=== PATIENT | male | born 1935 | race Two or more races ===

== ENCOUNTER 2024-06-09 04:14 | Inpatient (IN) | payer OTHER, MEDICARE, SELFPAY ==
[2024-06-09] VITALS (16 sets, daily range): BP systolic 108–170; BP diastolic 60–89; PULSE 67–91; RESP 13–22; TEMP 36.1–36.9; O2SAT 91–99; BMI 26.6; BMI 26.2
--- NOTE | 2024-06-09 04:30 | EKG_ITS ---
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) Order Number: [id number] Reading MD: [place] ([facility]) Measurements Intervals Holly Rate: 79 P: 17 IL: 170 QRS: -43 QRSD: 154 T: 112 QT: 426 QTc: 491 Interpretive Statements SINUS RHYTHM WITH OCCASIONAL VENTRICULAR PREMATURE COMPLEXES MARKED LEFT AXIS DEVIATION [QRS AXIS < -30] LEFT BUNDLE BRANCH BLOCK [120+ ms QRS DURATION, 80+ ms Q/S IN V1/V2, 85+ ms R IN I/aVL/V5/V6] No previous ECG available for comparison /store/S0/[id number].pdf
--- NOTE | 2024-06-09 04:30 | XR_ITS ---
Examination: PA lateral chest 2 views Technique: Upright PA lateral chest 2 views Exam date and time: June 09, 2024 0442 hrs. Comparison 2021 Indications: Chest pain today. Findings: Significant CHF Mild enlargement cardiac contour Prominent vascular congestion including central vascular engorgement Perihilar basilar edema with small pleural effusions Consider superimposed pneumonia at the lung bases Prominent osteopenia Impression: Significant CHF Consider superimposed pneumonia at the lung bases
--- NOTE | 2024-06-09 04:30 | XR_ITS ---
Examination: Abdomen sonogram, Limited Date and time of exam: June 09, 2024 0543 hrs. Indications: Epigastric pain beginning 4 days ago Technique: Real-time bradford scale transabdominal sonographic images of the upper abdomen obtained. Findings: Normal gallbladder Normal common bile duct 0.3 cm Pancreatic head 2.7 cm Liver 13.9 cm lobular contour no focal liver lesions Normal hepatopedal portal venous flow Patent IVC No right hydronephrosis Impression: Normal gallbladder Suspect primary hepatocellular disease
--- NOTE | 2024-06-09 04:31 | PD.EDRME ---
Rapid Medical Screening Exam [facility] Arrival date/time: 06/09/24 04:14 89-year-old male past medical history of diabetes presents emergency department complaining of epigastric pain with shortness of breath and difficulty breathing. Chief Complaint: Abdominal Pain Time Seen by Provider: 06/09/24 04:22 Vital signs: Vital Signs Temperature 97.6 F 06/09/24 04:27 Pulse Rate 80 06/09/24 04:27 Respiratory Rate 22 H 06/09/24 04:27 Blood Pressure 167/81 H 06/09/24 04:27 Pulse Oximetry (%) 93 L 06/09/24 04:27 Oxygen Delivery Method Room Air 06/09/24 04:27 Vital signs reviewed by provider: Yes
--- NOTE | 2024-06-09 05:21 | EDNOTE_ITS ---
ED Abdominal Pain RME/HPI General Chief Complaint: Abdominal Pain Stated complaint: UPPER ABD PAIN Time seen by provider: 06/09/24 04:22 Arrival date/time: 06/09/24 04:14 Source: patient Mode of arrival: ambulatory Limitations: no limitations RME / HPI RME / HPI narrative: 06/09/24 04:14 89-year-old male past medical history of diabetes presents emergency department complaining of epigastric pain with shortness of breath and difficulty breathing. Dr. Garcia?s Main ED Evaluation: 89-year-old male with h/o DM2, BPH, who presents to the emergency department for complaints of shortness of breath, off and on, for the past 4 days. Patient states he has been unable to sleep comfortably. He states when he lays down flat, he has difficulty and needs to catch his breath. He also reports epigastric pain. He reports minor cough with white phlegm. No sweating, nausea, vomiting, diarrhea, fever, or any other associated symptoms or medical complaints. He denies history of smoking. Related Data Home Medications ?Medication ?Instructions ?Recorded ?Confirmed GLIPIZIDE 10 mg PO QDAY ##0 06/23/13 07/28/19 Isosorbide Mononitrate * (IMDUR *) 30 mg PO QDAY ##90 06/23/13 07/28/19 Levothyroxine * (SYNTHROID *) 100 mcg PO QDAY ##90 06/23/13 07/28/19 lisinopril 40 mg tablet 40 mg PO QDAY ##90 06/23/13 07/28/19 Glucosamine/MSM/Chondroitin A * 1 tab PO BID #0 tabs 08/25/16 07/28/19 (TRIPLEFLEX *) acetaminophen 500 mg tablet 500 mg PO BID PRN PAIN #0 tabs 08/25/16 07/28/19 (Tylenol Extra Strength) atorvastatin 40 mg tablet (Lipitor) 40 mg PO HS #0 tabs 08/25/16 07/28/19 carvedilol 25 mg tablet (Coreg) 25 mg PO QDAY #0 tabs 08/25/16 07/28/19 cholecalciferol (vitamin D3) 50 2,000 unit PO QDAY #0 caps 08/25/16 07/28/19 mcg (2,000 unit) capsule (Vitamin D3) hydrochlorothiazide 25 mg tablet 25 mg PO QAM #0 tabs 08/25/16 07/28/19 tamsulosin 0.4 mg capsule 0.4 mg PO QDAY 07/02/18 07/28/19 Allergies Allergy/AdvReac Type Severity Reaction Status Date / Time NKA* Allergy Uncoded 07/28/19 08:32 Review of Systems Review of Systems Systems Reviewed: All systems reviewed, normal except as documented Past Medical History Past Medical History CARDIAC: Negative Congestive Heart Failure RESPIRATORY: Negative Chronic Obstructive Pulmonary Disease (COPD) GENITOURINARY: Negative Renal Disease ENDOCRINE: Positive Diabetes Mellitus Type 2; Negative Diabetes Mellitus Type 1 Social History SMOKING STATUS: Never smoker ED Exam Narrative Physical exam: GENERAL APPEARANCE: alert and oriented x 4, well-developed, well-nourished, no acute distress VITALS: All vitals were reviewed and the pulse ox is 93% on room air, which is normal according to my interpretation. HEENT: Normocephalic, atraumatic; pupils equal, round, reactive to light; EOMI; mucous membranes pink, moist; oropharynx clear NECK: Supple LUNGS: Coarse breath sounds throughout. No respiratory distress. HEART: Regular rate, regular rhythm; normal S1, S2; no murmurs ABDOMEN: non distended; normal BS; soft, tenderness to RUQ and epigastrium, moderate with positive Mcmullen's sign, voluntary rebound but no rigidity, no guarding, no rebound; no masses, no organomegaly, no hernia BACK: no CVA tenderness EXTREMITIES: atraumatic; no edema NEUROLOGIC: awake; alert and oriented x4; cranial nerves II-XII grossly intact; no focal sensory or motor deficits PSYCHIATRIC: appropriate mood and affect SKIN: warm, dry, normal color; no rashes General Limitations: Present no limitations Course Quality Measures none Orders Category Date Time Status Bedside COVID-19 Antigen Test NOW Care 06/09/24 05:35 Completed Bedside Influenza A&B Antigen Test NOW Care 06/09/24 05:[address] Screening NOW Care 06/09/24 07:09 Completed Software Quality Analyst Q4H START 00 Care 06/09/24 05:21 Active Continuous Pulse Oximetry NOW Care 06/09/24 05:21 Completed EKG (ED ONLY) *Do not use* NOW Care 06/09/24 04:[address] chest abdomen pelvis w Stat Exams 06/09/24 07:08 Completed EKG (ED Only) Stat Exams 06/09/24 04:30 Draft US gall bladder Stat Exams 06/09/24 04:30 Completed XR chest 2V Stat Exams 06/09/24 04:30 Completed B-Type Natriuretic Peptide Stat Lab 06/09/24 05:19 Completed CBC Stat Lab 06/09/24 05:19 Completed Comprehensive Metabolic Panel Stat Lab 06/09/24 05:19 Completed Free T4 (Free Thyroxine) Stat Lab 06/09/24 05:19 Completed Lipase Stat Lab 06/09/24 05:19 Completed Magnesium Stat Lab 06/09/24 05:19 Completed Partial Thromboplastin Time Stat Lab 06/09/24 05:19 Completed Prothrombin Time with INR Stat Lab 06/09/24 05:19 Completed Troponin I Stat Lab 06/09/24 05:19 Completed Urinalysis Stat Lab 06/09/24 07:35 Completed Furosemide [Lasix Inj] Med 06/09/24 11:06 Discontinued 20 mg IVP X1 ONE Sodium Chloride 0.9% 1000 ml [Ns] 1,000 ml Med 06/09/24 07:08 Discontinued IV 125 mls/hr cefTRIAXone/D5w 1gm IV premix [Rocephin/D5w 1gm IV Med 06/09/24 11:06 Discontinued premix] 50 ml IV X1 Vital Signs Vital signs: Vital Signs Temperature 97.6 F 06/09/24 04:27 Pulse Rate 80 06/09/24 04:27 Respiratory Rate 22 H 06/09/24 04:27 Blood Pressure 167/81 H 06/09/24 04:27 Pulse Oximetry (%) 93 L 06/09/24 04:27 Oxygen Delivery Method Room Air 06/09/24 04:27 Procedures -ED Procedure Comment EKG at 04:38 shows normal sinus rhythm at 79, left axis deviation, no ectopy, no signs of acute ischemia. QRS is 100, QTc 439. No STEMI. Abdominal Pain MDM MDM Narrative MDM Narrative:: 06:00 Care signed out to oncoming dayshift provider Past medical, surgical, social and family history reviewed. Vitals and home medications reviewed. Results and treatment plan discussed. They will assume the care of the patient a t this time and will follow the patient, pending remaining work-up and final disposition. Scribe Attestation: I, Javier Small, am scribing for and in the presence of Dr. Garcia. Provider Notation: Although this document has been carefully reviewed, there may still be some phonetic and other typographical errors. These errors are purely grammatical due to imperfections in the software program and should not be construed in any way to compromise the substance of the patient's medical care during this visit. Patient data External records reviewed:: [facility] previous records Clinical information provided by:: patient Social determinants that could affect healthcare access:: none Patient has the following chronic illnesses:: DM2, history of colostomy, BPH followed by Dr. Oquendo How is presenting disease/condition affected by chronic disease/condition?: uneffected by Evaluation data The following diagnostics were reviewed and interpreted by me:: lab results, radiology exam(s) and EKG tracing(s) Lab and/or radiology exams considered but not ordered:: None Interpretation Summary: Right upper quadrant abdominal ultrasound with doppler and wave doppler spectral analysis. June 09, 2024 at 0455 hours Clinical History: Epigastric pain. Technique: Grayscale and color flow images of the right upper quadrant were provided. Hepatic and portal veins were also imaged with color flow images. Comparison: No prior study is available for comparison. Findings: The liver is normal in echogenicity. No intrahepatic biliary ductal dilatation. No gallbladder calculus, wall thickening, or pericholecystic fluid is demonstrated. The common bile duct is normal in caliber at 3.1 mm. The pancreas is unremarkable to the extent visualized. The right kidney is within normal limits. The portal vein is patent with hepatopetal flow and normal wave Doppler spectral analysis. The hepatic veins are patent with normal wave Doppler spectral analysis. Mcmullen sign is not available at the time of this report. Impression: Unremarkable right upper quadrant ultrasound examination. Report Electronically Signed By: Enrrique Bruno 06/09/2024 5:29:59 AM [EST] Medications / Prescriptions Medications or Prescriptions considered but not ordered:: None Medication administrations:: Medication Administration History Acetaminophen (Acetaminophen 325 Mg Tablet) 650 mg PO Q6H PRN PRN Reason: PAIN SCALE 1-3 (mild Stop: 07/09/24 11:58 Acetaminophen (Acetaminophen 325 Mg Tablet) 650 mg PO Q6H PRN PRN Reason: Fever >100.4 Stop: 07/09/24 11:58 Hydrocodone Bitart/Acetaminophen (Hydrocodone/Apap 10/325 Tab) 1 tab PO Q4HR PRN PRN Reason: PAIN SCALE 7-10 (Severe Stop: 06/14/24 11:58 Last Admin: 06/09/24 13:25 Dose: 1 tab Documented By: AM Albuterol/Ipratropium (Albuterol/Ipratropium (Duoneb) Rt Nidhi 3 Ml Nebu) 3 ml INH Q6HRRT [facility] Stop: 07/09/24 12:59 Last Admin: 06/10/24 00:28 Dose: 3 ml Documented By: Admin: 06/09/24 19:20 Dose: 3 ml Documented By: Admin: 06/09/24 13:19 Dose: 3 ml Documented By: ASM Atorvastatin Calcium (Atorvastatin Calcium 20 Mg Tablet) 40 mg PO HS [facility] Stop: 07/09/24 20:59 Last Admin: 06/09/24 20:19 Dose: 40 mg Documented By: Azithromycin (Azithromycin 250 Mg Tablet) 250 mg PO QDAY [facility] Stop: 06/17/24 08:59 Carvedilol (Carvedilol 12.5 Mg Tablet) 25 mg PO QDAY [facility] Stop: 07/09/24 12:14 Last Admin: 06/09/24 13:26 Dose: 12.5 mg Documented By: AM Furosemide (Furosemide Inj 10 Mg/Ml 4ml Vial) 40 mg IVP QDAY [facility] Stop: 07/09/24 14:14 Last Admin: 06/09/24 16:08 Dose: 40 mg Documented By: [facility] Heparin Sodium (Porcine) (Heparin Sod Inj 5000 Unit/Ml Vial) 5,000 unit SC Q8HR [facility] Stop: 06/23/24 13:59 Ceftriaxone Sodium/Dextrose (Rocephin/D5w 1gm Iv Premix) 50 mls @ 100 mls/hr IV DAILY [facility] Stop: 06/18/24 08:59 Ondansetron HCl (Ondansetron Inj 2 Mg/Ml Inj 2 Ml) 4 mg IV Q6H PRN; Protocol PRN Reason: NAUSEA OR VOMITING Stop: 07/09/24 11:58 Oxycodone/Acetaminophen (Oxycodone/Apap 5/325 Tablet) 1 tab PO Q6H PRN PRN Reason: PAIN SCALE 4-6 (Moderate Stop: 06/14/24 11:58 Pantoprazole Sodium (Pantoprazole Inj 40 Mg Vial) 40 mg IVP QDAY [facility] Stop: 07/09/24 11:59 Last Admin: 06/09/24 13:27 Dose: 40 mg Documented By: AM Tamsulosin HCl (Tamsulosin Hcl 0.4 Mg Capsule) 0.4 mg PO QDAY [facility] Stop: 07/10/24 08:59 Discontinued Medications Furosemide (Furosemide Inj 10 Mg/Ml Vial 2 Ml) 20 mg IVP X1 ONE Stop: 06/09/24 11:07 Last Admin: 06/09/24 11:42 Dose: 20 mg Documented By: AM Sodium Chloride (Ns) 1,000 mls @ 125 mls/hr IV .Q8H ONE Stop: 06/09/24 15:07 Last Infusion: 06/09/24 11:37 Dose: Infused Documented By: Admin: 06/09/24 07:49 Dose: 125 mls/hr Documented By: AM Ceftriaxone Sodium/Dextrose (Rocephin/D5w 1gm Iv Premix) 50 mls @ 100 mls/hr IV X1 ONE Stop: 06/09/24 11:35 Last Infusion: 06/09/24 13:10 Dose: Infused Documented By: Admin: 06/09/24 11:43 Dose: 100 mls/hr Documented By: AM Azithromycin 500 mg/ Sodium (Chloride) 250 mls @ 250 mls/hr IV X1 ONE Stop: 06/09/24 13:01 Last Infusion: 06/09/24 16:00 Dose: Infused Documented By: [facility] Admin: 06/09/24 13:27 Dose: 250 mls/hr Documented By: AM Azithromycin 250 mg/ Sodium (Chloride) 250 mls @ 250 mls/hr IV QDAY [facility] Stop: 06/17/24 08:59 Levothyroxine Sodium (Levothyroxine Sodium 100 Mcg Tablet) 100 mcg PO X1 ONE Stop: 06/09/24 12:05 Last Admin: 06/09/24 13:26 Dose: 100 mcg Documented By: AM Magnesium Oxide (Magnesium Oxide 400 Mg Tablet) 400 mg PO X1 ONE Stop: 06/09/24 12:05 Last Admin: 06/09/24 13:26 Dose: 400 mg Documented By: AM Sodium Chloride (Sodium Chloride Rt 10% 15 Ml Nebu) 5 ml INH X1 ONE Stop: 06/09/24 12:05 As above Consultations Consultation(s) initiated? (list below): No Diagnosis Differential diagnosis abdominal pain: other (Gallbladder pathology vs pancreatitis, PNA, NM, CHF) Most likely diagnosis given after review of the tests above:: See clinical impression below Admission Indicated Admission indicated?: not indicated Explain why admission is indicated or not indicated:: Sign-out pending work-up and final disposition Admission Request Was there a request for admission?: No Disposition Plan Disposition Plan: other (specify) (Sign-out pending work-up and final disposition) Discharge Plan Plan Patient Disposition: Admit Acute Care w/in Hospital Disposition Comment: Stable for admit Problem List Clinical Impression: CHF (congestive heart failure), Pneumonia, Pleural effusion
[2024-06-09 05:27] LABS: Basophils % (Auto) 1 % (0-2.5); Eosinophils # (Auto) 0.1 Thou/mm3 (0.0-0.5); Eosinophils % (Auto) 2 % (0-10); Immature Granulocytes % (Auto) 0 % (0-0); Immature Granulocytes Auto 0.01 Thou/mm3 (0.00-0.00); Lymphocytes # (Auto) 0.8 Thou/mm3 (1.0-4.8); Lymphocytes % (Auto) 20 % (10-50); Mean Corpuscular HGB Conc 34.5 g/dl (31.0-37.0); Mean Corpuscular Hemoglobin 32.4 pg (25.0-35.0); Mean Corpuscular Volume 94 fL (80-100); Monocytes # (Auto) 0.3 Thou/mm3 (0.0-0.8); Monocytes % (Auto) 8 % (0-12); Neutrophils # (Auto) 2.7 Thou/mm3 (1.8-7.7); Neutrophils % (Auto) 69 % (37-80); Nucleated Red Blood Cell % 0 /100 WBC (0); Platelet Count 110 Thou/mm3 (140-440); RDW Standard Deviation 51.1 fL (35.1-43.9); Red Blood Count 3.09 Miln/mm3 (4.50-5.90); White Blood Count 3.9 Thou/mm3 (3.8-10.6)
--- NOTE | 2024-06-09 05:30 | PRELIM_ITS ---
Right upper quadrant abdominal ultrasound with doppler and wave doppler spectral analysis. June at 0455 hours Clinical History: Epigastric pain.Technique: Grayscale and color flow images of the right upper quadrant were provided. Hepatic and portal veins were also imaged with color flow howard ges.Comparison: No prior study is available for comparison.Findings:The liver is normal in echogenici ty.No intrahepatic biliary ductal dilatation. No gallbladder calculus, wall thickening, or pericholec ystic fluid is demonstrated.The common bile duct is normal in caliber at 3.1 mm. The pancreas is unre markable to the extent visualized.The right kidney is within normal limits. The portal vein is patent with hepatopetal flow and normal wave Doppler spectral analysis. The hepatic veins are patent with n ormal wave Doppler spectral analysis.Mcmullen sign is not available at the time of this report.Impressi on:Unremarkable right upper quadrant ultrasound examination. Report Electronically Signed By: Enrrique Bruno 06/09/2024 5:29:59 AM [EST]
[2024-06-09 05:53] LABS: B-Type Natriuretic Peptide 300 pg/mL (0-100)
[2024-06-09 05:55] LABS: Alanine Aminotransferase 11 U/L (10-49); Albumin, Serum 4.1 gm/dL (3.4-4.8); Albumin/Globulin Ratio 1.1 (1.2-2.2); Alkaline Phosphatase 94 U/L (46-116); Anion Gap 9 (7-16); Aspartate Amino Transferase 16 U/L (0-34); BUN/Creatinine Ratio 14 Ratio (12-20); Bilirubin,Total 0.9 mg/dL (0.3-1.2); Blood Urea Nitrogen 19 mg/dL (9-23); Calcium 9.2 mg/dL (8.3-10.6); Calcium (Corrected) 9.2 mg/dL (8.5-10.1); Carbon Dioxide 26.1 mMol/L (20.0-31.0); Chloride 106 mMol/L (98-107); Creatinine (Component) 1.4 mg/dL (0.6-1.3); Globulin 3.8 gm/dL (2.3-3.5); Glucose 154 mg/dL (74-106); Lipase 262 U/L (12-53); Magnesium 1.8 mg/dL (1.6-2.6); Osmolality,Calculated 286 (275-295); Sodium 141 mMol/L (136-145); Total Protein 7.9 gm/dL (5.7-8.2); Troponin I 0.028 ng/mL (0.0-0.045); eGFR 49 See Note
[2024-06-09 05:57] LABS: INR 1.1 (0.9-1.3); Partial Thromboplastin Time 28.5 Seconds (22.0-36.0); Prothrombin Time 11.9 Seconds (9.0-12.2)
--- NOTE | 2024-06-09 06:50 | EDNOTE_ITS ---
Emergency Room Addendum <Claire Grove - Last Filed: 06/09/24 09:52> Addendum Narrative: 0600: Care assumed from Dr. Garcia, the previous shift emergency physician. Past medical, surgical, social and family history reviewed. Vitals and home medications reviewed. I will assume the care of the patient at this time, pending remainder of work-up, reassessment, and final disposition. Please refer to the emergency department record for history and examination from initial visit.? Nursing notes reviewed by me. Vital signs reviewed by me. [place] medical records reviewed by me. RADIOLOGY Ordering Physician: Rizwan Raines MD Date of Service: 06/09/24 Procedure(s): CT chest abdomen pelvis w Accession Number(s): [id number] cc: Edilson Barcenas MD; Tho Reid MD; Rizwan Raines MD~ Examination: CT chest with intravenous contrast CT abdomen with intravenous contrast CT pelvis with intravenous contrast 2-D coronal and sagittal reconstructions Time of exam: June 09, 2024 0845 hours Comparison June 23, 2013 INDICATIONS: Shortness of breath generalized abdominal pain today CTDI: vol (mGy) : 6.75 DLP: (mGycm): 537 Technique: Multiple axial images of the chest, abdomen and pelvis with intravenous contrast, 3.0 mm slice thickness. Images obtained post intravenous injection Isovue 30 cc Isovue-300 2-D sagittal and coronal reconstructions. Low dose protocols were performed. One or more of the following dose reduction techniques were used; automated exposure control, adjustment of the mA and/or KV according to patient size, use of iterative reconstruction technique. Findings: No thoracic aortic aneurysm dilatation Pulmonary artery segments are not enlarged Significant calcification left anterior descending coronary artery Mild enlargement cardiac contour Prominent vascular congestion with septal pulmonary edema Small pleural effusions No focal liver or splenic lesion Contracted gallbladder No pancreatic or adrenal mass 2 mm left renal calculus Moderate bilateral renal parenchymal scar formation Aorta normal size No pericecal inflammatory change No bowel obstruction No diverticulitis Urinary bladder intact Prostatomegaly, AP dimension 4.9 cm Small fat-containing inguinal hernias Severe osteopenia Thoracolumbar transpedicular stabilization centered about a contrast L1 vertebral body Satisfactory alignment IMPRESSION: Moderate CHF 2 mm nonobstructing left renal calculus Moderate bilateral renal parenchymal scar formation No bowel obstruction Dictated By: Tho Reid MD Signed By: <Electronically signed by Tho Reid MD in [place]>06/09/24 0944 <Rizwan Raines MD - Last Filed: 06/09/24 11:08> Addendum Narrative: 0600: Care assumed from Dr. Garcia, the previous shift emergency physician. Past medical, surgical, social and family history reviewed. Vitals and home medications reviewed. I will assume the care of the patient at this time, pending remainder of work-up, reassessment, and final disposition. Please refer to the emergency department record for history and examination from initial visit.? Nursing notes reviewed by me. Vital signs reviewed by me. [facility] medical records reviewed by me. RADIOLOGY Ordering Physician: Rizwan Raines MD Date of Service: 06/09/24 Procedure(s): CT chest abdomen pelvis w Accession Number(s): [id number] cc: Edilson Barcenas MD; Tho Reid MD; Rizwan Raines MD~ Examination: CT chest with intravenous contrast CT abdomen with intravenous contrast CT pelvis with intravenous contrast 2-D coronal and sagittal reconstructions Time of exam: June 09, 2024 0845 hours Comparison June 23, 2013 INDICATIONS: Shortness of breath generalized abdominal pain today CTDI: vol (mGy) : 6.75 DLP: (mGycm): 537 Technique: Multiple axial images of the chest, abdomen and pelvis with intravenous contrast, 3.0 mm slice thickness. Images obtained post intravenous injection Isovue 30 cc Isovue-300 2-D sagittal and coronal reconstructions. Low dose protocols were performed. One or more of the following dose reduction techniques were used; automated exposure control, adjustment of the mA and/or KV according to patient size, use of iterative reconstruction technique. Findings: No thoracic aortic aneurysm dilatation Pulmonary artery segments are not enlarged Significant calcification left anterior descending coronary artery Mild enlargement cardiac contour Prominent vascular congestion with septal pulmonary edema Small pleural effusions No focal liver or splenic lesion Contracted gallbladder No pancreatic or adrenal mass 2 mm left renal calculus Moderate bilateral renal parenchymal scar formation Aorta normal size No pericecal inflammatory change No bowel obstruction No diverticulitis Urinary bladder intact Prostatomegaly, AP dimension 4.9 cm Small fat-containing inguinal hernias Severe osteopenia Thoracolumbar transpedicular stabilization centered about a contrast L1 vertebral body Satisfactory alignment IMPRESSION: Moderate CHF 2 mm nonobstructing left renal calculus Moderate bilateral renal parenchymal scar formation No bowel obstruction Dictated By: Tho Reid MD Signed By: <Electronically signed by Tho Reid MD in [place]>06/09/24 0944 Chest x-ray reviewed by and interpreted by me as follow: Enlarged heart. Mediastinum normal. Normal bones. Congestive heart failure. Cannot rule out bibasilar infiltrate. CT of the chest abdomen and pelvic was read by Dr. Tho Reid. Please see above result Twelve-lead EKG that was done at 4:38 AM interpreted by me: Sinus rhythm. Heart rate of 79. Left axis deviation. No ST elevation or depression. No PVC. Left bundle branch block pattern. 1 PVC. In the emergency department I am going to give the patient some Lasix. But he did diurese. I also gave the patient Rocephin IV for the possible pneumonia in the bases of the lungs. 11 AM, I spoke to and discussed with Dr. Dupree, on-call resident hospitalist. Attending is Dr. Ramirez. She agreed to assess the patient for admission. Diagnosis: Congestive heart failure Nonobstructing kidney stones Pleural effusion Pneumonia Condition stable
--- NOTE | 2024-06-09 07:08 | XR_ITS ---
Examination: CT chest with intravenous contrast CT abdomen with intravenous contrast CT pelvis with intravenous contrast 2-D coronal and sagittal reconstructions Time of exam: June 09, 2024 0845 hours Comparison June 23, 2013 INDICATIONS: Shortness of breath generalized abdominal pain today CTDI: vol (mGy) : 6.75 DLP: (mGycm): 537 Technique: Multiple axial images of the chest, abdomen and pelvis with intravenous contrast, 3.0 mm slice thickness. Images obtained post intravenous injection Isovue 30 cc Isovue-300 2-D sagittal and coronal reconstructions. Low dose protocols were performed. One or more of the following dose reduction techniques were used; automated exposure control, adjustment of the mA and/or KV according to patient size, use of iterative reconstruction technique. Findings: No thoracic aortic aneurysm dilatation Pulmonary artery segments are not enlarged Significant calcification left anterior descending coronary artery Mild enlargement cardiac contour Prominent vascular congestion with septal pulmonary edema Small pleural effusions No focal liver or splenic lesion Contracted gallbladder No pancreatic or adrenal mass 2 mm left renal calculus Moderate bilateral renal parenchymal scar formation Aorta normal size No pericecal inflammatory change No bowel obstruction No diverticulitis Urinary bladder intact Prostatomegaly, AP dimension 4.9 cm Small fat-containing inguinal hernias Severe osteopenia Thoracolumbar transpedicular stabilization centered about a contrast L1 vertebral body Satisfactory alignment IMPRESSION: Moderate CHF 2 mm nonobstructing left renal calculus Moderate bilateral renal parenchymal scar formation No bowel obstruction
[2024-06-09] MEDS: SODIUM CHLORIDE 0.9% 1000 ML 1,000 ML 125 ML IV (07:49)
[2024-06-09 08:11] LABS: Collection Type, Urine Clean Catch; Squamous Epithelial Cell,Urine 0 /hpf (0-5)
[2024-06-09 08:35] LABS: Bilirubin,Urine Negative (Negative); Blood,Urine Negative (Negative); Clarity,Urine Clear (Clear/Hazy); Color,Urine Lt-Yellow (Lt Yel-Yel); Glucose, Urine Negative (Negative); Ketones,Urine Negative (Negative); Leukocyte Esterase,Urine Negative (Negative); Nitrite,Urine Negative (Negative); PH,Urine 6.5 (5.0-7.0); Protein,Urine 2+ (Neg - Trace); RBC,Urine 5 /hpf (0-3); Specific Gravity,Urine 1.014 (1.001-1.035); Urobilinogen,Urine Negative mg/dL (0.0-1.0); WBC,Urine 1 /hpf (0-5)
[2024-06-09] MEDS: FUROSEMIDE INJ 10 MG/ML VIAL 2 ML 20 MG IVP (11:42)
[2024-06-09] MEDS: cefTRIAXone/D5w 1gm IV premix 50 ML IV (11:43)
--- NOTE | 2024-06-09 12:04 | ECHO_ITS ---
Transthoracic Echo Report Ht (in): 68 Wt (lb): 175 Exam Location: Portable Status: Emergency Manager Concrete: Madeline Martinez Indications: Procedure Performed: BP: 118 / 57 HR: 71 Technical Quality: Fair MEASUREMENTS (Male / Female) Normal Values 2D ECHO LV Diastolic Diameter PLAX 5.7 cm 4.2 - 5.9 / 3.9 - 5.3 cm LV Systolic Diameter PLAX 4.9 cm IVS Diastolic Thickness 1.1 cm 0.6 - 1.0 / 0.6 - 0.9 cm LVPW Diastolic Thickness 1.2 cm 0.6 - 1.0 / 0.6 - 0.9 cm LV Relative Wall Thickness 0.4 LVOT Diameter 2.2 cm LV Ejection Fraction MOD 4C 37.8 % LV Cardiac Index MOD 4C 1571.2 cm?/min?m? LV Ejection Fraction 4C AL 39.1 % LV Cardiac Index 4C AL 1682.1 cm?/min?m? LA Volume Index 39.1 cm?/m? 16 - 28 cm?/m? Ascending Aorta Diameter 3.4 cm M-MODE Aortic Root Diameter MM 2.8 cm LA Systolic Diameter MM 5.3 cm LA Ao Ratio MM 1.9 MV E Point Septal Separation 1.7 cm AV Cusp Separation MM 1.6 cm DOPPLER AV Peak Velocity 196.0 cm/s AV Peak Gradient 15.4 mmHg AV Mean Gradient 7.5 mmHg AV Velocity Time Integral 39.5 cm AI Peak Velocity 414.5 cm/s AI Peak Gradient 68.7 mmHg AI Pressure Half Time 343.5 ms LVOT Peak Velocity 79.1 cm/s LVOT Peak Gradient 2.5 mmHg LVOT Velocity Time Integral 18.1 cm LVOT Cardiac Index 2485.2 cm?/min?m? AV Area Cont Eq vti 1.7 cm? AV Area Cont Eq pk 1.5 cm? MV Peak Velocity 143.0 cm/s MV Peak Gradient 8.2 mmHg MV Mean Velocity 96.6 cm/s MV Mean Gradient 4.0 mmHg MV Area PHT 3.7 cm? MR Peak Velocity 539.0 cm/s MR Peak Gradient 116.2 mmHg Mitral E Point Velocity 120.0 cm/s Mitral A Point Velocity 107.0 cm/s Mitral E to A Ratio 1.1 LV E' Lateral Velocity 6.4 cm/s Mitral E to LV E' Lateral Ratio 18.7 LV E' Septal Velocity 2.8 cm/s Mitral E to LV E' Septal Ratio 42.4 FINDINGS Left Ventricle Normal left ventricular size. Severe systolic dysfunction. with severe global hypokinesis. The ejec tion fraction is visually estimated at 30%. Right Ventricle The right ventricle is normal in size and systolic function. Left Atrium The left atrium is mildly dilated. Right Atrium The right atrium is normal by two-dimensional imaging, color flow and Doppler imaging with no struct ural abnormalities, no thrombus formation present. Atrial Septum The interatrial septum appears normal with no evidence of a shunt. Aorta The aorta is normal by two-dimensional, color flow and Doppler interrogation. Mitral Valve The mitral valve is normal by two-dimensional, color flow and Doppler interrogation. There is modera te mitral valve regurgitation. Aortic Valve The aortic valve is trileaflet. Mild sclerosis without stenosis. There is mild aortic valve regurgi tation. Tricuspid Valve The tricuspid valve is normal by two-dimensional, color flow and Doppler interrogation. There is tra ce tricuspid valve regurgitation. Pulmonic Valve There is no significant pulmonic valve regurgitation. Vessels The pulmonary artery appears normal. The inferior vena cava pulmonary and hepatic veins appear liset l. Pericardium The pericardium is normal by two-dimensional imaging. There is no significant pericardial effusion. CONCLUSIONS Normal LV size. Severe systolic dysfunction. Estimated EF 30% Normal RV size and function Mild LA dilatation Moderate MR. Mild TR. Mild sclerosis without stenosis Mild aortic regurgitation Beulah Cloud (Electronically Signed) Final Date: 10 June 2024 16:51
--- NOTE | 2024-06-09 12:20 | PD.RESPRO ---
Documentation for date of: 06/09/24 Subjective Subjective Interval history: This is a 89-year-old male with PMHx of hypertension, hypothyroidism, diabetes, BPH, GERD, presented to ED with epigastric pain and shortness of breath x 4 days. Pain started gradually 4 days ago, located in the epigastrium, nonradiating, worsened by laying flat, unrelated to eating or time of the day. Pain associated with SOB, worsened by exertion and laying flat. He states dyspnea has been ongoing gradually worsening over the last 6 months where he is unable to walk longer distances without having to pause for rest. Patient also endorsing dry cough on and off over the last few days. In addition, he had dark stool over the last 2 weeks but denies paris rectal bleeding. 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 Denies headaches, muscle weakness, focal neurologic deficits, fevers, chills, chest pain, palpitations, productive cough, N/V/D/C, urinary symptoms such as hematuria or dysuria or incontinence, sick exposure, recent travel. ED COURSE: Afebrile, BP 167/81, HR 80, RR 22, satting 93% on 2 L NC. CBC showed Hgb 10.4, PLT 110, MCV 94, no leukocytosis. Normal coag studies. CMP showed CR 1.4 around baseline, GFR 49 around baseline, GLUCOSE 154, BNP 300, troponin negative, lipase 262. EKG showed sinus rhythm with occasional VPC, no acute ST changes. CXR showed significant CHF with superimposed pneumonia. CT CAP showed moderate CHF, PMHx: [] PSHx: [] MEDS: [] ALLERGIES: [] SH: [] Exam Vital Signs Temp Pulse Resp BP Pulse Ox O2 Del Method O2 Flow Rate 98.5 F 91 13 165/82 H 95 Nasal Cannula 2 06/09/24 10:00 06/09/24 11:42 06/09/24 10:00 06/09/24 11:42 06/09/24 10:00 06/09/24 10:00 06/09/24 10:00 Objective Labs 06/09/24 05:19 06/09/24 05:19 Labs: Laboratory Results - last 24 hr 06/09/24 06/09/24 05:19 07:35 WBC 3.9 RBC 3.09 L Hgb 10.0 L Hct 29.0 L MCV 94 MCH 32.4 MCHC 34.5 RDW Std Deviation 51.1 H Plt Count 110 L Neut % (Auto) 69 Lymph % (Auto) 20 Knott % (Auto) 8 Eos % (Auto) 2 Baso % (Auto) 1 Neut # (Auto) 2.7 Lymph # (Auto) 0.8 L Knott # (Auto) 0.3 Eos # (Auto) 0.1 Baso # (Auto) 0.0 Immature Gran # (Auto) 0.01 H Absolute Nucleated RBC 0.00 Immature Gran % 0 Nucleated RBC % 0 PT 11.9 INR 1.1 APTT 28.5 Sodium 141 Potassium 4.0 Chloride 106 Carbon Dioxide 26.1 Anion Gap 9 BUN 19 Creatinine 1.4 H Estim Creat Clear Calc 36.0 L eGFR 49 L BUN/Creatinine Ratio 14 Glucose 154 H Calculated Osmolality 286 Calcium 9.2 Corrected Calcium 9.2 Magnesium 1.8 Total Bilirubin 0.9 AST 16 ALT 11 Alkaline Phosphatase 94 Troponin I 0.028 B-Natriuretic Peptide 300 H Total Protein 7.9 Albumin 4.1 Globulin 3.8 H Albumin/Globulin Ratio 1.1 L Lipase 262 H Free T4 1.20 Ur Collection Type Clean Catch Urine Color Lt-Yellow Urine Clarity Clear Urine pH 6.5 Ur Specific [place] 1.014 Urine Protein 2+ A Urine Glucose (UA) Negative Urine Ketones Negative Urine Blood Negative Urine Nitrite Negative Urine Bilirubin Negative Urine Urobilinogen (Auto) Negative Ur Leukocyte Esterase Negative Urine RBC 5 H Urine WBC 1 Ur Squamous Epith Cells 0 Urine Bacteria None Assessment & Plan Assessment Current Active Medications: Generic Name Dose Route Start Last Admin Trade Name Lisa PRN Reason Stop Dose Admin Acetaminophen 650 mg 06/09/24 11:59 Acetaminophen 325 Mg Tablet PO 07/09/24 11:58 Q6H PRN PAIN SCALE 1-3 (mild Acetaminophen 650 mg 06/09/24 11:59 Acetaminophen 325 Mg Tablet PO 07/09/24 11:58 Q6H PRN Fever >100.4 Hydrocodone Bitart/Acetaminophen 1 tab 06/09/24 11:59 Hydrocodone/Apap 10/325 Tab PO 06/14/24 11:58 Q4HR PRN PAIN SCALE 7-10 (Severe Albuterol/Ipratropium 3 ml 06/09/24 13:00 Albuterol/Ipratropium (Duoneb) Rt Nidhi 3 Ml Nebu INH 07/09/24 12:59 Q6HRRT [facility] Atorvastatin Calcium 40 mg 06/09/24 21:00 Atorvastatin Calcium 20 Mg Tablet PO 07/09/24 20:59 HS DANNI Carvedilol 25 mg 06/09/24 12:15 Carvedilol 12.5 Mg Tablet PO 07/09/24 12:14 QDAY [facility] Sodium Chloride 1,000 mls @ 125 mls/hr 06/09/24 07:08 06/09/24 11:37 Ns IV 06/09/24 15:07 Infused .Q8H ONE Infusion Azithromycin 500 mg/ Sodium 250 mls @ 250 mls/hr 06/09/24 12:02 Chloride IV 06/09/24 13:01 X1 ONE Azithromycin 250 mg/ Sodium 250 mls @ 250 mls/hr 06/10/24 09:00 Chloride IV 06/17/24 08:59 QDAY [facility] Ceftriaxone Sodium/Dextrose 50 mls @ 100 mls/hr 06/11/24 09:00 Rocephin/D5w 1gm Iv Premix IV 06/18/24 08:59 DAILY [facility] Ondansetron HCl 4 mg 06/09/24 11:59 Ondansetron Inj 2 Mg/Ml Inj 2 Ml IV 07/09/24 11:58 Q6H PRN NAUSEA OR VOMITING Protocol Oxycodone/Acetaminophen 1 tab 06/09/24 11:59 Oxycodone/Apap 5/325 Tablet PO 06/14/24 11:58 Q6H PRN PAIN SCALE 4-6 (Moderate Pantoprazole Sodium 40 mg 06/09/24 12:00 Pantoprazole Inj 40 Mg Vial IVP 07/09/24 11:59 QDAY [facility] Tamsulosin HCl 0.4 mg 06/10/24 09:00 Tamsulosin Hcl 0.4 Mg Capsule PO 07/10/24 08:59 QDAY [facility]
[2024-06-09 12:49] LABS: Basophils % (Auto) 0 % (0-2.5); Eosinophils # (Auto) 0.1 Thou/mm3 (0.0-0.5); Eosinophils % (Auto) 2 % (0-10); Hemoglobin 10.7 g/dL (13.5-16.0); Immature Granulocytes % (Auto) 0 % (0-0); Immature Granulocytes Auto 0.01 Thou/mm3 (0.00-0.00); Lymphocytes # (Auto) 0.8 Thou/mm3 (1.0-4.8); Lymphocytes % (Auto) 21 % (10-50); Mean Corpuscular HGB Conc 34.5 g/dl (31.0-37.0); Mean Corpuscular Hemoglobin 32.3 pg (25.0-35.0); Mean Corpuscular Volume 94 fL (80-100); Monocytes # (Auto) 0.3 Thou/mm3 (0.0-0.8); Monocytes % (Auto) 8 % (0-12); Neutrophils # (Auto) 2.8 Thou/mm3 (1.8-7.7); Neutrophils % (Auto) 69 % (37-80); Nucleated Red Blood Cell % 0 /100 WBC (0); Platelet Count 106 Thou/mm3 (140-440); RDW Standard Deviation 50.4 fL (35.1-43.9); Red Blood Count 3.31 Miln/mm3 (4.50-5.90)
[2024-06-09] MEDS: ALBUTEROL/IPRATROPIUM (Duoneb) RT SOL 3 ML NEBU INH ×2 (13:19→19:20)
[2024-06-09] MEDS: HYDROcodone/APAP 10/325 TAB PO (13:25)
[2024-06-09] MEDS: carVEDILOL 12.5 MG TABLET 25 MG PO (13:26)
[2024-06-09] MEDS: LEVOTHYROXINE SODIUM 100 MCG TABLET PO (13:26)
[2024-06-09] MEDS: MAGNESIUM OXIDE 400 MG TABLET PO (13:26)
[2024-06-09] MEDS: PANTOPRAZOLE INJ 40 MG VIAL IVP (13:27)
[2024-06-09] MEDS: AZITHROMYCIN INJ 500 MG in SODIUM CHLORIDE 0.9% 250 ML 250 ML 250 MG IV (13:27)
--- NOTE | 2024-06-09 13:41 | ESHP_ITS ---
<Statement entered by Andreea Kwon MD - 06/09/24 19:15> I discussed with and supervised my co-resident involved in the care of this patient. I agree with the assessment and plan as documented above. Andreea Kwon,PGY-[id number] Disclaimer: Despite multiple revisions, due to the dictation software being used, the document below may not be free of grammatical errors including phonetic/typographic errors. However, this does not deter from our commitment to providing health care in the patient's best interest in mind. Documentation for date of: 06/09/24 HPI History of Present Illness History of present illness: This is a 89-year-old male with PMHx of hypertension, hypothyroidism, diabetes, BPH, GERD, presented to ED with epigastric pain and shortness of breath x 4 days. Pain started gradually 4 days ago, located in the epigastrium, nonradiating, worsened by laying flat, unrelated to eating or time of the day. Pain associated with SOB, worsened by exertion and laying flat. He states dyspnea has been ongoing gradually worsening over the last 6 months where he is unable to walk longer distances without having to pause for rest. Patient also endorsing dry cough on and off over the last few days. In addition, he had dark stool over the last 2 weeks but denies paris rectal bleeding. Patient states he lives on a farm [place] away from 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 Denies headaches, muscle weakness, focal neurologic deficits, fevers, chills, chest pain, palpitations, productive cough, N/V/D/C, urinary symptoms such as hematuria or dysuria or incontinence, sick exposure, recent travel. ED COURSE: Afebrile, BP 167/81, HR 80, RR 22, satting 93% on 2 L NC. CBC showed Hgb 10.4, PLT 110, MCV 94, no leukocytosis. Normal coag studies. CMP showed CR 1.4 around baseline, GFR 49 around baseline, GLUCOSE 154, BNP 300, troponin negative, lipase 262. UA was negative for UTI. EKG showed sinus rhythm with occasional VPC, no acute ST changes. CXR showed significant CHF with superimposed pneumonia. CT CAP showed moderate CHF, 2 mm obstructive left renal calculus, moderate bilateral parenchymal scar formation, no bowel obstruction. 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 PMHx: HTN, hypothyroidism, DM, BPH, GERD PSHx: None MEDS: ATORVASTATIN, LEVOTHYROXINE, VALSARTAN, CARVEDILOL, TAMSULOSIN ALLERGIES: NKA SH: Denies tobacco, alcohol, or drug use Exam Vital Signs Temp Pulse Resp BP Pulse Ox O2 Del Method O2 Flow Rate 97.5 F 90 20 170/89 H 99 Nasal Cannula 2 06/09/24 12:22 06/09/24 13:26 06/09/24 13:22 06/09/24 13:26 06/09/24 13:22 06/09/24 12:22 06/09/24 13:22 Narrative Exam GENERAL * Normal appearing elderly male, NAD, on nasal cannula, breathing comfortably HEENT * NCAT.?GARETH. Oral mucosa is moist. Patent Nares NECK * Supple, nontender, no thyromegaly, no meningismus, no JVD, no step offs CHEST * RRR, no m/g/r * CTAB, no w/r/r. Symmetrical chest rise. No intercostal subcostal retraction * Atraumatic, nontender, no crepitus, symmetrical expansion. ABDOMEN * Soft, flat, nontender. No guarding/rebound tenderness/masses. * Bowel sounds presents EXTREMITIES * Nontender, no cyanosis, no edema * No edema/cyanosis. SKIN * Warm and dry, no jaundice/rashes. NEUROMUSCULAR * No lumbar or midline, no CVA, no paraspinal muscle spasm or tenderness. * Moves all 4 extremities well, with full ROM and good CSM. * BEEBE x4, CN II-XII grossly intact. * No focal neurologic deficits. PSYCHIATRY * Normal mood and affect, cooperative, no SI or HI or hallucinations. Results: Labs 06/10/24 05:00 06/10/24 05:00 Labs: Short CBC 06/09/24 06/09/24 Range/Units 05:19 12:31 WBC 3.9 4.0 (3.8-10.6) Thou/mm3 Hgb 10.0 L 10.7 L (13.5-16.0) g/dL Hct 29.0 L 31.0 L (41.0-53.0) % Plt Count 110 L 106 L (140-440) Thou/mm3 BMP 06/09/24 05:19 Sodium 141 Potassium 4.0 Chloride 106 Carbon Dioxide 26.1 BUN 19 Creatinine 1.4 H Glucose 154 H Calcium 9.2 Cardiac Enzymes 06/09/24 Range/Units 05:19 Troponin I 0.028 (0.0-0.045) ng/mL Liver Function 06/09/24 Range/Units 05:19 Total Bilirubin 0.9 (0.3-1.2) mg/dL AST 16 (0-34) U/L ALT 11 (10-49) U/L Alkaline Phosphatase 94 (46-116) U/L Albumin 4.1 (3.4-4.8) gm/dL Urine 06/09/24 Range/Units 07:35 Urine Color Lt-Yellow (Lt Yel-Yel) Urine Clarity Clear (Clear/Hazy) Urine pH 6.5 (5.0-7.0) Ur Specific [place] 1.014 (1.001-1.035) Urine Protein 2+ A (Neg - Trace) Urine Glucose (UA) Negative (Negative) Quality Measures Quality Measures VTE prophylaxis Advance care planning discussed with:: patient Medications Home Medications and Allergies Home Medications ?Medication ?Instructions ?Recorded ?Confirmed ?Type GLIPIZIDE 10 mg PO QDAY ##0 06/23/13 07/28/19 History Isosorbide Mononitrate * (IMDUR *) 30 mg PO QDAY ##90 06/23/13 07/28/19 History Levothyroxine * (SYNTHROID *) 100 mcg PO QDAY ##90 06/23/13 07/28/19 History lisinopril 40 mg tablet 40 mg PO QDAY ##90 06/23/13 07/28/19 History Glucosamine/MSM/Chondroitin A * 1 tab PO BID #0 tabs 08/25/16 07/28/19 History (TRIPLEFLEX *) acetaminophen 500 mg tablet 500 mg PO BID PRN PAIN #0 tabs 08/25/16 07/28/19 History (Tylenol Extra Strength) atorvastatin 40 mg tablet (Lipitor) 40 mg PO HS #0 tabs 08/25/16 07/28/19 History carvedilol 25 mg tablet (Coreg) 25 mg PO QDAY #0 tabs 08/25/16 07/28/19 History cholecalciferol (vitamin D3) 50 2,000 unit PO QDAY #0 caps 08/25/16 07/28/19 History mcg (2,000 unit) capsule (Vitamin D3) hydrochlorothiazide 25 mg tablet 25 mg PO QAM #0 tabs 08/25/16 07/28/19 History tamsulosin 0.4 mg capsule 0.4 mg PO QDAY 07/02/18 07/28/19 History Allergies Allergy/AdvReac Type Severity Reaction Status Date / Time No Known Allergies Allergy Unverified 06/10/24 08:53 Visit Medications Acetaminophen (Acetaminophen 325 Mg Tablet) 650 mg PO Q6H PRN PRN Reason: PAIN SCALE 1-3 (mild Stop: 07/09/24 11:58 Acetaminophen (Acetaminophen 325 Mg Tablet) 650 mg PO Q6H PRN PRN Reason: Fever >100.4 Stop: 07/09/24 11:58 Hydrocodone Bitart/Acetaminophen (Hydrocodone/Apap 10/325 Tab) 1 tab PO Q4HR PRN PRN Reason: PAIN SCALE 7-10 (Severe Stop: 06/14/24 11:58 Last Admin: 06/09/24 13:25 Dose: 1 tab Albuterol/Ipratropium (Albuterol/Ipratropium (Duoneb) Rt Nidhi 3 Ml Nebu) 3 ml INH Q6HRRT DANNI Stop: 07/09/24 12:59 Last Admin: 06/09/24 13:19 Dose: 3 ml Atorvastatin Calcium (Atorvastatin Calcium 20 Mg Tablet) 40 mg PO HS DANNI Stop: 07/09/24 20:59 Carvedilol (Carvedilol 12.5 Mg Tablet) 25 mg PO QDAY DANNI Stop: 07/09/24 12:14 Last Admin: 06/09/24 13:26 Dose: 12.5 mg Sodium Chloride (Ns) 1,000 mls @ 125 mls/hr IV .Q8H ONE Stop: 06/09/24 15:07 Last Infusion: 06/09/24 11:37 Dose: Infused Azithromycin 250 mg/ Sodium (Chloride) 250 mls @ 250 mls/hr IV QDAY DANNI Stop: 06/17/24 08:59 Ceftriaxone Sodium/Dextrose (Rocephin/D5w 1gm Iv Premix) 50 mls @ 100 mls/hr IV DAILY DANNI Stop: 06/18/24 08:59 Ondansetron HCl (Ondansetron Inj 2 Mg/Ml Inj 2 Ml) 4 mg IV Q6H PRN; Protocol PRN Reason: NAUSEA OR VOMITING Stop: 07/09/24 11:58 Oxycodone/Acetaminophen (Oxycodone/Apap 5/325 Tablet) 1 tab PO Q6H PRN PRN Reason: PAIN SCALE 4-6 (Moderate Stop: 06/14/24 11:58 Pantoprazole Sodium (Pantoprazole Inj 40 Mg Vial) 40 mg IVP QDAY DANNI Stop: 07/09/24 11:59 Last Admin: 06/09/24 13:27 Dose: 40 mg Tamsulosin HCl (Tamsulosin Hcl 0.4 Mg Capsule) 0.4 mg PO QDAY [facility] Stop: 07/10/24 08:59 Discontinued Medications Furosemide (Furosemide Inj 10 Mg/Ml Vial 2 Ml) 20 mg IVP X1 ONE Stop: 06/09/24 11:07 Last Admin: 06/09/24 11:42 Dose: 20 mg Ceftriaxone Sodium/Dextrose (Rocephin/D5w 1gm Iv Premix) 50 mls @ 100 mls/hr IV X1 ONE Stop: 06/09/24 11:35 Last Titration: 06/09/24 13:10 Dose: 0 mls/hr Azithromycin 500 mg/ Sodium (Chloride) 250 mls @ 250 mls/hr IV X1 ONE Stop: 06/09/24 13:01 Last Admin: 06/09/24 13:27 Dose: 250 mls/hr Levothyroxine Sodium (Levothyroxine Sodium 100 Mcg Tablet) 100 mcg PO X1 ONE Stop: 06/09/24 12:05 Last Admin: 06/09/24 13:26 Dose: 100 mcg Magnesium Oxide (Magnesium Oxide 400 Mg Tablet) 400 mg PO X1 ONE Stop: 06/09/24 12:05 Last Admin: 06/09/24 13:26 Dose: 400 mg Sodium Chloride (Sodium Chloride Rt 10% 15 Ml Nebu) 5 ml INH X1 ONE Stop: 06/09/24 12:05 Assessment & Plan Plan In summary: 89-year-old male with PMH of HTN, hypothyroidism, DM, BPH, GERD, admitted for AHRF likely 2/2 CHF exacerbation versus pneumonia, and abdominal pain. Started on diuresis and ANTIBIOTICS. Pending echocardiogram and cultures. Acute hypoxemic respiratory failure 2/2 ? New onset CHF exacerbation Community-acquired pneumonia Presenting with 4 days of SOB and dry cough, 2 months of gradually worsening exertional dyspnea and orthopnea. CXR showed acute CHF superimposed pneumonia. CT showed moderate CHF. ED gave fluids and LASIX. At the time the patient, bibasilar crackles on exam, but no LE edema. Continued on 2 L NC, satting in upper 90s. No echocardiogram on record. No history of CHF. Patient afebrile, no leukocytosis. Troponin negative. BNP 300. ? Started six 4 mg daily ? Started AZITHROMYCIN (06/09 to [present]) ? Started CEFTRIAXONE (06/09 to [present]) ? DuoNebs Q6H ? Strict RAMA's ? Fluid restriction 1500 cc daily ? Pending echocardiogram ? Pending sputum culture Epigastric abdominal pain GERD ? PUD ? Upper GI bleed Presented with nonradiating abdominal pain x 4 days, unrelated to eating. No other GI symptoms such as N/V/D/C. No abnormal weight loss. No urinary symptoms. UA without UTI. Exam showed tenderness in the epigastrium, negative Mc[place]phy, no rebound tenderness. 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 Elevated lipase 262, LFTs within normal limits. CT CAP without pancreatitis or biliary abnormalities. No abdominal bruits on exam, no abdominal aortic dilations on imaging. No history of alcohol use or smoking. Hx of GERD, previously on medication. Admits to dark stool x 2 weeks, Hgb 10.7. No previous EGD or colonoscopy screening. ? Started PROTONIX 40 mg daily ? Daily CBC ? Transfuse if Hgb <7 ? Pending FOBT ? Consider GI follow-up outpatient ? Consider hepatitis panel Prerenal SADIQ (resolved) ? CKD stage III Admission CR 1.4 then 1.2 after diuresis. GFR 59, with baseline GFR 40?50, likely CKD 3 AA. ? Renally dose meds, avoid overdiuresis and NEPHROTOXINS Acute on chronic anemia Admission hemoglobin 10.7, baseline around 12. Admits to dark stool x 2 weeks. Likely patient has upper GI bleed asked described above. ? Management as above HTN HLD Hypothyroidism Admission BP 167/81. Currently normotensive. ? Resumed home CARVEDILOL 25 mg daily ? Holding home LOSARTAN 80 mg daily in settings of SADIQ ? Resumed home ATORVASTATIN 40 mg daily ? Resumed home LEVOTHYROXINE 100 mcg daily ? Med/tele Diabetes mellitus, [id number] History of diabetes, currently not medicated. Admission GLUCOSE 154. ? Pending A1c ? Continue INSULIN sliding scale BPH No signs of urinary retention. ? Resumed home TAMSULOSIN 0.4 mg daily Health maintenance Diet: Cardiac GI prophylaxis: PROTONIX DVT prophylaxis: SCD Antibiotics: AZITHROMYCIN, CEFTRIAXONE CODE STATUS: DNR Disposition: Pending further evaluation. Patient case was discussed with attending, Krish Ramirez MD and senior residents Dr. Kwon and Dr. Dupree. Diana Clemente DO PGYI Attending Provider Attestation/Addendum I reviewed labs, imaging, EKG, home medications and prior available records. Face to face evaluation was performed by me. I have personally examined the patient and discussed assessment and plan with the IM team. I reviewed the resident note and agree with the plan with exceptions as below. Acute hypoxic respiratory failure New onset CHF Possible associated pneumonia CKD stage III AA Possible GI bleed Thrombocytopenia Started IV diuresis Ordered echocardiogram Ceftriaxone/azithromycin Ordered FOBT. Monitor H&H Monitor kidney function. Avoid nephrotoxins. Renally dosed medications Monitor platelet level
[2024-06-09 13:43] LABS: Alanine Aminotransferase 12 U/L (10-49); Albumin, Serum 4.1 gm/dL (3.4-4.8); Albumin/Globulin Ratio 1.1 (1.2-2.2); Alkaline Phosphatase 105 U/L (46-116); Anion Gap 10 (7-16); Aspartate Amino Transferase 11 U/L (0-34); BUN/Creatinine Ratio 13 Ratio (12-20); Bilirubin,Total 0.9 mg/dL (0.3-1.2); Blood Urea Nitrogen 15 mg/dL (9-23); Carbon Dioxide 25.4 mMol/L (20.0-31.0); Chloride 105 mMol/L (98-107); Creatinine (Component) 1.2 mg/dL (0.6-1.3); Globulin 3.9 gm/dL (2.3-3.5); Glucose 139 mg/dL (74-106); Magnesium 1.7 mg/dL (1.6-2.6); Osmolality,Calculated 282 (275-295); Phosphorous 3.3 mg/dL (2.4-5.1); Potassium 3.9 mMol/L (3.4-5.1); Sodium 140 mMol/L (136-145); eGFR 59 See Note
[2024-06-09 14:11] LABS: Cocci Serology, IgM Negative (Negative)
--- NOTE | 2024-06-09 16:07 | PC.NURSE ---
called pharmacy for heparin
[2024-06-09] MEDS: FUROSEMIDE INJ 10 MG/ML 4ML VIAL 40 MG IVP (16:08)
--- NOTE | 2024-06-09 16:50 | PC.CC ---
Pt Lars Landry is an 89 yr old male admitted to hospitalist services for acute hypoxemic respiratory failure 2/2 new onset CHF exacerbation, and CAP. ASW met with pt at bedside to complete initial assessment. At time of encounter pt is noted to be alert and oriented to person, place and situation. Pt expressed understanding admission order. Pt able to confirm demographic information. Pt is [place] [id number] Per pt he lives in a mobile home on his niece's property. Pt identifies his sister Cirilo Duckworth [phone] as surrogate DM. At baseline pt reports being independent with ambulation and with completing his ADLs. Pt reports he is diabetic, but states it is diet controlled. Pt is not on dialysis. Pt is followed by Dr. Barcenas for primary care. Pt is [facility] though is unsure of service connection percentage. At time of D/c pt reports he will drive himself home. Per pt he feels safe in his home. Pt reports having access to all working utilities and food items in the home.
--- NOTE | 2024-06-09 19:29 | PC.NURSE ---
Patient arrived in the unit via gurney around 17:30 PM.
[2024-06-09] MEDS: ATORVASTATIN CALCIUM 20 MG TABLET 40 MG PO (20:19)
[2024-06-10] VITALS (15 sets, daily range): BP systolic 105–137; BP diastolic 57–76; PULSE 67–82; RESP 16–209; TEMP 36.2; O2SAT 93–100
[2024-06-10] MEDS: ALBUTEROL/IPRATROPIUM (Duoneb) RT SOL 3 ML NEBU INH ×4 (00:28→18:58)
[2024-06-10 06:35] LABS: Basophils % (Auto) 1 % (0-2.5); Eosinophils # (Auto) 0.1 Thou/mm3 (0.0-0.5); Eosinophils % (Auto) 3 % (0-10); Hematocrit 27.4 % (41.0-53.0); Hemoglobin 9.3 g/dL (13.5-16.0); Immature Granulocytes % (Auto) 1 % (0-0); Immature Granulocytes Auto 0.02 Thou/mm3 (0.00-0.00); Lymphocytes # (Auto) 0.9 Thou/mm3 (1.0-4.8); Lymphocytes % (Auto) 23 % (10-50); Mean Corpuscular HGB Conc 33.9 g/dl (31.0-37.0); Mean Corpuscular Hemoglobin 32.4 pg (25.0-35.0); Mean Corpuscular Volume 96 fL (80-100); Monocytes # (Auto) 0.4 Thou/mm3 (0.0-0.8); Monocytes % (Auto) 10 % (0-12); Neutrophils # (Auto) 2.5 Thou/mm3 (1.8-7.7); Neutrophils % (Auto) 62 % (37-80); Nucleated Red Blood Cell % 0 /100 WBC (0); Platelet Count 97 Thou/mm3 (140-440); RDW Standard Deviation 51.1 fL (35.1-43.9); Red Blood Count 2.87 Miln/mm3 (4.50-5.90); White Blood Count 3.9 Thou/mm3 (3.8-10.6)
[2024-06-10 07:06] LABS: Glucose Estimated Average 128 mg/dL (80-131); Hemoglobin A1C 6.1 % Hgb (4.8-6.0)
[2024-06-10 07:13] LABS: Alanine Aminotransferase 8 U/L (10-49); Albumin, Serum 3.9 gm/dL (3.4-4.8); Albumin/Globulin Ratio 1.1 (1.2-2.2); Alkaline Phosphatase 92 U/L (46-116); Anion Gap 9 (7-16); Aspartate Amino Transferase 12 U/L (0-34); BUN/Creatinine Ratio 14 Ratio (12-20); Bilirubin,Total 0.7 mg/dL (0.3-1.2); Blood Urea Nitrogen 23 mg/dL (9-23); Calcium (Corrected) 9.1 mg/dL (8.5-10.1); Carbon Dioxide 27.7 mMol/L (20.0-31.0); Chloride 105 mMol/L (98-107); Creatinine (Component) 1.6 mg/dL (0.6-1.3); Estimated Creatinine Clearance 29.4 mL/min (>60); Globulin 3.6 gm/dL (2.3-3.5); Glucose 135 mg/dL (74-106); Magnesium 1.8 mg/dL (1.6-2.6); Osmolality,Calculated 288 (275-295); Phosphorous 3.9 mg/dL (2.4-5.1); Potassium 3.8 mMol/L (3.4-5.1); Sodium 142 mMol/L (136-145); Total Protein 7.5 gm/dL (5.7-8.2); eGFR 41 See Note
[2024-06-10] MEDS: PANTOPRAZOLE INJ 40 MG VIAL IVP (08:22)
[2024-06-10] MEDS: FUROSEMIDE INJ 10 MG/ML 4ML VIAL 40 MG IVP (08:22)
[2024-06-10] MEDS: carVEDILOL 12.5 MG TABLET 25 MG PO (08:23)
[2024-06-10] MEDS: HYDROcodone/APAP 10/325 TAB PO (08:23)
[2024-06-10] MEDS: TAMSULOSIN HCL 0.4 MG CAPSULE PO (08:24)
[2024-06-10] MEDS: AZITHROMYCIN 250 MG TABLET PO (08:24)
--- NOTE | 2024-06-10 10:51 | ESPR_ITS ---
<Statement entered by Andreea Kwon MD - 06/10/24 13:31> Patient was examined bedside this morning, she is more lethargic today, ABG was ordered, ammonia less than 10. She called [place] around midnight we will hold [place] for now. Will have a good bowel regimen for her. Previously patient refused [facility] facility. Pending echocardiogram and sputum culture. I discussed with and supervised my co-resident involved in the care of this patient. I agree with the assessment and plan as documented above. Andreea Kwon,PGY-3 Disclaimer: Despite multiple revisions, due to the dictation software being used, the document below may not be free of grammatical errors including phonetic/typographic errors. However, this does not deter from our commitment to providing health care in the patient's best interest in mind Documentation for date of: 06/10/24 Subjective Subjective Interval history: No overnight events. Doing well this morning, breathing comfortably on 2L NC. Denies fever, chills, headaches, chest pain, worsening sob, cough, GI or urinary symptoms. Exam Vital Signs Temp Pulse Resp BP Pulse Ox O2 Del Method O2 Flow Rate 97.2 F 69 18 130/75 93 L Nasal Cannula 2 06/10/24 08:00 06/10/24 09:02 06/10/24 09:02 06/10/24 08:23 06/10/24 09:02 06/10/24 08:00 06/10/24 09:02 Narrative Exam GENERAL * Normal appearing elderly male, NAD, on nasal cannula, breathing comfortably HEENT * NCAT.?GARETH. Oral mucosa is moist. Patent Nares NECK * Supple, nontender, no thyromegaly, no meningismus, no JVD, no step offs CHEST * RRR, no m/g/r * CTAB, no w/r/r. Symmetrical chest rise. No intercostal subcostal retraction * Atraumatic, nontender, no crepitus, symmetrical expansion. ABDOMEN * Soft, flat, nontender. No guarding/rebound tenderness/masses. * Bowel sounds presents EXTREMITIES * Nontender, no cyanosis, no edema * No edema/cyanosis. SKIN * Warm and dry, no jaundice/rashes. NEUROMUSCULAR * No lumbar or midline, no CVA, no paraspinal muscle spasm or tenderness. * Moves all 4 extremities well, with full ROM and good CSM. * BEEBE x4, CN II-XII grossly intact. * No focal neurologic deficits. PSYCHIATRY * Normal mood and affect, cooperative, no SI or HI or hallucinations. Objective Labs 06/10/24 05:00 06/10/24 15:37 Labs: Laboratory Results - last 24 hr 06/09/24 06/10/24 12:31 05:00 WBC 4.0 3.9 RBC 3.31 L 2.87 L Hgb 10.7 L 9.3 L Hct 31.0 L 27.4 L MCV 94 96 MCH 32.3 32.4 MCHC 34.5 33.9 RDW Std Deviation 50.4 H 51.1 H Plt Count 106 L 97 L Neut % (Auto) 69 62 Lymph % (Auto) 21 23 [place] % (Auto) 8 10 Eos % (Auto) 2 3 Baso % (Auto) 0 1 Neut # (Auto) 2.8 2.5 Lymph # (Auto) 0.8 L 0.9 L [place] # (Auto) 0.3 0.4 Eos # (Auto) 0.1 0.1 Baso # (Auto) 0.0 0.0 Immature Gran # (Auto) 0.01 H 0.02 H Absolute Nucleated RBC 0.00 0.00 Immature Gran % 0 1 H Nucleated RBC % 0 0 Sodium 140 142 Potassium 3.9 3.8 Chloride 105 105 Carbon Dioxide 25.4 27.7 Anion Gap 10 9 BUN 15 23 Creatinine 1.2 1.6 H Estim Creat Clear Calc 42.0 L 29.4 L eGFR 59 L 41 L BUN/Creatinine Ratio 13 14 Glucose [address] Glu mg/dL 128 Hemoglobin A1c 6.1 H Calculated Osmolality 282 288 Calcium 9.0 9.0 Corrected Calcium 9.0 9.1 Phosphorus 3.3 3.9 Magnesium 1.7 1.8 Total Bilirubin 0.9 0.7 AST 11 12 ALT 12 8 L Alkaline Phosphatase 105 92 Total Protein 8.0 7.5 Albumin 4.1 3.9 Globulin 3.9 H 3.6 H Albumin/Globulin Ratio 1.1 L 1.1 L Coccidioides IgM Ab Negative Quality Measures Quality Measures none Advance care planning discussed with:: patient Assessment & Plan Assessment Current Active Medications: Generic Name Dose Route Start Last Admin Trade Name Freq PRN Reason Stop Dose Admin Acetaminophen 650 mg 06/09/24 11:59 Acetaminophen 325 Mg Tablet PO 07/09/24 11:58 Q6H PRN PAIN SCALE 1-3 (mild Acetaminophen 650 mg 06/09/24 11:59 Acetaminophen 325 Mg Tablet PO 07/09/24 11:58 Q6H PRN Fever >100.4 Hydrocodone Bitart/Acetaminophen 1 tab 06/09/24 11:59 06/10/24 08:23 Hydrocodone/Apap 10/325 Tab PO 06/14/24 11:58 1 tab Q4HR PRN Administration PAIN SCALE 7-10 (Severe Albuterol/Ipratropium 3 ml 06/09/24 13:00 06/10/24 06:26 Albuterol/Ipratropium (Duoneb) Rt Nidhi 3 Ml Nebu INH 07/09/24 12:59 3 ml Q6HRRT DANNI Administration Atorvastatin Calcium 40 mg 06/09/24 21:00 06/09/24 20:19 Atorvastatin Calcium 20 Mg Tablet PO 07/09/24 20:59 40 mg HS DANNI Administration Azithromycin 250 mg 06/10/24 09:00 06/10/24 08:24 Azithromycin 250 Mg Tablet PO 06/17/24 08:59 250 mg QDAY DANNI Administration Carvedilol 25 mg 06/09/24 12:15 06/10/24 08:23 Carvedilol 12.5 Mg Tablet PO 07/09/24 12:14 25 mg QDAY DANNI Administration Furosemide 40 mg 06/09/24 14:15 06/10/24 08:22 Furosemide Inj 10 Mg/Ml 4ml Vial IVP 07/09/24 14:14 40 mg QDAY DANNI Administration Heparin Sodium (Porcine) 5,000 unit 06/09/24 14:00 Heparin Sod Inj 5000 Unit/Ml Vial SC 06/23/24 13:59 Q8HR DANNI Ceftriaxone Sodium/Dextrose 50 mls @ 100 mls/hr 06/11/24 09:00 Rocephin/D5w 1gm Iv Premix IV 06/18/24 08:59 DAILY DANNI Lactulose 20 gm 06/10/24 10:45 Lactulose Syrup 20 Gm/30 Ml Udc PO 07/10/24 10:44 BID DANNI Protocol Ondansetron HCl 4 mg 06/09/24 11:59 Ondansetron Inj 2 Mg/Ml Inj 2 Ml IV 07/09/24 11:58 Q6H PRN NAUSEA OR VOMITING Protocol Oxycodone/Acetaminophen 1 tab 06/09/24 11:59 Oxycodone/Apap 5/325 Tablet PO 06/14/24 11:58 Q6H PRN PAIN SCALE 4-6 (Moderate Pantoprazole Sodium 40 mg 06/09/24 12:00 06/10/24 08:22 Pantoprazole Inj 40 Mg Vial IVP 07/09/24 11:59 40 mg QDAY DANNI Administration Sennosides 1 tab 06/10/24 10:45 Senna Tablet PO 07/10/24 10:44 BID DANNI Protocol Tamsulosin HCl 0.4 mg 06/10/24 09:00 06/10/24 08:24 Tamsulosin Hcl 0.4 Mg Capsule PO 07/10/24 08:59 0.4 mg QDAY DANNI Administration Plan In summary: 89-year-old male with PMH of HTN, hypothyroidism, DM, BPH, GERD, admitted for AHRF likely 2/2 CHF exacerbation versus pneumonia, and abdominal pain. Continued on ABX and LASIX. Breathing well on 2 L NC. Pending echocardiogram. Pending FOBT to rule out GI bleed. Acute hypoxemic respiratory failure 2/2 ? New onset CHF exacerbation Community-acquired pneumonia Presenting with 4 days of SOB and dry cough, 2 months of gradually worsening exertional dyspnea and orthopnea. CXR showed acute CHF superimposed pneumonia. CT showed moderate CHF. ED gave fluids and LASIX. At the time the patient, bibasilar crackles on exam, but no LE edema. Continued on 2 L NC, satting in upper 90s. No echocardiogram on record. No history of CHF. Patient afebrile, no leukocytosis. Troponin negative. BNP 300. ? Started six 4 mg daily ? Started AZITHROMYCIN (06/09 to [present]) ? Started CEFTRIAXONE (06/09 to [present]) ? DuoNebs Q6H ? Strict RAMA's ? Fluid restriction 1500 cc daily ? Pending echocardiogram ? Pending sputum culture Epigastric abdominal pain GERD ? PUD ? Upper GI bleed Presented with nonradiating abdominal pain x 4 days, unrelated to eating. No other GI symptoms such as N/V/D/C. No abnormal weight loss. No urinary symptoms. UA without UTI. Exam showed tenderness in the epigastrium, negative McMurphy, no rebound tenderness. 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 Elevated lipase 262, LFTs within normal limits. CT CAP without pancreatitis or biliary abnormalities. No abdominal bruits on exam, no abdominal aortic dilations on imaging. No history of alcohol use or smoking. Hx of GERD, previously on medication. Admits to dark stool x 2 weeks, Hgb 10.7. No previous EGD or colonoscopy screening. ? Started PROTONIX 40 mg daily ? Daily CBC ? Transfuse if Hgb <7 ? Pending FOBT ? Consider GI follow-up outpatient ? Consider hepatitis panel Prerenal SADIQ (resolved) ? CKD stage III Admission CR 1.4 then 1.2 then 1.6 this morning. GFR 59, with baseline GFR 40?50, likely CKD 3 AA. ? Renally dose meds, avoid overdiuresis and NEPHROTOXINS ? Consider holding LASIX if creatinine continues to increase Acute on chronic anemia Admission hemoglobin 10.7, baseline around 12. Admits to dark stool x 2 weeks. Likely patient has upper GI bleed asked described above. ? Management as above HTN HLD Hypothyroidism Admission BP 167/81. Currently normotensive. ? Resumed home CARVEDILOL 25 mg daily ? Holding home LOSARTAN 80 mg daily in settings of SADIQ ? Resumed home ATORVASTATIN 40 mg daily ? Resumed home LEVOTHYROXINE 100 mcg daily ? Med/tele Diabetes mellitus, [id number] History of diabetes, currently not medicated. Admission GLUCOSE 154. ? Pending A1c ? Continue INSULIN sliding scale BPH No signs of urinary retention. ? Resumed home TAMSULOSIN 0.4 mg daily Health maintenance Diet: Cardiac GI prophylaxis: PROTONIX DVT prophylaxis: SCD Antibiotics: AZITHROMYCIN, CEFTRIAXONE CODE STATUS: DNR Disposition: Pending further evaluation. Patient case was discussed with attending, Krish Ramirez MD and senior residents Dr. Kwon and Dr. Dupree. Diana Clemente DO PGYI Attending Provider Attestation/Addendum I reviewed labs, imaging, EKG, home medications and prior available records. Face to face evaluation was performed by me. I have personally examined the patient and discussed assessment and plan with the IM team. I reviewed the resident note and agree with the plan with exceptions as below. Acute hypoxic respiratory failure New onset CHF Possible associated pneumonia SADIQ on CKD stage III A Possible GI bleed Thrombocytopenia Held IV diuresis in the setting of SADIQ. Monitor I's and O's Ordered echocardiogram Ceftriaxone/azithromycin Ordered FOBT. Monitor H&H Creatinine slightly increased which can be due to diuresis. Held Lasix. Monitor kidney function. Avoid nephrotoxins. Renally dosed medications Monitor platelet level
[2024-06-10] MEDS: SENNA TABLET 1 TAB PO ×2 (11:14→21:00)
[2024-06-10] MEDS: LACTULOSE SYRUP 20 GM/30 ML UDC PO ×2 (11:14→20:59)
--- NOTE | 2024-06-10 13:13 | PC.PT ---
PT eval only. Patient is xI with bed mobility, transfers, and ambulation with no DME. Patient is at his PLOF. Patient is safe to ambulate in the bello and to the bathroom with no DME. RN notified.
--- NOTE | 2024-06-10 15:54 | PC.SS ---
Follow up note: SS met with patient who states his d/c plan remains the same. He will return to his trailer on his niece's property. Patient is independent with ADl's. He drives himself to appointments. No DME. PCP: Dr. Barcenas and last appt. was in May. Patient pending echo and GI rec's.
[2024-06-10 16:14] LABS: Albumin, Serum 3.9 gm/dL (3.4-4.8); Anion Gap 11 (7-16); BUN/Creatinine Ratio 16 Ratio (12-20); Blood Urea Nitrogen 28 mg/dL (9-23); Calcium 9.1 mg/dL (8.3-10.6); Calcium (Corrected) 9.2 mg/dL (8.5-10.1); Carbon Dioxide 27.5 mMol/L (20.0-31.0); Chloride 103 mMol/L (98-107); Creatinine (Component) 1.7 mg/dL (0.6-1.3); Estimated Creatinine Clearance 27.6 mL/min (>60); Glucose 207 mg/dL (74-106); Osmolality,Calculated 292 (275-295); Phosphorous 4.8 mg/dL (2.4-5.1); Potassium 3.9 mMol/L (3.4-5.1); Sodium 141 mMol/L (136-145); eGFR 39 See Note
[2024-06-10] MEDS: ATORVASTATIN CALCIUM 20 MG TABLET 40 MG PO (20:59)
[2024-06-11] VITALS (14 sets, daily range): BP systolic 94–149; BP diastolic 52–82; PULSE 68–106; RESP 14–20; TEMP 36.1–36.6; O2SAT 92–99
[2024-06-11] MEDS: ALBUTEROL/IPRATROPIUM (Duoneb) RT SOL 3 ML NEBU INH ×4 (01:34→19:44)
[2024-06-11] MEDS: HYDROcodone/APAP 10/325 TAB PO (01:48)
[2024-06-11 06:44] LABS: Basophils % (Auto) 1 % (0-2.5); Eosinophils # (Auto) 0.1 Thou/mm3 (0.0-0.5); Eosinophils % (Auto) 1 % (0-10); Hematocrit 29.9 % (41.0-53.0); Hemoglobin 10.3 g/dL (13.5-16.0); Immature Granulocytes % (Auto) 0 % (0-0); Immature Granulocytes Auto 0.01 Thou/mm3 (0.00-0.00); Lymphocytes # (Auto) 0.8 Thou/mm3 (1.0-4.8); Lymphocytes % (Auto) 13 % (10-50); Mean Corpuscular HGB Conc 34.4 g/dl (31.0-37.0); Mean Corpuscular Hemoglobin 32.7 pg (25.0-35.0); Mean Corpuscular Volume 95 fL (80-100); Monocytes # (Auto) 0.5 Thou/mm3 (0.0-0.8); Monocytes % (Auto) 9 % (0-12); Neutrophils # (Auto) 4.7 Thou/mm3 (1.8-7.7); Neutrophils % (Auto) 76 % (37-80); Nucleated Red Blood Cell % 0 /100 WBC (0); Platelet Count 111 Thou/mm3 (140-440); RDW Standard Deviation 51.3 fL (35.1-43.9); Red Blood Count 3.15 Miln/mm3 (4.50-5.90); White Blood Count 6.1 Thou/mm3 (3.8-10.6)
[2024-06-11 07:12] LABS: Alanine Aminotransferase 8 U/L (10-49); Albumin, Serum 4.1 gm/dL (3.4-4.8); Alkaline Phosphatase 100 U/L (46-116); Anion Gap 12 (7-16); Aspartate Amino Transferase 18 U/L (0-34); BUN/Creatinine Ratio 18 Ratio (12-20); Bilirubin,Total 0.7 mg/dL (0.3-1.2); Blood Urea Nitrogen 28 mg/dL (9-23); Calcium 9.6 mg/dL (8.3-10.6); Calcium (Corrected) 9.6 mg/dL (8.5-10.1); Carbon Dioxide 26.5 mMol/L (20.0-31.0); Chloride 102 mMol/L (98-107); Creatinine (Component) 1.6 mg/dL (0.6-1.3); Estimated Creatinine Clearance 29.4 mL/min (>60); Globulin 4.2 gm/dL (2.3-3.5); Glucose 178 mg/dL (74-106); Magnesium 1.7 mg/dL (1.6-2.6); Osmolality,Calculated 288 (275-295); Phosphorous 4.2 mg/dL (2.4-5.1); Potassium 4.2 mMol/L (3.4-5.1); Sodium 140 mMol/L (136-145); Total Protein 8.3 gm/dL (5.7-8.2); eGFR 41 See Note
[2024-06-11] MEDS: PANTOPRAZOLE INJ 40 MG VIAL IVP (08:50)
[2024-06-11] MEDS: AZITHROMYCIN 250 MG TABLET PO (08:50)
[2024-06-11] MEDS: oxyCODONE/APAP 5/325 TABLET 1 TAB PO ×2 (08:50→20:54)
[2024-06-11] MEDS: LACTULOSE SYRUP 20 GM/30 ML UDC PO ×2 (08:50→20:55)
[2024-06-11] MEDS: TAMSULOSIN HCL 0.4 MG CAPSULE PO (08:51)
[2024-06-11] MEDS: SENNA TABLET 1 TAB PO ×2 (08:52→20:55)
[2024-06-11] MEDS: carVEDILOL 12.5 MG TABLET 25 MG PO (08:52)
[2024-06-11] MEDS: cefTRIAXone/D5w 1gm IV premix 50 ML IV (08:52)
[2024-06-11] MEDS: FUROSEMIDE INJ 10 MG/ML 4ML VIAL 40 MG IVP (14:30)
[2024-06-11 14:35] LABS: Cocci Serology, IgG Negative (Negative)
--- NOTE | 2024-06-11 14:54 | ESPR_ITS ---
Documentation for date of: 06/11/24 Subjective Subjective Interval history: No acute overnight events. Continued on 2 L NC, breathing comfortably. Had bowel movement today, feels better in terms of abdominal pain. Denies fever, chills, headaches, chest pain, sob, cough, GI or urinary symptoms. Exam Vital Signs Temp Pulse Resp BP Pulse Ox O2 Del Method O2 Flow Rate 97.9 F 71 18 106/68 98 Nasal Cannula 2 06/11/24 12:00 06/11/24 14:30 06/11/24 13:05 06/11/24 14:30 06/11/24 13:05 06/11/24 12:00 06/11/24 13:05 Narrative Exam GENERAL * Normal appearing elderly male, NAD, on nasal cannula, breathing comfortably HEENT * NCAT.?GARETH. Oral mucosa is moist. Patent Nares NECK * Supple, nontender, no thyromegaly, no meningismus, no JVD, no step offs CHEST * RRR, no m/g/r * CTAB, no w/r/r. Symmetrical chest rise. No intercostal subcostal retraction * Atraumatic, nontender, no crepitus, symmetrical expansion. ABDOMEN * Soft, flat, nontender. No guarding/rebound tenderness/masses. * Bowel sounds presents EXTREMITIES * Nontender, no cyanosis, no edema * No edema/cyanosis. SKIN * Warm and dry, no jaundice/rashes. NEUROMUSCULAR * No lumbar or midline, no CVA, no paraspinal muscle spasm or tenderness. * Moves all 4 extremities well, with full ROM and good CSM. * BEEBE x4, CN II-XII grossly intact. * No focal neurologic deficits. PSYCHIATRY * Normal mood and affect, cooperative, no SI or HI or hallucinations. Objective Labs 06/12/24 04:21 06/12/24 04:21 Labs: Laboratory Results - last 24 hr 06/09/24 06/10/24 06/11/24 12:31 15:37 04:35 WBC 6.1 D RBC 3.15 L Hgb 10.3 L Hct 29.9 L MCV 95 MCH 32.7 MCHC 34.4 RDW Std Deviation 51.3 H Plt Count 111 L Neut % (Auto) 76 Lymph % (Auto) 13 [place] % (Auto) 9 Eos % (Auto) 1 Baso % (Auto) 1 Neut # (Auto) 4.7 Lymph # (Auto) 0.8 L [place] # (Auto) 0.5 Eos # (Auto) 0.1 Baso # (Auto) 0.0 Immature Gran # (Auto) 0.01 H Absolute Nucleated RBC 0.00 Immature Gran % 0 Nucleated RBC % 0 Sodium 141 140 Potassium 3.9 4.2 Chloride 103 102 Carbon Dioxide 27.5 26.5 Anion Gap 11 12 BUN 28 H 28 H Creatinine 1.7 H 1.6 H Estim Creat Clear Calc 27.6 L 29.4 L eGFR 39 L 41 L BUN/Creatinine Ratio 16 18 Glucose 207 H D 178 H Calculated Osmolality 292 288 Calcium 9.1 9.6 Corrected Calcium 9.2 9.6 Phosphorus 4.8 4.2 Magnesium 1.7 Total Bilirubin 0.7 AST 18 ALT 8 L Alkaline Phosphatase 100 Total Protein 8.3 H Albumin 3.9 4.1 Globulin 4.2 H Albumin/Globulin Ratio 1.0 L Coccidioides IgG Ab Negative Quality Measures Quality Measures none Advance care planning discussed with:: patient Assessment & Plan Assessment Current Active Medications: Generic Name Dose Route Start Last Admin Trade Name Freq PRN Reason Stop Dose Admin Acetaminophen 650 mg 06/09/24 11:59 Acetaminophen 325 Mg Tablet PO 07/09/24 11:58 Q6H PRN PAIN SCALE 1-3 (mild Acetaminophen 650 mg 06/09/24 11:59 Acetaminophen 325 Mg Tablet PO 07/09/24 11:58 Q6H PRN Fever >100.4 Hydrocodone Bitart/Acetaminophen 1 tab 06/09/24 11:59 06/11/24 01:48 Hydrocodone/Apap 10/325 Tab PO 06/14/24 11:58 1 tab Q4HR PRN Administration PAIN SCALE 7-10 (Severe Albuterol/Ipratropium 3 ml 06/09/24 13:00 06/11/24 13:03 Albuterol/Ipratropium (Duoneb) Rt Nidhi 3 Ml Nebu INH 07/09/24 12:59 3 ml Q6HRRT DANNI Administration Atorvastatin Calcium 40 mg 06/09/24 21:00 06/10/24 20:59 Atorvastatin Calcium 20 Mg Tablet PO 07/09/24 20:59 40 mg HS DANNI Administration Azithromycin 250 mg 06/10/24 09:00 06/11/24 08:50 Azithromycin 250 Mg Tablet PO 06/17/24 08:59 250 mg QDAY DANNI Administration Carvedilol 12.5 mg 06/11/24 21:00 Carvedilol 12.5 Mg Tablet PO 07/11/24 20:59 BID DANNI Furosemide 40 mg 06/11/24 11:35 06/11/24 14:30 Furosemide Inj 10 Mg/Ml 4ml Vial IVP 07/11/24 11:34 40 mg QDAY DANNI Administration Heparin Sodium (Porcine) 5,000 unit 06/09/24 14:00 Heparin Sod Inj 5000 Unit/Ml Vial SC 06/23/24 13:59 Q8HR DANNI Ceftriaxone Sodium/Dextrose 50 mls @ 100 mls/hr 06/11/24 09:00 06/11/24 08:52 Rocephin/D5w 1gm Iv Premix IV 06/18/24 08:59 100 mls/hr DAILY DANNI Administration Lactulose 20 gm 06/10/24 10:45 06/11/24 08:50 Lactulose Syrup 20 Gm/30 Ml Udc PO 07/10/24 10:44 20 gm BID DANNI Administration Protocol Levothyroxine Sodium 100 mcg 06/12/24 06:00 Levothyroxine Sodium 100 Mcg Tablet PO 07/12/24 05:59 ACBR DANNI Ondansetron HCl 4 mg 06/09/24 11:59 Ondansetron Inj 2 Mg/Ml Inj 2 Ml IV 07/09/24 11:58 Q6H PRN NAUSEA OR VOMITING Protocol Oxycodone/Acetaminophen 1 tab 06/09/24 11:59 06/11/24 08:50 Oxycodone/Apap 5/325 Tablet PO 06/14/24 11:58 1 tab Q6H PRN Administration PAIN SCALE 4-6 (Moderate Pantoprazole Sodium 40 mg 06/09/24 12:00 06/11/24 08:50 Pantoprazole Inj 40 Mg Vial IVP 07/09/24 11:59 40 mg QDAY DANNI Administration Sennosides 1 tab 06/10/24 10:45 06/11/24 08:52 Senna Tablet PO 07/10/24 10:44 1 tab BID DANNI Administration Protocol Tamsulosin HCl 0.4 mg 06/10/24 09:00 06/11/24 08:51 Tamsulosin Hcl 0.4 Mg Capsule PO 07/10/24 08:59 0.4 mg QDAY DANNI Administration Plan In summary: 89-year-old male with PMH of HTN, hypothyroidism, DM, BPH, GERD, admitted for AHRF likely 2/2 CHF exacerbation versus pneumonia, and abdominal pain. Continued on ABX and LASIX. Breathing well on 2 L NC. Pending echocardiogram. Pending FOBT to rule out GI bleed. Acute hypoxemic respiratory failure 2/2 ? New onset CHF exacerbation Community-acquired pneumonia Presenting with 4 days of SOB and dry cough, 2 months of gradually worsening exertional dyspnea and orthopnea. CXR showed acute CHF superimposed pneumonia. CT showed moderate CHF. ED gave fluids and LASIX. At the time the patient, bibasilar crackles on exam, but no LE edema. Continued on 2 L NC, satting in upper 90s. No echocardiogram on record. No history of CHF. Patient afebrile, no leukocytosis. Troponin negative. BNP 300. ? Continue home LASIX 40 mg daily ? Continue AZITHROMYCIN (06/09 to [present]) ? Continue CEFTRIAXONE (06/09 to [present]) ? DuoNebs Q6H ? Strict RAMA's ? Fluid restriction 1500 cc daily ? Pending echocardiogram ? Pending sputum culture Epigastric abdominal pain GERD ? PUD ? Upper GI bleed Presented with nonradiating abdominal pain x 4 days, unrelated to eating. No other GI symptoms such as N/V/D/C. No abnormal weight loss. No urinary symptoms. UA without UTI. Exam showed tenderness in the epigastrium, negative McMurphy, no rebound tenderness. 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 Elevated lipase 262, LFTs within normal limits. CT CAP without pancreatitis or biliary abnormalities. No abdominal bruits on exam, no abdominal aortic dilations on imaging. No history of alcohol use or smoking. Hx of GERD, previously on medication. Admits to dark stool x 2 weeks, Hgb 10.7. No previous EGD or colonoscopy screening. FOBT negative. Hemoglobin stable. ? Continue PROTONIX 40 mg daily ? Daily CBC ? Transfuse if Hgb <7 ? Consider GI follow-up outpatient ? Consider hepatitis panel Prerenal SADIQ (resolved) ? CKD stage III Admission CR 1.4 then 1.2 then 1.6. GFR 59, with baseline GFR 40?50, likely CKD stage IIIa. ? Renally dose meds, avoid overdiuresis and NEPHROTOXINS Acute on chronic anemia Admission hemoglobin 10.7, baseline around 12. Admits to dark stool x 2 weeks. Likely patient has upper GI bleed asked described above. ? Management as above HTN HLD Hypothyroidism Admission BP 167/81. Currently normotensive. ? Continue home CARVEDILOL 25 mg daily ? Holding home LOSARTAN 80 mg daily in settings of SADIQ ? Continue home ATORVASTATIN 40 mg daily ? Continue home LEVOTHYROXINE 100 mcg daily ? Med/tele Diabetes mellitus, [id number] History of diabetes, currently not medicated. Admission GLUCOSE 154. ? Pending A1c ? Continue INSULIN sliding scale BPH No signs of urinary retention. ? Continue home TAMSULOSIN 0.4 mg daily Health maintenance Diet: Cardiac GI prophylaxis: PROTONIX DVT prophylaxis: SCD Antibiotics: AZITHROMYCIN, CEFTRIAXONE CODE STATUS: DNR Disposition: Pending further evaluation. Patient case was discussed with attending, Dr. Dayron Anna MD and senior residents Dr. Kwon and Dr. Dupree. Diana Clemente, DO PGYI Senior Resident Attestation: The patient reported doing much better this morning. Vitals were stable, saturating 95% on 2 L NC. Physical exam was significant for bibasilar fine crackles. No JVD, orthopnea or lower limb pitting edema was observed. TTE was significant for HFrEF with LVEF 30%. His creatinine trended up to 1.6 as from admission 1.2. We started the patient on low-dose Lasix. We will continue the patient on carvedilol 12.5 Mg twice daily and we are holding ARB's in the setting of low blood pressure and creatinine of 1.6 significant for SADIQ. We will slowly resume GDMT as tolerated. I discussed with and supervised the trestle mainternance laborer physician involved in the care of this patient. I personally saw and examined the patient and discussed the assessment and plan with the entire medicine team, including my attending. I agree with the assessment and plan as documented above. Fran Dupree MD PGY2 Internal Medicine Attending Provider Attestation/Addendum I have examined the patient, reviewed labs and imaging findings, discussed the case with the resident(s), and reviewed entered orders. I agree with the plan of care as outlined in this note, with these additional summaries/recommendations: Patient seen at bedside. No acute overnight events. Discussed with patient that he has new onset CHF. Echocardiogram revealed ejection fraction of 30%. Patient was started on goal-directed medical therapy. Continue fluid restriction and IV Lasix 40 mg daily for preload reduction. Hold starting afterload reduction with JHOANA/ARB given SADIQ. Continue neurohormonal blockade with Coreg 12.5 mg p.o. twice daily. Patient noted to still have crackles and is net positive for hospitalization. Continue diuresis and wean oxygen as tolerated. Continue IV Rocephin and azithromycin for community-acquired pneumonia. Sputum and Gram stain show no growth. Patient has pending FOBT to rule out GI bleed. Continue home levothyroxine for hypothyroidism. Continue diuresis and strict I's/O's. Repeat hematology and chemistry panel in AM. Dr. Anna
--- NOTE | 2024-06-11 15:23 | PC.SS ---
Rounding note: pending blood pressure, anticipate d/c tomorrow.
[2024-06-11] MEDS: ATORVASTATIN CALCIUM 20 MG TABLET 40 MG PO (20:55)
[2024-06-12] VITALS (10 sets, daily range): BP systolic 112–144; BP diastolic 63–70; PULSE 67–93; RESP 13–18; TEMP 36.1–36.2; O2SAT 94–100; BMI 26.1
[2024-06-12] MEDS: ALBUTEROL/IPRATROPIUM (Duoneb) RT SOL 3 ML NEBU INH ×2 (02:47→07:15)
[2024-06-12] MEDS: LEVOTHYROXINE SODIUM 100 MCG TABLET PO (05:28)
[2024-06-12 06:12] LABS: Basophils % (Auto) 0 % (0-2.5); Eosinophils # (Auto) 0.1 Thou/mm3 (0.0-0.5); Eosinophils % (Auto) 2 % (0-10); Hematocrit 26.9 % (41.0-53.0); Hemoglobin 9.3 g/dL (13.5-16.0); Immature Granulocytes % (Auto) 0 % (0-0); Immature Granulocytes Auto 0.01 Thou/mm3 (0.00-0.00); Lymphocytes % (Auto) 24 % (10-50); Mean Corpuscular HGB Conc 34.6 g/dl (31.0-37.0); Mean Corpuscular Hemoglobin 32.9 pg (25.0-35.0); Mean Corpuscular Volume 95 fL (80-100); Monocytes # (Auto) 0.4 Thou/mm3 (0.0-0.8); Monocytes % (Auto) 10 % (0-12); Neutrophils # (Auto) 2.6 Thou/mm3 (1.8-7.7); Neutrophils % (Auto) 63 % (37-80); Nucleated Red Blood Cell % 0 /100 WBC (0); Platelet Count 95 Thou/mm3 (140-440); RDW Standard Deviation 50.4 fL (35.1-43.9); Red Blood Count 2.83 Miln/mm3 (4.50-5.90); White Blood Count 4.1 Thou/mm3 (3.8-10.6)
[2024-06-12 07:00] LABS: Alanine Aminotransferase 9 U/L (10-49); Albumin/Globulin Ratio 1.1 (1.2-2.2); Alkaline Phosphatase 88 U/L (46-116); Anion Gap 9 (7-16); Aspartate Amino Transferase 12 U/L (0-34); BUN/Creatinine Ratio 21 Ratio (12-20); Bilirubin,Total 0.5 mg/dL (0.3-1.2); Blood Urea Nitrogen 37 mg/dL (9-23); Calcium 9.2 mg/dL (8.3-10.6); Calcium (Corrected) 9.2 mg/dL (8.5-10.1); Carbon Dioxide 27.3 mMol/L (20.0-31.0); Chloride 103 mMol/L (98-107); Creatinine (Component) 1.8 mg/dL (0.6-1.3); Estimated Creatinine Clearance 26.1 mL/min (>60); Globulin 3.7 gm/dL (2.3-3.5); Glucose 115 mg/dL (74-106); Magnesium 1.9 mg/dL (1.6-2.6); Osmolality,Calculated 287 (275-295); Phosphorous 4.5 mg/dL (2.4-5.1); Potassium 3.7 mMol/L (3.4-5.1); Sodium 139 mMol/L (136-145); Total Protein 7.7 gm/dL (5.7-8.2); eGFR 36 See Note
[2024-06-12] MEDS: SENNA TABLET 1 TAB PO (09:37)
[2024-06-12] MEDS: carVEDILOL 12.5 MG TABLET PO (09:37)
[2024-06-12] MEDS: AZITHROMYCIN 250 MG TABLET PO (09:38)
[2024-06-12] MEDS: LACTULOSE SYRUP 20 GM/30 ML UDC PO (09:38)
[2024-06-12] MEDS: TAMSULOSIN HCL 0.4 MG CAPSULE PO (09:38)
[2024-06-12] MEDS: FUROSEMIDE INJ 10 MG/ML 4ML VIAL 40 MG IVP (09:41)
[2024-06-12] MEDS: PANTOPRAZOLE INJ 40 MG VIAL IVP (09:42)
[2024-06-12] MEDS: cefTRIAXone/D5w 1gm IV premix 50 ML IV (10:49)
--- NOTE | 2024-06-12 11:22 | ESDS_ITS ---
<Statement entered by Andreea Kwon MD - 06/12/24 18:49> I discussed with and supervised my co-resident involved in the care of this patient. I agree with the assessment and plan as documented above. Andreea Kwon,PGY-3 Disclaimer: Despite multiple revisions, due to the dictation software being used, the document below may not be free of grammatical errors including phonetic/typographic errors. However, this does not deter from our commitment to providing health care in the patient's best interest in mind. Planned Discharge Date 06/12/24 DS: Providers Provider Date of admission: 06/09/24 11:59 Primary care physician: Edilson Barcenas MD Admitting Provider: Krish Ramirez MD Attending Provider on Admission: Dayron Anna MD Consults: 06/09/24 12:07 Referral Physical Therapy Stat Comment: Physician Instructions: Attending Provider on DC: Dayron Anna MD Discharging Provider: Dayron Anna MD DS: Diagnosis Problem List Completed Was Problem List Reviewed/Reconciled?: Yes Hospital Course Hospital Course Hospital course: This is a 89-year-old male with PMH of HTN, hypothyroidism, DM, BPH, GERD, admitted for AHRF likely 2/2 CHF exacerbation and pneumonia, as well as abdominal pain. On the course of hospital stay chest x-ray showed Significant CHF and superimposed pneumonia at the lung bases. CT abdomen and pelvis was done which showed Moderate CHF, 2 mm nonobstructing left renal calculus,Moderate bilateral renal parenchymal scar formation No bowel obstruction He was treated with IV ceftriaxone and azithromycin, and LASIX for CHF . Echocardiogram showed ejection fraction 30%. Gallbladder ultrasound was normal. Symptoms significantly improved after antibiotic and Lasix. He walked well with physical therapy saturating well. We held his lisinopril and valsartan in the setting of SADIQ. He will need cardiology outpatient for his new onset heart failure with reduced ejection fraction he would benefit from Entresto. Patient was on room air at the time of discharge, satting well, breathing comfortably.His abdominal pain likely related to constipation. Started on bowel regimen, symptoms resolved after bowel movement. PATIENT INSTRUCTIONS: Follow-up with PCP within 1 week of discharge. Follow-up with PCP regarding new CHF management, and starting GDMT. Follow-up with PCP regarding chronic anemia. Complete renal panel for SADIQ within 1 week, bring report to your PCP. Return to Emergency Room if symptoms persist, worsen, or new symptoms develop. STOP taking VALSARTAN until you see your PCP, until SADIQ resolves. We change your dose of CARVEDILOL to 12.5 mg twice daily. Continue with this dose, STOP taking CARVEDILOL 25 mg daily. Continue taking medications as prescribed below: ? Continue AZITHROMYCIN 250 mg daily (NEW) ? Continue CEFUROXIME 500 mg twice daily (NEW) ? Continue FUROSEMIDE 20 mg every other day (NEW) ? Continue CARVEDILOL 12.5 mg twice daily (dose changed) ? STOP taking CARVEDILOL 25 mg daily, continue with new dose above ? Continue TYLENOL 500 mg q.6h. as needed for pain. ? Continue ATORVASTATIN 40 mg daily ? Continue VITAMIN D 2000 units daily ? Continue GLIPIZIDE 10 mg daily ? Continue TRIPLEFLEX 1 tablet daily ? Continue HYDROCHLOROTHIAZIDE 25 mg daily ? Continue ISOSORBIDE MONONITRATE 30 mg daily ? Continue LEVOTHYROXINE 100 mcg daily, use as instructed by ? Continue TAMSULOSIN 0.4 mg daily ? Hold LISINOPRIL 40 mg daily until you see your PCP ADMISSION DIAGNOSES: Acute hypoxemic respiratory failure 2/2- resolved ? New onset CHF exacerbation HFrEF (30%) Community-acquired pneumonia Epigastric abdominal pain GERD PUD Upper GI bleed (unlikely) Prerenal SADIQ (resolved) CKD stage III Acute on chronic anemia HTN HLD Hypothyroidism Diabetes mellitus, gpb-nystxko-oscwajknc BPH Patient case was discussed with attending, Dayron Anna MD and senior residents Dr. Kwon and Dr. Dupree. Diana Clemente DO PGYI Time Spent with Patient Time attestation: Total time spent providing and/or coordinating discharge services: Greater than 35 minutes. Exam Vital Signs Temp Pulse Resp BP Pulse Ox O2 Del Method O2 Flow Rate 97.0 F 75 18 133/63 H 95 Nasal Cannula 2 06/12/24 08:00 06/12/24 09:41 06/12/24 08:00 06/12/24 09:41 06/12/24 08:00 06/12/24 08:00 06/12/24 08:00 Narrative Exam GENERAL * Normal appearing elderly male, NAD, on nasal cannula, breathing comfortably HEENT * NCAT.?GARETH. Oral mucosa is moist. Patent Nares NECK * Supple, nontender, no thyromegaly, no meningismus, no JVD, no step offs CHEST * RRR, no m/g/r * CTAB, no w/r/r. Symmetrical chest rise. No intercostal subcostal retraction * Atraumatic, nontender, no crepitus, symmetrical expansion. ABDOMEN * Soft, flat, nontender. No guarding/rebound tenderness/masses. * Bowel sounds presents EXTREMITIES * Nontender, no cyanosis, no edema * No edema/cyanosis. SKIN * Warm and dry, no jaundice/rashes. NEUROMUSCULAR * No lumbar or midline, no CVA, no paraspinal muscle spasm or tenderness. * Moves all 4 extremities well, with full ROM and good CSM. * BEEBE x4, CN II-XII grossly intact. * No focal neurologic deficits. PSYCHIATRY * Normal mood and affect, cooperative, no SI or HI or hallucinations. Discharge Plan Plan Patient Disposition: HOME (Self Care) Disposition Comment: Stable for admit Prescriptions/Referrals Prescriptions/Med Rec: New carvedilol 12.5 mg Tablet 12.5 mg PO BID 30 Days Qty: 60 1RF furosemide [Lasix] 20 mg tablet 20 mg PO Q OTHER DAY 30 Days Qty: 15 1RF azithromycin 250 mg Tablet 250 mg PO QDAY 2 Days Qty: 2 0RF cefuroxime axetil 250 mg tablet 250 mg PO BID 4 Days Qty: 8 0RF Continued tamsulosin 0.4 mg capsule 0.4 mg PO QDAY GLIPIZIDE 10 mg PO QDAY Qty: 0 Isosorbide Mononitrate * (IMDUR *) 30 MG TAB.ER.24H 30 mg PO QDAY Qty: 90 Levothyroxine * (SYNTHROID *) 100 MCG tablet 100 mcg PO QDAY Qty: 90 atorvastatin [Lipitor] 40 MG tablet 40 mg PO HS Qty: 0 acetaminophen [Tylenol Extra Strength] 500 MG tablet 500 mg PO BID PRN (Reason: PAIN) Qty: 0 hydrochlorothiazide 25 MG tablet 25 mg PO QAM Qty: 0 cholecalciferol (vitamin D3) [Vitamin D3] 2,000 UNIT capsule 2,000 unit PO QDAY Qty: 0 Glucosamine/MSM/Chondroitin A * (TRIPLEFLEX *) 1 EACH tablet 1 tab PO BID Qty: 0 Held lisinopril 40 MG tablet 40 mg PO QDAY Qty: 90 Hold Instructions: in setting of SADIQ follow PCP to resume Discontinued carvedilol [Coreg] 25 MG tablet 25 mg PO QDAY Qty: 0 Referrals: Edilson Barcenas MD [Primary Care Provider] - Patient/Caregiver Discharge Instructions Other Discharge Activity Instructions:: Follow-up with primary care provider within 1 week of discharge. Complete renal panel for Acute Kidney Injury (SADIQ) within 1 week, bring report to your primary care provider. Return to Emergency Room if symptoms persist, worsen, or new symptoms develop. STOP taking VALSARTAN until you see your primary care provider, until SADIQ resolves. We change your dose of CARVEDILOL to 12.5 mg twice daily. Continue with this dose, STOP taking CARVEDILOL 25 mg daily. Continue taking medications as prescribed below: ? LASIX 20 mg once every other day. ? CARVEDILOL 12.5 mg twice daily. ? AZITHROMYCIN 250 mg once daily. Continue all other medications as prescribed by your doctor. Education Materials: Treating Pneumonia Print Language: Latvian Stand Alone Forms: Zoraida Award Info., Patient Portal Info Letter Discharge Order Discharge Orders: Discharge (Routine); Ordered 06/12/24 Ordered By: Andreea Kwon Quality Discharge Quality Measures VTE prophylaxis Attestestation MD Attestation I have examined the patient, reviewed labs and imaging findings, discussed the case with the resident(s), and reviewed entered orders. I agree with the plan of care as outlined in this note. Dr. Anna
== END 2024-06-12 12:36 | disposition home or self-care (01) | DRG 193 ==
LOC: SERX 11:09 → SERHOLD 12:26 → S3SX 06-10 07:20
PROVIDERS: Admitting Provider Student in an Organized Health Care Education/Training Program; Emergency Provider Emergency Medicine; PCP Internal Medicine; Visit Provider Student in an Organized Health Care Education/Training Program
DX: J18.9 Pneumonia, unspecified organism (principal); I50.23 Acute on chronic systolic (congestive) heart failure; J96.01 Acute respiratory failure with hypoxia; I13.0 Hypertensive heart and chronic kidney disease with heart failure and stage 1 through stage 4 chronic kidney disease, or unspecified chronic kidney disease; N17.9 Acute kidney failure, unspecified; N40.0 Benign prostatic hyperplasia without lower urinary tract symptoms; D64.9 Anemia, unspecified; D69.6 Thrombocytopenia, unspecified; E11.22 Type 2 diabetes mellitus with diabetic chronic kidney disease; E78.5 Hyperlipidemia, unspecified; K59.00 Constipation, unspecified; N18.31 Chronic kidney disease, stage 3a; K21.9 Gastro-esophageal reflux disease without esophagitis; E03.9 Hypothyroidism, unspecified; N20.0 Calculus of kidney; Z66 Do not resuscitate; Z79.890 Hormone replacement therapy; Z79.899 Other long term (current) drug therapy; Z79.84 Long term (current) use of oral hypoglycemic drugs
CPT/HCPCS: 36415; 71046; 71260; 74177; 76705; 80053; 80069; 81001; 83036; 83690; 83735; 83880; 84100; 84439; 84484; 85025; 85610; 85730; 86331; 86635; 87081; 87205; 87400; 87811; 93005; 93225; 93306; 94640; 94762; 96361; 96365; 96366; 96367; 97162; 99285; A4649; A9270; J0456; J0696; J1940; J2470; J7030; J7050; Q9967

== ENCOUNTER → 2024-06-19 | Outpatient (CLI) | payer OTHER, SELFPAY ==
--- NOTE | 2024-06-19 10:02 | XR_ITS ---
Examination: PA lateral chest 2 views TECHNIQUE: Upright PA lateral chest 2 views Exam date and time: General 16 2024 1037 hours Comparison June 09, 2024 INDICATIONS: Shortness of breath beginning 3 weeks ago. FINDINGS: Mild enlargement left ventricle Moderate vascular congestion. No lobar pneumonia or paris pulmonary edema IMPRESSION: Moderate vascular congestion No pneumonia or paris pulmonary edema
[2024-06-19 11:54] LABS: Basophils % (Auto) 1 % (0-2.5); Eosinophils # (Auto) 0.1 Thou/mm3 (0.0-0.5); Eosinophils % (Auto) 2 % (0-10); Hematocrit 27.7 % (41.0-53.0); Hemoglobin 9.6 g/dL (13.5-16.0); Immature Granulocytes % (Auto) 0 % (0-0); Immature Granulocytes Auto 0.01 Thou/mm3 (0.00-0.00); Lymphocytes # (Auto) 0.9 Thou/mm3 (1.0-4.8); Lymphocytes % (Auto) 23 % (10-50); Mean Corpuscular HGB Conc 34.7 g/dl (31.0-37.0); Mean Corpuscular Hemoglobin 32.4 pg (25.0-35.0); Mean Corpuscular Volume 94 fL (80-100); Monocytes # (Auto) 0.4 Thou/mm3 (0.0-0.8); Monocytes % (Auto) 10 % (0-12); Neutrophils # (Auto) 2.5 Thou/mm3 (1.8-7.7); Neutrophils % (Auto) 65 % (37-80); Nucleated Red Blood Cell % 0 /100 WBC (0); Platelet Count 109 Thou/mm3 (140-440); RDW Standard Deviation 46.4 fL (35.1-43.9); Red Blood Count 2.96 Miln/mm3 (4.50-5.90); White Blood Count 3.9 Thou/mm3 (3.8-10.6)
[2024-06-19 12:04] LABS: Glucose Estimated Average 137 mg/dL (80-131); Hemoglobin A1C 6.4 % Hgb (4.8-6.0)
[2024-06-19 12:10] LABS: B-Type Natriuretic Peptide 371 pg/mL (0-100)
[2024-06-19 12:18] LABS: Albumin, Serum 3.9 gm/dL (3.4-4.8); Anion Gap 9 (7-16); BUN/Creatinine Ratio 18 Ratio (12-20); Blood Urea Nitrogen 23 mg/dL (9-23); Calcium 9.5 mg/dL (8.3-10.6); Calcium (Corrected) 9.6 mg/dL (8.5-10.1); Chloride 107 mMol/L (98-107); Creatinine (Component) 1.3 mg/dL (0.6-1.3); Free T4 (Free Thyroxine) 1.13 ng/dL (0.89-1.76); Glucose 140 mg/dL (74-106); Osmolality,Calculated 290 (275-295); Phosphorous 3.1 mg/dL (2.4-5.1); Potassium 4.4 mMol/L (3.4-5.1); Sodium 143 mMol/L (136-145); Thyroid Stimulating Hormone 4.62 uIU/mL (0.55-4.78); eGFR 53 See Note
== END | disposition home or self-care (01) ==
LOC: CDIM 10:06 → COPL 10:52
PROVIDERS: PCP Internal Medicine; Referring Provider Internal Medicine; Visit Provider Radiology Diagnostic Radiology
DX: R09.89 Other specified symptoms and signs involving the circulatory and respiratory systems (principal); Z00.00 Encounter for general adult medical examination without abnormal findings
CPT/HCPCS: 36415; 71046; 80069; 83036; 83880; 84439; 84443; 85025

== ENCOUNTER → 2024-09-15 | Outpatient (CLI) | payer OTHER, SELFPAY ==
[2024-09-15 08:40] LABS: Basophils % (Auto) 0 % (0-2.5); Eosinophils # (Auto) 0.1 Thou/mm3 (0.0-0.5); Eosinophils % (Auto) 3 % (0-10); Hematocrit 30.1 % (41.0-53.0); Hemoglobin 10.4 g/dL (13.5-16.0); Immature Granulocytes % (Auto) 0 % (0-0); Immature Granulocytes Auto 0.01 Thou/mm3 (0.00-0.00); Lymphocytes # (Auto) 0.9 Thou/mm3 (1.0-4.8); Lymphocytes % (Auto) 25 % (10-50); Mean Corpuscular HGB Conc 34.6 g/dl (31.0-37.0); Mean Corpuscular Hemoglobin 31.5 pg (25.0-35.0); Mean Corpuscular Volume 91 fL (80-100); Monocytes # (Auto) 0.4 Thou/mm3 (0.0-0.8); Monocytes % (Auto) 10 % (0-12); Neutrophils # (Auto) 2.1 Thou/mm3 (1.8-7.7); Neutrophils % (Auto) 62 % (37-80); Nucleated Red Blood Cell % 0 /100 WBC (0); Platelet Count 90 Thou/mm3 (140-440); RDW Standard Deviation 44.2 fL (35.1-43.9); White Blood Count 3.4 Thou/mm3 (3.8-10.6)
[2024-09-15 08:57] LABS: Albumin, Serum 4.1 gm/dL (3.4-4.8); Anion Gap 10 (7-16); BUN/Creatinine Ratio 23 Ratio (12-20); Blood Urea Nitrogen 32 mg/dL (9-23); Calcium 9.1 mg/dL (8.3-10.6); Calcium (Corrected) 9.1 mg/dL (8.5-10.1); Carbon Dioxide 22.3 mMol/L (20.0-31.0); Chloride 110 mMol/L (98-107); Creatinine (Component) 1.4 mg/dL (0.6-1.3); Glucose 132 mg/dL (74-106); Osmolality,Calculated 292 (275-295); Phosphorous 3.4 mg/dL (2.4-5.1); Potassium 4.8 mMol/L (3.4-5.1); Sodium 142 mMol/L (136-145); eGFR 49 See Note
[2024-09-15 08:59] LABS: B-Type Natriuretic Peptide 312 pg/mL (0-100)
== END | disposition home or self-care (01) ==
PROVIDERS: PCP Internal Medicine; Referring Provider Internal Medicine; Visit Provider Internal Medicine
DX: I50.42 Chronic combined systolic (congestive) and diastolic (congestive) heart failure (principal)
CPT/HCPCS: 36415; 80069; 83880; 85025

== ENCOUNTER 2024-10-23 15:20 | Emergency (ER) | payer OTHER, MEDICARE, SELFPAY ==
[2024-10-23 15:44] VITALS: BP 108/64; PULSE 69; RESP 18; TEMP 36.6; O2SAT 98; BMI 26.6
--- NOTE | 2024-10-23 15:58 | XR_ITS ---
Examination: CT brain head without contrast. 2-D sagittal coronal reconstructions Date and time of exam:October 23, 2024 1630 hours INDICATIONS: Loss of vision in the right eye today CTDI: vol (mGy):48.6 DLP: (mGycm):1001 Technique: Multiple CT axial sections of the brain have been obtained, 5 mm slice thickness. Contrast has not been administered. 2-D sagittal, coronal reconstructions have been obtained Low dose protocols were performed. One or more of the following dose reduction techniques were used; automated exposure control, adjustment of the mA and/or KV according to patient size, use of iterative reconstruction technique. Findings: No significant ventricular enlargement. Intra-axial or extra-axial hemorrhage density is not seen. No mass effect or midline shift Basal cisterns are not remarkable. Fourth ventricle is midline. Cranial vault intact. Impression: Negative for acute hemorrhage, mass effect or midline shift Consider brain MRI, brain carotids MRA without contrast follow-up
--- NOTE | 2024-10-23 16:01 | EDRME_ITS ---
Rapid Medical Screening Exam [facility] Arrival date/time: 10/23/24 15:20 89-year-old male with a history of hyperlipidemia, hypertension, hypothyroidism presents to the emergency room with a chief complaint of loss of vision to his right eye. Patient states he was seen by an sales support manager who sent him to his primary care provider to rule out stroke. 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 I have greeted and performed a focused initial assessment of this patient. A comprehensive ED assessment and evaluation of the patient, analysis of all test results, and completion of the medical decision making process will be conducted by additional ED providers. Chief Complaint: Eye Problems Vital signs: Vital Signs Temperature 98 F 10/23/24 15:44 Pulse Rate 69 10/23/24 15:44 Respiratory Rate 18 10/23/24 15:44 Blood Pressure 108/64 10/23/24 15:44 Pulse Oximetry (%) 98 10/23/24 15:44 Oxygen Delivery Method Room Air 10/23/24 15:44 Vital signs reviewed by provider: Yes
[2024-10-23 16:40] LABS: Basophils % (Auto) 0 % (0-2.5); Eosinophils # (Auto) 0.1 Thou/mm3 (0.0-0.5); Eosinophils % (Auto) 2 % (0-10); Hematocrit 27.1 % (41.0-53.0); Hemoglobin 9.8 g/dL (13.5-16.0); Immature Granulocytes % (Auto) 0 % (0-0); Immature Granulocytes Auto 0.01 Thou/mm3 (0.00-0.00); Lymphocytes # (Auto) 0.8 Thou/mm3 (1.0-4.8); Lymphocytes % (Auto) 26 % (10-50); Mean Corpuscular HGB Conc 36.2 g/dl (31.0-37.0); Mean Corpuscular Hemoglobin 31.8 pg (25.0-35.0); Mean Corpuscular Volume 88 fL (80-100); Monocytes # (Auto) 0.3 Thou/mm3 (0.0-0.8); Monocytes % (Auto) 9 % (0-12); Neutrophils % (Auto) 63 % (37-80); Nucleated Red Blood Cell % 0 /100 WBC (0); Platelet Count 88 Thou/mm3 (140-440); RDW Standard Deviation 42.6 fL (35.1-43.9); Red Blood Count 3.08 Miln/mm3 (4.50-5.90); White Blood Count 3.1 Thou/mm3 (3.8-10.6)
[2024-10-23 16:59] LABS: Alanine Aminotransferase 12 U/L (10-49); Albumin, Serum 4.3 gm/dL (3.4-4.8); Albumin/Globulin Ratio 1.1 (1.2-2.2); Alkaline Phosphatase 86 U/L (46-116); Anion Gap 10 (7-16); Aspartate Amino Transferase 22 U/L (0-34); BUN/Creatinine Ratio 20 Ratio (12-20); Bilirubin,Total 0.7 mg/dL (0.3-1.2); Blood Urea Nitrogen 34 mg/dL (9-23); Carbon Dioxide 20.8 mMol/L (20.0-31.0); Chloride 111 mMol/L (98-107); Creatinine (Component) 1.7 mg/dL (0.6-1.3); Estimated Creatinine Clearance 27.6 mL/min (>60); Globulin 3.8 gm/dL (2.3-3.5); Glucose 101 mg/dL (74-106); Osmolality,Calculated 290 (275-295); Sodium 142 mMol/L (136-145); Total Protein 8.1 gm/dL (5.7-8.2); eGFR 39 See Note
[2024-10-23 17:00] LABS: Partial Thromboplastin Time 28.2 Seconds (22.0-36.0); Prothrombin Time 11.4 Seconds (9.0-12.2)
[2024-10-23 17:54] LABS: Collection Type, Urine Clean Catch; Squamous Epithelial Cell,Urine 0 /hpf (0-5)
[2024-10-23 17:59] LABS: Bilirubin,Urine Negative (Negative); Blood,Urine Negative (Negative); Clarity,Urine Clear (Clear/Hazy); Color,Urine Drk-Yellow (Lt Yel-Yel); Culture Indicated,Urine Not Indicated; Glucose, Urine Negative (Negative); Hyaline Casts,Urine < 1 /hpf (0-1); Ketones,Urine Negative (Negative); Leukocyte Esterase,Urine Negative (Negative); Nitrite,Urine Negative (Negative); PH,Urine 5.5 (5.0-7.0); Protein,Urine 1+ (Neg - Trace); RBC,Urine 2 /hpf (0-3); Specific Gravity,Urine 1.026 (1.001-1.035); WBC,Urine 1 /hpf (0-5)
--- NOTE | 2024-10-23 18:33 | EDNOTE_ITS ---
ED Eye Problem RME/HPI General Chief complaint: Eye Problems Stated complaint: VISION PROBLEMS Time Seen by Provider: 10/23/24 18:30 Arrival date/time: 10/23/24 15:20 RME / HPI RME / HPI Narrative: 89-year-old male with a history of hyperlipidemia, hypertension, hypothyroidism presents to the emergency room with a chief complaint of loss of vision to his right eye. Incident happened yesterday. As sudden onset of vision loss to the right eye around 4 PM yesterday. Patient states he was seen by an restaurant kitchen manager this morning who sent him to his primary care provider to rule out stroke. 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 Patient was advised by his restaurant kitchen manager that there is nothing much they can do to regain the eyesight. Patient denies any slurring of speech denies any upper or lower extremity weakness denies any headache. Patient is ambulatory. Denies any eye pain. Denies any head trauma or fall. Denies any fever. Related Data Home Medications ?Medication ?Instructions ?Recorded ?Confirmed GLIPIZIDE 10 mg PO QDAY ##0 06/23/13 0 07/28/19 Isosorbide Mononitrate * (IMDUR *) 30 mg PO QDAY ##90 06/23/13 07/28/19 Levothyroxine * (SYNTHROID *) 100 mcg PO QDAY ##90 07/28/19 lisinopril 40 mg tablet 40 mg PO QDAY ##90 06/23/13 07/28/19 Held on 06/12/24. Instructions: in setting of SADIQ follow PCP to resume Glucosamine/MSM/Chondroitin A * 1 tab PO BID #0 tabs 0 08/25/16 07/28/19 (TRIPLEFLEX *) acetaminophen 500 mg tablet 500 mg PO BID PRN PAIN #0 tabs 08/25/16 07/28/19 (Tylenol Extra Strength) atorvastatin 40 mg tablet (Lipitor) 40 mg PO HS #0 tab s 08/25/16 07/28/19 cholecalciferol (vitamin D3) 50 2,000 unit PO QDAY #0 caps 08/25/16 07/28/19 mcg (2,000 unit) capsule (Vitamin D3) hydrochlorothiazide 25 mg tablet 25 mg PO QAM #0 tabs 08/25/16 07/28/19 tamsulosin 0.4 mg capsule 0.4 mg PO QDAY 07/02/1807/06 Previous Rx's ?Medication ?Instructions ?Recorded carvedilol 12.5 mg tablet 12.5 mg PO BID 1 month #60 t abs 06/12/24 furosemide 20 mg tablet (Lasix) 20 mg PO Q OTHER DAY 1 month #15 06/12/24 tabs Allergies Allergy/AdvReac Type Severity Reaction Status Date / Time No Known Allergies Allergy Unverified 06/10/24 08:53 Review of Systems Review of Systems Narrative Review of Systems: Review of system reviewed and within normal limits except mentioned in HPI ED Exam Narrative Physical exam: VITAL SIGNS: Reviewed. GENERAL APPEARANCE: Alert and interactive, follows commands, no acute distress, HEAD AND FACE: Non-traumatic. ENT: PERRL, pink conjunctivitis, eyelid no trauma, Mucous membrane moist. Right eye unable to see if finger counting at 2 feet. Left eye normal vision with glasses NECK: Supple, nontender, no nuchal rigidity. CHEST: No tenderness, no crepitus, no paradoxical movement, no retractions. LUNGS: Clear, well ventilated, symmetric, no rales, no wheezing, no ronchi, no stridor, good breath sounds bilaterally. HEART: Regular rate, regular rhythm, no murmur, no gallops. ABDOMEN: Soft, positive bowel sounds, nondistended, no guarding, nontender, no rebound, no masses, RECTAL: Deferred. GENITAL: Deferred. NEUROLOGICAL: Gross motor function intact sensory function intact, Appropriate for age. MUSCULOSKELETAL: low back nontender, full range of motion. EXTREMITIES: Nontender, full range of motion. SKIN: Color pink, dry, no rash, no lacerations, no abrasions, no contusions. LYMPHATICS: Deferred. Course Quality Measures none Orders Category Date Time Status Visual Acuity X1 Care 10/23/24 15:[address] head/brain wo con Stat Exams 10/23/24 15:58 Completed CBC Stat Lab 10/23/24 16:11 Completed CMP [Comprehensive Metabolic Panel] Stat Lab 10/23/24 16:11 Completed PT [Prothrombin Time with INR] Stat Lab 10/23/24 16:11 Completed PTT [Partial Thromboplastin Time] Stat Lab 10/23/24 16:11 Completed UA, C/S IF [Urinalysis, C/S if Indicated] Stat Lab 10/23/24 17:15 Completed Vital Signs Vital signs: Vital Signs Temperature 98 F 10/23/24 15:44 Pulse Rate 69 10/23/24 15:44 Respiratory Rate 18 10/23/24 15:44 Blood Pressure 108/64 10/23/24 15:44 Pulse Oximetry (%) 98 10/23/24 15:44 Oxygen Delivery Method Room Air 10/23/24 15:44 Eye MDM Narrative MDM Narrative:: 89-year-old male with a history of hyperlipidemia, hypertension, hypothyroidism presents to the emergency room with a chief complaint of loss of vision to his right eye. Incident happened yesterday. As sudden onset of vision loss to the right eye around 4 PM yesterday. Patient states he was seen by an restaurant kitchen manager this morning who sent him to his primary care provider to rule out stroke. 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 Patient was advised by his restaurant kitchen manager that there is nothing much they can do to regain the eyesight. Patient denies any slurring of speech denies any upper or lower extremity weakness denies any headache. Patient is ambulatory. Denies any eye pain. Denies any head trauma or fall. Denies any fever. CT scan of the head came back unremarkable. Laboratory workup is significant for hemoglobin of 9.8 hematocrit of 27.1. Patient was given a copy of his CT scan. Patient told me that he is going to see his doctor for the results. In the morning Patient was advised he needs an MRI of the brain, we do not have MRI tonight, was advised to come back in the morning around 8:00 AM for MRI of the brain or return to emergency room right away for worsening of symptoms. Patient told me that he is coming back tomorrow morning for MRI. Patient data External records reviewed:: None Clinical information provided by:: patient Social determinants that could affect healthcare access:: none Patient has the following chronic illnesses:: Hypertension hyperlipidemia How is presenting disease/condition affected by chronic disease/condition?: exacerbated by Evaluation data The following diagnostics were reviewed and interpreted by me:: lab results and radiology exam(s) Lab and/or radiology exams considered but not ordered:: None Interpretation Summary: See results MDM Medications / Prescriptions Medications or Prescriptions considered but not ordered:: None Medication administrations:: None Consultations Consultation(s) initiated? (list below): No Diagnosis Eye Problem Differential Diagnosis: acute iritis, subconjunctival hemorrhage and other (Retinal artery occlusion, blindness right eye, CVA) Most likely diagnosis given after review of the tests above:: Retinal artery occlusion, blindness right eye Admission Indicated Admission indicated?: not indicated Admission Request Was there a request for admission?: No Disposition Plan Disposition Plan: Discharge Discharge Attestation Discharge Attestation: The patient and all family members were given an opportunity to ask questions and understood the discharge instructions. Discharge instructions specifically effects, indications for sooner follow up or return to the emergency department, and the expected course of current diagnosis. Patient condition: Stable Discharge Plan Plan Patient Disposition: HOME (Self Care) Discharge Disposition comment: Stable Prescriptions/Referrals Prescriptions/Med Rec: No Action tamsulosin 0.4 mg capsule 0.4 mg PO QDAY GLIPIZIDE 10 mg PO QDAY Qty: 0 lisinopril 40 MG tablet 40 mg PO QDAY Qty: 90 Isosorbide Mononitrate * (IMDUR *) 30 MG TAB.ER.24H 30 mg PO QDAY Qty: 90 Levothyroxine * (SYNTHROID *) 100 MCG tablet 100 mcg PO QDAY Qty: 90 atorvastatin [Lipitor] 40 MG tablet 40 mg PO HS Qty: 0 acetaminophen [Tylenol Extra Strength] 500 MG tablet 500 mg PO BID PRN (Reason: PAIN) Qty: 0 hydrochlorothiazide 25 MG tablet 25 mg PO QAM Qty: 0 cholecalciferol (vitamin D3) [Vitamin D3] 2,000 UNIT capsule 2,000 unit PO QDAY Qty: 0 Glucosamine/MSM/Chondroitin A * (TRIPLEFLEX *) 1 EACH tablet 1 tab PO BID Qty: 0 carvedilol 12.5 mg Tablet 12.5 mg PO BID 30 Days Qty: 60 1RF furosemide [Lasix] 20 mg tablet 20 mg PO Q OTHER DAY 30 Days Qty: 15 1RF Referrals: Edilson Barcenas MD [Primary Care Provider] - In 1 week Problem List Clinical Impression: Blind right eye, Retinal artery occlusion Patient/Caregiver Discharge Instructions Discharge Activity: activity as tolerated Education Materials: How the Eye Works Additional Instructions: Thank you for the opportunity for serving you today. You are stable for discharged . You are advised to: Follow-up with your PCP in the morning Return to ED for worsening of symptoms The CT scan of your head today came back unremarkable however I want you to return in the morning for MRI of your brain, we do not have MRI overnight Print Language: Mongolian Stand Alone Forms: Zoraida Award Info., Patient Portal Info Letter PA/DOLL MAKER Supervising Physician LEVI/DOLL MAKER Supervising Physician: MD Abdirashid
== END 2024-10-23 19:00 | disposition home or self-care (01) ==
PROVIDERS: Nurse Practitioner Family; Emergency Provider Family Medicine; PCP Internal Medicine
DX: H54.61 Unqualified visual loss, right eye, normal vision left eye (principal); H34.11 Central retinal artery occlusion, right eye
CPT/HCPCS: 36415; 70450; 80053; 81001; 85025; 85610; 85730; 99284

== ENCOUNTER 2024-10-28 11:42 | Emergency (ER) | payer OTHER, SELFPAY ==
--- NOTE | 2024-10-28 | XR_ITS ---
Examination: MRI of brain without intravenous contrast. MRI brain with intravenous contrast. Date and time of exam:October 28, 2024 1506 hours INDICATIONS: Loss of vision in the right eye with dizziness today Technique: Multiple axial and sagittal images of the brain to been obtained. Siemens high-resolution 1.52 Jess short bore scanner utilized. Sagittal sections, T1 weighted images, TR 500, TE 14, are performed. Axial sections proton-density and T2-weighted images have been obtained. Inversion recovery axial images, TR 9260, TE 111, TR 2500. Diffusion weighted images, axial sections, TR 4800, TE 128, B value 1000. Axial sections, ADC map, TR 4800, TE 128. Axial and coronal images were also obtained post 15 cc gadolinium administered intravenously. Findings:: Enlargement of the sella turcica is not present. The optic chiasm and infundibular stalk are not remarkable. There is no localized enlargement of the medulla or rudolph. Fourth ventricle and cerebellar tonsils appear normal in position. No subacute area of hemorrhage density is seen. Fourth ventricle is midline. Mass in the cerebellopontine angle region is not evident. 7th and 8th nerve complexes exhibit symmetry Globes are symmetrical Orbital musculature including medial lateral rectus muscles do not exhibit abnormality Increased white matter signal is moderate Effacement of the cortical sulcal markings is not identified. Mass effect upon the ventricular system is not identified. Diffusion-weighted images demonstrate no focus of restricted diffusion Contrast images demonstrate no abnormal enhancing cerebellar or cerebral lesions Impression: Negative for acute hemorrhage mass effect or midline shift No acute infarct Moderate chronic microvascular white matter change
[2024-10-28 11:43] VITALS: BMI 26.6
[2024-10-28 12:11] VITALS: BP 157/71; PULSE 70; RESP 18; TEMP 36.7; O2SAT 96
--- NOTE | 2024-10-28 12:16 | PD.EDRME ---
Rapid Medical Screening Exam RME Arrival date/time: 10/28/24 11:42 89-year-old male with a history of hyperlipidemia, hypertension, hypothyroidism presents to the emergency room with a chief complaint of visual loss to his right eye. Patient states he was seen here and was told to return to the emergency room for an MRI of his brain. I have greeted and performed a focused initial assessment of this patient. A comprehensive ED assessment and evaluation of the patient, analysis of all test results, and completion of the medical decision making process will be conducted by additional ED providers. Chief Complaint: Recheck/Abnormal Lab/Rx Time Seen by Provider: 10/28/24 12:06 Vital signs: Vital Signs Temperature 98.1 F 10/28/24 12:11 Pulse Rate 70 10/28/24 12:11 Respiratory Rate 18 10/28/24 12:11 Blood Pressure 157/71 H 10/28/24 12:11 Pulse Oximetry (%) 96 10/28/24 12:11 Oxygen Delivery Method Room Air 10/28/24 12:11 Vital signs reviewed by provider: Yes
[2024-10-28 12:52] LABS: Basophils % (Auto) 1 % (0-2.5); Eosinophils # (Auto) 0.1 Thou/mm3 (0.0-0.5); Eosinophils % (Auto) 3 % (0-10); Hematocrit 27.5 % (41.0-53.0); Hemoglobin 9.7 g/dL (13.5-16.0); Immature Granulocytes % (Auto) 0 % (0-0); Immature Granulocytes Auto 0.01 Thou/mm3 (0.00-0.00); Lymphocytes # (Auto) 0.8 Thou/mm3 (1.0-4.8); Lymphocytes % (Auto) 19 % (10-50); Mean Corpuscular HGB Conc 35.3 g/dl (31.0-37.0); Mean Corpuscular Hemoglobin 31.9 pg (25.0-35.0); Mean Corpuscular Volume 91 fL (80-100); Monocytes # (Auto) 0.3 Thou/mm3 (0.0-0.8); Monocytes % (Auto) 6 % (0-12); Neutrophils % (Auto) 71 % (37-80); Nucleated Red Blood Cell % 0 /100 WBC (0); Platelet Count 80 Thou/mm3 (140-440); RDW Standard Deviation 42.9 fL (35.1-43.9); Red Blood Count 3.04 Miln/mm3 (4.50-5.90); White Blood Count 4.2 Thou/mm3 (3.8-10.6)
[2024-10-28 13:22] LABS: Alanine Aminotransferase 11 U/L (10-49); Albumin, Serum 4.4 gm/dL (3.4-4.8); Albumin/Globulin Ratio 1.4 (1.2-2.2); Alkaline Phosphatase 83 U/L (46-116); Anion Gap 11 (7-16); Aspartate Amino Transferase 20 U/L (0-34); BUN/Creatinine Ratio 21 Ratio (12-20); Bilirubin,Total 0.6 mg/dL (0.3-1.2); Blood Urea Nitrogen 27 mg/dL (9-23); Carbon Dioxide 22.7 mMol/L (20.0-31.0); Chloride 109 mMol/L (98-107); Creatinine (Component) 1.3 mg/dL (0.6-1.3); Estimated Creatinine Clearance 37.4 mL/min (>60); Globulin 3.2 gm/dL (2.3-3.5); Glucose 103 mg/dL (74-106); Osmolality,Calculated 290 (275-295); Potassium 4.4 mMol/L (3.4-5.1); Sodium 143 mMol/L (136-145); Total Protein 7.6 gm/dL (5.7-8.2); eGFR 53 See Note
[2024-10-28 16:41] VITALS: BP 184/80; PULSE 75; RESP 19; TEMP 36.4; O2SAT 95
--- NOTE | 2024-10-28 17:21 | PC.NURSE ---
Patient drove from home to the ED with c/o vision on the right eye completely black. He stated that it started 3-4 days ago and went to the senior production manager which he diagnoses that patient with having a stroke. Pt was then sent to another field talent qualification specialist and that doctor referred him to see pt's PCP Dr. Barcenas. Once pt was in Dr. Duron office he was sent to the ED to get evaluated for stoke. Currently patient's facial features are symmetrical, upper extremity are equal lower extremity are also equal. Ken any gait changes or any memory changes. He did report that his vision is completely opaque on the right side. Pt's VSS, denies any pain or s/s of distress. Warm blanket provided, call light within reach.
[2024-10-28 18:10] VITALS: BP 168/72; PULSE 83; RESP 19; TEMP 37; O2SAT 95
--- NOTE | 2024-10-28 19:43 | PD.EDNEURO ---
Neuro Symptoms Deficit-RME/HPI General Chief Complaint: Recheck/Abnormal Lab/Rx Stated Complaint: SENT BY PMD FOR MRI OF BRAIN Time Seen by Provider: 10/28/24 12:06 Arrival date/time: 10/28/24 11:42 This is a case of 89-year-old male with a history of hyperlipidemia, hypertension, hypothyroidism presents to the emergency room with a chief complaint of visual loss to his right eye. History of present illness started 3 days prior to arrival in the emergency room when the patient felt sudden loss of vision on his right eye with frontal headache patient denies any numbness weakness tingling sensation denies any dizziness chest pain patient sought consult scratch polisher and was told that he might have stroke and needs to see in the ER for possible imaging Limitations: no limitations RME / HPI RME / HPI Narrative: 10/28/24 11:42 89-year-old male with a history of hyperlipidemia, hypertension, hypothyroidism presents to the emergency room with a chief complaint of visual loss to his right eye. Patient states he was seen here and was told to return to the emergency room for an MRI of his brain. I have greeted and performed a focused initial assessment of this patient. A comprehensive ED assessment and evaluation of the patient, analysis of all test results, and completion of the medical decision making process will be conducted by additional ED providers. Related Data Home Medications ?Medication ?Instructions ?Recorded ?Confirmed GLIPIZIDE 10 mg PO QDAY ##0 06/23/13 07/28/19 Isosorbide Mononitrate * (IMDUR *) 30 mg PO QDAY ##90 06/23/13 07/28/19 Levothyroxine * (SYNTHROID *) 100 mcg PO QDAY ##90 06/23/13 07/28/19 lisinopril 40 mg tablet 40 mg PO QDAY ##90 06/23/13 07/28/19 Held on 06/12/24. Instructions: in setting of [facility] follow PCP to resume Glucosamine/MSM/Chondroitin A * 1 tab PO BID #0 tabs 08/25/16 07/28/19 (TRIPLEFLEX *) acetaminophen 500 mg tablet 500 mg PO BID PRN PAIN #0 tabs 08/25/16 07/28/19 (Tylenol Extra Strength) atorvastatin 40 mg tablet (Lipitor) 40 mg PO HS #0 tabs 08/25/16 07/28/19 cholecalciferol (vitamin D3) 50 2,000 unit PO QDAY #0 caps 08/25/16 07/28/19 mcg (2,000 unit) capsule (Vitamin D3) hydrochlorothiazide 25 mg tablet 25 mg PO QAM #0 tabs 08/25/16 07/28/19 tamsulosin 0.4 mg capsule 0.4 mg PO QDAY 07/02/18 07/28/19 Previous Rx's ?Medication ?Instructions ?Recorded carvedilol 12.5 mg tablet 12.5 mg PO BID 1 month #60 tabs 06/12/24 furosemide 20 mg tablet (Lasix) 20 mg PO Q OTHER DAY 1 month #15 06/12/24 tabs Allergies Allergy/AdvReac Type Severity Reaction Status Date / Time No Known Allergies Allergy Verified 10/28/24 11:46 Review of Systems Review of Systems Systems Reviewed: All systems reviewed, normal except as documented Constitutional Constitutional: Reports system reviewed and no additional complaints, except as documented, Reports as per HPI, Denies chills, Denies fever(s), Denies frequent falls, Reports headache(s) and Denies weakness Eyes Eyes: Reports system reviewed and no additional complaints, except as documented, Reports as per HPI, Reports blurry vision, Denies floaters, Reports loss of peripheral vision and Reports loss of vision ENT Ears, Nose, Mouth, and Throat: Denies abnormal hearing, Denies disequilibrium, Denies dizziness, Reports headache(s) and Denies vertigo Cardiovascular Cardiovascular: Reports system reviewed and no additional complaints, except as documented, Reports as per HPI, Denies chest pain, Denies dyspnea and Denies syncope Respiratory Respiratory: Reports system reviewed and no additional complaints, except as documented, Reports as per HPI, Denies cough and Denies dyspnea Gastrointestinal Gastrointestinal: Reports system reviewed and no additional complaints, except as documented and Reports as per HPI Genitourinary Genitourinary: Reports system reviewed and no additional complaints, except as documented and Reports as per HPI Musculoskeletal Musculoskeletal: Reports system reviewed and no additional complaints, except as documented, Reports as per HPI, Denies abnormal gait, Denies numbness and Denies tingling Neurologic Neurologic: Reports system reviewed and no additional complaints, except as documented, Reports as per HPI, Denies abnormal gait, Denies abnormal hearing, Denies abnormal movements, Denies abnormal speech, Denies behavioral changes, Denies burning sensations, Denies confusion, Denies convulsions, Denies disequilibrium, Denies dizziness, Denies localized weakness, Denies frequent falls, Reports headache(s), Denies lack of coordination, Reports loss of vision, Denies memory loss, Denies numbness, Denies other visual disturbances, Reports paresthesias, Denies radicular pain, Denies restless legs, Denies seizure-like activity, Denies sensory deficit, Denies syncope, Denies tingling, Denies tremor(s), Denies vertigo and Denies weakness Psychiatric Psychiatric: Denies behavioral changes, Denies confusion and Denies memory loss Past Medical History Past Medical History NEUROLOGIC: Negative Neurological Disorders CARDIAC: Positive Cardiac Disorders, Heart Murmur, Hypercholesterolemia and Hypertension; Negative Congestive Heart Failure RESPIRATORY: Negative Respiratory Disorders, Chronic Obstructive Pulmonary Disease (COPD) or Asthma GASTROINTESTINAL: Negative Gastrointestinal Disorders, Hepatitis or Colorectal Cancer GENITOURINARY: Positive Genitourinary Disorders and Benign Prostatic Hyperplasia; Negative Renal Disease or Prostate Cancer REPRODUCTIVE: Negative Breast Cancer, Fibroids or Testicular Cancer MUSCULOSKELETAL: Positive Musculoskeletal Disorders and Arthritis; Negative Muscular Dystrophy or Bone Cancer ENT: Negative Cataracts ENDOCRINE: Positive Diabetes Mellitus Type 2; Negative Endocrine Disorders or Diabetes Mellitus Type 1 HEMATOLOGIC: Negative Blood Disorders, Anemia, Leukemia, Hemophilia, Thalassemia, Sickle Cell Disease or Clotting Problems OTHER HISTORY: Positive Blood Transfusions; Negative Hospitalization, Autoimmune Disease, Down Syndrome, Developmental Delay, Shingles, Falls, Blood Transfusion Reaction, Anesthesia Reactions, Organ Transplant, Chemotherapy, Radiation Therapy, Hyperbaric Therapy, MRSA, VRSA, Vancomycin-Resistant Enterococci, Human Immunodeficiency Virus (HIV), Chicken Pox, Measles, Mumps, Rubella (Setswana Measles), Pertussis, Clostridium Difficile, Cancer, Breast Cancer, Cervical Cancer, Colorectal Cancer, Lung Cancer, Ovarian Cancer, Prostate Cancer or Testicular Cancer Family History FAMILY HISTORY: Negative Family Cardiac Disorders Surgical History SURGICAL: Positive Eye Surgery (cataract (left eye)), Abdominal Surgery and Joint Replacement; Negative Endocrine Surgery, Thyroidectomy, Ear Surgery, Tympanostomy Tube, Nose Surgery, Oral Surgery, Tonsillectomy, Adenoidectomy, Cochlear Implant, Corneal Transplant, Throat Surgery, Tracheostomy, Gastric Bypass Surgery, Gastrostomy, Bowel Surgery, Nephrectomy, Transurethral Resection, Neurologic Surgery, Brain Shunt, Mastectomy, Lumpectomy, Hysterectomy, Tubal Ligation, Section, Vasectomy or Organ Transplant Social History SMOKING STATUS: Never smoker ED Exam General Limitations: Present no limitations General appearance: Present alert and in no apparent distress; Absent appears intoxicated, anxious, lethargic, obtunded, in distress, obese or cachectic Head Head exam: Present atraumatic, normocephalic and normal inspection Eye Eye exam: Present normal appearance and other (noted right eye fixed 2mm left eye reactive to light unable eom to right left normal no papiledema on the left eye unable to red orange reflex left eye); Absent periorbital swelling or periorbital tenderness ENT ENT exam: Present normal exam, normal oropharynx, mucous membranes moist and TM's normal bilaterally Neck Neck exam: Present normal inspection, full ROM and trachea midline; Absent tenderness, meningismus, lymphadenopathy or thyromegaly Chest Chest inspection: Present normal inspection and symmetric chest wall rise Respiratory Respiratory exam: Present normal lung sounds bilaterally; Absent respiratory distress, wheezes, stridor, accessory muscle use or prolonged expiratory phase Cardiovascular Cardiovascular exam: Present regular rate, normal rhythm and normal heart sounds; Absent bradycardia, tachycardia, irregular rhythm, systolic murmur or diastolic murmur Abdominal Exam Abdominal exam: Present soft and normal bowel sounds; Absent distention or tenderness Extremities Exam Extremities exam: Present normal inspection and full ROM Back Exam Back exam: Present normal inspection and full ROM Neurological Exam Neurological exam: Present alert, oriented X3, CN II-XII intact, normal gait and reflexes normal; Absent motor sensory deficit Expanded Neurological Exam Cranial nerves: Normal: facial sensation (V), facial palsy (VII), gag reflex (IX), spinal accessory function (XI) and tongue deviation (XII) Motor strength - LUE: 5/5 Motor strength - RUE: 5/5 Motor strength - LLE: 5/5 Motor strength - RLE: 5/5 Upper motor neuron exam: Normal: Babinski sign Sensory exam upper extremity: Normal: light touch, pin prick, temperature and 2 point discrimination Sensory exam lower extremity: Normal: light touch, pin prick, temperature and 2 point discrimination DTR: 2+: biceps (L), biceps (R), patellar (L), patellar (R), Achilles tendon (L) and Achilles tendon (R) Psychiatric Psychiatric exam: Present normal affect and normal mood Skin Skin exam: Present warm, dry, intact and normal color Course Quality Measures none Orders Category Date Time Status COVID-19 Screening Questionnaire NOW Care 10/28/24 19:39 Active MRI Screening NOW Care 10/28/24 12:15 Active MR head/brain wo/w con Stat Exams 10/28/24 Completed CBC Stat Lab 10/28/24 12:33 Completed CMP [Comprehensive Metabolic Panel] Stat Lab 10/28/24 12:33 Completed Vital Signs Vital signs: Vital Signs Temperature 98.1 F 10/28/24 12:11 Pulse Rate 70 10/28/24 12:11 Respiratory Rate 18 10/28/24 12:11 Blood Pressure 157/71 H 10/28/24 12:11 Pulse Oximetry (%) 96 10/28/24 12:11 Oxygen Delivery Method Room Air 10/28/24 12:11 Oxygen saturation 96 on room air normal Neuro Symptoms / Deficit MDM Narrative MDM Narrative:: 89-year-old male with a history of hyperlipidemia, hypertension, hypothyroidism presents to the emergency room with a chief complaint of visual loss to his right eye Physical examination patient is awake alert oriented not in distress nontoxic looking patient vital signs stable BP stable not tachycardic not tachypneic afebrile and nonhypoxic I did a thorough exam on the both eye noted left eye fixed 2 mm and there is no red orange reflex right eye normal exam lung sounds clear no crackles no rales no retraction no stridor heart and RRR no murmur neurological exam no slurring of speech awake alert oriented x 4 steady gait motor or sensory reflex were normal Blood test showed no leukocytosis no anemia kidney and liver function is normal no electrolyte imbalance patient MRI of the brain showed moderate chronic micro vasculature white matter changes thus possible that the patient have CVA or TIA prior to the arrival in the emergency room no acute infarct no hemorrhage carotid exam is normal Based on my physical examination and results of the MRI I can conclude that the patient need to be admitted here in the emergency room to be seen by neurologist for further evaluation and treatment Spoke to the hospitalist dr elliott discussed patient condition history and physical examination relayed result of the blood test and MRI agreed that the patient need to be admitted for further evaluation and treatment discussed with the patient the treatment plan and admission and the aqreed Addendum Dr. Petersen called back and I was instructed to discharge the patient she spoke to the neurologist and she was told that there is nothing we can do here in the emergency room patient impression is central artery occlusion it is not TIA nor CVA I discussed the decision to the patient and agreed he will be going home for precaution at home and he will follow-up with neurologist for further evaluation and treatment Patient data External records reviewed:: [facility] previous records Clinical information provided by:: patient Social determinants that could affect healthcare access:: none Patient has the following chronic illnesses:: None How is presenting disease/condition affected by chronic disease/condition?: no chronic disease Evaluation data The following diagnostics were reviewed and interpreted by me:: lab results and radiology exam(s) Lab and/or radiology exams considered but not ordered:: Reviewed Interpretation Summary: Reviewed Medications / Prescriptions Medications or Prescriptions considered but not ordered:: None Medication administrations:: None Consultations Consultation(s) initiated? (list below): Yes Consultation #1 (Physician, Specialty, Details): Hospitalist Dr. Clark please see my MDM narrative Diagnosis Neuro Differential Diagnosis: cerebrovascular accident, transient cerebral ischemia and other (Central artery occlusion) Most likely diagnosis given after review of the tests above:: Central artery occlusion Admission Indicated Admission indicated?: not indicated Explain why admission is indicated or not indicated:: Not indicated Admission Request Was there a request for admission?: No Admission Attestation Admission request attestation: Not indicated Disposition Plan Disposition Plan: Discharge Discharge Attestation Discharge Attestation: The patient and all family members were given an opportunity to ask questions and understood the discharge instructions. Discharge instructions specifically effects, indications for sooner follow up or return to the emergency department, and the expected course of current diagnosis. Patient condition: Stable Discharge Plan Plan Patient Disposition: HOME (Self Care) Patient condition on transfer: Stable Prescriptions/Referrals Prescriptions/Med Rec: No Action tamsulosin 0.4 mg capsule 0.4 mg PO QDAY GLIPIZIDE 10 mg PO QDAY Qty: 0 lisinopril 40 MG tablet 40 mg PO QDAY Qty: 90 Isosorbide Mononitrate * (IMDUR *) 30 MG TAB.ER.24H 30 mg PO QDAY Qty: 90 Levothyroxine * (SYNTHROID *) 100 MCG tablet 100 mcg PO QDAY Qty: 90 atorvastatin [Lipitor] 40 MG tablet 40 mg PO HS Qty: 0 acetaminophen [Tylenol Extra Strength] 500 MG tablet 500 mg PO BID PRN (Reason: PAIN) Qty: 0 hydrochlorothiazide 25 MG tablet 25 mg PO QAM Qty: 0 cholecalciferol (vitamin D3) [Vitamin D3] 2,000 UNIT capsule 2,000 unit PO QDAY Qty: 0 Glucosamine/MSM/Chondroitin A * (TRIPLEFLEX *) 1 EACH tablet 1 tab PO BID Qty: 0 carvedilol 12.5 mg Tablet 12.5 mg PO BID 30 Days Qty: 60 1RF furosemide [Lasix] 20 mg tablet 20 mg PO Q OTHER DAY 30 Days Qty: 15 1RF Referrals: Guillermo Pineda MD [Referring Provider] - 10/30/24 (For further evaluation and treatment of vision loss possible central artery occlusion) Edilson Barcenas MD [Primary Care Provider] - In 1 week Problem List Clinical Impression: Loss of vision, [employer] (central retinal artery occlusion) Patient/Caregiver Discharge Instructions Education Materials: Central Retinal Artery Occlusion, Understanding Vision Problems Additional Instructions: Follow-up with your primary care physician in 2 days for reevaluation and to be referred to a neurologist for further evaluation and treatment of your sudden vision loss and possible central arterial occlusion for any recurrence worsening symptoms or any emergent concern return to the emergency room immediately or call 911 fall precaution advised Print Language: Hungarian Stand Alone Forms: Zoraida Award Info., Patient Portal Info Letter LEVI/FARA Supervising Physician LEVI/FARA Supervising Physician: dr monroy
--- NOTE | 2024-10-28 20:07 | PD.RESEVENT ---
Documentation for date of: 10/28/24 Event Note Event Note: Recieved a call from ED regarding the patient who is 89-year-old male w/ PMH Hypertension, Hypothyroidism,Type 2 Diabetes Mellitus, Congestive Heart Failure (EF 30%) Initial Date of Initial Presentation: 10/23/2024 w/ CC of Sudden vision loss in the right eye. Patient presented with acute onset of vision loss in the right eye. He had been evaluated by an cad application support specialist and was diagnosed with central retinal artery occlusion . He was informed that there were limited treatment options and minimal likelihood of regaining vision. He denied associated symptoms including slurred speech, limb weakness, headache, or other focal neurological deficits. However, his PCP advised ED evaluation for stroke workup. Emergency Department Evaluation (10/23/2024): CT Head: Negative for acute hemorrhage, mass effect, or midline shift. MRI Brain: Recommended but deferred due to MRI unavailability. Patient was advised to follow up outpatient or return if symptoms worsened. Patient returned to ED on 10/28/24 for outpatient MRI. He remained hemodynamically stable and continued to deny any new neurological symptoms. No improvement in vision noted. MRI Brain:No acute infarct, mass, or midline shiftModerate chronic microvascular white matter changes Carotid Doppler: Right ICA: 0?11% stenosis. Left ICA: 0?10% stenosis Neurology Consultation: In-house neurology was contacted , evaluated the case and recommended no need for inpatient workup, given no evidence of acute stroke and lack of intervention options for CRAO at this stage. Advised outpatient follow-up with ophthalmology and/or neurology. Disposition: 1.Imaging does not support acute stroke. 2.Patient is outside the window for acute intervention. 3.No inpatient workup indicated per neurology. 4.Plan discussed with attending physician. 5.ED team notified of evaluation and disposition plan. Recommendations. 1. outpatient follow-up for continued care 2.Ensure coordination with ophthalmology and primary care Patient care was discussed with attending physician Dr. Woody Beth MD PGY-2 I have carefully reviewed this document. Due to imperfections in the voice software, there could be grammatical errors including phonetic/typographic errors. This in no way compromises the medical care the patient is receiving
[2024-10-28 20:10] VITALS: BP 154/87; PULSE 89; RESP 18; TEMP 36.9; O2SAT 99
== END 2024-10-28 22:43 | disposition home or self-care (01) ==
PROVIDERS: Nurse Practitioner Family; Emergency Provider Emergency Medicine; PCP Internal Medicine
DX: H34.11 Central retinal artery occlusion, right eye (principal); I10 Essential (primary) hypertension; E03.9 Hypothyroidism, unspecified; E78.5 Hyperlipidemia, unspecified
CPT/HCPCS: 36415; 70553; 80053; 85025; 99285; A9579

== ENCOUNTER → 2024-10-28 | Outpatient (CLI) | payer OTHER, SELFPAY ==
--- NOTE | 2024-10-28 10:39 | XR_ITS ---
Examination: Carotid arterial duplex scan, ultrasound. Date and time of exam: October 28, 2024 1057 hours INDICATIONS: Onset blindness in the right eye beginning one week ago Technique: Multiple sonographic images have been obtained of the carotid arteries and vertebral arteries, B-mode/grayscale imaging and Doppler spectral analysis and color flow Peak systolic and diastolic velocities have been recorded. Systolic diastolic ratios have been calculated. Findings: Right peak systolic velocities: Distal internal carotid artery peak systolic velocity is 0.4 M/sec Proximal internal carotid artery peak systolic velocity is 0.9 M/sec Carotid bifurcation peak systolic velocity is 0.7 M/sec External carotid artery peak systolic velocity is 1.3 M/sec Vertebral artery flow is antegrade. Left peak systolic velocities: Distal internal carotid artery peak systolic velocity is 0.4 M/sec Proximal internal carotid artery peak systolic velocity is 0.7 M/sec Carotid bifurcation peak systolic velocity is 0.8 M/sec External carotid artery peak systolic velocity is 1.0 M/sec Vertebral artery flow is antegrade Doppler waveform analysis demonstrates no spectral broadening Impression: Right internal carotid artery demonstrates 0-10% stenosis. Left internal carotid artery demonstrates 0-10% stenosis.
== END | disposition home or self-care (01) ==
PROVIDERS: PCP Internal Medicine; Referring Provider Internal Medicine; Visit Provider Internal Medicine
DX: H54.7 Unspecified visual loss (principal)
CPT/HCPCS: 93880

== ENCOUNTER 2024-12-16 20:28 | Inpatient (IN) | payer OTHER, MEDICARE, SELFPAY ==
--- NOTE | 2024-12-16 20:33 | EKG_ITS ---
[facility] Test Date: 2024-12-16 Pat Name: MADDISON GILLETTE Department: Room: - Gender: Male Rn Patient Services: : 1935 Requested By: ED Temporary Provider Order Number: [id number] Reading MD: ED Temporary Provider Measurements Intervals Sturgeon Rate: 77 P: -2 NC: 160 QRS: -66 QRSD: 145 T: 115 QT: 463 QTc: 524 Interpretive Statements SINUS RHYTHM POSSIBLE LEFT ATRIAL ENLARGEMENT [-0.1mV P-WAVE IN V1/V2] LEFT AXIS DEVIATION [QRS AXIS < -30] LEFT BUNDLE BRANCH BLOCK [120+ ms QRS DURATION, 80+ ms Q/S IN V1/V2, 85+ ms R IN I/aVL/V5/V6] Compared to ECG 06/09/2024 04:38:19 Ventricular premature complex(es) no longer present /store/S0/[id number]/ecg/[id number].pdf
[2024-12-16 20:38] VITALS: BP 46/35; BP 50/31; PULSE 82; RESP 14; O2SAT 95
[2024-12-16 21:01] VITALS: BP 95/64; PULSE 67; RESP 23; TEMP 37.1; O2SAT 96
--- NOTE | 2024-12-16 21:02 | XR_ITS ---
Examination: CT brain head without contrast. 2-D sagittal coronal reconstructions Date and time of exam:December 16, 2024 1103 hours Comparison October 23, 2024 INDICATIONS: Hypotension and altered mental status today CTDI: vol (mGy):49.5 DLP: (mGycm):951 Technique: Multiple CT axial sections of the brain have been obtained, 5 mm slice thickness. Contrast has not been administered. 2-D sagittal, coronal reconstructions have been obtained Low dose protocols were performed. One or more of the following dose reduction techniques were used; automated exposure control, adjustment of the mA and/or KV according to patient size, use of iterative reconstruction technique. Findings: No significant ventricular enlargement. Intra-axial or extra-axial hemorrhage density is not seen. No mass effect or midline shift Basal cisterns are not remarkable. Fourth ventricle is midline. Cranial vault intact. Impression: Negative for acute hemorrhage, mass effect or midline shift
[2024-12-16] MEDS: ONDANSETRON INJ 2 MG/ML INJ 2 ML 4 MG IVP (21:11)
[2024-12-16] MEDS: SODIUM CHLORIDE 0.9% 1000 ML 1,000 ML 999 ML IV (21:12)
--- NOTE | 2024-12-16 21:14 | XR_ITS ---
Examination: AP chest single view TECHNIQUE: AP portable upright chest single view Date and time: December 16, 2024 2146 hours Comparison June 19, 2024 INDICATIONS: Nausea and dizziness today. FINDINGS: Mild prominence left ventricle. No pneumonia or pulmonary edema. Prominent osteopenia. IMPRESSION: No pneumonia or pulmonary edema
--- NOTE | 2024-12-16 21:15 | EDNOTE_ITS ---
ED Abdominal Pain RME/HPI General Chief Complaint: Nausea/Vomiting/Diarrhea Stated complaint: WEAK Time seen by provider: 12/16/24 20:43 Arrival date/time: 12/16/24 20:28 Source: patient and family Limitations: no limitations RME / HPI RME / HPI narrative: 89-year-old male is here today with 3-day history of nausea, vomiting, and abdominal pain. He is brought in by family member and found to be hypotensive in triage who was routed to room 1 for further interventions. Patient has a history of hyperlipidemia, hypertension, diabetes and hypothyroidism. The patient he was recently seen admitted here for retinal artery occlusion. He had a cardiac echo in June of this year which revealed a EF of 30%. Related Data Home Medications ?Medication ?Instructions ?Recorded ?Confirmed GLIPIZIDE 10 mg PO QDAY ##0 06/23/13 0 07/28/19 Isosorbide Mononitrate * (IMDUR *) 30 mg PO QDAY ##90 06/23/13 07/28/19 Levothyroxine * (SYNTHROID *) 100 mcg PO QDAY ##90 07/28/19 lisinopril 40 mg tablet 40 mg PO QDAY ##90 06/23/13 07/28/19 Held on 06/12/24. Instructions: in setting of SADIQ follow PCP to resume Glucosamine/MSM/Chondroitin A * 1 tab PO BID #0 tabs 0 08/25/16 07/28/19 (TRIPLEFLEX *) acetaminophen 500 mg tablet 500 mg PO BID PRN PAIN #0 tabs 08/25/16 07/28/19 (Tylenol Extra Strength) atorvastatin 40 mg tablet (Lipitor) 40 mg PO HS #0 tab s 08/25/16 07/28/19 cholecalciferol (vitamin D3) 50 2,000 unit PO QDAY #0 caps 08/25/16 07/28/19 mcg (2,000 unit) capsule (Vitamin D3) hydrochlorothiazide 25 mg tablet 25 mg PO QAM #0 tabs 08/25/16 07/28/19 tamsulosin 0.4 mg capsule 0.4 mg PO QDAY 07/02/1807/06 Previous Rx's ?Medication ?Instructions ?Recorded carvedilol 12.5 mg tablet 12.5 mg PO BID 1 month #60 t abs 06/12/24 furosemide 20 mg tablet (Lasix) 20 mg PO Q OTHER DAY 1 month #15 06/12/24 tabs Allergies Allergy/AdvReac Type Severity Reaction Status Date / Time No Known Allergies Allergy Verified 12/16/24 20:29 Review of Systems Review of Systems Systems Reviewed: All systems reviewed, normal except as documented ED Exam General Limitations: Present no limitations Head Head exam: Present atraumatic Eye Eye exam: Present normal appearance, PERRL and EOMI ENT ENT exam: Present normal exam, normal oropharynx and mucous membranes moist Neck Neck exam: Present normal inspection, full ROM and trachea midline Chest Chest inspection: Present normal inspection and symmetric chest wall rise Respiratory Respiratory exam: Present normal lung sounds bilaterally Cardiovascular Cardiovascular exam: Present regular rate, normal rhythm and normal heart sounds Abdominal Exam Abdominal exam: Present soft and normal bowel sounds Extremities Exam Extremities exam: Present normal inspection and full ROM; Absent tenderness, pedal edema or joint swelling Back Exam Back exam: Present normal inspection and full ROM Neurological Exam Neurological exam: Present alert and oriented X3 Psychiatric Psychiatric exam: Present normal affect and normal mood Skin Skin exam: Present warm, dry, intact and normal color Course Quality Measures none Orders Category Date Time Status COVID-19 Screening Questionnaire NOW Care 12/17/24 00:[address] Screening NOW Care 12/16/24 21:14 Active Decision to Admit X1 Care 12/17/24 00:01 Active EKG (ED ONLY) *Do not use* NOW Care 12/16/24 20:33 Completed Insert NG / OG tube NOW Care 12/16/24 23:56 Active Occult Blood,Stool (Nursing) ONCE Care 12/16/24 21:[address] abdomen pelvis wo con Stat Exams 12/16/24 22:[address] head/brain wo con Stat Exams 12/16/24 21:02 Completed EKG (ED Only) Stat Exams 12/16/24 20:33 Draft XR chest 1V Stat Exams 12/16/24 21:14 Completed BNP [B-Type Natriuretic Peptide] Stat Lab 12/16/24 21:00 Completed BNP [B-Type Natriuretic Peptide] Stat Lab 12/16/24 22:36 Completed Blood Culture (Lab) Stat Lab 12/16/24 21:17 Received CBC Stat Lab 12/16/24 21:00 Completed CMP [Comprehensive Metabolic Panel] Stat Lab 12/16/24 21:00 Completed CRP [C-Reactive Protein] Stat Lab 12/16/24 21:00 Completed Lactic Acid [Lactate (Lactic Acid)] Stat Lab 12/16/24 21:00 Results Lactic Acid [Lactate (Lactic Acid)] Stat Lab 12/16/24 23:12 Ordered Lipase Stat Lab 12/16/24 21:00 Completed Mag [Magnesium] Stat Lab 12/16/24 21:00 Completed Troponin I Stat Lab 12/16/24 21:00 Completed Troponin I Stat Lab 12/16/24 23:30 Received UA, C/S IF [Urinalysis, C/S if Indicated] Stat Lab 12/16/24 21:14 Completed Ondansetron Inj [Zofran Inj] Med 12/16/24 21:03 Discontinued 4 mg IVP X1 ONE Sodium Chloride 0.9% 1000 ml [Ns] 1,000 ml Med 12/16/24 23:26 Active IV 120 mls/hr Sodium Chloride 0.9% 1000 ml [Ns] 1,000 ml Med 12/16/24 21:02 Discontinued IV 999 mls/hr Sodium Chloride 0.9% 250 ml [Ns] 250 ml Med 12/16/24 23:49 Active IV 999 mls/hr Vital Signs Vital signs: Vital Signs Pulse Rate 82 12/16/24 20:38 Respiratory Rate 14 12/16/24 20:38 Blood Pressure 46/35 L 12/16/24 20:38 Pulse Oximetry (%) 95 12/16/24 20:38 Oxygen Delivery Method Room Air 12/16/24 20:38 Abdominal Pain MDM MDM Narrative MDM Narrative:: 89-year-old male is here today with 3-day history of nausea, vomiting, and abdominal pain. He is brought in by family member and found to be hypotensive in triage who was routed to room 1 for further interventions. Patient has a history of hyperlipidemia, hypertension, diabetes and hypothyroidism. The patient he was recently seen admitted here for retinal artery occlusion. He had a cardiac echo in June of this year which revealed a EF of 30%. Initially patient was found to be hypotensive with a blood pressure of 46/35 when he arrived to the ER. He was not tachycardic, he was afebrile. He had difficulty answering questions. Workup and interventions were initiated. Patient appeared be dry, he had no lower leg edema, lung tones were clear bilaterally. He had abdominal tenderness. Patient received a fluid bolus which improved his blood pressure. CBC reveals no leukocytosis or anemia. CMP revealed normal bicarb at 25.2, BUN is 119, creatinine is acutely elevated at 5.8, glucose is 183. Patient's lactic acid is 4.2. CRP is 1.4. Liver enzymes and lipase are unremarkable. Urinalysis revealed 8 leukocytes, otherwise unrema rkable. Fluid resuscitation was performed with caution due to the patient's prior ejection fraction of 30%. CT of the head was unremarkable. CT of the abdomen pelvis was obtained which reveals mechanical small bowel obstruction. Case discussed with attending ER physician. Dr. Leo was also contacted regarding consultation. General surgery states that the patient can be admitted to medicine, serial bowel series can be performed. If obstruction continues consider transfer. Case discussed with our hospitalist team who will evaluate the patient for admission. Patient data External records reviewed:: [facility] previous records Clinical information provided by:: patient and family Social determinants that could affect healthcare access:: none Patient has the following chronic illnesses:: Hyperlipidemia, hypertension, heart failure, hypothyroidism How is presenting disease/condition affected by chronic disease/condition?: uneffected by Evaluation data The following diagnostics were reviewed and interpreted by me:: EKG tracing(s) (Normal sinus rhythm at 77 bpm, old left bundle branch block is present. No ST changes. Nonspecific T wave changes) Lab and/or radiology exams considered but not ordered:: n/a Interpretation Summary: Severe SADIQ, mechanical bowel obstruction, hypotension, lactic acidosis Medications / Prescriptions Medications or Prescriptions considered but not ordered:: n/a Medication administrations:: Medication Administration History Sodium Chloride (Ns) 1,000 mls @ 120 mls/hr IV .Q8H20M DANNI Stop: 01/15/25 23:25 Last Admin: 12/16/24 23:38 Dose: 120 mls/hr Documented By: WILTON Sodium Chloride (Ns) 250 mls @ 999 mls/hr IV .Q16M ONE Stop: 12/17/24 00:04 Discontinued Medications Sodium Chloride (Ns) 1,000 mls @ 999 mls/hr IV .Q1H1M ONE Stop: 12/16/24 22:02 Last Infusion: 12/16/24 22:15 Dose: Infused Documented By: Admin: 12/16/24 21:12 Dose: 999 mls/hr Documented By: WILTON Ondansetron HCl (Ondansetron Inj 2 Mg/Ml Inj 2 Ml) 4 mg IVP X1 ONE; Protocol Stop: 12/16/24 21:04 Last Admin: 12/16/24 21:11 Dose: 4 mg Documented By: WILTON See above Consultations Consultation(s) initiated? (list below): Yes Diagnosis Differential diagnosis abdominal pain: abdominal pain, acute appendicitis, constipation, pancreatitis and small bowel obstruction Most likely diagnosis given after review of the tests above:: Severe SADIQ, lactic acidosis, small bowel obstruction, hypotension Admission Indicated Admission indicated?: indicated Admission Request Was there a request for admission?: Yes Admission Attestation Admission request attestation: Discussed case with [] from Hospitalist service regarding admission. Discussed patients ED course, exam findings, labs, and radiology results. The Hospitalist [agrees,declines] to accept the patient for admission. Disposition Plan Disposition Plan: Admit Critical Care Time Critical Care Time Total Critical Care Time (min.): 45 Attestation: The high probability of sudden, clinically significant deterioration in the patient's condition required the highest level of my preparedness to intervene urgently. The services I provided to this patient were to treat and/or prevent clinically significant deterioration. Services included the following: chart data review, reviewing nursing notes and/or old charts, documentation time, product marketing consultant collaboration regarding findings and treatment options, medication orders and management, direct patient care, vital sign assessments and ordering, interpreting and reviewing diagnostic studies and lab tests. Aggregate critical care time includes only time during which I was engaged in work directly related to the patient's care, as described above, whether at bedside or elsewhere in the Emergency Department. It did not include time spent performing other reported procedures or the services of residents, students, nurses or physician assistants. Discharge Plan Plan Patient Disposition: Admit Acute Care w/in Hospital Prescriptions/Referrals Prescriptions/Med Rec: No Action tamsulosin 0.4 mg capsule 0.4 mg PO QDAY GLIPIZIDE 10 mg PO QDAY Qty: 0 lisinopril 40 MG tablet 40 mg PO QDAY Qty: 90 Isosorbide Mononitrate * (IMDUR *) 30 MG TAB.ER.24H 30 mg PO QDAY Qty: 90 Levothyroxine * (SYNTHROID *) 100 MCG tablet 100 mcg PO QDAY Qty: 90 atorvastatin [Lipitor] 40 MG tablet 40 mg PO HS Qty: 0 acetaminophen [Tylenol Extra Strength] 500 MG tablet 500 mg PO BID PRN (Reason: PAIN) Qty: 0 hydrochlorothiazide 25 MG tablet 25 mg PO QAM Qty: 0 cholecalciferol (vitamin D3) [Vitamin D3] 2,000 UNIT capsule 2,000 unit PO QDAY Qty: 0 Glucosamine/MSM/Chondroitin A * (TRIPLEFLEX *) 1 EACH tablet 1 tab PO BID Qty: 0 carvedilol 12.5 mg Tablet 12.5 mg PO BID 30 Days Qty: 60 1RF furosemide [Lasix] 20 mg tablet 20 mg PO Q OTHER DAY 30 Days Qty: 15 1RF Referrals: No Primary/Family,Physician [Primary Care Provider] - In 1 week Problem List Clinical Impression: SADIQ (acute kidney injury), Acidosis, lactic, Elevated troponin Patient/Caregiver Discharge Instructions Print Language: Prydeinig Stand Alone Forms: Zoraida Award Info., Patient Portal Info Letter
[2024-12-16 21:26] LABS: Collection Type, Urine Voided
[2024-12-16 21:28] LABS: Basophils # (Auto) 0.0 Thou/mm3 (0.0-0.2); Basophils % (Auto) 0 % (0-2.5); Eosinophils # (Auto) 0.0 Thou/mm3 (0.0-0.5); Eosinophils % (Auto) 0 % (0-10); Hematocrit 38.3 % (41.0-53.0); Hemoglobin 13.8 g/dL (13.5-16.0); Immature Granulocytes Auto 0.01 Thou/mm3 (0.00-0.00); Lymphocytes # (Auto) 0.9 Thou/mm3 (1.0-4.8); Lymphocytes % (Auto) 11 % (10-50); Mean Corpuscular HGB Conc 36.0 g/dl (31.0-37.0); Mean Corpuscular Hemoglobin 32.1 pg (25.0-35.0); Mean Corpuscular Volume 89 fL (80-100); Monocytes # (Auto) 0.9 Thou/mm3 (0.0-0.8); Monocytes % (Auto) 11 % (0-12); Neutrophils # (Auto) 6.4 Thou/mm3 (1.8-7.7); Neutrophils % (Auto) 78 % (37-80); Nucleated Red Blood Cell # 0.00 Thou/mm3 (0.00-0.00); Nucleated Red Blood Cell % 0 /100 WBC (0); Platelet Count 124 Thou/mm3 (140-440); RDW Standard Deviation 45.7 fL (35.1-43.9); Red Blood Count 4.30 Miln/mm3 (4.50-5.90); White Blood Count 8.2 Thou/mm3 (3.8-10.6)
[2024-12-16 21:32] LABS: Lactate (Lactic Acid) 4.2 mMol/L (0.4-2.0)
[2024-12-16 21:36] LABS: Amorphous Crystals,Urine Present (Absent); Bacteria,Urine Rare; Bilirubin,Urine 1+ (Negative); Blood,Urine Negative (Negative); Clarity,Urine Turbid (Clear/Hazy); Color,Urine Yellow (Lt Yel-Yel); Culture Indicated,Urine Not Indicated; Glucose, Urine Trace (Negative); Hyaline Casts,Urine 4 /hpf (0-1); Ketones,Urine Negative (Negative); Leukocyte Esterase,Urine Negative (Negative); Nitrite,Urine Negative (Negative); PH,Urine 5.0 (5.0-7.0); Protein,Urine 1+ (Neg - Trace); RBC,Urine 3 /hpf (0-3); Specific Gravity,Urine 1.022 (1.001-1.035); Squamous Epithelial Cell,Urine 3 /hpf (0-5); Urobilinogen,Urine Negative mg/dL (0.0-1.0); WBC,Urine 8 /hpf (0-5)
[2024-12-16 22:01] LABS: B-Type Natriuretic Peptide 86 pg/mL (0-100)
[2024-12-16 22:08] LABS: Alanine Aminotransferase < 7 U/L (10-49); Albumin, Serum 4.2 gm/dL (3.4-4.8); Albumin/Globulin Ratio 1.1 (1.2-2.2); Alkaline Phosphatase 70 U/L (46-116); Anion Gap 23 (7-16); Aspartate Amino Transferase 15 U/L (0-34); BUN/Creatinine Ratio 21 Ratio (12-20); Bilirubin,Total 1.2 mg/dL (0.3-1.2); Blood Urea Nitrogen 119 mg/dL (9-23); C-Reactive Protein 1.4 mg/dL (0.0-0.9); Calcium 9.6 mg/dL (8.3-10.6); Calcium (Corrected) 9.6 mg/dL (8.5-10.1); Carbon Dioxide 25.2 mMol/L (20.0-31.0); Chloride 87 mMol/L (98-107); Creatinine (Component) 5.8 mg/dL (0.6-1.3); Globulin 3.7 gm/dL (2.3-3.5); Glucose 183 mg/dL (74-106); Lipase 93 U/L (12-53); Magnesium 2.6 mg/dL (1.6-2.6); Osmolality,Calculated 313 (275-295); Potassium 4.2 mMol/L (3.4-5.1); Sodium 135 mMol/L (136-145); Total Protein 7.9 gm/dL (5.7-8.2); eGFR 9 See Note
[2024-12-16 22:09] LABS: Troponin I 0.098 ng/mL (0.0-0.045)
--- NOTE | 2024-12-16 22:33 | XR_ITS ---
Examination: CT abdomen and pelvis without contrast. Coronal 3-D reconstructions. Sagittal 2-D reconstructions. Date and time of exam:December 16, 2024 1107 hours COMPARISON: June 09, 2024 INDICATIONS: Abdominal pain and nausea today, history kidney stones CTDI: vol (mGy): 5.76 DLP: (mGycm): 369 Technique: Axial images of the abdomen have been obtained, 3 mm slice thickness Intravenous contrast material has not been administered. Low dose protocols were performed. One or more of the following dose reduction techniques were used; automated exposure control, adjustment of the mA and/or KV according to patient size, use of iterative reconstruction technique. Findings: Mild to moderate enlargement cardiac contour Fluid distended esophagus with thickening of the esophageal wall No focal liver lesions Distended gallbladder Spleen is not enlarged No pancreatic mass Nodular thickening left adrenal gland 4 mm calcification lateral margin right kidney Left renal arterial calcifications Moderate renal parenchymal scar formation Multiple fluid distended small bowel loops with decompressed colon No diverticulitis Transverse prostate dimension 4.9 cm Contractured urinary bladder Prominent osteopenia with moderate compression L1 vertebral body with transpedicular stabilization centered about this vertebral body IMPRESSION: Fluid distended esophagus with wall thickening, consider reflux esophagitis High-grade mechanical small bowel obstruction, consider Gastrografin small bowel series follow-up
[2024-12-16 23:03] LABS: B-Type Natriuretic Peptide 76 pg/mL (0-100)
[2024-12-16 23:38] VITALS: BP 101/56; PULSE 70; RESP 20; TEMP 37.2; O2SAT 95
[2024-12-16] MEDS: SODIUM CHLORIDE 0.9% 1000 ML 1,000 ML 120 ML IV (23:38)
[2024-12-17] VITALS (13 sets, daily range): BP systolic 84–119; BP diastolic 41–85; PULSE 65–85; RESP 16–30; TEMP 35.5–37.1; O2SAT 85–100; BMI 23.8
--- NOTE | 2024-12-17 | XR_ITS ---
Examination: Abdomen AP single view Technique: AP portable supine abdomen, single view Exam date and time: December 17, 2024 1127 hours INDICATIONS: Abdominal pain and distention this week, 1 hour delayed film post small bowel series today, small bowel obstruction pattern on CT abdomen pelvis December 16, 2024 FINDINGS: Contrast in distended small bowel loops IMPRESSION: Small bowel obstruction pattern, recommend follow-up films 1:00 PM, 3:00 PM, 5:00 PM
[2024-12-17] MEDS: SODIUM CHLORIDE 0.9% 250 ML 250 ML 999 ML IV ×3 (00:04→20:18)
[2024-12-17 00:13] LABS: Troponin I 0.091 ng/mL (0.0-0.045)
[2024-12-17 00:24] LABS: Reflex Lactate? Y
[2024-12-17 01:08] LABS: Lactic Acid, 3 HR 2.6 mMol/L (0.4-2.0)
--- NOTE | 2024-12-17 02:38 | PD.RESHP ---
Documentation for date of: 12/17/24 [facility] History of Present Illness History of present illness: Lars Landry is an 89-year-old M with a PMH of hypertension, hypothyroidism, T2DM, BPH, GERD, HLD, CKD stage III, and HFrEF who presents today with belly pain, nausea, and vomiting. The belly pain began 3 days ago and is mostly localized to the umbilicus region of the abdomen. Patient characterizes the pain as constant and burning. It worsens with eating and improves after drinking liquids. Patient denies ever having a similar presentation in the past. The patient last vomited on Sunday and describes the vomitus as being brown in color. His last bowel movement was 5 to 6 days ago and productive of liquid brown stool. He also endorses a cough that is productive of black mucus. At the time of the interview, patient reported his belly pain to be a 3/10. In the ED, vitals showed: BP 46/35 HR 82 RR 14 temp 98.8 SpO2 95% on 2L nasal cannula ED Course: CBC showed slightly low platelet count 124 but was otherwise unremarkable. CMP showed low chloride 87, high anion gap 23, significantly high BUN 119, significantly high creatinine 5.8, significantly low EGFR 9, high blood glucose 183, high calculated osmolality 313, high lactic acid 4.2, high troponin I 0.091, and high lipase 93. UA was turbid and showed 1+ protein, 1+ bilirubin, slightly high WBC 8, and amorphous crystals with some hyaline casts. On imaging: Noncontrast CT AP showed fluid distended esophagus with wall thickening (consistent with reflux esophagitis) and high-grade mechanical small bowel obstruction (recommend Gastrografin small bowel series follow up). EKG showed sinus rhythm with possible left atrial enlargement, left axis deviation, and left bundle branch block. Head CT and CXR was unremarkable. Patient was given a 1L and 0.25L NS bolus and started on 1L NS maintenance fluid. Patient was admitted for the work-up and management of suspected SBO. Review of Systems Review of Systems Narrative Review of Systems: General: Denies fevers or chills HEENT: Denies congestion or sore throat Heart: Denies chest pain or palpitations Lungs: Denies shortness of breath or cough Abdomen: Denies abdominal pain, nausea, vomiting, constipation, diarrhea, or blood in stool Genitourinary: Denies frequency, urgency, dysuria, or hematuria Neurology: Denies any changes in vision, weakness or difficulty speaking Review of systems otherwise negative except what is mentioned above. Exam Vital Signs Temp Pulse Resp BP Pulse Ox O2 Del Method O2 Flow Rate 98.1 F 72 30 H 105/49 L 95 Nasal Cannula 2 12/17/24 01:51 12/17/24 02:31 12/17/24 02:31 12/17/24 02:31 12/17/24 02:31 12/17/24 02:12/17/24 02:31 Narrative Exam Physical Exam: General: Alert, no acute distress. Skin: Warm, dry, intact, no obvious rash. Head: Normocephalic, atraumatic. Eye: Normal conjunctiva, PERRL. Throat: Oral mucosa moist. No obvious lesions in oropharynx. Cardiovascular: Regular rate and rhythm, no murmur, +S1/S2. Respiratory: Lungs are clear to auscultation, respirations unlabored, no crackles, no wheezing. Gastrointestinal: Soft, nontender, non-distended. No guarding or rebound tenderness. Extremities: No edema, no cyanosis, no clubbing. 2+ radial pulse bilaterally, 2+ posterior tibial pulse bilaterally. Neuro: No focal deficits observed. Conversant, moving all extremities. No overt cerebellar signs/incoordination. Psychiatric: Cooperative, appropriate affect. Results: Labs 12/16/24 21:00 12/16/24 21:00 Labs: Short CBC 12/16/24 Range/Units 21:00 WBC 8.2 (3.8-10.6) Thou/mm3 Hgb 13.8 (13.5-16.0) g/dL Hct 38.3 L (41.0-53.0) % Plt Count 124 L (140-440) Thou/mm3 BMP 12/16/24 21:00 Sodium 135 L Potassium 4.2 Chloride 87 L Carbon Dioxide 25.2 BUN 119 H* Creatinine 5.8 H* Glucose 183 H Calcium 9.6 Cardiac Enzymes 12/16/24 12/16/24 Range/Units 21:00 23:30 Troponin I 0.098 H* 0.091 H* (0.0-0.045) ng/mL Liver Function 12/16/24 Range/Units 21:00 Total Bilirubin 1.2 (0.3-1.2) mg/dL AST 15 (0-34) U/L ALT < 7 L (10-49) U/L Alkaline Phosphatase 70 (46-116) U/L Albumin 4.2 (3.4-4.8) gm/dL Urine 12/16/24 Range/Units 21:14 Urine Color Yellow (Lt Yel-Yel) Urine Clarity Turbid A (Clear/Hazy) Urine pH 5.0 (5.0-7.0) Ur Specific [place] 1.022 (1.001-1.035) Urine Protein 1+ A (Neg - Trace) Urine Glucose (UA) Trace (Negative) Quality Measures Quality Measures none Advance care planning discussed with:: other (grand-niece) Medications Home Medications and Allergies Home Medications ?Medication ?Instructions ?Recorded ?Confirmed ?Type GLIPIZIDE 10 mg PO QDAY ##0 06/23/13 07/28/19 History Isosorbide Mononitrate * (IMDUR *) 30 mg PO QDAY ##90 06/23/13 07/28/19 History Levothyroxine * (SYNTHROID *) 100 mcg PO QDAY ##90 06/23/13 07/28/19 History lisinopril 40 mg tablet 40 mg PO QDAY ##90 06/23/13 07/28/19 History Held on 06/12/24. Instructions: in setting of SADIQ follow PCP to resume Glucosamine/MSM/Chondroitin A * 1 tab PO BID #0 tabs 08/25/16 07/28/19 History (TRIPLEFLEX *) acetaminophen 500 mg tablet 500 mg PO BID PRN PAIN #0 tabs 08/25/16 07/28/19 History (Tylenol Extra Strength) atorvastatin 40 mg tablet (Lipitor) 40 mg PO HS #0 tabs 08/25/16 07/28/19 History cholecalciferol (vitamin D3) 50 2,000 unit PO QDAY #0 caps 08/25/16 07/28/19 History mcg (2,000 unit) capsule (Vitamin D3) hydrochlorothiazide 25 mg tablet 25 mg PO QAM #0 tabs 08/25/16 07/28/19 History tamsulosin 0.4 mg capsule 0.4 mg PO QDAY 07/02/18 07/28/19 History Allergies Allergy/AdvReac Type Severity Reaction Status Date / Time No Known Allergies Allergy Verified 12/16/24 20:29 Visit Medications Acetaminophen (Acetaminophen 325 Mg Tablet) 650 mg PO Q6H PRN PRN Reason: PAIN SCALE 1-3 (mild Stop: 01/16/25 00:44 Heparin Sodium (Porcine) (Heparin Sod Inj 5000 Unit/Ml Vial) 5,000 unit SC Q12HR DANNI Stop: 12/31/24 08:59 Levothyroxine Sodium (Levothyroxine Sodium 100 Mcg Tablet) 100 mcg PO ACBR DANNI Stop: 01/16/25 05:59 Ondansetron HCl (Ondansetron Inj 2 Mg/Ml Inj 2 Ml) 4 mg IVP Q6H PRN; Protocol PRN Reason: NAUSEA OR VOMITING Stop: 01/16/25 00:44 Discontinued Medications Sodium Chloride (Ns) 1,000 mls @ 999 mls/hr IV .Q1H1M ONE Stop: 12/16/24 22:02 Last Infusion: 12/16/24 22:15 Dose: Infused Sodium Chloride (Ns) 1,000 mls @ 120 mls/hr IV .Q8H20M DANNI Stop: 01/15/25 23:25 Last Admin: 12/16/24 23:38 Dose: 120 mls/hr Sodium Chloride (Ns) 250 mls @ 999 mls/hr IV .Q16M ONE Stop: 12/17/24 00:04 Last Infusion: 12/17/24 00:26 Dose: Infused Ondansetron HCl (Ondansetron Inj 2 Mg/Ml Inj 2 Ml) 4 mg IVP X1 ONE; Protocol Stop: 12/16/24 21:04 Last Admin: 12/16/24 21:11 Dose: 4 mg Assessment & Plan Assessment Gase Angelica Landry is an 89-year-old M with a PMH of hypertension, hypothyroidism, T2DM, BPH, GERD, HLD, CKD stage III, and HFrEF who presents today with belly pain, nausea, and vomiting. #SBO Patient's presentation of umbilical abdominal pain that worsens with eating in the setting of absent bowel movements for the past 5-6 days is concerning for SBO. This working diagnosis is corroborated by noncontrast CT AP showing a high-grade mechanical small bowel obstruction . Plan: -Started IV Dilaudid 0.5 mg q3HR prn for abdominal pain management -Patient has been placed on NPO -Pending nasogastric decompression -Pending Gastrografin small bowel series to r/o SBO #Acute renal failure #Lactic acidosis Patient's BUN and creatinine are significantly elevated at 119 and 5.8 (baseline seems to be between 1.3-1.8) in the setting of significantly decreased eGFR of 9 suggesting acute renal failure. There is an anion gap (23) metabolic acidosis likely 2/2 acute renal failure and high lactic acid level of 4.2. Plan: -Ordered kidney ultrasound -Ordered beta-hydroxybutyrate levels to rule out DKA #Elevated troponins #likely 2/2 NSTEMI Type II Plan: -Troponins have downtrended, likely explanation was demand ischemia (NSTEMI Type II) #Chronic medical problems #Reflux esophagitis #T2DM #Hypothyroidism Plan: -Started IV Protonix -Started insulin sliding scale -Restarted home medication of PO levothyroxine 100 mcg [facility] Hospital Management: Disposition: pending nasogastric decompression and Gastrografin small bowel series to r/o SBO Diet: NPO GI Prophylaxis: none Bowel Prophylaxis: none DVT Prophylaxis: heparin CODE STATUS: Full Code I have examined the patient and conferred with my attending, Dr. Ramirez, and my senior resident, Dr. Soto, regarding them. Nain Vogel, DO PGY-1 Internal Medicine Attending Provider Attestation/Addendum I reviewed labs, imaging, EKG, home medications and prior available records. Face to face evaluation was performed by me. I have personally examined the patient and discussed assessment and plan with the IM team. I reviewed the resident note and agree with the plan with exceptions as below. SBO Lactic acidosis Elevated troponin, likely demand ischemia from dehydration HFrEF, chronic Essential hypertension Hypothyroidism Follow-up Gastrografin study Strict n.p.o. No further IV fluids in the setting of HFrEF Lactic acid improved with IV hydration Trend troponin Management of nausea/pain as needed
[2024-12-17] MEDS: ONDANSETRON INJ 2 MG/ML INJ 2 ML 4 MG IVP (02:39)
--- NOTE | 2024-12-17 02:43 | XR_ITS ---
Examination: AP chest single view. TECHNIQUE: AP portable upright chest single view Date and time: December 17, 2024, 0247 hours INDICATIONS: Posterior orogastric tube placement FINDINGS: Orogastric tube in the stomach satisfactory position. Mild enlargement cardiac contour. No pneumonia or pulmonary edema. IMPRESSION: Orogastric tube in the stomach satisfactory position.
--- NOTE | 2024-12-17 05:33 | XR_ITS ---
Examination: Small bowel series with KUB Fluoroscopy 6 spot fluoroscopic films of the stomach Date and time: December 17, 2024 0928 hours INDICATIONS: Abdominal pain and distention this week, small bowel obstruction pattern on CT abdomen pelvis December 16, 2024 TECHNIQUE AND FINDINGS: Hearing Therapy Director AP supine abdomen film demonstrates air distended small bowel loops 120 cc Gastrografin administered under fluoroscopic guidance into the stomach Multiple delayed films will be obtained IMPRESSION: Small bowel series as above Multiple delayed abdomen films will be obtained
[2024-12-17] MEDS: HEPARIN SOD INJ 5000 UNIT/ML VIAL SC ×2 (09:06→20:19)
--- NOTE | 2024-12-17 11:15 | ESCONSULT_ITS ---
HPI Data of Consult Consult date: 12/17/24 Requesting Physician: Krish Ramirez MD Admitting Provider: Krish Ramirez MD Attending Provider: Krish Ramirez MD Primary Care Provider: Physician No Primary/Family Consult Narrative Reason for consult: Acute renal failure History of present illness: Lars Landry is an 89-year-old M with a PMH of hypertension, hypothyroidism, T2DM, BPH, GERD, HLD, CKD stage III, and HFrEF who presents today with belly pain, nausea, and vomiting. Patient states that he began to have abdominal discomfort last after eating out, which has worsened since then. States it is localized to the umbilicus region of the abdomen. Patient characterizes the pain as constant and burning. It worsens with eating and improves after drinking liquids. Patient denies ever having a similar presentation in the past. The patient last vomited on Sunday and describes the vomitus as being brown in color. His last bowel movement was 5 to 6 days ago and productive of liquid brown stool. He also endorses a cough that is productive of black mucus. At the time of the interview, patient reported his belly pain to be a 3/10. ED Course: In the ED, patient came in with low blood pressure of 46/35 that improved after having total 1.25 NS bolus and continues to be on 1 L NS maintenance fluids. Patient found to have high anion gap metabolic acidosis, BUN 119, Cr 5.8, eGFR 9, lactic acid of 4.2 (improved to 2.6), and elevated trop 0.098. UA was turbid and showed 1+ protein, 1+ bilirubin, slightly high WBC 8, and amorphous crystals with some hyaline casts. CT AP was consistent with reflux esophagitis and sbo (f/u small bowel series). EKG showed sinus rhythm with possible left atrial enlargement, left axis deviation, and left bundle branch block. Head CT and CXR was unremarkable. Patient was admitted for the work-up and management of suspected SBO. When patient was seen and examined today, he had his sister and niece at bedside. Patient is alert and oriented x3 and says he is feeling good, just feels a little weak. Denies and new concerns/complaints. Patient denies having fever, headache, chest pain, shortness of breath, abdominal pain, flank pain or dysuria. Patient noted PCP is Dr. aBrcenas in [place]. Patient was consulted for SADIQ on CKD cc:: cc: Krish Ramirez MD Review of Systems Review of Systems Narrative Review of Systems: CONST: Negative for fever, body aches and chills. HENT: Negative for neck pain/stiffness, headache, congestion, sore throat, swelling. EYES: Negative for discharge/pain or vision changes. RESP: Negative for cough/hemoptysis and shortness of breath. CV: Negative chest pain, difficulty breathing, palpitations. ABD: Negative pain, nausea, vomiting. : Negative increase frequency, dysuria, blood in urine or stool. MUSC: Negative for muscle aches, edema. SKIN: Negative rash, lesions/sores. NEURO: Negative headache, dizziness, weakness. Past Medical History Past Medical History NEUROLOGIC: Negative Neurological Disorders CARDIAC: Positive Cardiac Disorders, Heart Murmur, Hypercholesterolemia and Hypertension; Negative Congestive Heart Failure RESPIRATORY: Negative Respiratory Disorders, Chronic Obstructive Pulmonary Disease (COPD) or Asthma GASTROINTESTINAL: Negative Gastrointestinal Disorders, Hepatitis or Colorectal Cancer GENITOURINARY: Positive Genitourinary Disorders and Benign Prostatic Hyperplasia; Negative Renal Disease or Prostate Cancer REPRODUCTIVE: Negative Breast Cancer, Fibroids or Testicular Cancer MUSCULOSKELETAL: Positive Musculoskeletal Disorders and Arthritis; Negative Muscular Dystrophy or Bone Cancer ENT: Negative Cataracts ENDOCRINE: Positive Diabetes Mellitus Type 2; Negative Endocrine Disorders or Diabetes Mellitus Type 1 HEMATOLOGIC: Negative Blood Disorders, Anemia, Leukemia, Hemophilia, Thalassemia, Sickle Cell Disease or Clotting Problems OTHER HISTORY: Positive Blood Transfusions; Negative Hospitalization, Autoimmune Disease, Down Syndrome, Developmental Delay, Shingles, Falls, Blood Transfusion Reaction, Anesthesia Reactions, Organ Transplant, Chemotherapy, Radiation Therapy, Hyperbaric Therapy, MRSA, VRSA, Vancomycin-Resistant Enterococci, Human Immunodeficiency Virus (HIV), Chicken Pox, Measles, Mumps, Rubella ([place] Measles), Pertussis, Clostridium Difficile, Cancer, Breast Cancer, Cervical Cancer, Colorectal Cancer, Lung Cancer, Ovarian Cancer, Prostate Cancer or Testicular Cancer Family History FAMILY HISTORY: Negative Family Cardiac Disorders Surgical History SURGICAL: Positive Eye Surgery (cataract (left eye)), Abdominal Surgery and Joint Replacement; Negative Endocrine Surgery, Thyroidectomy, Ear Surgery, Tympanostomy Tube, Nose Surgery, Oral Surgery, Tonsillectomy, Adenoidectomy, Cochlear Implant, Corneal Transplant, Throat Surgery, Tracheostomy, Gastric Bypass Surgery, Gastrostomy, Bowel Surgery, Nephrectomy, Transurethral Resection, Neurologic Surgery, Brain Shunt, Mastectomy, Lumpectomy, Hysterectomy, Tubal Ligation, Section, Vasectomy or Organ Transplant Social History SMOKING STATUS: Never smoker Exam Vital Signs Temp Pulse Resp BP Pulse Ox O2 Del Method O2 Flow Rate 96.3 F L 67 20 100/63 96 Nasal Cannula 2 12/17/24 07:57 12/17/24 07:57 12/17/24 07:57 12/17/24 07:57 12/17/24 07:57 12/17/24 07:57 12/17/24 07:57 Narrative Exam Gen: A&O x3, NAD HEENT: NCAT, EOMI, not icteric. External ears normal. No rhinorrhea. Mucous membranes dry Neck: Supple, full range of motion, no observable masses, No meningeal sign. Lungs: Lungs CTAB, No Respiratory distress. CV: RRR, no edema. Abdomen: Soft, nondistended, No rebound tenderness. MSK: No joint swelling, no redness. Skin: No rashes, petechiae, lesions. Normal color per patient. Neuro: Normal Gait, Grossly intact. Psych: Appropriate for situation. Results Labs 12/17/24 16:04 12/17/24 19:47 Labs: Short CBC 12/16/24 Range/Units 21:00 WBC 8.2 (3.8-10.6) Thou/mm3 Hgb 13.8 (13.5-16.0) g/dL Hct 38.3 L (41.0-53.0) % Plt Count 124 L (140-440) Thou/mm3 BMP 12/16/24 21:00 Sodium 135 L Potassium 4.2 Chloride 87 L Carbon Dioxide 25.2 BUN 119 H* Creatinine 5.8 H* Glucose 183 H Calcium 9.6 Cardiac Enzymes 12/16/24 12/16/24 Range/Units 21:00 23:30 Troponin I 0.098 H* 0.091 H* (0.0-0.045) ng/mL Liver Function 12/16/24 Range/Units 21:00 Total Bilirubin 1.2 (0.3-1.2) mg/dL AST 15 (0-34) U/L ALT < 7 L (10-49) U/L Alkaline Phosphatase 70 (46-116) U/L Albumin 4.2 (3.4-4.8) gm/dL Urine 12/16/24 Range/Units 21:14 Urine Color Yellow (Lt Yel-Yel) Urine Clarity Turbid A (Clear/Hazy) Urine pH 5.0 (5.0-7.0) Ur Specific [place] 1.022 (1.001-1.035) Urine Protein 1+ A (Neg - Trace) Urine Glucose (UA) Trace (Negative) Quality Measures Quality Measures VTE prophylaxis Advance care planning discussed with:: patient Medications Home Medications and Allergies Home Medications ?Medication ?Instructions ?Recorded ?Confirmed ?Type GLIPIZIDE 10 mg PO QDAY ##0 06/23/13 0 07/28/19 History Isosorbide Mononitrate * (IMDUR *) 30 mg PO QDAY ##90 06/23/13 07/28/19 History Levothyroxine * (SYNTHROID *) 100 mcg PO QDAY ##90 07/28/19 History lisinopril 40 mg tablet 40 mg PO QDAY ##90 06/23/13 07/28/19 History Held on 06/12/24. Instructions: in setting of SADIQ follow PCP to resume Glucosamine/MSM/Chondroitin A * 1 tab PO BID #0 tabs 0 08/25/16 07/28/19 History (TRIPLEFLEX *) cholecalciferol (vitamin D3) 50 2,000 unit PO QDAY #0 caps 08/25/16 07/28/19 History mcg (2,000 unit) capsule (Vitamin D3) hydrochlorothiazide 25 mg tablet 25 mg PO QAM #0 tabs 08/25/16 07/28/19 History tamsulosin 0.4 mg capsule 0.4 mg PO QDAY 07/02/1807/06 History atorvastatin 20 mg tablet mg 12/17/24 History levothyroxine 100 mcg tablet mcg 12/17/24 History sacubitril 24 mg-valsartan 26 mg tab 12/17/24 History tablet (Entresto) Allergies Allergy/AdvReac Type Severity Reaction Status Date / Time No Known Allergies Allergy Verified 12/16/24 20:29 Visit Medications Acetaminophen (Acetaminophen 325 Mg Tablet) 650 mg PO Q6H PRN PRN Reason: PAIN SCALE 1-3 (mild Stop: 01/16/25 00:44 Dextrose (Dextrose 50%-Water Inj 50 Ml Syringe) 25 ml IV Q15MIN PRN PRN Reason: BG 50-70 responsive npo pt Stop: 01/16/25 04:54 Dextrose (Dextrose 50%-Water Inj 50 Ml Syringe) 50 ml IV Q15MIN PRN PRN Reason: BG <50 OR BG <70 & pt unresponsive Stop: 01/16/25 04:54 Glucagon (Glucagon Inj 1 Mg Vial) 1 mg IM Q15MIN PRN PRN Reason: BG <70, and no IV access Heparin Sodium (Porcine) (Heparin Sod Inj 5000 Unit/Ml Vial) 5,000 unit SC Q12HR [facility] Stop: 12/31/24 08:59 Last Admin: 12/17/24 09:06 Dose: 5,000 unit Insulin Human Lispro (Insulin Lispro (Admelog) 1 Unit/0.01 Ml Unit) 0 unit SC [facility]; Protocol Stop: 01/16/25 07:29 Last Admin: 12/17/24 07:20 Dose: Not Given Levothyroxine Sodium (Levothyroxine Sodium 100 Mcg Tablet) 100 mcg PO ACBR [facility] Stop: 01/16/25 05:59 Last Admin: 12/17/24 05:24 Dose: Not Given Ondansetron HCl (Ondansetron Inj 2 Mg/Ml Inj 2 Ml) 4 mg IVP Q6H PRN; Protocol PRN Reason: NAUSEA OR VOMITING Stop: 01/16/25 00:44 Last Admin: 12/17/24 02:39 Dose: 4 mg Discontinued Medications Sodium Chloride (Ns) 1,000 mls @ 999 mls/hr IV .Q1H1M ONE Stop: 12/16/24 22:02 Last Infusion: 12/16/24 22:15 Dose: Infused Sodium Chloride (Ns) 1,000 mls @ 120 mls/hr IV .Q8H20M [facility] Stop: 01/15/25 23:25 Last Admin: 12/16/24 23:38 Dose: 120 mls/hr Sodium Chloride (Ns) 250 mls @ 999 mls/hr IV .Q16M ONE Stop: 12/17/24 00:04 Last Infusion: 12/17/24 00:26 Dose: Infused Ondansetron HCl (Ondansetron Inj 2 Mg/Ml Inj 2 Ml) 4 mg IVP X1 ONE; Protocol Stop: 12/16/24 21:04 Last Admin: 12/16/24 21:11 Dose: 4 mg Assessment & Plan Plan Lars Landry is an 89-year-old M with a PMH of hypertension, hypothyroidism, T2DM, BPH, GERD, HLD, CKD stage III, and HFrEF who presented with belly pain, nausea, and vomiting. Patient was admitted for the work-up and management of suspected SBO. Patient was consulted for SADIQ on CKD #Acute renal failure on CKD (stage III) #Lactic acidosis, improving Suspect pre-renal etiology 2/2 dehydration and poor oral intake. Cr 5.8 on admission (baseline Cr: around 1.2) - s/p 1.25 L of IV bolus currently on 1 L IV NS maintenance fluid. Currently making urine with stanley in place. No recent contrast or offending medications noted. NPO currently given sbo presentation. Patient has NG tube with intermittent suction. - Giving NS IV fluids. If no improvement, will start hemodialysis tomorrow. - f/u repeat CMP - f/u urine e-lytes and urine creatinine - f/u kidney ultrasound - hepatitis panel and ppd ordered - Strict I/Os, monitor UOP - Renal dose med, avoid nephrotoxins #SBO #Elevated troponins, likely 2/2 NSTEMI Type II #Chronic medical problems #Reflux esophagitis #T2DM #Hypothyroidism problems above managed via primary team Thank you for allowing us to be apart of the care for Mr. Landry Plan of care discussed with attending, Dr. Andrey Miguel MD PGY-1 Attending Provider Attestation/Addendum Patient seen and examined with resident physician Dr. Petersen. Note reviewed, agree with findings and recommendations. Patient admitted with bowel obstruction. He has an NG tube. Clinically looks dehydrated. Gave him some IV fluids. Renal ultrasound, electrolytes ordered. Severe azotemia noted. Might be going towards ischemic ATN blood pressure on the soft side. Will monitor closely. Today his BUN is 111, creatinine 5. Bicarbonate 18, potassium 3.3. No need for emergency dialysis. Thank you Adriano for allowing me to participate in the care of Mr. Landry.
[2024-12-17 11:26] LABS: Lactate (Lactic Acid) 2.4 mMol/L (0.4-2.0)
[2024-12-17 11:31] LABS: Basophils # (Auto) 0.0 Thou/mm3 (0.0-0.2); Basophils % (Auto) 0 % (0-2.5); Eosinophils # (Auto) 0.0 Thou/mm3 (0.0-0.5); Eosinophils % (Auto) 0 % (0-10); Hematocrit 40.6 % (41.0-53.0); Hemoglobin 14.5 g/dL (13.5-16.0); Immature Granulocytes Auto 0.00 Thou/mm3 (0.00-0.00); Lymphocytes # (Auto) 0.3 Thou/mm3 (1.0-4.8); Lymphocytes % (Auto) 10 % (10-50); Mean Corpuscular HGB Conc 35.7 g/dl (31.0-37.0); Mean Corpuscular Hemoglobin 32.4 pg (25.0-35.0); Mean Corpuscular Volume 91 fL (80-100); Monocytes # (Auto) 0.1 Thou/mm3 (0.0-0.8); Monocytes % (Auto) 3 % (0-12); Neutrophils # (Auto) 2.4 Thou/mm3 (1.8-7.7); Neutrophils % (Auto) 86 % (37-80); Nucleated Red Blood Cell # 0.00 Thou/mm3 (0.00-0.00); Nucleated Red Blood Cell % 0 /100 WBC (0); Platelet Count 108 Thou/mm3 (140-440); RDW Standard Deviation 46.5 fL (35.1-43.9); Red Blood Count 4.48 Miln/mm3 (4.50-5.90)
[2024-12-17 11:34] LABS: Beta Hydroxybutyrate 0.8 mmol/L (<0.6)
--- NOTE | 2024-12-17 11:47 | PD.RESPRO ---
Documentation for date of: 12/17/24 Exam Vital Signs Temp Pulse Resp BP Pulse Ox O2 Del Method O2 Flow Rate 96.3 F L 67 20 100/63 96 Nasal Cannula 2 12/17/24 07:57 12/17/24 07:57 12/17/24 07:57 12/17/24 07:57 12/17/24 07:57 12/17/24 07:57 12/17/24 07:57 Objective Labs 12/16/24 21:00 12/16/24 21:00 Labs: Laboratory Results - last 24 hr 12/16/24 12/16/24 12/16/24 21:00 21:14 22:36 WBC 8.2 RBC 4.30 L Hgb 13.8 Hct 38.3 L MCV 89 MCH 32.1 MCHC 36.0 RDW Std Deviation 45.7 H Plt Count 124 L Neut % (Auto) 78 Lymph % (Auto) 11 [place] % (Auto) 11 Eos % (Auto) 0 Baso % (Auto) 0 Neut # (Auto) 6.4 Lymph # (Auto) 0.9 L [place] # (Auto) 0.9 H Eos # (Auto) 0.0 Baso # (Auto) 0.0 Immature Gran # (Auto) 0.01 H Absolute Nucleated RBC 0.00 Immature Gran % 0 Nucleated RBC % 0 Sodium 135 L Potassium 4.2 Chloride 87 L Carbon Dioxide 25.2 Anion Gap 23 H BUN 119 H* Creatinine 5.8 H* Estim Creat Clear Calc Not Performed. eGFR 9 L* BUN/Creatinine Ratio 21 H Glucose 183 H Calculated Osmolality 313 H Lactic Acid 4.2 H* Calcium 9.6 Corrected Calcium 9.6 Magnesium 2.6 Total Bilirubin 1.2 AST 15 ALT < 7 L Alkaline Phosphatase 70 Troponin I 0.098 H* C-Reactive Prot, Quant 1.4 H B-Natriuretic Peptide 86 76 Total Protein 7.9 Albumin 4.2 Globulin 3.7 H Albumin/Globulin Ratio 1.1 L Lipase 93 H Beta-Hydroxybutyrate/Acetoacetate Ur Collection Type Voided Urine Color Yellow Urine Clarity Turbid A Urine pH 5.0 Ur Specific [place] 1.022 Urine Protein 1+ A Urine Glucose (UA) Trace Urine Ketones Negative Urine Blood Negative Urine Nitrite Negative Urine Bilirubin 1+ A Urine Urobilinogen (Auto) Negative Ur Leukocyte Esterase Negative Urine RBC 3 Urine WBC 8 H Ur Squamous Epith Cells 3 Amorphous Crystals Present A Urine Bacteria Rare Hyaline Casts 4 H Ur Culture Indicated? Not Indicated 12/16/24 12/17/24 12/17/24 23:30 00:55 11:15 WBC RBC Hgb Hct MCV MCH MCHC RDW Std Deviation Plt Count Neut % (Auto) Lymph % (Auto) [place] % (Auto) Eos % (Auto) Baso % (Auto) Neut # (Auto) Lymph # (Auto) [place] # (Auto) Eos # (Auto) Baso # (Auto) Immature Gran # (Auto) Absolute Nucleated RBC Immature Gran % Nucleated RBC % Sodium Potassium Chloride Carbon Dioxide Anion Gap BUN Creatinine Estim Creat Clear Calc eGFR BUN/Creatinine Ratio Glucose Calculated Osmolality Lactic Acid 2.6 H 2.4 H Calcium Corrected Calcium Magnesium Total Bilirubin AST ALT Alkaline Phosphatase Troponin I 0.091 H* C-Reactive Prot, Quant B-Natriuretic Peptide Total Protein Albumin Globulin Albumin/Globulin Ratio Lipase Beta-Hydroxybutyrate/Acetoacetate 0.8 H Ur Collection Type Urine Color Urine Clarity Urine pH Ur Specific [place] Urine Protein Urine Glucose (UA) Urine Ketones Urine Blood Urine Nitrite Urine Bilirubin Urine Urobilinogen (Auto) Ur Leukocyte Esterase Urine RBC Urine WBC Ur Squamous Epith Cells Amorphous Crystals Urine Bacteria Hyaline Casts Ur Culture Indicated? Quality Measures Quality Measures none Assessment & Plan Assessment Current Active Medications: Generic Name Dose Route Start Last Admin Trade Name Freq PRN Reason Stop Dose Admin Acetaminophen 650 mg 12/17/24 00:45 Acetaminophen 325 Mg Tablet PO 01/16/25 00:44 Q6H PRN PAIN SCALE 1-3 (mild Dextrose 25 ml 12/17/24 04:55 Dextrose 50%-Water Inj 50 Ml Syringe IV 01/16/25 04:54 Q15MIN PRN BG 50-70 responsive npo pt Dextrose 50 ml 12/17/24 04:55 Dextrose 50%-Water Inj 50 Ml Syringe IV 01/16/25 04:54 Q15MIN PRN BG <50 OR BG <70 & pt unresponsive Glucagon 1 mg 12/17/24 04:55 Glucagon Inj 1 Mg Vial IM Q15MIN PRN BG <70, and no IV access Heparin Sodium (Porcine) 5,000 unit 12/17/24 09:00 12/17/24 09:06 Heparin Sod Inj 5000 Unit/Ml Vial SC 12/31/24 08:59 5,000 unit Q12HR DANNI Administration Insulin Human Lispro 0 unit 12/17/24 07:30 12/17/24 07:20 Insulin Lispro (Admelog) 1 Unit/0.01 Ml Unit SC 01/16/25 07:29 Not Given ACHS [facility] Protocol Levothyroxine Sodium 100 mcg 12/17/24 06:00 12/17/24 05:24 Levothyroxine Sodium 100 Mcg Tablet PO 01/16/25 05:59 Not Given ACBR [facility] Ondansetron HCl 4 mg 12/17/24 00:45 12/17/24 02:39 Ondansetron Inj 2 Mg/Ml Inj 2 Ml IVP 01/16/25 00:44 4 mg Q6H PRN Administration NAUSEA OR VOMITING Protocol
[2024-12-17] MEDS: SODIUM CHLORIDE 0.9% 1000 ML 1,000 ML 999 ML IV ×3 (12:01→18:16)
--- NOTE | 2024-12-17 12:01 | EVENTNT_ITS ---
<Statement entered by Adriano Coughlin MD - 12/22/24 14:20> I reviewed above note and agree with findings and plans. I have also personally examined the patient with medicine team and went over assessment and plan with medical team including internet project manager and resident physician. Documentation for date of: 12/17/24 Event Note Event Note: Rapid response called at 11:50Am on 12/17 for patient room 356 for hypoxia and hypotension. Patient was seen and assessed in hospital bed, airway/breathing/circulation intact. Patient was status post Gastrografin small bowel series. Patient was on high flow nasal cannla, O2 saturation ranged from 78-80%, Patient's blood pressure was 84/55. During the time of assessment, patient was minimally responsive, capillary refill was less than 2 seconds, and abdomen was minimally distended. Patient was put on maximum oxygen flow. 1L NS volus given. Gastric contents were suctioned via NG tube; multiple canisters were required due to high output. CBC,CMP,Phosphorous, lactatic acid and ABG panel were ordered. After our response, patient's hypoxia and hypotension has resolved. Will continue to monitor the patient for any acute changes. Assessment and plan discussed with my attending physician Dr. Coughlin and Dr. Kuo (PGY-3) Dr. Zamorano (PGY-1)- Internal medicine resident Senior resident attestation: Patient evaluated and examined at the bedside, plan of care discussed with rest of the team including my attending physician, except as noted. Patient admitted for possible mechanical high-grade small bowel obstruction, visibly distended stomach on CT abdomen, coffee-ground aspirate, more than 3 L were aspirated, patient was given bolus NS 250 mL in the setting of HFrEF with EF 30% on previous echocardiogram, holding off on with Gastrografin series, continue with low intermittent suction. Surgical consult with Dr. Jimenez was placed, pending recommendations. Dr. Jimenez will see the patient later today. Nephrology was also consulted due to ATN, as patient blood pressure was in the 40s systolic on arrival in ED. Likely ischemic ATN due to hypovolemic/cardiogenic shock. #Shock? hypovolemic versus cardiogenic shock? fluid responsive, responded a small fluid bolus 250 mL, will get repeated boluses if hypotensive, also consider pressors if no response to bolus fluids. ICU was made aware, and consult to contract designer placed. ICU following. #SBO?high-grade mechanical SBO on CT imaging, more than 3 L coffee-ground aspirate noted, concern for GI bleed, started on Protonix twice daily, general surgery consult to Dr. Jimenez was placed. Pending recommendations. Holding off on Gastrografin study due to distended stomach, pending general surgery recommendations #HFrEF?EF 30%, Quresh PGY3
--- NOTE | 2024-12-17 12:02 | XR_ITS ---
Examination: Abdomen AP single view Technique: AP portable supine abdomen, single view Exam date and time: December 17, 2024 1216 hours INDICATIONS: Abdominal tenderness this week FINDINGS: Air and contrast distended small bowel loops Surgical clips in the right and left abdomen Orogastric tube in the stomach IMPRESSION: Small bowel obstruction pattern Recommend follow-up abdomen films 2:00 PM, 4:00 PM, 6:00 PM
[2024-12-17 12:12] LABS: Alanine Aminotransferase < 7 U/L (10-49); Albumin, Serum 3.9 gm/dL (3.4-4.8); Albumin/Globulin Ratio 1.1 (1.2-2.2); Alkaline Phosphatase 64 U/L (46-116); Anion Gap 24 (7-16); Aspartate Amino Transferase 17 U/L (0-34); BUN/Creatinine Ratio 24 Ratio (12-20); Bilirubin,Total 1.0 mg/dL (0.3-1.2); Blood Urea Nitrogen 137 mg/dL (9-23); Calcium 9.0 mg/dL (8.3-10.6); Calcium (Corrected) 9.1 mg/dL (8.5-10.1); Carbon Dioxide 21.8 mMol/L (20.0-31.0); Chloride 90 mMol/L (98-107); Creatinine (Component) 5.7 mg/dL (0.6-1.3); Estimated Creatinine Clearance 8.2 mL/min (>60); Globulin 3.5 gm/dL (2.3-3.5); Glucose 155 mg/dL (74-106); Osmolality,Calculated 319 (275-295); Potassium 3.6 mMol/L (3.4-5.1); Sodium 136 mMol/L (136-145); Total Protein 7.4 gm/dL (5.7-8.2); eGFR 9 See Note
[2024-12-17 12:16] LABS: Base Excess 0 (-3-3); HCO3 24 mEq/L (20-26); Inspired O2, VO2 Liters 15 L/min; Inspired Oxygen, FIO2 21 %; O2 Saturation 89 % (91-98); PCO2 38 mmHg (32.0-48.0); PO2 60 mmHg (83-108); pH, Arterial 7.41 (7.35-7.45)
[2024-12-17 12:17] LABS: Troponin I 0.097 ng/mL (0.0-0.045)
[2024-12-17 12:21] LABS: Allen Test Not Performed; Puncture Site Left Radial
[2024-12-17 12:24] LABS: White Blood Count 2.8 Thou/mm3 (3.8-10.6)
[2024-12-17 12:46] LABS: Alanine Aminotransferase < 7 U/L (10-49); Albumin, Serum 3.6 gm/dL (3.4-4.8); Albumin/Globulin Ratio 1.1 (1.2-2.2); Alkaline Phosphatase 60 U/L (46-116); Anion Gap 21 (7-16); Aspartate Amino Transferase 16 U/L (0-34); BUN/Creatinine Ratio 20 Ratio (12-20); Bilirubin,Total 1.0 mg/dL (0.3-1.2); Blood Urea Nitrogen 113 mg/dL (9-23); Calcium 8.8 mg/dL (8.3-10.6); Calcium (Corrected) 9.1 mg/dL (8.5-10.1); Carbon Dioxide 23.7 mMol/L (20.0-31.0); Chloride 90 mMol/L (98-107); Creatinine (Component) 5.7 mg/dL (0.6-1.3); Estimated Creatinine Clearance 8.2 mL/min (>60); Globulin 3.3 gm/dL (2.3-3.5); Glucose 144 mg/dL (74-106); Osmolality,Calculated 308 (275-295); Potassium 3.7 mMol/L (3.4-5.1); Sodium 135 mMol/L (136-145); Total Protein 6.9 gm/dL (5.7-8.2); eGFR 9 See Note
[2024-12-17 12:48] LABS: Phosphorous 10.7 mg/dL (2.4-5.1)
--- NOTE | 2024-12-17 13:28 | ESPR_ITS ---
<Statement entered by Adriano Coughlin MD - 12/22/24 14:20> I reviewed above note and agree with findings and plans. I have also personally examined the patient with medicine team and went over assessment and plan with medical team including music industry intern and resident physician. Documentation for date of: 12/17/24 Senior resident attestation: Patient evaluated and examined at the bedside, plan of care discussed with rest of the team including my attending physician, except as noted. Patient admitted for possible mechanical high-grade small bowel obstruction, visibly distended stomach on CT abdomen, coffee-ground aspirate, more than 3 L were aspirated, patient was given bolus NS 250 mL in the setting of HFrEF with EF 30% on previous echocardiogram, holding off on with Gastrografin series, continue with low intermittent suction. Surgical consult with Dr. Jimenez was placed, pending recommendations. Dr. Jimenez will see the patient later today. Nephrology was also consulted due to ATN, as patient blood pressure was in the 40s systolic on arrival in ED. Likely ischemic ATN due to hypovolemic/cardiogenic shock. #Shock? hypovolemic versus cardiogenic shock? fluid responsive, responded a small fluid bolus 250 mL, will get repeated boluses if hypotensive, also consider pressors if no response to bolus fluids. ICU was made aware, and consult to certified nursing attendant placed. ICU following. #SBO?high-grade mechanical SBO on CT imaging, more than 3 L coffee-ground aspirate noted, concern for GI bleed, started on Protonix twice daily, general surgery consult to Dr. Jimenez was placed. Holding off on Gastrografin study due to distended stomach, pending general surgery recommendations #HFrEF?EF 30%, cautious fluid resuscitation, initially gave 250 mL boluses x 2, later per ICU recommendation and 1 L IVF bolus x 2 as patient had soft blood pressure but Responding to fluid. Quresh PGY3 Subjective Subjective Interval history: Patient was seen and examined at bedside. A.m. vitals and labs reviewed. Patient experienced multiple rapid events due to hypoxia and hypotension. His Systolic BP ranged in 80s, O2 sat in low 80% and MAP in 50s. Was given IV NS bolus for resuscitation. Patient looked lethargic during rapid events, but he became alert after. Complained of generalized pain and weakness. Denied having shortness of breathe, palpitation, or dizziness. Exam Vital Signs Temp Pulse Resp BP Pulse Ox O2 Del Method O2 Flow Rate 97.6 F 76 18 107/58 L 99 Oxy Mask 15 12/17/24 12:00 12/17/24 12:00 12/17/24 12:00 12/17/24 12:00 12/17/24 12:00 12/17/24 12:00 12/17/24 12:00 Narrative Exam General: Alert, but slightly drowsy Skin: Warm, dry, intact, no obvious rash. Head: Normocephalic, atraumatic. Eye: Normal conjunctiva, PERRL. Throat: Oral mucosa moist. No obvious lesions in oropharynx. Cardiovascular: Regular rate and rhythm, no murmur, +S1/S2. Respiratory: Lungs are clear to auscultation, respirations unlabored, no crackles, no wheezing. Gastrointestinal: Soft, nontender, non-distended. No guarding or rebound tenderness. Extremities: No edema, no cyanosis, no clubbing. 2+ radial pulse bilaterally, 2+ posterior tibial pulse bilaterally. Neuro: No focal deficits observed. Conversant, moving all extremities. No overt cerebellar signs/incoordination. Psychiatric: Cooperative, appropriate affect. Objective Labs 12/17/24 16:04 12/17/24 19:47 Labs: Laboratory Results - last 24 hr 12/16/24 12/16/24 12/16/24 21:00 21:14 22:36 WBC 8.2 RBC 4.30 L Hgb 13.8 Hct 38.3 L MCV 89 MCH 32.1 MCHC 36.0 RDW Std Deviation 45.7 H Plt Count 124 L Neut % (Auto) 78 Lymph % (Auto) 11 Woods % (Auto) 11 Eos % (Auto) 0 Baso % (Auto) 0 Neut # (Auto) 6.4 Lymph # (Auto) 0.9 L Woods # (Auto) 0.9 H Eos # (Auto) 0.0 Baso # (Auto) 0.0 Immature Gran # (Auto) 0.01 H Absolute Nucleated RBC 0.00 Immature Gran % 0 Nucleated RBC % 0 Puncture Site ABG pH ABG pCO2 ABG pO2 ABG HCO3 ABG O2 Saturation ABG Base Excess Oxygen Liter Flow FiO2 Sodium 135 L Potassium 4.2 Chloride 87 L Carbon Dioxide 25.2 Anion Gap 23 H BUN 119 H* Creatinine 5.8 H* Estim Creat Clear Calc Not Performed. eGFR 9 L* BUN/Creatinine Ratio 21 H Glucose 183 H Calculated Osmolality 313 H Lactic Acid 4.2 H* Calcium 9.6 Corrected Calcium 9.6 Phosphorus Magnesium 2.6 Total Bilirubin 1.2 AST 15 ALT < 7 L Alkaline Phosphatase 70 Troponin I 0.098 H* C-Reactive Prot, Quant 1.4 H B-Natriuretic Peptide 86 76 Total Protein 7.9 Albumin 4.2 Globulin 3.7 H Albumin/Globulin Ratio 1.1 L Lipase 93 H Beta-Hydroxybutyrate/Acetoacetate Ur Collection Type Voided Urine Color Yellow Urine Clarity Turbid A Urine pH 5.0 Ur Specific [place] 1.022 Urine Protein 1+ A Urine Glucose (UA) Trace Urine Ketones Negative Urine Blood Negative Urine Nitrite Negative Urine Bilirubin 1+ A Urine Urobilinogen (Auto) Negative Ur Leukocyte Esterase Negative Urine RBC 3 Urine WBC 8 H Ur Squamous Epith Cells 3 Amorphous Crystals Present A Urine Bacteria Rare Hyaline Casts 4 H Ur Culture Indicated? Not Indicated 12/16/24 12/17/24 12/17/24 23:30 00:55 11:15 WBC 2.8 L D RBC 4.48 L Hgb 14.5 Hct 40.6 L MCV 91 MCH 32.4 MCHC 35.7 RDW Std Deviation 46.5 H Plt Count 108 L Neut % (Auto) 86 H Lymph % (Auto) 10 Woods % (Auto) 3 Eos % (Auto) 0 Baso % (Auto) 0 Neut # (Auto) 2.4 Lymph # (Auto) 0.3 L Woods # (Auto) 0.1 Eos # (Auto) 0.0 Baso # (Auto) 0.0 Immature Gran # (Auto) 0.00 Absolute Nucleated RBC 0.00 Immature Gran % 0 Nucleated RBC % 0 Puncture Site ABG pH ABG pCO2 ABG pO2 ABG HCO3 ABG O2 Saturation ABG Base Excess Oxygen Liter Flow FiO2 Sodium 136 Potassium 3.6 D Chloride 90 L Carbon Dioxide 21.8 Anion Gap 24 H BUN 137 H* Creatinine 5.7 H* Estim Creat Clear Calc 8.2 L eGFR 9 L* BUN/Creatinine Ratio 24 H Glucose 155 H Calculated Osmolality 319 H Lactic Acid 2.6 H 2.4 H Calcium 9.0 Corrected Calcium 9.1 Phosphorus Magnesium Total Bilirubin 1.0 AST 17 ALT < 7 L Alkaline Phosphatase 64 Troponin I 0.091 H* 0.097 H* C-Reactive Prot, Quant B-Natriuretic Peptide Total Protein 7.4 Albumin 3.9 Globulin 3.5 Albumin/Globulin Ratio 1.1 L Lipase Beta-Hydroxybutyrate/Acetoacetate 0.8 H Ur Collection Type Urine Color Urine Clarity Urine pH Ur Specific [place] Urine Protein Urine Glucose (UA) Urine Ketones Urine Blood Urine Nitrite Urine Bilirubin Urine Urobilinogen (Auto) Ur Leukocyte Esterase Urine RBC Urine WBC Ur Squamous Epith Cells Amorphous Crystals Urine Bacteria Hyaline Casts Ur Culture Indicated? 12/17/24 12/17/24 12:03 12:07 WBC RBC Hgb Hct MCV MCH MCHC RDW Std Deviation Plt Count Neut % (Auto) Lymph % (Auto) [place] % (Auto) Eos % (Auto) Baso % (Auto) Neut # (Auto) Lymph # (Auto) Woods # (Auto) Eos # (Auto) Baso # (Auto) Immature Gran # (Auto) Absolute Nucleated RBC Immature Gran % Nucleated RBC % Puncture Site Left Radial ABG pH 7.41 ABG pCO2 38 ABG pO2 60 L ABG HCO3 24 ABG O2 Saturation 89 L ABG Base Excess 0 Oxygen Liter Flow 15 FiO2 21 Sodium 135 L Potassium 3.7 Chloride 90 L Carbon Dioxide 23.7 Anion Gap 21 H BUN 113 H* Creatinine 5.7 H* Estim Creat Clear Calc 8.2 L eGFR 9 L* BUN/Creatinine Ratio 20 Glucose 144 H Calculated Osmolality 308 H Lactic Acid Calcium 8.8 Corrected Calcium 9.1 Phosphorus 10.7 H Magnesium Total Bilirubin 1.0 AST 16 ALT < 7 L Alkaline Phosphatase 60 Troponin I C-Reactive Prot, Quant B-Natriuretic Peptide Total Protein 6.9 Albumin 3.6 Globulin 3.3 Albumin/Globulin Ratio 1.1 L Lipase Beta-Hydroxybutyrate/Acetoacetate Ur Collection Type Urine Color Urine Clarity Urine pH Ur Specific [place] Urine Protein Urine Glucose (UA) Urine Ketones Urine Blood Urine Nitrite Urine Bilirubin Urine Urobilinogen (Auto) Ur Leukocyte Esterase Urine RBC Urine WBC Ur Squamous Epith Cells Amorphous Crystals Urine Bacteria Hyaline Casts Ur Culture Indicated? ABG Interpretation ABG results: 12/17/24 12:07 ABG pH 7.41 ABG pCO2 38 ABG pO2 60 L ABG HCO3 24 ABG O2 Saturation 89 L ABG Base Excess 0 Quality Measures Quality Measures VTE prophylaxis Advance care planning discussed with:: patient Assessment & Plan Assessment Current Active Medications: Generic Name Dose Route Start Last Admin Trade Name Frejoey PRN Reason Stop Dose Admin Acetaminophen 650 mg 12/17/24 00:45 Acetaminophen 325 Mg Tablet PO 01/16/25 00:44 Q6H PRN PAIN SCALE 1-3 (mild Dextrose 25 ml 12/17/24 04:55 Dextrose 50%-Water Inj 50 Ml Syringe IV 01/16/25 04:54 Q15MIN PRN BG 50-70 responsive npo pt Dextrose 50 ml 12/17/24 04:55 Dextrose 50%-Water Inj 50 Ml Syringe IV 01/16/25 04:54 Q15MIN PRN BG <50 OR BG <70 & pt unresponsive Glucagon 1 mg 12/17/24 04:55 Glucagon Inj 1 Mg Vial IM Q15MIN PRN BG <70, and no IV access Heparin Sodium (Porcine) 5,000 unit 12/17/24 09:00 12/17/24 09:06 Heparin Sod Inj 5000 Unit/Ml Vial SC 12/31/24 08:59 5,000 unit Q12HR DANNI Administration Sodium Chloride 1,000 mls @ 60 mls/hr 12/17/24 13:27 Ns IV 01/16/25 13:26 .[id number] [facility] Insulin Human Lispro 0 unit 12/17/24 07:30 12/17/24 12:02 Insulin Lispro (Admelog) 1 Unit/0.01 Ml Unit SC 01/16/25 07:29 Not Given ACHS [facility] Protocol Levothyroxine Sodium 100 mcg 12/17/24 06:00 12/17/24 05:24 Levothyroxine Sodium 100 Mcg Tablet PO 01/16/25 05:59 Not Given ACBR [facility] Ondansetron HCl 4 mg 12/17/24 00:45 12/17/24 02:39 Ondansetron Inj 2 Mg/Ml Inj 2 Ml IVP 01/16/25 00:44 4 mg Q6H PRN Administration NAUSEA OR VOMITING Protocol Pantoprazole Sodium 40 mg 12/17/24 21:00 Pantoprazole Inj 40 Mg Vial IVP 01/16/25 20:59 BID [facility] Yamilet Dominguez Frantz is an 89-year-old M with a PMH of hypertension, hypothyroidism, T2DM, BPH, GERD, HLD, CKD stage III, and HFrEF who presents today with belly pain, nausea, and vomiting. #SBO Patient's presentation of umbilical abdominal pain that worsens with eating in the setting of absent bowel movements for the past 5-6 days is concerning for SBO. This working diagnosis is corroborated by noncontrast CT AP showing a high- grade mechanical small bowel obstruction . Gastrografin small bowel series (12/17/2024): Small bowel obstruction pattern Plan: -Started IV Dilaudid 0.5 mg q3HR prn for abdominal pain management -Patient has been placed on NPO -NG tube was placed for nasogastric decompression -General Surgery consulted. Appreciate recommendations. #Hypoxemia #Hypotension - 2 episodes of rapid event. In first event, Blood pressure 84/55, O2sat 80% on NC 2L MAP:62. In Second event, systolic BP was at 80s and MAP:56. - In total, 2.75L bolus given and currently on maintenance fluid -Concern for hypovolemic shock as patient was responsive to IVF. Plan: -Monitor MAP above 65. #Acute renal failure #Lactic acidosis Patient's BUN and creatinine are significantly elevated at 119 and 5.8 (baseline seems to be between 1.3-1.8) in the setting of significantly decreased eGFR of 9 suggesting acute renal failure. On admission, there is an anion gap (23) metabolic acidosis likely 2/2 acute renal failure and high lactic acid level of 4.2. -Currently, anion gap is 24 and lactic acid level of 2.0 -Renal US (12/17/2024): Small kidneys with bilateral renal cortical thinning, Moderate bilateral renal parenchymal scar formation, No hydronephrosis -Beta-Hydroxybutyrate: 0.8 Plan: -Avoid nephrotoxic -Renally dose medications -Strict I&O's -nephrology consulted -Continue NS IVF. - If does not improve by tomorrow, hemodialysis. - Concern for oligouira, Continue to monitor urine output. #Troponemia #likely 2/2 NSTEMI Type II EKG no stelevation noted Plan: -Troponins uptrending -continue to monitor for signs of Chest pain -Consider cardiology consult tomorrow -Consider repeat EKG #Chronic medical problems #Reflux esophagitis #T2DM #Hypothyroidism Plan: -Started IV Protonix -Started insulin sliding scale -Restarted home medication of PO levothyroxine 100 mcg AC Hospital Management: Disposition: pending nasogastric decompression and Gastrografin small bowel series to r/o SBO Diet: NPO GI Prophylaxis: none Bowel Prophylaxis: none DVT Prophylaxis: heparin CODE STATUS: Full Code Assessment and plan discussed with my attending physician Dr. Coughlin and Dr. Kuo (PGY-3) Dr. Zamorano (PGY-1)- Internal medicine resident
[2024-12-17 13:31] LABS: Basophils # (Auto) 0.0 Thou/mm3 (0.0-0.2); Basophils % (Auto) 0 % (0-2.5); Eosinophils # (Auto) 0.0 Thou/mm3 (0.0-0.5); Eosinophils % (Auto) 0 % (0-10); Hematocrit 36.8 % (41.0-53.0); Hemoglobin 13.4 g/dL (13.5-16.0); Immature Granulocytes Auto 0.01 Thou/mm3 (0.00-0.00); Lymphocytes # (Auto) 0.3 Thou/mm3 (1.0-4.8); Lymphocytes % (Auto) 11 % (10-50); Mean Corpuscular HGB Conc 36.4 g/dl (31.0-37.0); Mean Corpuscular Hemoglobin 32.5 pg (25.0-35.0); Mean Corpuscular Volume 89 fL (80-100); Monocytes # (Auto) 0.1 Thou/mm3 (0.0-0.8); Monocytes % (Auto) 5 % (0-12); Neutrophils # (Auto) 2.1 Thou/mm3 (1.8-7.7); Neutrophils % (Auto) 84 % (37-80); Nucleated Red Blood Cell # 0.00 Thou/mm3 (0.00-0.00); Nucleated Red Blood Cell % 0 /100 WBC (0); Platelet Count 93 Thou/mm3 (140-440); RDW Standard Deviation 46.1 fL (35.1-43.9); Red Blood Count 4.12 Miln/mm3 (4.50-5.90)
[2024-12-17] MEDS: SODIUM CHLORIDE 0.9% 1000 ML 1,000 ML 60 ML IV ×2 (13:40→23:52)
[2024-12-17 13:45] LABS: White Blood Count 2.5 Thou/mm3 (3.8-10.6)
--- NOTE | 2024-12-17 14:14 | ESCONSULT_ITS ---
HPI Data of Consult Requesting Physician: Krish Ramirez MD Admitting Provider: Krish Ramirez MD Attending Provider: Krish Ramirez MD Primary Care Provider: Physician No Primary/Family Consult Narrative Reason for consult: Hypotension History of present illness: An 89-year-old male patient with past medical history of hypertension, hypothyroidism, BPH, GERD, type 2 diabetes mellitus, hyperlipidemia, stage III CKD, HFrEF who brought to the ED because of abdominal pain associated with nausea and vomiting for 3 days. The pain was generalized. He mentions that it was not with feeding. Has never had such episodes in the past. He has also reported absolute constipation for 4 days. He denied any episode of hematemesis, shortness of breath, palpitation, dizziness or hematochezia. Noncontrast CT AP showed fluid distended esophagus with wall thickening (consistent with reflux esophagitis) and high-grade mechanical small bowel obstruction (recommend Gastrografin small bowel series follow up). Patient was n.p.o. and suctioning was done which he drained 3.5 L of dark liquid. Rapid response was called when the patient was noticed to have blood pressure of 85/51 in which ICU were consulted. Patient was resuscitated by the primary team by 750 mL of NS however his MAP still less than 65%. His labs showed hemoglobin level of 12.3, WBC 2.5, platelets 93, sodium 138, potassium 3.6, serum urea was 113, serum creatinine 5.7, I calculated his MELD activity of 325. Patient was given 1 bolus of LR with improvement of his MAP to 64. cc:: cc: Krish Ramirez MD Exam Vital Signs Temp Pulse Resp BP Pulse Ox O2 Del Method O2 Flow Rate 97.3 F 85 24 H 86/48 L 85 L Oxy Mask 3 12/17/24 13:38 12/17/24 13:38 12/17/24 13:38 12/17/24 13:38 12/17/24 13:38 12/17/24 12:00 12/17/24 13:38 Narrative Exam GEN: AOx3, NG tube in place, connected to suction, able to speak full sentences HEENT: NC/AC, oral mucosa moist, neck supple CVS: RRR, S1-S2 present, no murmurs appreciated RESP: CTAB GI: soft,non distended, non tender, NBS MSK: able to move all 4 limbs, no lower extremity edema SKIN: warm and dry CONTAINER COORDINATOR: CN II-XII and Sensation grossly intact. Results Labs 12/17/24 16:04 12/17/24 16:04 Labs: Short CBC 12/16/24 12/17/24 12/17/24 Range/Units 21:00 11:15 12:03 WBC 8.2 2.8 L D 2.5 L (3.8-10.6) Thou/mm3 Hgb 13.8 14.5 13.4 L (13.5-16.0) g/dL Hct 38.3 L 40.6 L 36.8 L (41.0-53.0) % Plt Count 124 L 108 L 93 L (140-440) Thou/mm3 BMP 12/16/24 12/17/24 12/17/24 21:00 11:15 12:03 Sodium 135 L 136 135 L Potassium 4.2 3.6 D 3.7 Chloride 87 L 90 L 90 L Carbon Dioxide 25.2 21.8 23.7 BUN 119 H* 137 H* 113 H* Creatinine 5.8 H* 5.7 H* 5.7 H* Glucose 183 H 155 H 144 H Calcium 9.6 9.0 8.8 Cardiac Enzymes 12/16/24 12/16/24 12/17/24 Range/Units 21:00 23:30 11:15 Troponin I 0.098 H* 0.091 H* 0.097 H* (0.0-0.045) ng/mL Liver Function 12/16/24 12/17/24 12/17/24 Range/Units 21:00 11:15 12:03 Total Bilirubin 1.2 1.0 1.0 (0.3-1.2) mg/dL AST 15 17 16 (0-34) U/L ALT < 7 L < 7 L < 7 L (10-49) U/L Alkaline Phosphatase 70 64 60 (46-116) U/L Albumin 4.2 3.9 3.6 (3.4-4.8) gm/dL Urine 12/16/24 Range/Units 21:14 Urine Color Yellow (Lt Yel-Yel) Urine Clarity Turbid A (Clear/Hazy) Urine pH 5.0 (5.0-7.0) Ur Specific [place] 1.022 (1.001-1.035) Urine Protein 1+ A (Neg - Trace) Urine Glucose (UA) Trace (Negative) ABG Interpretation ABG results: 12/17/24 12:07 ABG pH 7.41 ABG pCO2 38 ABG pO2 60 L ABG HCO3 24 ABG O2 Saturation 89 L ABG Base Excess 0 Quality Measures Quality Measures VTE prophylaxis Advance care planning discussed with:: patient Medications Home Medications and Allergies Home Medications ?Medication ?Instructions ?Recorded ?Confirmed ?Type GLIPIZIDE 10 mg PO QDAY ##0 06/23/13 0 07/28/19 History Isosorbide Mononitrate * (IMDUR *) 30 mg PO QDAY ##90 06/23/13 07/28/19 History Levothyroxine * (SYNTHROID *) 100 mcg PO QDAY ##90 07/28/19 History lisinopril 40 mg tablet 40 mg PO QDAY ##90 06/23/13 07/28/19 History Held on 06/12/24. Instructions: in setting of SADIQ follow PCP to resume Glucosamine/MSM/Chondroitin A * 1 tab PO BID #0 tabs 0 08/25/16 07/28/19 History (TRIPLEFLEX *) cholecalciferol (vitamin D3) 50 2,000 unit PO QDAY #0 caps 08/25/16 07/28/19 History mcg (2,000 unit) capsule (Vitamin D3) hydrochlorothiazide 25 mg tablet 25 mg PO QAM #0 tabs 08/25/16 07/28/19 History tamsulosin 0.4 mg capsule 0.4 mg PO QDAY 07/02/1807/06 History atorvastatin 20 mg tablet mg 12/17/24 History levothyroxine 100 mcg tablet mcg 12/17/24 History sacubitril 24 mg-valsartan 26 mg tab 12/17/24 History tablet (Entresto) Allergies Allergy/AdvReac Type Severity Reaction Status Date / Time No Known Allergies Allergy Verified 12/16/24 20:29 Visit Medications Acetaminophen (Acetaminophen 325 Mg Tablet) 650 mg PO Q6H PRN PRN Reason: PAIN SCALE 1-3 (mild Stop: 01/16/25 00:44 Dextrose (Dextrose 50%-Water Inj 50 Ml Syringe) 25 ml IV Q15MIN PRN PRN Reason: BG 50-70 responsive npo pt Stop: 01/16/25 04:54 Dextrose (Dextrose 50%-Water Inj 50 Ml Syringe) 50 ml IV Q15MIN PRN PRN Reason: BG <50 OR BG <70 & pt unresponsive Stop: 01/16/25 04:54 Glucagon (Glucagon Inj 1 Mg Vial) 1 mg IM Q15MIN PRN PRN Reason: BG <70, and no IV access Heparin Sodium (Porcine) (Heparin Sod Inj 5000 Unit/Ml Vial) 5,000 unit SC Q12HR [facility] Stop: 12/31/24 08:59 Last Admin: 12/17/24 09:06 Dose: 5,000 unit Sodium Chloride (Ns) 1,000 mls @ 60 mls/hr IV .[id number] [facility] Stop: 01/16/25 13:26 Last Admin: 12/17/24 13:40 Dose: 60 mls/hr Insulin Human Lispro (Insulin Lispro (Admelog) 1 Unit/0.01 Ml Unit) 0 unit SC ACHS [facility]; Protocol Stop: 01/16/25 07:29 Last Admin: 12/17/24 12:02 Dose: Not Given Levothyroxine Sodium (Levothyroxine Sodium 100 Mcg Tablet) 100 mcg PO ACBR [facility] Stop: 01/16/25 05:59 Last Admin: 12/17/24 05:24 Dose: Not Given Ondansetron HCl (Ondansetron Inj 2 Mg/Ml Inj 2 Ml) 4 mg IVP Q6H PRN; Protocol PRN Reason: NAUSEA OR VOMITING Stop: 01/16/25 00:44 Last Admin: 12/17/24 02:39 Dose: 4 mg Pantoprazole Sodium (Pantoprazole Inj 40 Mg Vial) 40 mg IVP BID [facility] Stop: 01/16/25 20:59 Discontinued Medications Sodium Chloride (Ns) 1,000 mls @ 999 mls/hr IV .Q1H1M ONE Stop: 12/16/24 22:02 Last Infusion: 12/16/24 22:15 Dose: Infused Sodium Chloride (Ns) 1,000 mls @ 120 mls/hr IV .[id number] [facility] Stop: 01/15/25 23:25 Last Admin: 12/16/24 23:38 Dose: 120 mls/hr Sodium Chloride (Ns) 250 mls @ 999 mls/hr IV .Q16M ONE Stop: 12/17/24 00:04 Last Infusion: 12/17/24 00:26 Dose: Infused Sodium Chloride (Ns) 1,000 mls @ 999 mls/hr IV .Q1H1M ONE Stop: 12/17/24 12:58 Last Admin: 12/17/24 12:01 Dose: 999 mls/hr Ondansetron HCl (Ondansetron Inj 2 Mg/Ml Inj 2 Ml) 4 mg IVP X1 ONE; Protocol Stop: 12/16/24 21:04 Last Admin: 12/16/24 21:11 Dose: 4 mg Assessment & Plan Plan Summary:An 89-year-old male patient with past medical history of hypertension, hypothyroidism, BPH, GERD, type 2 diabetes mellitus, hyperlipidemia, stage III CKD, HFrEF who brought to the ED because of abdominal pain associated with nausea and vomiting for 3 days. ICU team was consulted secondary to persistent hypotension. Assessment and plan CONTAINER COORDINATOR No active problem CVS #Hypotension most likely secondary to hypovolemia Patient presented due to history of abdominal pain for 3 days associated with vomiting, history of 3.5 L suctioning in the past 12 hours through NG tube. Patient has decreased urine output with increased serum creatinine. Capillary refill was at 3 seconds. Patient did not have any fever or chills, did not have any lower extremity edema or JVD. Plan ? Continue IV fluid resuscitation give 1 to 2 L of LR boluses. ?In case of worsening of his hypotension please call the ICU team for reevaluation ?Strict in and out Pulmonology No active problem detected GI #SBO Follow primary team recommendations, continue to trend lactic acid, follow surgery recommendations #History of esophagitis Plan Follow primary team recommendations Renal #SADIQ most likely prerenal secondary to hypovolemia #Anion gap metabolic acidosis Patient has hypotension and hypovolemia, his BUN is 113, lactic acid 4.2, serum creatinine 5.7 Plan -Trend lactic acid, BMP, follow nephrology and primary team recommendations Endocrinology #History of type 2 diabetes mellitus #History of hypothyroidism Plan Consider switching his levothyroxine to IV Follow primary team recommendations ID No active problems - Patient's plan and care discussed with my attending, Dr. Stas Summers MD Internal Medicine PGY-3
[2024-12-17 14:22] LABS: Reflex Lactate? Y
--- NOTE | 2024-12-17 14:23 | PC.SS ---
SS update: Pt. pending surgery consultation with Dr. Jimenez, not ready for d/c.
--- NOTE | 2024-12-17 14:59 | XR_ITS ---
Examination: Retroperitoneal ultrasound, complete Technique: Multiple high resolution grayscale images of the retroperitoneum obtained, including kidneys and bladder. Exam date and time:December 17, 2024 1632 hours INDICATIONS: Acute renal insufficiency on upper examination today FINDINGS: Right kidney 8.5 cm renal cortex 1.3 cm Left kidney 8.6 cm renal cortex 1.7 cm Moderate renal parenchymal scar formation No hydronephrosis Urinary bladder contracted around a Coates catheter Prostate volume 29 cc prostate cyst 9 mm no solid nodules IMPRESSION: Small kidneys with bilateral renal cortical thinning Moderate bilateral renal parenchymal scar formation No hydronephrosis
[2024-12-17 15:15] LABS: Lactic Acid, 3 HR 2.1 mMol/L (0.4-2.0)
--- NOTE | 2024-12-17 15:55 | PC.SS ---
DROP MAN attempted to complete initial assessment however patient was not alert, DROP MAN made phone call to family to confirm demographics, sister Cirilo not available, DROP MAN left voicemail.
[2024-12-17] MEDS: TUBERCULIN PPD INJ 5 UNIT/0.1 ML DOSE ID (16:05)
[2024-12-17 16:13] LABS: Lactate (Lactic Acid) 2.0 mMol/L (0.4-2.0)
[2024-12-17 16:14] LABS: Hematocrit 34.4 % (41.0-53.0); Hemoglobin 12.3 g/dL (13.5-16.0)
[2024-12-17 16:14] LABS: Hepatitis A Antibody IgM Non Reactive (Non React); Hepatitis B Core Antibody IgM Non Reactive (Non React); Hepatitis B Surface Antigen Non Reactive (Non React); Hepatitis C Antibody Non Reactive (Non React)
--- NOTE | 2024-12-17 16:27 | XR_ITS ---
Examination: Small bowel series abdomen AP negative 3 views Date and time: December 17, 2024 1906 hours INDICATIONS: Abdominal pain and distention this week, high-grade mechanical small bowel obstruction and CT abdomen pelvis December 16, 2024 TECHNIQUE AND FINDINGS: Patient received 120 cc Gastrografin through the orogastric tube Immediate 30 minute and 1 hour AP portable supine abdomen films obtained Marked contrast distended proximal small bowel loops measuring up to 5 cm in width IMPRESSION: Small bowel obstruction pattern. Recommend follow-up films 9:00 PM, 11:00 PM, 2:00 AM, 7:00 AM
--- NOTE | 2024-12-17 16:37 | PD.RESEVENT ---
Documentation for date of: 12/17/24 Event Note Event Note: Rapid response called at 4:00PM on 12/17 for patient room 356 for hypotension. Patient was seen and assessed in hospital bed, airway/breathing/circulation . Patient's systolic BP was in 80s and MAP was 56. During the time of assessment, patient was minimally responsive, but abdomen was minimally distended. Bowel sound present. Patient was given 250mL NS bolus. After our response, patient's hypotension has resolved. Ordered bedside Gastrografin series. Will continue to monitor the patient for any acute changes. Assessment and plan discussed with my attending physician Dr. Coughlin and Dr. Kuo (PGY-3) Dr. Zamorano (PGY-1)- Internal medicine resident Senior resident attestation: Patient evaluated and examined at the bedside, plan of care discussed with rest of the team including my attending physician, except as noted. Rapid response called by RN mentation for hypotension, systolic blood pressure noted to be in the 80s, MAP 56, IV fluid bolus was ordered, ICU resident Dr. Mcclelland was also present, repeat blood pressure after initiating fluid bolus SBP 105, MAP 65, ICU recommended continuing with fluid boluses as needed, as patient is in an net negative fluid state, hypotensive secondary to hypovolemia. Less likely cardiogenic shock. No signs of volume overload at this point, no crackles were auscultated or pedal edema or JV distention noted. Continue with fluid resuscitation, per ICU if patient continues to be hypotensive after adequate fluid resuscitation, can upgrade to ICU for IV pressors. Dr. Jimenez general surgeon also saw the patient during the rapid, evaluated abdominal images CT and x-rays, recommended continuing with suction to relieve gastric distention and restarting Gastrografin series. Patient too unstable to send down to radiology for Gastrografin series, recommended getting bedside x-ray images. Radiology was called multiple times, but unable to get in contact with anybody from radiology. At the moment patient continues to drain from NG tube. Ayaan PGY3
[2024-12-17 16:45] LABS: Albumin, Serum 3.4 gm/dL (3.4-4.8); Anion Gap 24 (7-16); BUN/Creatinine Ratio 26 Ratio (12-20); Calcium 8.2 mg/dL (8.3-10.6); Calcium (Corrected) 8.7 mg/dL (8.5-10.1); Carbon Dioxide 23.8 mMol/L (20.0-31.0); Chloride 90 mMol/L (98-107); Creatinine (Component) 5.7 mg/dL (0.6-1.3); Estimated Creatinine Clearance 8.2 mL/min (>60); Glucose 116 mg/dL (74-106); Osmolality,Calculated 325 (275-295); Potassium 3.6 mMol/L (3.4-5.1); Sodium 138 mMol/L (136-145); eGFR 9 See Note
--- NOTE | 2024-12-17 16:45 | XR_ITS ---
Examination: AP chest single view TECHNIQUE: AP portable semiupright chest single view Date and time: December 17, 2024 at 1706 hours Comparison December 17, 2024 at 0243 hours INDICATIONS: Status post orogastric tube placement FINDINGS: Orogastric tube in the stomach satisfactory position Diffuse left lung pneumonia, consider aspiration pneumonia Mild prominence left ventricle IMPRESSION: Orogastric tube in the stomach satisfactory position Significant diffuse left lung pneumonia
[2024-12-17 16:47] LABS: Blood Urea Nitrogen > 150 mg/dL (9-23); Troponin I 0.097 ng/mL (0.0-0.045)
--- NOTE | 2024-12-17 16:54 | PD.SURCONS ---
HPI Consult details Consult date: 12/17/24 Reason for consultation narrative: The patient was seen in consultation for a possible bowel obstruction History of present illness: History of present illness revealed that the patient had considerable abdominal distention and after the NG tube decompression he flattened out. Meds Home Medications and Allergies Home Medications ?Medication ?Instructions ?Recorded ?Confirmed ?Type GLIPIZIDE 10 mg PO QDAY ##0 06/23/13 07/28/19 History Isosorbide Mononitrate * (IMDUR *) 30 mg PO QDAY ##90 06/23/13 07/28/19 History Levothyroxine * (SYNTHROID *) 100 mcg PO QDAY ##90 06/23/13 07/28/19 History lisinopril 40 mg tablet 40 mg PO QDAY ##90 06/23/13 07/28/19 History Held on 06/12/24. Instructions: in setting of SADIQ follow PCP to resume Glucosamine/MSM/Chondroitin A * 1 tab PO BID #0 tabs 08/25/16 07/28/19 History (TRIPLEFLEX *) cholecalciferol (vitamin D3) 50 2,000 unit PO QDAY #0 caps 08/25/16 07/28/19 History mcg (2,000 unit) capsule (Vitamin D3) hydrochlorothiazide 25 mg tablet 25 mg PO QAM #0 tabs 08/25/16 07/28/19 History tamsulosin 0.4 mg capsule 0.4 mg PO QDAY 07/02/18 07/28/19 History atorvastatin 20 mg tablet mg 12/17/24 History levothyroxine 100 mcg tablet mcg 12/17/24 History sacubitril 24 mg-valsartan 26 mg tab 12/17/24 History tablet (Entresto) Allergies Allergy/AdvReac Type Severity Reaction Status Date / Time No Known Allergies Allergy Verified 12/16/24 20:29 Exam Vital Signs Temp Pulse Resp BP Pulse Ox O2 Del Method O2 Flow Rate 96 F L 78 24 H 85/51 L 85 L Oxy Mask 15 12/17/24 16:22 12/17/24 16:22 12/17/24 13:38 12/17/24 16:22 12/17/24 13:38 12/17/24 12:00 12/17/24 16:22 Routine Abdominal Exam Comments: 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 Bowel sounds are present Assessment & Plan Additional Assessment Additional comments: Impression: Acute gastric dilatation Plan Plan: We shall get small bowel series if there is a concern about bowel obstruction. Clinically he does not seem to have a bowel obstruction it is rather gastric outlet obstruction. The NG tube drainage decreases and if he is stable enough then we can consider small bowel series with Gastrografin. Thank you
--- NOTE | 2024-12-17 17:15 | PC.SS ---
Initial assessment: Patient is an 89-year old male admitted for SBO. Patient not alert and information was obtained by his sister, Cirilo Duckworth who is listed on facesheet. Cirilo confirmed the patients demographic information. She informed patient lives with his niece, Kristin Craig . Per sister, the patient was independent with ADL's prior to hospitalization. She informs no DME was being utilized by the patient for ambulation purposes or home 02 needs. Cirilo informs the patient's PCP is Edilson Barcenas. In case of an emergency for the patient, his sister, Cirilo could be contacted for medical decision making. Cirilo informs the current d/c plan is for patient to return home and she is able to transport him home at discharge. No current needs identified. D/c plan: Home Next of kin: Cirilo Gar
[2024-12-17 17:29] LABS: Phosphorous 10.4 mg/dL (2.4-5.1)
[2024-12-17] MEDS: cefTRIAXone/D5w 1gm IV premix 1 GM/50 ML BAG IV (18:13)
[2024-12-17] MEDS: metroNIDAZOLE/NS 500 MG IVPB 500 MG/100 ML BAG 200 MG IV (18:22)
--- NOTE | 2024-12-17 19:00 | XR_ITS ---
Examination: AP chest single view TECHNIQUE: AP portable semiupright chest single view. Date and time: December 17, 2024, 1830 p.m. Comparison December 17, 2024 7006 hours INDICATIONS: Difficulty breathing this week. FINDINGS: Diffuse left lung pneumonia Mild prominence cardiac contour Mild to moderate vascular congestion. No pulmonary edema Opacified feeding tube in stomach IMPRESSION: Diffuse left lung pneumonia
[2024-12-17] MEDS: DOXYCYCLINE INJ 100 MG in SODIUM CHLORIDE 0.9% (POP) 100 ML IV (20:19)
--- NOTE | 2024-12-17 20:58 | PD.RESEVENT ---
Documentation for date of: 12/17/24 Event Note Event Note: Rapid Response Room: 356 Time: 9:00 PM Reason for Call: hypotension w/ MAP of 55 Patient presentation: Events: Assessment: Patient was assessed and airway and breathing were found to be intact. Patient was assessed and airway and breathing were found to be intact. New orders: 1. Ordered IV 500 mL NS bolus 2. Ordered lactic acid level Patient was discussed with the attending, Dr. Ramirez , and senior resident Dr. Soto , PGY-2 . -Nain Vogel, PGY-1 Internal Medicine [facility]
[2024-12-17 21:01] LABS: Albumin, Serum 3.0 gm/dL (3.4-4.8); Anion Gap 23 (7-16); BUN/Creatinine Ratio 22 Ratio (12-20); Calcium 7.5 mg/dL (8.3-10.6); Calcium (Corrected) 8.3 mg/dL (8.5-10.1); Carbon Dioxide 18.0 mMol/L (20.0-31.0); Chloride 99 mMol/L (98-107); Creatinine (Component) 5.0 mg/dL (0.6-1.3); Estimated Creatinine Clearance 9.4 mL/min (>60); Glucose 96 mg/dL (74-106); Osmolality,Calculated 314 (275-295); Phosphorous 9.1 mg/dL (2.4-5.1); Potassium 3.3 mMol/L (3.4-5.1); Sodium 140 mMol/L (136-145); eGFR 11 See Note
[2024-12-17 21:03] LABS: Blood Urea Nitrogen 111 mg/dL (9-23)
--- NOTE | 2024-12-17 21:07 | PD.RESEVENT ---
Documentation for date of: 12/17/24 Event Note Event Note: 12/17/2024: Rapid response called sometime around 8:30 PM for patient in room 356 having hypotension with a MAP of 55. Patient seen and examined in hospital bed awake and answering questions appropriately, denies having any concerning symptoms such as dizziness, shortness of breath, chest pain or abdominal pain. On assessment, patient's airway/breathing/circulation intact and abdomen is soft nondistended nontender on palpation. Patient apparently put out 3 L of NG tube but is currently clamped for small bowel series; moreover, patient has put out 450 cc of urine output over 24 hours. Patient appears dry on examination as result will order stat lactic acid along with 500 cc IV bolus of normal saline and plan for an additional 500 cc at a later time. Will continue to monitor the patient for any acute changes. Jayesh Soto, DO PGY-2 Internal Medicine - [facility]
[2024-12-17] MEDS: SODIUM CHLORIDE 0.9% 500 ML 500 ML 999 ML IV ×2 (21:08→21:37)
[2024-12-17 21:46] LABS: Lactate (Lactic Acid) 2.2 mMol/L (0.4-2.0)
[2024-12-17 22:53] LABS: Chloride,Urine Random < 20.0 mMol/L (55.0-125.0); Creatinine,Random Urine 103 mg/dL (30-125); Potassium,Urine Random 66 mMol/L (12-62); Sodium,Urine Random 32.6 mMol/L (20.0-110.0)
--- NOTE | 2024-12-17 23:00 | XR_ITS ---
Examination: Abdomen AP single view Technique: AP portable supine abdomen, single view Exam date and time: December 17, 2024 10:55 PM INDICATIONS: Abdominal pain and distention this week, 4 hour delayed film for small bowel series FINDINGS: Contrast in distended small bowel loops IMPRESSION: Small bowel obstruction pattern, additional delayed films will be obtained
--- NOTE | 2024-12-17 23:00 | PC.NURSE ---
Attempted to do med/rec. Patient unable to recall home medications. Will follow up with AM nurse to call family member to bring med list/bottles.
[2024-12-18] VITALS (14 sets, daily range): BP systolic 86–132; BP diastolic 42–68; PULSE 68–97; RESP 14–24; TEMP 35.9–36.6; O2SAT 90–100
[2024-12-18 00:10] LABS: Troponin I 0.087 ng/mL (0.0-0.045)
[2024-12-18 00:43] LABS: Reflex Lactate? Y
[2024-12-18 01:09] LABS: Lactic Acid, 3 HR 1.9 mMol/L (0.4-2.0)
--- NOTE | 2024-12-18 02:00 | XR_ITS ---
Examination: Abdomen AP single view Technique: AP portable supine abdomen, single view Exam date and time: December 18, 2024 0210 hours INDICATIONS: 7 hour delayed film post small bowel series today, abdominal pain and distention this week FINDINGS: High-grade mechanical small bowel obstruction IMPRESSION: High-grade mechanical small bowel obstruction
[2024-12-18] MEDS: metroNIDAZOLE/NS 500 MG IVPB 500 MG/100 ML BAG 200 MG IV ×2 (05:09→13:33)
[2024-12-18 06:43] LABS: Basophils # (Auto) 0.0 Thou/mm3 (0.0-0.2); Basophils % (Auto) 1 % (0-2.5); Eosinophils # (Auto) 0.0 Thou/mm3 (0.0-0.5); Eosinophils % (Auto) 0 % (0-10); Hematocrit 33.2 % (41.0-53.0); Hemoglobin 11.5 g/dL (13.5-16.0); Immature Granulocytes Auto 0.03 Thou/mm3 (0.00-0.00); Lymphocytes # (Auto) 0.2 Thou/mm3 (1.0-4.8); Lymphocytes % (Auto) 4 % (10-50); Mean Corpuscular HGB Conc 34.6 g/dl (31.0-37.0); Mean Corpuscular Hemoglobin 32.7 pg (25.0-35.0); Mean Corpuscular Volume 94 fL (80-100); Monocytes # (Auto) 0.2 Thou/mm3 (0.0-0.8); Monocytes % (Auto) 3 % (0-12); Neutrophils # (Auto) 5.3 Thou/mm3 (1.8-7.7); Neutrophils % (Auto) 92 % (37-80); Nucleated Red Blood Cell # 0.00 Thou/mm3 (0.00-0.00); Nucleated Red Blood Cell % 0 /100 WBC (0); RDW Standard Deviation 49.0 fL (35.1-43.9); Red Blood Count 3.52 Miln/mm3 (4.50-5.90); White Blood Count 5.7 Thou/mm3 (3.8-10.6)
[2024-12-18 06:50] LABS: Platelet Count 46 Thou/mm3 (140-440); Slide Review Platelets confirmed
--- NOTE | 2024-12-18 07:00 | XR_ITS ---
Examination: Abdomen AP single view Technique: AP portable supine abdomen, single view Exam date and time: December 18, 2024 0704 hours INDICATIONS: 12 hour delayed film post small bowel series, abdominal distention this week. FINDINGS: High-grade mechanical small bowel obstruction IMPRESSION: High-grade mechanical small bowel obstruction, recommend follow-up film 11:00 AM
[2024-12-18 07:08] LABS: Alanine Aminotransferase < 7 U/L (10-49); Albumin, Serum 3.2 gm/dL (3.4-4.8); Albumin/Globulin Ratio 1.1 (1.2-2.2); Alkaline Phosphatase 48 U/L (46-116); Anion Gap 21 (7-16); Aspartate Amino Transferase 12 U/L (0-34); BUN/Creatinine Ratio 26 Ratio (12-20); Bilirubin,Total 0.6 mg/dL (0.3-1.2); Blood Urea Nitrogen 110 mg/dL (9-23); Calcium 7.9 mg/dL (8.3-10.6); Calcium (Corrected) 8.5 mg/dL (8.5-10.1); Carbon Dioxide 21.7 mMol/L (20.0-31.0); Chloride 103 mMol/L (98-107); Creatinine (Component) 4.2 mg/dL (0.6-1.3); Estimated Creatinine Clearance 11.2 mL/min (>60); Globulin 2.8 gm/dL (2.3-3.5); Glucose 74 mg/dL (74-106); Magnesium 2.0 mg/dL (1.6-2.6); Osmolality,Calculated 324 (275-295); Phosphorous 7.8 mg/dL (2.4-5.1); Potassium 3.0 mMol/L (3.4-5.1); Sodium 146 mMol/L (136-145); Total Protein 6.0 gm/dL (5.7-8.2); eGFR 13 See Note
[2024-12-18 07:15] LABS: Troponin I 0.082 ng/mL (0.0-0.045)
[2024-12-18] MEDS: DEXTROSE 50%-WATER INJ 50 ML SYRINGE 25 ML IV (07:23)
--- NOTE | 2024-12-18 08:26 | XR_ITS ---
Examination: Abdomen AP single view Technique: AP portable supine abdomen, single view Exam date and time: December 18, 2024 0838 hours INDICATIONS: Abdominal pain and distention this week. FINDINGS: High-grade mechanical small bowel obstruction IMPRESSION: High-grade mechanical small bowel obstruction
--- NOTE | 2024-12-18 08:57 | ECHO_ITS ---
Transthoracic Echo Report Ht (in): 66 Wt (lb): 147 Exam Location: Echo Lab Status: Inpatient Home Economist: No Sultana Indications: Procedure Performed: BP: 116 / 42 HR: 78 Technical Quality: Technically difficult study MEASUREMENTS (Male / Female) Normal Values 2D ECHO LV Ejection Fraction MOD BP 62.9 % >= 55 % LV Cardiac Index MOD BP 4052.8 cm?/min?m? LV Ejection Fraction MOD 4C 53.1 % LV Cardiac Index MOD 4C 2434.3 cm?/min?m? LV Ejection Fraction 4C AL 54.8 % LV Cardiac Index 4C AL 2645.3 cm?/min?m? LV Ejection Fraction MOD 2C 67.5 % LV Cardiac Index MOD 2C 5181.8 cm?/min?m? LV Ejection Fraction 2C AL 68.4 % LV Cardiac Index 2C AL 5451.7 cm?/min?m? LA Volume Index 36.4 cm?/m? 16 - 28 cm?/m? M-MODE Aortic Root Diameter MM 2.8 cm LA Systolic Diameter MM 3.6 cm LA Ao Ratio MM 1.3 AV Cusp Separation MM 1.9 cm DOPPLER AV Peak Velocity 229.3 cm/s AV Peak Gradient 21.0 mmHg AV Mean Gradient 9.0 mmHg AV Velocity Time Integral 39.6 cm AI Peak Velocity 336.0 cm/s AI Peak Gradient 45.2 mmHg AI Pressure Half Time 1011.0 ms LVOT Peak Velocity 90.2 cm/s LVOT Peak Gradient 3.3 mmHg LVOT Velocity Time Integral 21.6 cm MV Area PHT 3.9 cm? MR Peak Velocity 488.0 cm/s MR Peak Gradient 95.3 mmHg Mitral E Point Velocity 52.9 cm/s Mitral A Point Velocity 91.7 cm/s Mitral E to A Ratio 0.6 LV E' Lateral Velocity 6.5 cm/s Mitral E to LV E' Lateral Ratio 8.1 LV E' Septal Velocity 3.0 cm/s Mitral E to LV E' Septal Ratio 17.3 TR Peak Velocity 210.0 cm/s TR Peak Gradient 17.6 mmHg FINDINGS Left Ventricle Normal left ventricular size and wall thickness.The ejection fraction is visually estimated at 505 Global left ventricular systolic function is mildly decreased. There is grade I diastolic dysfunction of the left ventricle (impaired relaxation pattern). Right Ventricle The right ventricle is normal in size and systolic function. Left Atrium Mildly increased left atrial volume 36.4 mL/m?. Right Atrium The right atrium is normal by two-dimensional imaging, color flow and Doppler imaging with no structural abnormalities, no thrombus formation present. Atrial Septum The interatrial septum appears normal with no evidence of a shunt. Aorta The aorta is normal by two-dimensional, color flow and Doppler interrogation. Mitral Valve The mitral valve is normal by two-dimensional, color flow and Doppler interrogation. Moderate mitral regurgitation. Aortic Valve Moderate aortic valve regurgitation. Tricuspid Valve There is mild tricuspid valve regurgitation. Pulmonic Valve The pulmonic valve is not well visualized. There is no significant pulmonic valve regurgitation. Vessels Inferior vena cava not well visualized. Pericardium The pericardium is normal by two-dimensional imaging. There is no significant pericardial effusion. CONCLUSIONS Indication: CHF hypotensive Normal LV size and wall thickness.Estimated EF at 50% Global left ventricular systolic function is mildly decreased. There is grade I diastolic dysfunction. The RV is normal in size and systolic function. Mild to Moderate MR Mild aortic valve sclerosis witout stenosis. Mild ortic regurgitation Mild TR. Beulah Cloud (Electronically Signed) Final Date: 18 December 2024 21:40
[2024-12-18] MEDS: cefTRIAXone/D5w 1gm IV premix 1 GM/50 ML BAG IV (09:17)
[2024-12-18] MEDS: DOXYCYCLINE INJ 100 MG in SODIUM CHLORIDE 0.9% (POP) 100 ML IV ×2 (09:17→21:12)
[2024-12-18] MEDS: POT CHL ADDITIVE 40 MEQ in DEXTROSE 5%-WATER 1,000 ML 60 MEQ IV (09:48)
--- NOTE | 2024-12-18 11:00 | XR_ITS ---
Examination: Abdomen AP single view Technique: AP portable supine abdomen, single view Exam date and time: December 18, 2024 1117 hours INDICATIONS: Abdominal pain and distention this week, 16 hour delayed film post small bowel series FINDINGS: High-grade mechanical small bowel obstruction IMPRESSION: High-grade small bowel obstruction
--- NOTE | 2024-12-18 11:46 | PD.RESPRO ---
Documentation for date of: 12/18/24 Subjective Subjective Interval history: Lars Landry is an 89-year-old M with a PMH of hypertension, hypothyroidism, T2DM, BPH, GERD, HLD, CKD stage III, and HFrEF who presents today with belly pain, nausea, and vomiting. Patient states that he began to have abdominal discomfort last after eating out, which has worsened since then. States it is localized to the umbilicus region of the abdomen. Patient characterizes the pain as constant and burning. It worsens with eating and improves after drinking liquids. Patient denies ever having a similar presentation in the past. The patient last vomited on Sunday and describes the vomitus as being brown in color. His last bowel movement was 5 to 6 days ago and productive of liquid brown stool. He also endorses a cough that is productive of black mucus. At the time of the interview, patient reported his belly pain to be a 3/10. ED Course: In the ED, patient came in with low blood pressure of 46/35 that improved after having total 1.25 NS bolus and continues to be on 1 L NS maintenance fluids. Patient found to have high anion gap metabolic acidosis, BUN 119, Cr 5.8, eGFR 9, lactic acid of 4.2 (improved to 2.6), and elevated trop 0.098. UA was turbid and showed 1+ protein, 1+ bilirubin, slightly high WBC 8, and amorphous crystals with some hyaline casts. CT AP was consistent with reflux esophagitis and sbo (f/u small bowel series). EKG showed sinus rhythm with possible left atrial enlargement, left axis deviation, and left bundle branch block. Head CT and CXR was unremarkable. Patient was admitted for the work-up and management of suspected SBO. 12/17/2024 When patient was seen and examined, he had his sister and niece at bedside. Patient is alert and oriented x3 and says he is feeling good, just feels a little weak. Denies and new concerns/complaints. Patient denies having fever, headache, chest pain, shortness of breath, abdominal pain, flank pain or dysuria. Patient noted PCP is Dr. Barcenas in [place]. 12/18/2024 Patient was seen and examined. Patient is moving and speaking a lot slower, still is a&o x3. Patient states he feels thirsty, weak and has some mild abdominal pain with nausea that has been getting worse overnight. Patient denies fever, chest pain, shortness of breath, vomiting, dysuria. Patient was given an amp of dextrose this morning and was started on KCl maintenance fluids. Patient's Cr improved to 4.2 today (5.0 yest). Exam Vital Signs Temp Pulse Resp BP Pulse Ox O2 Del Method O2 Flow Rate 96.9 F 77 19 120/50 L 99 Nasal Cannula 10 12/18/24 08:00 12/18/24 08:00 12/18/24 08:00 12/18/24 08:00 12/18/24 08:00 12/18/24 08:00 12/18/24 08:00 Narrative Exam CONST: Negative for fever, body aches and chills. HENT: Negative for neck pain/stiffness, headache, congestion, sore throat, swelling. EYES: Negative for discharge/pain or vision changes. RESP: Negative for cough/hemoptysis and shortness of breath. CV: Negative chest pain, difficulty breathing, palpitations. ABD: Endorses Nausea and abdominal pain. Negative pain, vomiting. : Negative increase frequency, dysuria, blood in urine or stool. MUSC: Negative for muscle aches, edema. SKIN: Negative rash, lesions/sores. NEURO: Negative headache, dizziness, weakness. Objective Labs 12/18/24 17:14 12/18/24 17:14 Labs: Laboratory Results - last 24 hr 12/17/24 12/17/24 12/17/24 11:15 12:03 12:07 WBC 2.8 L D 2.5 L RBC 4.48 L 4.12 L Hgb 14.5 13.4 L Hct 40.6 L 36.8 L MCV 91 89 MCH 32.4 32.5 MCHC 35.7 36.4 RDW Std Deviation 46.5 H 46.1 H Plt Count 108 L 93 L Neut % (Auto) 86 H 84 H Lymph % (Auto) 10 11 [place]roquois % (Auto) 3 5 Eos % (Auto) 0 0 Baso % (Auto) 0 0 Neut # (Auto) 2.4 2.1 Lymph # (Auto) 0.3 L 0.3 L [place]ois # (Auto) 0.1 0.1 Eos # (Auto) 0.0 0.0 Baso # (Auto) 0.0 0.0 Immature Gran # (Auto) 0.00 0.01 H Absolute Nucleated RBC 0.00 0.00 Immature Gran % 0 0 Nucleated RBC % 0 0 Puncture Site Left Radial ABG pH 7.41 ABG pCO2 38 ABG pO2 60 L ABG HCO3 24 ABG O2 Saturation 89 L ABG Base Excess 0 Oxygen Liter Flow 15 FiO2 21 Sodium 136 135 L Potassium 3.6 D 3.7 Chloride 90 L 90 L Carbon Dioxide 21.8 23.7 Anion Gap 24 H 21 H BUN 137 H* 113 H* Creatinine 5.7 H* 5.7 H* Estim Creat Clear Calc 8.2 L 8.2 L eGFR 9 L* 9 L* BUN/Creatinine Ratio 24 H 20 Glucose 155 H 144 H Calculated Osmolality 319 H 308 H Lactic Acid Calcium 9.0 8.8 Corrected Calcium 9.1 9.1 Phosphorus 10.7 H Magnesium Total Bilirubin 1.0 1.0 AST 17 16 ALT < 7 L < 7 L Alkaline Phosphatase 64 60 Troponin I 0.097 H* Total Protein 7.4 6.9 Albumin 3.9 3.6 Globulin 3.5 3.3 Albumin/Globulin Ratio 1.1 L 1.1 L Ur Random Creatinine Ur Random Sodium Ur Random Potassium Ur Random Chloride Hepatitis A IgM Ab Hep Bs Antigen Hep B Core IgM Ab Hepatitis C Antibody Mis Test Result Blood Type Antibody Screen Blood Bank Wristband ID 12/17/24 12/17/24 12/17/24 14:54 16:04 17:18 WBC RBC Hgb 12.3 L Hct 34.4 L MCV MCH MCHC RDW Std Deviation Plt Count Neut % (Auto) Lymph % (Auto) [place]ois % (Auto) Eos % (Auto) Baso % (Auto) Neut # (Auto) Lymph # (Auto) [place] # (Auto) Eos # (Auto) Baso # (Auto) Immature Gran # (Auto) Absolute Nucleated RBC Immature Gran % Nucleated RBC % Puncture Site ABG pH ABG pCO2 ABG pO2 ABG HCO3 ABG O2 Saturation ABG Base Excess Oxygen Liter Flow FiO2 Sodium 138 Potassium 3.6 Chloride 90 L Carbon Dioxide 23.8 Anion Gap 24 H BUN > 150 H* Creatinine 5.7 H* Estim Creat Clear Calc 8.2 L eGFR 9 L* BUN/Creatinine Ratio 26 H Glucose 116 H Calculated Osmolality 325 H Lactic Acid 2.1 H 2.0 Calcium 8.2 L Corrected Calcium 8.7 Phosphorus 10.4 H Magnesium Total Bilirubin AST ALT Alkaline Phosphatase Troponin I 0.097 H* Total Protein Albumin 3.4 Globulin Albumin/Globulin Ratio Ur Random Creatinine Ur Random Sodium Ur Random Potassium Ur Random Chloride Hepatitis A IgM Ab Non Reactive Hep Bs Antigen Non Reactive Hep B Core IgM Ab Non Reactive Hepatitis C Antibody Non Reactive Misc Test Result Blood Type O Positive Antibody Screen NEGATIVE Blood Bank Wristband ID Yes 12/17/24 12/17/24 12/17/24 19:47 21:30 22:25 WBC RBC Hgb Hct MCV MCH MCHC RDW Std Deviation Plt Count Neut % (Auto) Lymph % (Auto) [place]ois % (Auto) Eos % (Auto) Baso % (Auto) Neut # (Auto) Lymph # (Auto) [place]ois # (Auto) Eos # (Auto) Baso # (Auto) Immature Gran # (Auto) Absolute Nucleated RBC Immature Gran % Nucleated RBC % Puncture Site ABG pH ABG pCO2 ABG pO2 ABG HCO3 ABG O2 Saturation ABG Base Excess Oxygen Liter Flow FiO2 Sodium 140 Potassium 3.3 L Chloride 99 Carbon Dioxide 18.0 L Anion Gap 23 H BUN 111 H* Creatinine 5.0 H* D Estim Creat Clear Calc 9.4 L eGFR 11 L* BUN/Creatinine Ratio 22 H Glucose 96 Calculated Osmolality 314 H Lactic Acid 2.2 H Calcium 7.5 L Corrected Calcium 8.3 L Phosphorus 9.1 H Magnesium Total Bilirubin AST ALT Alkaline Phosphatase Troponin I Total Protein Albumin 3.0 L Globulin Albumin/Globulin Ratio Ur Random Creatinine 103 Ur Random Sodium 32.6 Ur Random Potassium 66 H Ur Random Chloride < 20.0 L Hepatitis A IgM Ab Hep Bs Antigen Hep B Core IgM Ab Hepatitis C Antibody Misc Test Result Blood Type Antibody Screen Blood Bank Wristband ID 12/17/24 12/18/24 12/18/24 23:39 01:00 05:44 WBC 5.7 D RBC 3.52 L Hgb 11.5 L Hct 33.2 L MCV 94 MCH 32.7 MCHC 34.6 RDW Std Deviation 49.0 H Plt Count 46 L D Neut % (Auto) 92 H Lymph % (Auto) 4 L [place]quois % (Auto) 3 Eos % (Auto) 0 Baso % (Auto) 1 Neut # (Auto) 5.3 Lymph # (Auto) 0.2 L [place] # (Auto) 0.2 Eos # (Auto) 0.0 Baso # (Auto) 0.0 Immature Gran # (Auto) 0.03 H Absolute Nucleated RBC 0.00 Immature Gran % 1 H Nucleated RBC % 0 Puncture Site ABG pH ABG pCO2 ABG pO2 ABG HCO3 ABG O2 Saturation ABG Base Excess Oxygen Liter Flow FiO2 Sodium 146 H Potassium 3.0 L Chloride 103 Carbon Dioxide 21.7 Anion Gap 21 H BUN 110 H* Creatinine 4.2 H* D Estim Creat Clear Calc 11.2 L eGFR 13 L* BUN/Creatinine Ratio 26 H Glucose 74 Calculated Osmolality 324 H Lactic Acid 1.9 Calcium 7.9 L Corrected Calcium 8.5 Phosphorus 7.8 H Magnesium 2.0 Total Bilirubin 0.6 AST 12 ALT < 7 L Alkaline Phosphatase 48 Troponin I 0.087 H* 0.082 H* Total Protein 6.0 Albumin 3.2 L Globulin 2.8 Albumin/Globulin Ratio 1.1 L Ur Random Creatinine Ur Random Sodium Ur Random Potassium Ur Random Chloride Hepatitis A IgM Ab Hep Bs Antigen Hep B Core IgM Ab Hepatitis C Antibody Misc Test Result Platelets confirmed Blood Type Antibody Screen Blood Bank Wristband ID ABG Interpretation ABG results: 12/17/24 12:07 ABG pH 7.41 ABG pCO2 38 ABG pO2 60 L ABG HCO3 24 ABG O2 Saturation 89 L ABG Base Excess 0 Quality Measures Quality Measures VTE prophylaxis Advance care planning discussed with:: patient Assessment & Plan Assessment Current Active Medications: Generic Name Dose Route Start Last Admin Trade Name Freq PRN Reason Stop Dose Admin Acetaminophen 650 mg 12/17/24 00:45 Acetaminophen 325 Mg Tablet PO 01/16/25 00:44 Q6H PRN PAIN SCALE 1-3 (mild Dextrose 25 ml 12/17/24 04:55 12/18/24 07:23 Dextrose 50%-Water Inj 50 Ml Syringe IV 01/16/25 04:54 25 ml Q15MIN PRN Administration BG 50-70 responsive npo pt Dextrose 50 ml 12/17/24 04:55 Dextrose 50%-Water Inj 50 Ml Syringe IV 01/16/25 04:54 Q15MIN PRN BG <50 OR BG <70 & pt unresponsive Glucagon 1 mg 12/17/24 04:55 Glucagon Inj 1 Mg Vial IM Q15MIN PRN BG <70, and no IV access Doxycycline Hyclate 100 mg/ 100 mls @ 100 mls/hr 12/17/24 21:00 12/18/24 09:17 Sodium Chloride IV 12/24/24 20:59 100 mls/hr BID DANNI Administration Ceftriaxone Sodium/Dextrose 1 gm in 50 mls @ 100 mls/hr 12/17/24 17:54 12/18/24 09:17 Rocephin/D5w 1gm Iv Premix IV 12/24/24 17:53 100 mls/hr QDAY DANNI Administration Metronidazole 500 mg in 100 mls @ 200 mls/hr 12/17/24 17:56 12/18/24 05:09 Flagyl 500 Mg Iv IV 12/24/24 17:55 200 mls/hr Q8HR DANNI Administration Potassium Chloride 40 meq/ 1,020 mls @ 60 mls/hr 12/18/24 07:49 12/18/24 09:48 Dextrose IV 12/19/24 00:48 60 mls/hr .Q17H ONE Administration Insulin Human Lispro 0 unit 12/18/24 00:00 12/18/24 05:45 Insulin Lispro (Admelog) 1 Unit/0.01 Ml Unit SC 01/17/25 00:00 Not Given Q6HR DANNI Protocol Levothyroxine Sodium 100 mcg 12/17/24 06:00 12/18/24 05:06 Levothyroxine Sodium 100 Mcg Tablet PO 01/16/25 05:59 Not Given ACBR DANNI Ondansetron HCl 4 mg 12/17/24 00:45 12/17/24 02:39 Ondansetron Inj 2 Mg/Ml Inj 2 Ml IVP 01/16/25 00:44 4 mg Q6H PRN Administration NAUSEA OR VOMITING Protocol Pantoprazole Sodium 40 mg 12/17/24 21:00 12/18/24 09:16 Pantoprazole Inj 40 Mg Vial IVP 01/16/25 20:59 40 mg BID DANNI Administration Pharmacy Consult 1 each 12/17/24 17:54 Pharmacy Renal Dose Adjustment 1 Ea XX 01/16/25 17:53 PRN PRN CONSULT Plan Lars Angelica Landry is an 89-year-old M with a PMH of hypertension, hypothyroidism, T2DM, BPH, GERD, HLD, CKD stage III, and HFrEF who presented with belly pain, nausea, and vomiting. Patient was admitted for the work-up and management of suspected SBO. Patient was consulted for SADIQ on CKD #Acute renal failure on CKD (stage III) #Lactic acidosis, improving Suspect pre-renal etiology 2/2 dehydration and poor oral intake. Cr 5.8 on admission (baseline Cr: around 1.2), currently improving at 4.2. S/p 2 L IV fluids, currently on 1 L IV KCl maintenance fluid. Currently making urine with stanley in place. No recent contrast or offending medications noted. NPO currently given sbo presentation. Patient has NG tube with intermittent suction. - Giving KCl IV fluids. If no improvement, consider HD. - f/u KUB - f/u repeat CMP - Strict I/Os, monitor UOP - Renal dose med, avoid nephrotoxins #SBO #Elevated troponins, likely 2/2 NSTEMI Type II #Chronic medical problems #Reflux esophagitis #T2DM #Hypothyroidism problems above managed via primary team Thank you for allowing us to be apart of the care for Mr. Landry Plan of care discussed with attending, Dr. Andrey Miguel MD PGY-1 Attending Provider Attestation/Addendum Patient seen and examined with resident physician Dr. Burroughs. Note reviewed, agree with findings and recommendations. Patient admitted with bowel obstruction. He has an NG tube. Clinically looks dehydrated. Gave him some IV fluids. Renal ultrasound, electrolytes ordered. Severe azotemia noted. Might be going towards ischemic ATN blood pressure on the soft side. Will monitor closely. Today his BUN is 111, creatinine 5. Bicarbonate 18, potassium 3.3. No need for emergency dialysis. 12/18/2024 patient currently seen in medical floor. He is more alert and awake. Able to move all his extremities. Still with abdominal distention. Small bowel series showed high-grade bowel obstruction. Despite BUN and creatinine still elevated-patient has good urinary output. Continue with IV fluids. At this point I would hold off on dialysis. This afternoon Dr. Jimenez called-planning to take him for surgery. Recommended to continue with observation. No need for emergency dialysis. Dr. Jimenez decided to proceed to take him for surgery. Will monitor him closely [pst op. If no improvement in azotemia will plan for dialysis tomorrow.
--- NOTE | 2024-12-18 11:51 | PD.IMCONS ---
HPI Data of Consult Requesting Physician: Krish Ramirez MD Primary Care Provider: Physician No Primary/Family Consult Narrative History of present illness: This is a 89-year-old male patient with past medical history of hypertension, hypothyroidism, BPH, GERD, type 2 diabetes mellitus, hyperlipidemia, stage III CKD, HFrEF with EF 30% pt was admitted with abdominal pain and subsequently diagnosed as having small bowel obstruction cardiolgy consulted for cardiac clearance currently pt BP 120/70 HR 77 pt had an episode of hyptension yesterday echo in 06/2024 shows EF 35% troponin .08 EKG pending cc:: cc: Krish Ramirez MD Meds Home Medications and Allergies Home Medications ?Medication ?Instructions ?Recorded ?Confirmed ?Type GLIPIZIDE 10 mg PO QDAY ##0 06/23/13 07/28/19 History Isosorbide Mononitrate * (IMDUR *) 30 mg PO QDAY ##90 06/23/13 07/28/19 History Levothyroxine * (SYNTHROID *) 100 mcg PO QDAY ##90 06/23/13 07/28/19 History lisinopril 40 mg tablet 40 mg PO QDAY ##90 06/23/13 07/28/19 History Held on 06/12/24. Instructions: in setting of SADIQ follow PCP to resume Glucosamine/MSM/Chondroitin A * 1 tab PO BID #0 tabs 08/25/16 07/28/19 History (TRIPLEFLEX *) cholecalciferol (vitamin D3) 50 2,000 unit PO QDAY #0 caps 08/25/16 07/28/19 History mcg (2,000 unit) capsule (Vitamin D3) hydrochlorothiazide 25 mg tablet 25 mg PO QAM #0 tabs 08/25/16 07/28/19 History tamsulosin 0.4 mg capsule 0.4 mg PO QDAY 07/02/18 07/28/19 History atorvastatin 20 mg tablet 20 mg PO QDAY 12/17/24 12/17/24 History levothyroxine 100 mcg tablet mcg 12/17/24 History sacubitril 24 mg-valsartan 26 mg tab 12/17/24 History tablet (Entresto) Allergies Allergy/AdvReac Type Severity Reaction Status Date / Time No Known Allergies Allergy Verified 12/16/24 20:29 Exam Vital Signs Temp Pulse Resp BP Pulse Ox O2 Del Method O2 Flow Rate 96.9 F 77 19 120/50 L 99 Nasal Cannula 10 12/18/24 08:00 12/18/24 08:00 12/18/24 08:00 12/18/24 08:00 12/18/24 08:00 12/18/24 08:00 12/18/24 08:00 Results Labs 12/18/24 05:44 12/18/24 05:44 Labs: Short CBC 12/17/24 12/17/24 12/17/24 Range/Units 11:15 12:03 16:04 WBC 2.8 L D 2.5 L (3.8-10.6) Thou/mm3 Hgb 14.5 13.4 L 12.3 L (13.5-16.0) g/dL Hct 40.6 L 36.8 L 34.4 L (41.0-53.0) % Plt Count 108 L 93 L (140-440) Thou/mm3 12/18/24 Range/Units 05:44 WBC 5.7 D (3.8-10.6) Thou/mm3 Hgb 11.5 L (13.5-16.0) g/dL Hct 33.2 L (41.0-53.0) % Plt Count 46 L D (140-440) Thou/mm3 BMP 12/17/24 12/17/24 12/17/24 11:15 12:03 16:04 Sodium 136 135 L 138 Potassium 3.6 D 3.7 3.6 Chloride 90 L 90 L 90 L Carbon Dioxide 21.8 23.7 23.8 BUN 137 H* 113 H* > 150 H* Creatinine 5.7 H* 5.7 H* 5.7 H* Glucose 155 H 144 H 116 H Calcium 9.0 8.8 8.2 L 12/17/24 12/18/24 19:47 05:44 Sodium 140 146 H Potassium 3.3 L 3.0 L Chloride 99 103 Carbon Dioxide 18.0 L 21.7 BUN 111 H* 110 H* Creatinine 5.0 H* D 4.2 H* D Glucose 96 74 Calcium 7.5 L 7.9 L Cardiac Enzymes 12/17/24 12/17/24 12/17/24 Range/Units 11:15 16:04 23:39 Troponin I 0.097 H* 0.097 H* 0.087 H* (0.0-0.045) ng/mL 12/18/24 Range/Units 05:44 Troponin I 0.082 H* (0.0-0.045) ng/mL Liver Function 12/17/24 12/17/24 12/17/24 Range/Units 11:15 12:03 16:04 Total Bilirubin 1.0 1.0 (0.3-1.2) mg/dL AST 17 16 (0-34) U/L ALT < 7 L < 7 L (10-49) U/L Alkaline Phosphatase 64 60 (46-116) U/L Albumin 3.9 3.6 3.4 (3.4-4.8) gm/dL 12/17/24 12/18/24 Range/Units 19:47 05:44 Total Bilirubin 0.6 (0.3-1.2) mg/dL AST 12 (0-34) U/L ALT < 7 L (10-49) U/L Alkaline Phosphatase 48 (46-116) U/L Albumin 3.0 L 3.2 L (3.4-4.8) gm/dL ABG Interpretation ABG results: 12/17/24 12:07 ABG pH 7.41 ABG pCO2 38 ABG pO2 60 L ABG HCO3 24 ABG O2 Saturation 89 L ABG Base Excess 0 Assessment and Plan Assessment and plan (1) SBO (small bowel obstruction): Status: Acute (2) Elevated troponin: Status: Acute (3) Acidosis, lactic: Status: Acute (4) SADIQ (acute kidney injury): Status: Acute (5) Pleural effusion: Status: Acute (6) CHF (congestive heart failure): Status: Acute (7) Pre-operative cardiovascular exam, new EKG abnormalities c/w ischemia: Status: Acute Additional Assessment & Plan Additional Plan: patient was admitted with small bowel obstruction / acidosis / acute renal failure prior echo shows reduced EF 30-35 % - pt has minimal troponin elevation doubt acute coronary syndrome; EKG pending however he is at increase risk for intraop / post op cardiovascular complication currently hemodynamically stable ; monitoring for excessive fluid status and judicious use of fluids recommended ; Dialysis should be considered prior to surgery in view of urgent nature of the bowel surgery - patient is currently considered to be in optimum cardiac condition for the planned surgery
--- NOTE | 2024-12-18 11:55 | EKG_ITS ---
[facility] Test Date: 2024-12-18 Pat Name: MADDISON GILLETTE Department: Room: S356A Gender: Male Senior Maintenance Technician: JONNY : 1935 Requested By: Thanh Tapia Order Number: [id number] Reading MD: Thanh Tapia Measurements Intervals Wheeler Rate: 88 P: 11 FL: 171 QRS: -84 QRSD: 170 T: 81 QT: 476 QTc: 578 Interpretive Statements SINUS RHYTHM WITH FREQUENT SUPRAVENTRICULAR PREMATURE COMPLEXES MARKED LEFT AXIS DEVIATION RIGHT BUNDLE BRANCH BLOCK Compared to ECG 12/16/2024 20:41:59 Right bundle-branch block now present Left bundle-branch block no longer present /store/S0/[id number]
--- NOTE | 2024-12-18 12:10 | ESPR_ITS ---
<Statement entered by Adriano Coughlin MD - 12/29/24 17:54> I reviewed above note and agree with findings and plans. I have also personally examined the patient with medicine team and went over assessment and plan with medical team including hospital intern and resident physician. Documentation for date of: 12/18/24 Senior resident attestation: Patient evaluated and examined at the bedside, plan of care discussed with rest of the team including my attending physician, except as noted. Patient admitted for possible mechanical high-grade small bowel obstruction, visibly distended stomach on CT abdomen, coffee-ground aspirate, more than 3 L were aspirated, patient was given bolus NS 250 mL in the setting of HFrEF with EF 30% on previous echocardiogram, holding off on with Gastrografin series, continue with low intermittent suction. Surgical consult with Dr. Jimenez was placed, pending recommendations. Dr. Jimenez will see the patient later today. Nephrology was also consulted due to ATN, as patient blood pressure was in the 40s systolic on arrival in ED. Likely ischemic ATN due to hypovolemic/cardiogenic shock. #SBO?high-grade mechanical SBO on CT imaging, more than 3 L coffee-ground aspirate noted, concern for GI bleed, started on Protonix twice daily, hemoglobin downtrending, will continue to monitor, transfuse if hemoglobin less than 7, general surgery consult to Dr. Jimenez was placed. Gastrografin study shows small bowel obstruction, general surgery plans to take patient to operating room for ex lap. Required cardiac clearance, Dr. Tapia was consulted to give cardiac clearance, recommended considering hemodialysis prior to surgery, reached out to roller stitcher Dr Balderas, patient does not meet criteria for hemodialysis at this point, patient not in refractory volume overload at this point. #Shock?now resolved, likely hypovolemic shock,? fluid responsive, patient received > 3.5 L IV fluids, blood pressure stabilized in the systolic 120s. Given 3.2 L aspirated from NG-tube, the patient continues to stay hypovolemic/euvolemic. Urine output 1400 mL overnight. #HFrEF?EF 30%, cautious fluid resuscitation, cardiology consult Dr. Tapia is placed, monitor intake and output closely. #SADIQ, likely ischemic ATN?patient was hypotensive with systolic blood pressure in the 40s on arrival, likely leading to ischemic ATN. Will continue to monitor, nephrology following appreciate recs. Quresh PGY3 Subjective Subjective Interval history: Patient was seen and examined at bedside. A.m. vitals and labs reviewed. Gastrografin small bowel series showed high-grade mechanical small bowel obstruction. Cardiology was consulted for surgery clearance. Per cardiology, dialysis should be considered prior to surgery. Per nephrology, patient will not do dialysis as his creatinine level was improving from 4.2 to 3.6 and was producing good amount of urine. Patient will do surgery today for SBO. During the time of examination, patient looked lethargic. Minimally responsive to any of the questions. Exam Vital Signs Temp Pulse Resp BP Pulse Ox O2 Del Method O2 Flow Rate 96.9 F 77 19 120/50 L 99 Nasal Cannula 10 12/18/24 08:00 12/18/24 08:00 12/18/24 08:00 12/18/24 08:00 12/18/24 08:00 12/18/24 08:00 12/18/24 08:00 Narrative Exam General: Lethargic Skin: Warm, dry, intact, no obvious rash. Head: Normocephalic, atraumatic. Eye: Normal conjunctiva, PERRL. Throat: Oral mucosa moist. No obvious lesions in oropharynx. Cardiovascular: Regular rate and rhythm, no murmur, +S1/S2. Respiratory: Lungs are clear to auscultation, respirations unlabored, no crackles, no wheezing. Gastrointestinal: Soft, Minimally distended. No guarding or rebound tenderness. Extremities: No edema, no cyanosis, no clubbing. 2+ radial pulse bilaterally, 2+ posterior tibial pulse bilaterally. Neuro: No focal deficits observed.No overt cerebellar signs/incoordination. Objective Labs 12/18/24 17:14 12/18/24 13:10 Labs: Laboratory Results - last 24 hr 12/17/24 12/17/24 12/17/24 11:15 12:03 12:07 WBC 2.8 L D 2.5 L RBC 4.48 L 4.12 L Hgb 14.5 13.4 L Hct 40.6 L 36.8 L MCV 91 89 MCH 32.4 32.5 MCHC 35.7 36.4 RDW Std Deviation 46.5 H 46.1 H Plt Count 108 L 93 L Neut % (Auto) 86 H 84 H Lymph % (Auto) 10 11 [place] % (Auto) 3 5 Eos % (Auto) 0 0 Baso % (Auto) 0 0 Neut # (Auto) 2.4 2.1 Lymph # (Auto) 0.3 L 0.3 L [place] # (Auto) 0.1 0.1 Eos # (Auto) 0.0 0.0 Baso # (Auto) 0.0 0.0 Immature Gran # (Auto) 0.00 0.01 H Absolute Nucleated RBC 0.00 0.00 Immature Gran % 0 0 Nucleated RBC % 0 0 Puncture Site Left Radial ABG pH 7.41 ABG pCO2 38 ABG pO2 60 L ABG HCO3 24 ABG O2 Saturation 89 L ABG Base Excess 0 Oxygen Liter Flow 15 FiO2 21 Sodium 136 135 L Potassium 3.6 D 3.7 Chloride 90 L 90 L Carbon Dioxide 21.8 23.7 Anion Gap 24 H 21 H BUN 137 H* 113 H* Creatinine 5.7 H* 5.7 H* Estim Creat Clear Calc 8.2 L 8.2 L eGFR 9 L* 9 L* BUN/Creatinine Ratio 24 H 20 Glucose 155 H 144 H Calculated Osmolality 319 H 308 H Lactic Acid Calcium 9.0 8.8 Corrected Calcium 9.1 9.1 Phosphorus 10.7 H Magnesium Total Bilirubin 1.0 1.0 AST 17 16 ALT < 7 L < 7 L Alkaline Phosphatase 64 60 Troponin I 0.097 H* Total Protein 7.4 6.9 Albumin 3.9 3.6 Globulin 3.5 3.3 Albumin/Globulin Ratio 1.1 L 1.1 L Ur Random Creatinine Ur Random Sodium Ur Random Potassium Ur Random Chloride Hepatitis A IgM Ab Hep Bs Antigen Hep B Core IgM Ab Hepatitis C Antibody Misc Test Result Blood Type Antibody Screen Blood Bank Wristband ID 12/17/24 12/17/24 12/17/24 14:54 16:04 17:18 WBC RBC Hgb 12.3 L Hct 34.4 L MCV MCH MCHC RDW Std Deviation Plt Count Neut % (Auto) Lymph % (Auto) [place] % (Auto) Eos % (Auto) Baso % (Auto) Neut # (Auto) Lymph # (Auto) [place] # (Auto) Eos # (Auto) Baso # (Auto) Immature Gran # (Auto) Absolute Nucleated RBC Immature Gran % Nucleated RBC % Puncture Site ABG pH ABG pCO2 ABG pO2 ABG HCO3 ABG O2 Saturation ABG Base Excess Oxygen Liter Flow FiO2 Sodium 138 Potassium 3.6 Chloride 90 L Carbon Dioxide 23.8 Anion Gap 24 H BUN > 150 H* Creatinine 5.7 H* Estim Creat Clear Calc 8.2 L eGFR 9 L* BUN/Creatinine Ratio 26 H Glucose 116 H Calculated Osmolality 325 H Lactic Acid 2.1 H 2.0 Calcium 8.2 L Corrected Calcium 8.7 Phosphorus 10.4 H Magnesium Total Bilirubin AST ALT Alkaline Phosphatase Troponin I 0.097 H* Total Protein Albumin 3.4 Globulin Albumin/Globulin Ratio Ur Random Creatinine Ur Random Sodium Ur Random Potassium Ur Random Chloride Hepatitis A IgM Ab Non Reactive Hep Bs Antigen Non Reactive Hep B Core IgM Ab Non Reactive Hepatitis C Antibody Non Reactive Misc Test Result Blood Type O Positive Antibody Screen NEGATIVE Blood Bank Wristband ID Yes 12/17/24 12/17/24 12/17/24 19:47 21:30 22:25 WBC RBC Hgb Hct MCV MCH MCHC RDW Std Deviation Plt Count Neut % (Auto) Lymph % (Auto) [place] % (Auto) Eos % (Auto) Baso % (Auto) Neut # (Auto) Lymph # (Auto) [place] # (Auto) Eos # (Auto) Baso # (Auto) Immature Gran # (Auto) Absolute Nucleated RBC Immature Gran % Nucleated RBC % Puncture Site ABG pH ABG pCO2 ABG pO2 ABG HCO3 ABG O2 Saturation ABG Base Excess Oxygen Liter Flow FiO2 Sodium 140 Potassium 3.3 L Chloride 99 Carbon Dioxide 18.0 L Anion Gap 23 H BUN 111 H* Creatinine 5.0 H* D Estim Creat Clear Calc 9.4 L eGFR 11 L* BUN/Creatinine Ratio 22 H Glucose 96 Calculated Osmolality 314 H Lactic Acid 2.2 H Calcium 7.5 L Corrected Calcium 8.3 L Phosphorus 9.1 H Magnesium Total Bilirubin AST ALT Alkaline Phosphatase Troponin I Total Protein Albumin 3.0 L Globulin Albumin/Globulin Ratio Ur Random Creatinine 103 Ur Random Sodium 32.6 Ur Random Potassium 66 H Ur Random Chloride < 20.0 L Hepatitis A IgM Ab Hep Bs Antigen Hep B Core IgM Ab Hepatitis C Antibody Misc Test Result Blood Type Antibody Screen Blood Bank Wristband ID 12/17/24 12/18/24 12/18/24 23:39 01:00 05:44 WBC 5.7 D RBC 3.52 L Hgb 11.5 L Hct 33.2 L MCV 94 MCH 32.7 MCHC 34.6 RDW Std Deviation 49.0 H Plt Count 46 L D Neut % (Auto) 92 H Lymph % (Auto) 4 L [place] % (Auto) 3 Eos % (Auto) 0 Baso % (Auto) 1 Neut # (Auto) 5.3 Lymph # (Auto) 0.2 L [place] # (Auto) 0.2 Eos # (Auto) 0.0 Baso # (Auto) 0.0 Immature Gran # (Auto) 0.03 H Absolute Nucleated RBC 0.00 Immature Gran % 1 H Nucleated RBC % 0 Puncture Site ABG pH ABG pCO2 ABG pO2 ABG HCO3 ABG O2 Saturation ABG Base Excess Oxygen Liter Flow FiO2 Sodium 146 H Potassium 3.0 L Chloride 103 Carbon Dioxide 21.7 Anion Gap 21 H BUN 110 H* Creatinine 4.2 H* D Estim Creat Clear Calc 11.2 L eGFR 13 L* BUN/Creatinine Ratio 26 H Glucose 74 Calculated Osmolality 324 H Lactic Acid 1.9 Calcium 7.9 L Corrected Calcium 8.5 Phosphorus 7.8 H Magnesium 2.0 Total Bilirubin 0.6 AST 12 ALT < 7 L Alkaline Phosphatase 48 Troponin I 0.087 H* 0.082 H* Total Protein 6.0 Albumin 3.2 L Globulin 2.8 Albumin/Globulin Ratio 1.1 L Ur Random Creatinine Ur Random Sodium Ur Random Potassium Ur Random Chloride Hepatitis A IgM Ab Hep Bs Antigen Hep B Core IgM Ab Hepatitis C Antibody Misc Test Result Platelets confirmed Blood Type Antibody Screen Blood Bank Wristband ID ABG Interpretation ABG results: 12/17/24 12:07 ABG pH 7.41 ABG pCO2 38 ABG pO2 60 L ABG HCO3 24 ABG O2 Saturation 89 L ABG Base Excess 0 Quality Measures Quality Measures VTE prophylaxis Advance care planning discussed with:: patient Assessment & Plan Assessment Current Active Medications: Generic Name Dose Route Start Last Admin Trade Name Freq PRN Reason Stop Dose Admin Acetaminophen 650 mg 12/17/24 00:45 Acetaminophen 325 Mg Tablet PO 01/16/25 00:44 Q6H PRN PAIN SCALE 1-3 (mild Dextrose 25 ml 12/17/24 04:55 12/18/24 07:23 Dextrose 50%-Water Inj 50 Ml Syringe IV 01/16/25 04:54 25 ml Q15MIN PRN Administration BG 50-70 responsive npo pt Dextrose 50 ml 12/17/24 04:55 Dextrose 50%-Water Inj 50 Ml Syringe IV 01/16/25 04:54 Q15MIN PRN BG <50 OR BG <70 & pt unresponsive Glucagon 1 mg 12/17/24 04:55 Glucagon Inj 1 Mg Vial IM Q15MIN PRN BG <70, and no IV access Doxycycline Hyclate 100 mg/ 100 mls @ 100 mls/hr 12/17/24 21:00 12/18/24 09:17 Sodium Chloride IV 12/24/24 20:59 100 mls/hr BID DANNI Administration Ceftriaxone Sodium/Dextrose 1 gm in 50 mls @ 100 mls/hr 12/17/24 17:54 12/18/24 09:17 Rocephin/D5w 1gm Iv Premix IV 12/24/24 17:53 100 mls/hr QDAY DANNI Administration Metronidazole 500 mg in 100 mls @ 200 mls/hr 12/17/24 17:56 12/18/24 05:09 Flagyl 500 Mg Iv IV 12/24/24 17:55 200 mls/hr Q8HR DANNI Administration Potassium Chloride 40 meq/ 1,020 mls @ 60 mls/hr 12/18/24 07:49 12/18/24 09:48 Dextrose IV 12/19/24 00:48 60 mls/hr .Q17H ONE Administration Insulin Human Lispro 0 unit 12/18/24 00:00 12/18/24 05:45 Insulin Lispro (Admelog) 1 Unit/0.01 Ml Unit SC 01/17/25 00:00 Not Given Q6HR DANNI Protocol Levothyroxine Sodium 100 mcg 12/17/24 06:00 12/18/24 05:06 Levothyroxine Sodium 100 Mcg Tablet PO 01/16/25 05:59 Not Given ACBR DANNI Ondansetron HCl 4 mg 12/17/24 00:45 12/17/24 02:39 Ondansetron Inj 2 Mg/Ml Inj 2 Ml IVP 01/16/25 00:44 4 mg Q6H PRN Administration NAUSEA OR VOMITING Protocol Pantoprazole Sodium 40 mg 12/17/24 21:00 12/18/24 09:16 Pantoprazole Inj 40 Mg Vial IVP 01/16/25 20:59 40 mg BID DANNI Administration Pharmacy Consult 1 each 12/17/24 17:54 Pharmacy Renal Dose Adjustment 1 Ea XX 01/16/25 17:53 PRN PRN CONSULT Plan Lars Landry is an 89-year-old M with a PMH of hypertension, hypothyroidism, T2DM, BPH, GERD, HLD, CKD stage III, and HFrEF who presents today with belly pain, nausea, and vomiting. # High-grade mechanical small bowel obstruction Patient's presentation of umbilical abdominal pain that worsens with eating in the setting of absent bowel movements for the past 5-6 days is concerning for SBO. This working diagnosis is corroborated by noncontrast CT AP showing a high- grade mechanical small bowel obstruction . Gastrografin small bowel series (12/17/2024 and 12/18/2024): High grade mechancal Small bowel obstruction pattern Plan: -Started IV Dilaudid 0.5 mg q3HR prn for abdominal pain management -Patient has been placed on NPO -NG tube was placed for nasogastric decompression, 3.2 L coffee-ground fluid was aspirated. -Patient's sisters who are visiting him noted that he had a colon surgery following a colonoscopy. -Surgical consult is placed to Dr. Jimenez, who recommended exploratory laparotomy, cardiac clearance was obtained from Dr. Tapia for hide with surgery, clearance from nephrology was taken, no need for hemodialysis prior to surgery. Surgery completed on 12/18/2024. Patient was found to have band at the base of the small bowel mesentery causing complete obstruction which was located at the junction of the jejunum and ileum. Completed exploratory laparotomy and lysis of adhesions and release of obstruction. -Patient will likely need ICU placement for surgery. #Acute hypoxic resp failure #Shock- resolved, likely hypovolemic shock -3 episodes of rapid event. In first event, Blood pressure 84/55, O2sat 80% on NC 2L MAP:62. In Second event, systolic BP was at 80s and MAP:56. In third event, systolic BP was at MAP 55. -In total, patient received >3.5L IV fluids and currently on maintenance fluid -Concern for hypovolemic shock as patient was responsive to IVF boluses. -Possible cause attributable to GI bleed. Plan: -Monitor MAP above 65. #GI bleed, likely Upper. -Patient's Hgb level is downtrending since admission. On admission Hgb:13.8 Currently:11.5 -12/17/2024: 3.2 L coffee-ground fluid was aspirated through NG tube. -Multiple episodes of shock that is responsive to IVF boluses, concerning for hypovolemic shock. Plan: -Will continue to monitor as patient had emergency surgery for High grade mechanical small bowel obstruction. Once patient stabilize, will consult GI. -Metronidazole 500mg IV Q8hr DANNI #Acute renal failure #Lactic acidosis Patient's BUN and creatinine are significantly elevated at 119 and 5.8 (baseline seems to be between 1.3-1.8) in the setting of significantly decreased eGFR of 9 suggesting acute renal failure. On admission, there is an anion gap (23) metabolic acidosis likely 2/2 acute renal failure and high lactic acid level of 4.2. -Currently, anion gap is 24 and lactic acid level of 2.0 -Renal US (12/17/2024): Small kidneys with bilateral renal cortical thinning, Moderate bilateral renal parenchymal scar formation, No hydronephrosis -Beta-Hydroxybutyrate: 0.8 Plan: -Avoid nephrotoxic -Renally dose medications -Strict I&O's -nephrology consulted -Continue NS IVF. - If does not improve by tomorrow, hemodialysis. - Concern for oligouira, Continue to monitor urine output. #Pneumonia -CXR (12/17/2024): Significant diffuse left lung pneumonia Plan: -Doxycycline 100mg IV bid -Ceftriaxone 1g IV qd #Hx of HFrEF?EF 30% -Past ECHO(06/09/2024): Normal LV size. Severe systolic dysfunction. Estimated EF 30%, Normal RV size and function, Mild LA dilatation, Moderate MR. Mild TR. Mild sclerosis without stenosis Mild aortic regurgitation Plan: -Cautious fluid resuscitation -Cardiology consult Dr. Tapia is placed -Monitor intake and output closely. #Troponemia #likely 2/2 NSTEMI Type II EKG no stelevation noted Plan: -Troponins downtrending -continue to monitor for signs of Chest pain -Consider cardiology consult tomorrow -Consider repeat EKG #Chronic medical problems #Reflux esophagitis #T2DM #Hypothyroidism Plan: -Started IV Protonix -Started insulin sliding scale -Restarted home medication of PO levothyroxine 100 mcg [facility] Hospital Management: Disposition: pending surgery for SBO Diet: NPO GI Prophylaxis: none Bowel Prophylaxis: none DVT Prophylaxis: heparin CODE STATUS: Full Code Assessment and plan discussed with my attending physician Dr. Coughlin and Dr. Kuo (PGY-3) Dr. Zamorano (PGY-1)- Internal medicine resident
[2024-12-18] MEDS: ACETAMINOPHEN 325 MG TABLET 650 MG PO (13:33)
[2024-12-18 13:38] LABS: Albumin, Serum 3.3 gm/dL (3.4-4.8); Anion Gap 17 (7-16); BUN/Creatinine Ratio 34 Ratio (12-20); Blood Urea Nitrogen 121 mg/dL (9-23); Calcium 8.0 mg/dL (8.3-10.6); Calcium (Corrected) 8.6 mg/dL (8.5-10.1); Carbon Dioxide 23.9 mMol/L (20.0-31.0); Chloride 103 mMol/L (98-107); Creatinine (Component) 3.6 mg/dL (0.6-1.3); Estimated Creatinine Clearance 13.0 mL/min (>60); Glucose 143 mg/dL (74-106); Osmolality,Calculated 327 (275-295); Phosphorous 6.4 mg/dL (2.4-5.1); Potassium 3.0 mMol/L (3.4-5.1); Sodium 144 mMol/L (136-145); eGFR 16 See Note
[2024-12-18] MEDS: DEXTROSE IV (13:49)
[2024-12-18] MEDS: POTASSIUM ACET IV (13:49)
[2024-12-18] MEDS: [UNRECOGNIZED DRUG - OTHER] IV (13:49)
--- NOTE | 2024-12-18 14:11 | PC.NURSE ---
Per Dr. Jimenez ok to to administer Platelets as ordered.
--- NOTE | 2024-12-18 14:17 | PC.NURSE ---
Dr. Jiemnez at bedside communicating with pt and family regarding surgery for expl lap poss bowel obstruction. Dr. Jimenez made aware of order for 2 bags of potassium. Per Dr. Jimenez do not administer. made aware potassium currently 3.0.
--- NOTE | 2024-12-18 15:06 | PD.SURCONS ---
HPI Consult details Consult date: 12/17/24 Reason for consultation narrative: The patient was seen on consultation because of abdominal distention and copious amount of fluid in the NG tube History of present illness: History of present illness revealed that the patient had considerable abdominal distention and after the NG tube decompression he flattened out. Patient was admitted with the abdominal complaint of pain for 3 days and he has not had a bowel movement at least for 3 days. Patient is very obtunded and is not able to give any history. He was also hypotensive on the call in rapid response. Patient's past medical history could not be elicited properly because of his patient's mental status. He has had abdominal surgery as shown by the surgical scar in the midline patient also has had a colostomy done and then reversed in [facility] in . Patient has been having a history of congestive heart failure and he has been admitted here in the past year and was diagnosed as CHF his other medical problem consisted of hypertension hypothyroidism diabetes GERD coronary artery disease and benign prostatic hypertrophy. Past Medical History Past Medical History NEUROLOGIC: Negative Neurological Disorders or Seizures CARDIAC: Positive Cardiac Disorders, Heart Murmur, Hypercholesterolemia and Hypertension; Negative Congestive Heart Failure RESPIRATORY: Negative Respiratory Disorders, Chronic Obstructive Pulmonary Disease (COPD) or Asthma GASTROINTESTINAL: Negative Gastrointestinal Disorders, Hepatitis or Colorectal Cancer GENITOURINARY: Positive Genitourinary Disorders and Benign Prostatic Hyperplasia; Negative Renal Disease or Prostate Cancer REPRODUCTIVE: Negative Breast Cancer, Fibroids or Testicular Cancer MUSCULOSKELETAL: Positive Musculoskeletal Disorders and Arthritis; Negative Muscular Dystrophy or Bone Cancer ENT: Negative Cataracts ENDOCRINE: Positive Diabetes Mellitus Type 2; Negative Endocrine Disorders or Diabetes Mellitus Type 1 HEMATOLOGIC: Negative Blood Disorders, Anemia, Leukemia, Hemophilia, Thalassemia, Sickle Cell Disease or Clotting Problems OTHER HISTORY: Positive Blood Transfusions (platelets); Negative Hospitalization, Autoimmune Disease, Down Syndrome, Developmental Delay, Shingles, Falls, Blood Transfusion Reaction, Anesthesia Reactions, Organ Transplant, Chemotherapy, Radiation Therapy, Hyperbaric Therapy, MRSA, VRSA, Vancomycin-Resistant Enterococci, Human Immunodeficiency Virus (HIV), Chicken Pox, Measles, Mumps, Rubella ([place] Measles), Pertussis, Clostridium Difficile, Cancer, Breast Cancer, Cervical Cancer, Colorectal Cancer, Lung Cancer, Ovarian Cancer, Prostate Cancer or Testicular Cancer Family History FAMILY HISTORY: Negative Family Cardiac Disorders Surgical History SURGICAL: Positive Eye Surgery (cataract (left eye)), Abdominal Surgery and Joint Replacement; Negative Endocrine Surgery, Thyroidectomy, Ear Surgery, Tympanostomy Tube, Nose Surgery, Oral Surgery, Tonsillectomy, Adenoidectomy, Cochlear Implant, Corneal Transplant, Throat Surgery, Tracheostomy, Gastric Bypass Surgery, Gastrostomy, Bowel Surgery, Nephrectomy, Transurethral Resection, Neurologic Surgery, Brain Shunt, Mastectomy, Lumpectomy, Hysterectomy, Tubal Ligation, Section, Vasectomy or Organ Transplant Social History SMOKING STATUS: Never smoker Meds Home Medications and Allergies Home Medications ?Medication ?Instructions ?Recorded ?Confirmed ?Type GLIPIZIDE 10 mg PO QDAY ##0 06/23/13 07/28/19 History Isosorbide Mononitrate * (IMDUR *) 30 mg PO QDAY ##90 06/23/13 07/28/19 History Levothyroxine * (SYNTHROID *) 100 mcg PO QDAY ##90 06/23/13 07/28/19 History lisinopril 40 mg tablet 40 mg PO QDAY ##90 06/23/13 07/28/19 History Held on 06/12/24. Instructions: in setting of SADIQ follow PCP to resume Glucosamine/MSM/Chondroitin A * 1 tab PO BID #0 tabs 08/25/16 07/28/19 History (TRIPLEFLEX *) cholecalciferol (vitamin D3) 50 2,000 unit PO QDAY #0 caps 08/25/16 07/28/19 History mcg (2,000 unit) capsule (Vitamin D3) hydrochlorothiazide 25 mg tablet 25 mg PO QAM #0 tabs 08/25/16 07/28/19 History tamsulosin 0.4 mg capsule 0.4 mg PO QDAY 07/02/18 07/28/19 History atorvastatin 20 mg tablet 20 mg PO QDAY 12/17/24 12/17/24 History levothyroxine 100 mcg tablet mcg 12/17/24 History sacubitril 24 mg-valsartan 26 mg tab 12/17/24 History tablet (Entresto) Allergies Allergy/AdvReac Type Severity Reaction Status Date / Time No Known Allergies Allergy Verified 12/16/24 20:29 Exam Vital Signs Temp Pulse Resp BP Pulse Ox O2 Del Method O2 Flow Rate 96.7 F L 97 16 103/59 L 98 Nasal Cannula 2 12/18/24 13:25 12/18/24 13:25 12/18/24 13:25 12/18/24 13:25 12/18/24 13:25 12/18/24 12:00 12/18/24 13:25 Narrative Exam Physical examination revealed 89-year-old male who appeared slightly younger than his stated age. He is 5 foot 6 inches tall weighing 147 pounds. His vital signs are normal with borderline blood pressure at 103/59 Constitutional Constitutional: moderate distress Routine Abdominal Exam Comments: Examination of the abdomen revealed that his abdomen actually is flat after the decompression was performed. His bowel sounds are present. There is a midline surgical scar from the previous surgery on the scar on the left side of the abdomen due to previous colostomy. Groins failed to reveal any hernia even though some small fat-containing hernia was seen on the CT scan done in the past. Routine Rectal Exam Comments: Deferred because of the patient's position Routine Exam Comments: Negative Routine Extremities Exam Comments: Within normal limits Results Results: Laboratory Laboratory Narrative: Patient's laboratory Showed normal WBC but he is borderline anemic. He also has increasing BUN/creatinine which may be secondary to. Sodium. He is lactic acid was elevated when he came in but seems to be getting better Results: Imaging Imaging narrative: CT scan of the abdomen showed distended loops of bowel with mechanical small bowel obstruction. It also showed a distended gallbladder. The esophagus was thickened according to the CT for. Patient had a small bowel series with Gastrografin which showed high-grade mechanical bowel obstruction and no passage of dye into the colon. His dilated loops of bowel measured about 5 to 6 cm in diameter. Assessment & Plan Additional Assessment Additional comments: Impression: Mechanical small bowel obstruction possibly secondary to adhesions Hypertension Hypothyroidism ASHD with CHF Diabetes mellitus GERD BPH Plan Plan: Patient obviously will require exploration because of the high-grade small bowel obstruction. Even though his abdomen is not distended it is amazing that small bowel dilatation is striking. Patient has been seen by conventional mortgage underwriter Dr. Tapia and he cleared him for surgery even though he is a high risk. I also discussed with who is involved in renal care and she has no plan to dialyze him because he is making good urine. I had a discussion with his sisters who are visiting him and learn from them that he had colon surgery following a colonoscopy. I do not know whether it is due to perforation or obstruction. I explained to them in spite of the high risk patient has no chance of recovery unless we operated and relieve the obstruction. They agree. Procedure is planned this afternoon
[2024-12-18 15:53] LABS: Base Excess -1 (-3-3); HCO3 25 mEq/L (20-26); Inspired Oxygen, FIO2 94 %; O2 Saturation 99 % (91-98); PCO2 45 mmHg (32.0-48.0); PO2 111 mmHg (83-108); pH, Arterial 7.34 (7.35-7.45)
[2024-12-18 16:01] LABS: Allen Test Not Performed; Puncture Site Site Not Noted
[2024-12-18 16:42] LABS: Allen Test Not Performed; Base Excess -4 (-3-3); HCO3 22 mEq/L (20-26); Inspired Oxygen, FIO2 94 %; O2 Saturation 100 % (91-98); PCO2 46 mmHg (32.0-48.0); PO2 152 mmHg (83-108); Puncture Site Site Not Noted; pH, Arterial 7.30 (7.35-7.45)
--- NOTE | 2024-12-18 16:51 | PC.SS ---
Rounding note: patient is pending cardiology clearance for surgery with Dr. Jimenez.
--- NOTE | 2024-12-18 17:01 | PD.SUROPNT ---
Date of Procedure 12/18/24 Pre Op Diagnosis Complete small bowel obstruction Post Op Diagnosis Same at the distal jejunum Procedure Exploratory laparotomy and lysis of adhesions and release of obstruction Findings Patient was found to have band at the base of the small bowel mesentery causing complete. This was located at the junction of the jejunum and ileum. Procedure Description Or the patient was brought to the operating room endotracheal anesthesia given. Arterial line was inserted by the anesthesiologist. Abdomen was prepped with ChloraPrep solution draped in a sterile manner. Timeout was performed. Midline incision was made and abdominal cavity was entered. There were dilated loops of small bowel and the omentum was in the way of entry to the abdomen. After the omentum was clamped and ligated thorough exploration was carried out. From the lower abdominal incision I extended the incision up to the upper abdomen above the umbilicus. Then I was able to see there is a complete obstruction due to an adhesive band from the base of the mesentery. This caused distention of all the jejunum but the entire ileum appeared normal in caliber. After lysis of adhesions I milked the dilated small bowel and emptied the contents into the distal bowel. This was traced all the way up to the cecum. There were few adhesions of the ileum close to the cecum which were not causing obstruction but they were lysed by gentle dissection. At the end the dilated small bowel appeared less distended due to milking it down to the normal small bowel. Wound was then irrigated with saline solution and the sponge count was confirmed. The fascia was closed with running 0 PDS and skin was closed after injecting half percent Marcaine for analgesia. Skin closure was accomplished with ashvin and some nylon sutures were used to approximate around the umbilicus. Dressing was applied with Adaptic and 4 x 4 gauze and patient tolerated procedure well and left operating room in stable condition. Anesthesia GETA Pathology / specimen None Estimated Blood Loss 50 Condition Stable Disposition PACU Surgeon Jose Antonio Byrd MD Surgical Staff Operation Date: 12/18/24 14:00 Case Staff Anesthesiologist: Mendoza Ely DIRECTOR OF ONCOLOGY: Apollo Paulson RN First Assistant: Soco Cloud
[2024-12-18 17:34] LABS: Lactate (Lactic Acid) 1.7 mMol/L (0.4-2.0)
[2024-12-18 17:40] LABS: Basophils # (Auto) 0.0 Thou/mm3 (0.0-0.2); Basophils % (Auto) 0 % (0-2.5); Eosinophils # (Auto) 0.0 Thou/mm3 (0.0-0.5); Eosinophils % (Auto) 0 % (0-10); Hematocrit 30.0 % (41.0-53.0); Hemoglobin 10.9 g/dL (13.5-16.0); Immature Granulocytes Auto 0.05 Thou/mm3 (0.00-0.00); Lymphocytes # (Auto) 0.2 Thou/mm3 (1.0-4.8); Lymphocytes % (Auto) 3 % (10-50); Mean Corpuscular HGB Conc 36.3 g/dl (31.0-37.0); Mean Corpuscular Hemoglobin 32.8 pg (25.0-35.0); Mean Corpuscular Volume 90 fL (80-100); Monocytes # (Auto) 0.3 Thou/mm3 (0.0-0.8); Monocytes % (Auto) 4 % (0-12); Neutrophils # (Auto) 6.8 Thou/mm3 (1.8-7.7); Neutrophils % (Auto) 92 % (37-80); Nucleated Red Blood Cell # 0.00 Thou/mm3 (0.00-0.00); Nucleated Red Blood Cell % 0 /100 WBC (0); Platelet Count 88 Thou/mm3 (140-440); RDW Standard Deviation 47.0 fL (35.1-43.9); Red Blood Count 3.32 Miln/mm3 (4.50-5.90); White Blood Count 7.4 Thou/mm3 (3.8-10.6)
--- NOTE | 2024-12-18 17:48 | PD.RESCONSUL ---
HPI Data of Consult Patient: known to practice within the last 3 years Consult date: 12/18/24 Requesting Physician: Krish Ramirez MD Admitting Provider: Krish Ramirez MD Attending Provider: Kat Mcclelland MD Primary Care Provider: Physician No Primary/Family Consult Narrative Reason for consult: Post Op Observation History of present illness: Mr. 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 Patient's abdominal pain started 3 days prior to presentation was generalized, no aggravating relieving factors with feeding, no such episodes in the past and reported absolute constipation for 4 days. He denied any episode of hematemesis, shortness of breath, palpitation, dizziness or hematochezia. Noncontrast CT AP showed fluid distended esophagus with wall thickening (consistent with reflux esophagitis) and high-grade mechanical small bowel obstruction (recommend Gastrografin small bowel series follow up). Patient was n.p.o. and suctioning was done which he drained 3.5 L of dark liquid. Rapid response was called when the patient was noticed to have blood pressure of 85/51 in which ICU were consulted. Patient was resuscitated by the primary team by 750 mL of NS however his MAP still less than 65. Patient was adequately resuscitated received IV fluid resuscitation and MAP improved. Patient was taken to operating room today by general surgery and had exploratory laparotomy with lysis of adhesions and release of obstruction. Patient upgraded to intensive care unit for overnight monitoring. 12/18/24: Patient seen examined at bedside, alert and oriented x 3, complains of some generalized abdominal pain, did have a bowel movement postop, tolerated extubation well in the PACU, during the surgery patient had estimated blood loss of 200 cc. Arterial line is placed by anesthesiologist, will continue with close monitoring of MAP. Patient did have about 2 L suctioned out via NG tube, we will continue with suctioning per general surgery recommendations. Will give 1 L LR bolus, will continue to monitor patient overnight. cc:: cc: Krish Ramirez MD Review of Systems Review of Systems Narrative Review of Systems: ROS: -CONSTITUTIONAL: Denies weight loss, fever and chills. -HEENT: Reduced vision in right eye and no changes hearing. -RESPIRATORY: Denies SOB and cough. -CV: Denies palpitations and Chest Pain. -GI: Positive for abdominal pain, denies nausea, vomiting,constipation and diarrhea. -: Denies dysuria and urinary frequency. -MSK: Denies myalgia and joint pain. -SKIN: Denies rash and pruritus. -NEUROLOGICAL: Denies headache and syncope. -PSYCHIATRIC: Denies recent changes in mood. Denies anxiety and depression. Past Medical History Past Medical History NEUROLOGIC: Negative Neurological Disorders or Seizures CARDIAC: Positive Cardiac Disorders, Heart Murmur, Hypercholesterolemia and Hypertension; Negative Congestive Heart Failure RESPIRATORY: Negative Respiratory Disorders, Chronic Obstructive Pulmonary Disease (COPD) or Asthma GASTROINTESTINAL: Negative Gastrointestinal Disorders, Hepatitis or Colorectal Cancer GENITOURINARY: Positive Genitourinary Disorders and Benign Prostatic Hyperplasia; Negative Renal Disease or Prostate Cancer REPRODUCTIVE: Negative Breast Cancer, Fibroids or Testicular Cancer MUSCULOSKELETAL: Positive Musculoskeletal Disorders and Arthritis; Negative Muscular Dystrophy or Bone Cancer ENT: Negative Cataracts ENDOCRINE: Positive Diabetes Mellitus Type 2; Negative Endocrine Disorders or Diabetes Mellitus Type 1 HEMATOLOGIC: Negative Blood Disorders, Anemia, Leukemia, Hemophilia, Thalassemia, Sickle Cell Disease or Clotting Problems OTHER HISTORY: Positive Blood Transfusions (platelets); Negative Hospitalization, Autoimmune Disease, Down Syndrome, Developmental Delay, Shingles, Falls, Blood Transfusion Reaction, Anesthesia Reactions, Organ Transplant, Chemotherapy, Radiation Therapy, Hyperbaric Therapy, MRSA, VRSA, Vancomycin-Resistant Enterococci, Human Immunodeficiency Virus (HIV), Chicken Pox, Measles, Mumps, Rubella ([place] Measles), Pertussis, Clostridium Difficile, Cancer, Breast Cancer, Cervical Cancer, Colorectal Cancer, Lung Cancer, Ovarian Cancer, Prostate Cancer or Testicular Cancer Family History FAMILY HISTORY: Negative Family Cardiac Disorders Surgical History SURGICAL: Positive Eye Surgery (cataract (left eye)), Abdominal Surgery and Joint Replacement; Negative Endocrine Surgery, Thyroidectomy, Ear Surgery, Tympanostomy Tube, Nose Surgery, Oral Surgery, Tonsillectomy, Adenoidectomy, Cochlear Implant, Corneal Transplant, Throat Surgery, Tracheostomy, Gastric Bypass Surgery, Gastrostomy, Bowel Surgery, Nephrectomy, Transurethral Resection, Neurologic Surgery, Brain Shunt, Mastectomy, Lumpectomy, Hysterectomy, Tubal Ligation, Section, Vasectomy or Organ Transplant Social History SMOKING STATUS: Never smoker Exam Vital Signs Temp Pulse Resp BP Pulse Ox O2 Del Method O2 Flow Rate 96.7 F L 97 16 103/59 L 98 Nasal Cannula 2 12/18/24 13:25 12/18/24 13:25 12/18/24 13:25 12/18/24 13:25 12/18/24 13:25 12/18/24 12:00 12/18/24 13:25 Narrative Exam Physical Exam General: Awake, tired. Conversational and non-toxic appearing. HEENT: Normocephalic, atraumatic, mucous membranes moist. Heart: Regular rate and rhythm, no murmurs. Lungs: Clear to auscultation with no wheezing or crackles. Abdomen: Some tenderness, positive bowel sound, dressing intact, no serosanguineous staining of dressing noted. Neurologic: Alert and oriented x3, no gross neurological deficit, and patient able to move all 4 extremities. Extremities: No edema. Skin: No rash or ecchymoses. Results Labs 12/18/24 17:14 12/18/24 13:10 Labs: Short CBC 12/18/24 Range/Units 05:44 WBC 5.7 D (3.8-10.6) Thou/mm3 Hgb 11.5 L (13.5-16.0) g/dL Hct 33.2 L (41.0-53.0) % Plt Count 46 L D (140-440) Thou/mm3 BMP 12/17/24 12/18/24 12/18/24 19:47 05:44 13:10 Sodium 140 146 H 144 Potassium 3.3 L 3.0 L 3.0 L Chloride 99 103 103 Carbon Dioxide 18.0 L 21.7 23.9 BUN 111 H* 110 H* 121 H* Creatinine 5.0 H* D 4.2 H* D 3.6 H D Glucose 96 74 143 H D Calcium 7.5 L 7.9 L 8.0 L Cardiac Enzymes 12/17/24 12/18/24 Range/Units 23:39 05:44 Troponin I 0.087 H* 0.082 H* (0.0-0.045) ng/mL Liver Function 07/16/25 07/17/25 07/17/25 Range/Units 19:47 05:44 13:10 Total Bilirubin 0.6 (0.3-1.2) mg/dL AST 12 (0-34) U/L ALT < 7 L (10-49) U/L Alkaline Phosphatase 48 (46-116) U/L Albumin 3.0 L 3.2 L 3.3 L (3.4-4.8) gm/dL ABG Interpretation ABG results: 12/17/24 12/18/24 12/18/24 12:07 15:43 16:24 ABG pH 7.41 7.34 L 7.30 L ABG pCO2 38 45 46 ABG pO2 60 L 111 H D 152 H D ABG HCO3 24 25 22 ABG O2 Saturation 89 L 99 H 100 H ABG Base Excess 0 -1 -4 L Quality Measures Quality Measures VTE prophylaxis Advance care planning discussed with:: patient Medications Home Medications and Allergies Home Medications ?Medication ?Instructions ?Recorded ?Confirmed ?Type GLIPIZIDE 10 mg PO QDAY ##0 06/23/13 12/18/24 History Isosorbide Mononitrate * (IMDUR *) 30 mg PO QDAY ##90 06/23/13 12/18/24 History Levothyroxine * (SYNTHROID *) 100 mcg PO QDAY ##90 06/23/13 12/18/24 History lisinopril 40 mg tablet 40 mg PO QDAY ##90 06/23/13 12/18/24 History Glucosamine/MSM/Chondroitin A * 1 tab PO BID #0 tabs 08/25/16 12/18/24 History (TRIPLEFLEX *) cholecalciferol (vitamin D3) 50 2,000 unit PO QDAY #0 caps 08/25/16 12/18/24 History mcg (2,000 unit) capsule (Vitamin D3) hydrochlorothiazide 25 mg tablet 25 mg PO QAM #0 tabs 08/25/16 12/18/24 History tamsulosin 0.4 mg capsule 0.4 mg PO QDAY 07/02/18 12/18/24 History atorvastatin 20 mg tablet 20 mg PO QDAY 12/17/24 12/17/24 History levothyroxine 100 mcg tablet mcg 12/17/24 History sacubitril 24 mg-valsartan 26 mg 1 tab PO BID 12/17/24 12/18/24 History tablet (Entresto) potassium chloride 8 mEq 8 meq PO BID 12/18/24 12/18/24 History tablet,extended release Allergies Allergy/AdvReac Type Severity Reaction Status Date / Time No Known Allergies Allergy Verified 12/16/24 20:29 Visit Medications Acetaminophen (Acetaminophen 325 Mg Tablet) 650 mg PO Q6H PRN PRN Reason: PAIN SCALE 1-3 (mild Stop: 01/16/25 00:44 Last Admin: 12/18/24 13:33 Dose: 650 mg Dextrose (Dextrose 50%-Water Inj 50 Ml Syringe) 25 ml IV Q15MIN PRN PRN Reason: BG 50-70 responsive npo pt Stop: 01/16/25 04:54 Last Admin: 12/18/24 07:23 Dose: 25 ml Dextrose (Dextrose 50%-Water Inj 50 Ml Syringe) 50 ml IV Q15MIN PRN PRN Reason: BG <50 OR BG <70 & pt unresponsive Stop: 01/16/25 04:54 Glucagon (Glucagon Inj 1 Mg Vial) 1 mg IM Q15MIN PRN PRN Reason: BG <70, and no IV access Doxycycline Hyclate 100 mg/ (Sodium Chloride) 100 mls @ 100 mls/hr IV BID [facility] Stop: 12/24/24 20:59 Last Admin: 12/18/24 09:17 Dose: 100 mls/hr Ceftriaxone Sodium/Dextrose (Rocephin/D5w 1gm Iv Premix) 1 gm in 50 mls @ 100 mls/hr IV QDAY [facility] Stop: 12/24/24 17:53 Last Admin: 12/18/24 09:17 Dose: 100 mls/hr Metronidazole (Flagyl 500 Mg Iv) 500 mg in 100 mls @ 200 mls/hr IV Q8HR [facility] Stop: 12/24/24 17:55 Last Admin: 12/18/24 13:33 Dose: 200 mls/hr Potassium Acetate 20 meq/ (Dextrose/Sodium Chloride) 1,010 mls @ 80 mls/hr IV .[id number] [facility] Stop: 01/17/25 13:14 Last Infusion: 12/18/24 14:52 Dose: 0 mls/hr Norepinephrine Bitartrate (Levophed In Ns 16mg/250ml) 16 mg in 250 mls @ 3.143 mls/hr IV .Q24H STA; Protocol Stop: 12/19/24 14:34 Lactated Ringer's (Lactated Ringers) 500 mls @ 999 mls/hr IV .Q31M ONE Stop: 12/18/24 17:55 Insulin Human Lispro (Insulin Lispro (Admelog) 1 Unit/0.01 Ml Unit) 0 unit SC Q6HR DANNI; Protocol Stop: 01/17/25 00:00 Last Admin: 12/18/24 13:24 Dose: Not Given Levothyroxine Sodium (Levothyroxine Sodium 100 Mcg Tablet) 100 mcg PO ACBR DANNI Stop: 01/16/25 05:59 Last Admin: 12/18/24 05:06 Dose: Not Given Ondansetron HCl (Ondansetron Inj 2 Mg/Ml Inj 2 Ml) 4 mg IVP Q6H PRN; Protocol PRN Reason: NAUSEA OR VOMITING Stop: 01/16/25 00:44 Last Admin: 12/17/24 02:39 Dose: 4 mg Pantoprazole Sodium (Pantoprazole Inj 40 Mg Vial) 40 mg IVP BID DANNI Stop: 01/16/25 20:59 Last Admin: 12/18/24 09:16 Dose: 40 mg Pharmacy Consult (Pharmacy Renal Dose Adjustment 1 Ea) 1 each XX PRN PRN PRN Reason: CONSULT Stop: 01/16/25 17:53 Discontinued Medications Dextrose (Dextrose 50%-Water Inj 50 Ml Syringe) 50 ml IVP X1 ONE Stop: 12/18/24 08:29 Last Admin: 12/18/24 08:53 Dose: Not Given Heparin Sodium (Porcine) (Heparin Sod Inj 5000 Unit/Ml Vial) 5,000 unit SC Q12HR [facility] Stop: 12/31/24 08:59 Last Admin: 12/18/24 09:25 Dose: Not Given Sodium Chloride (Ns) 1,000 mls @ 999 mls/hr IV .Q1H1M ONE Stop: 12/16/24 22:02 Last Infusion: 12/16/24 22:15 Dose: Infused Sodium Chloride (Ns) 1,000 mls @ 120 mls/hr IV .Q8H20M [facility] Stop: 01/15/25 23:25 Last Admin: 12/16/24 23:38 Dose: 120 mls/hr Sodium Chloride (Ns) 250 mls @ 999 mls/hr IV .Q16M ONE Stop: 12/17/24 00:04 Last Infusion: 12/17/24 00:26 Dose: Infused Sodium Chloride (Ns) 1,000 mls @ 999 mls/hr IV .Q1H1M ONE Stop: 12/17/24 12:58 Last Admin: 12/17/24 12:01 Dose: 999 mls/hr Sodium Chloride (Ns) 1,000 mls @ 60 mls/hr IV .[id number] [facility] Stop: 01/16/25 13:26 Last Admin: 12/17/24 23:52 Dose: 60 mls/hr Sodium Chloride (Ns) 250 mls @ 999 mls/hr IV .Q16M ONE Stop: 12/17/24 16:14 Last Admin: 12/17/24 16:11 Dose: 999 mls/hr Sodium Chloride (Ns) 1,000 mls @ 999 mls/hr IV .Q1H1M ONE Stop: 12/17/24 17:39 Last Admin: 12/17/24 16:43 Dose: 999 mls/hr Sodium Chloride (Ns) 1,000 mls @ 999 mls/hr IV .Q1H1M ONE Stop: 12/17/24 17:47 Sodium Chloride (Ns) 1,000 mls @ 999 mls/hr IV .Q1H1 ONE Stop: 12/17/24 18:51 Last Admin: 12/17/24 18:16 Dose: 999 mls/hr Sodium Chloride (Ns) 250 mls @ 999 mls/hr IV .Q16M ONE Stop: 12/17/24 20:18 Last Admin: 12/17/24 20:18 Dose: 999 mls/hr Sodium Chloride (Ns) 500 mls @ 999 mls/hr IV .Q31M ONE Stop: 12/17/24 21:26 Last Admin: 12/17/24 21:08 Dose: 999 mls/hr Sodium Chloride (Ns) 500 mls @ 999 mls/hr IV .Q31M ONE Stop: 12/17/24 22:15 Last Admin: 12/17/24 21:37 Dose: 999 mls/hr Potassium Chloride 40 meq/ (Dextrose) 1,020 mls @ 60 mls/hr IV .Q17H [facility] Stop: 01/17/25 07:46 Potassium Chloride 40 meq/ (Dextrose) 1,020 mls @ 60 mls/hr IV .Q17H ONE Stop: 12/19/24 00:48 Last Admin: 12/18/24 09:48 Dose: 60 mls/hr Potassium Acetate 20 meq/ (Dextrose/Sodium Chloride) 1,010 mls @ 80 mls/hr IV .[id number] ONE Stop: 12/18/24 21:05 Potassium Chloride (Kcl Ivpb) 10 meq in 100 mls @ 100 mls/hr IV Q1H DANNI Stop: 12/18/24 16:03 Last Admin: 12/18/24 14:53 Dose: Not Given Insulin Human Lispro (Insulin Lispro (Admelog) 1 Unit/0.01 Ml Unit) 0 unit SC ACHS DANNI; Protocol Stop: 01/16/25 07:29 Last Admin: 12/17/24 16:13 Dose: Not Given Ondansetron HCl (Ondansetron Inj 2 Mg/Ml Inj 2 Ml) 4 mg IVP X1 ONE; Protocol Stop: 12/16/24 21:04 Last Admin: 12/16/24 21:11 Dose: 4 mg Tuberculin PPD (Tuberculin Ppd Inj 5 Unit/0.1 Ml Dose) 5 unit ID X1 ONE Stop: 12/17/24 15:01 Last Admin: 12/17/24 16:05 Dose: 5 unit Assessment & Plan Plan Summary: Mr. 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 ICU team was priorly consulted due to persistent hypotension however patient's MAP improved with aggressive fluid resuscitation. Patient was taken to operating room today by general surgery and had exploratory laparotomy with lysis of adhesions and release of obstruction. Patient upgraded to intensive care unit for overnight monitoring. Neurological Patient alert and oriented x 3. #Reduced vision right eye Reports that he has vision problems, per chart review patient has history of CRAO of right eye. Has been following ophthalmology, currently reports no acute vision changes. - Follow-up outpatient with ophthalmology Cardiology #Heart failure with reduced ejection fraction, EF 30% 06/2024 Patient's echo in the past shows EF 30%, per review of meds prescribed patient seems to be on GDMT, currently does not seem to be in any exacerbation. TTE(06/09/2024): Normal LV size. Severe systolic dysfunction. Estimated EF 30%, Normal RV size and function, Mild LA dilatation, Moderate MR. Mild TR. Mild sclerosis without stenosis Mild aortic regurgitation Plan: - Monitor for signs of fluid overload - Cardiology was consulted, following closely - Strict intake and output - Daily weight #Elevated troponin #NSTEMI type II Denies any chest pain, elevated troponin 0.098, which eventually down trended, troponin earlier this morning 0.082 Troponin elevation likely in setting of underlying bowel obstruction and underlying SIRS - Consider repeat EKG, monitor for chest pain - Cardiology is following #Hypertension by history #Hyperlipidemia, by history Patient is on Coreg, Lasix, atorvastatin and Entresto - Hold currently, will consider resuming once blood pressure is stable also patient is currently NPO. Pulmonary #Acute hypoxic respiratory failure, in setting of SIRS, pneumonia, postop #Status postextubation 12/18, postop #Diffuse left lung pneumonia CXR (12/17/2024): Significant diffuse left lung pneumonia Patient previously on room air on presentation, was started on supplemental oxygen prior to surgery on hospitalization, likely in setting of increased demand in setting of SIRS. Plan: -Doxycycline 100mg IV bid -Ceftriaxone 1g IV qd -No sputum culture was obtained, blood cultures negative for 24 hours growth -Maintain SPO2 greater than 92, titrate supplemental oxygen. Gastrointestinal # High-grade mechanical small bowel obstruction # Status post exploratory laparotomy with lysis of adhesions and release of obstruction 12/18 Patient's presentation of umbilical abdominal pain that worsens with eating in the setting of absent bowel movements for the past 5-6 days is concerning for SBO. This working diagnosis is corroborated by noncontrast CT AP showing a high-grade mechanical small bowel obstruction . Gastrografin small bowel series (12/17/2024 and 12/18/2024): High grade mechanical Small bowel obstruction pattern Patient taken to the OR 12/18, status post exploratory laparotomy with adhesion lysis and release of obstruction. Per op report in OR there were multiple adhesions, on base of mesentery, few adhesions of ileum, no other findings of any bowel perforation or free fluid in abdomen per op report. Surgery completed without any complications, patient did not receive any medications to improve MAP during procedure, had an arterial line and blood pressure was stable. Plan: - NG tube with intermittent suction - Strict NPO, monitor for bowel movement - Consider IV Tylenol for pain management, avoid opiates - General Surgery consulted, appreciate recommendations #?GI bleed #Coffee-ground fluid aspirated through NG tube #GERD, by history Patient's hemoglobin has been downtrending since admission, has had significant copious amount of output through NG tube which is green/coffee-ground in color -Continue to monitor NG output -Continue Protonix 40 IV BID -Monitor hemoglobin Renal/Genitourinary #Acute kidney injury likely prerenal, improving #CKD stage III BUN and creatinine significantly elevated at 119 and 5.8 (baseline seems to be between 1.3-1.8) on presentation Renal function improved with IV fluid resuscitation - Monitor renal function - Renally dose medication - Avoid nephrotoxic agents - Monitor UOP #Lactic acidosis #High anion gap metabolic acidosis Likely in setting of high-grade SBO Patient also has high anion gap, competent of uremia in setting of severe SADIQ - Improved with fluid bolus #Hypokalemia - Will replete potassium, goal potassium greater than 3.5 #Hyperphosphatemia - Currently has SADIQ, n.p.o., will monitor phosphate #BPH Patient on Flomax 0.4 mg at home, will resume once tolerates p.o. Endocrine #Svn-Qoyafdo-xwrecqbht type diabetes mellitus, A1c 6.4 in June 2024 Sliding scale insulin every 6 hours Hypoglycemia protocol Follow A1c in a.m. #Hypothyroidism Continue home dose levothyroxine Follow TSH in a.m. Hematology #Normocytic normochromic anemia DDx: Anemia of chronic disease, has CKD: Acute blood loss ?GI bleed, postop blood loss - Follow CBC in a.m., transfuse hemoglobin if less than 7 #Thrombocytopenia, chronic DDx: In setting of cirrhosis, ITP - Monitor platelet count, transfuse if less than 20 Infectious Disease #Pneumonia #High-grade mechanical SBO Blood cultures negative for 24 hours, as above management Integumentary #Status post ex-lap -Monitor Surgical site DVT prophylaxis: SCDs GI prophylaxis: IV Protonix BID Diet: NPO, NG Tube Lines: Peripheral IV Code status: Full Code Dispo: ICU for overnight monitoring Case discussed with Attending Dr. Mcclelland. Avery Esquivel MD Internal Medicine PGY2 Disclaimer: This note was dictated by speech recognition. Minor errors in printed circuit designer may be present due to voice recognition software.
[2024-12-18] MEDS: RINGERS LACTATED 500 ML 500 ML 999 ML IV ×2 (18:05→18:29)
[2024-12-18 18:29] LABS: Alanine Aminotransferase < 7 U/L (10-49); Albumin, Serum 2.9 gm/dL (3.4-4.8); Albumin/Globulin Ratio 1.1 (1.2-2.2); Alkaline Phosphatase 48 U/L (46-116); Anion Gap 17 (7-16); Aspartate Amino Transferase 17 U/L (0-34); BUN/Creatinine Ratio 32 Ratio (12-20); Bilirubin,Total 0.6 mg/dL (0.3-1.2); Blood Urea Nitrogen 103 mg/dL (9-23); Calcium 7.7 mg/dL (8.3-10.6); Calcium (Corrected) 8.6 mg/dL (8.5-10.1); Carbon Dioxide 19.8 mMol/L (20.0-31.0); Chloride 108 mMol/L (98-107); Creatinine (Component) 3.2 mg/dL (0.6-1.3); Estimated Creatinine Clearance 14.7 mL/min (>60); Globulin 2.7 gm/dL (2.3-3.5); Glucose 137 mg/dL (74-106); Magnesium 1.9 mg/dL (1.6-2.6); Osmolality,Calculated 322 (275-295); Phosphorous 6.0 mg/dL (2.4-5.1); Potassium 2.8 mMol/L (3.4-5.1); Sodium 145 mMol/L (136-145); Total Protein 5.6 gm/dL (5.7-8.2); eGFR 18 See Note
[2024-12-18] MEDS: POTASSIUM CHL 10 mEq IVPB 10 MEQ/100 ML BAG 100 MEQ IV ×4 (20:24→23:38)
[2024-12-18] MEDS: SODIUM CHLORIDE 0.9% 500 ML 500 ML 999 ML IV (20:38)
[2024-12-19] VITALS (16 sets, daily range): BP systolic 83–150; BP diastolic 40–67; PULSE 67–86; RESP 15–31; TEMP 36.2–36.8; O2SAT 80–100; BMI 25.2
[2024-12-19] MEDS: POTASSIUM CHL 10 mEq IVPB 10 MEQ/100 ML BAG 100 MEQ IV ×2 (00:53→02:02)
[2024-12-19] MEDS: LEVOTHYROXINE SODIUM 100 MCG TABLET PO (05:48)
[2024-12-19 06:39] LABS: Glucose Estimated Average 100 mg/dL (80-131); Hemoglobin A1C 5.1 % Hgb (4.8-6.0)
[2024-12-19 06:59] LABS: Basophils # (Auto) 0.0 Thou/mm3 (0.0-0.2); Basophils % (Auto) 1 % (0-2.5); Eosinophils # (Auto) 0.0 Thou/mm3 (0.0-0.5); Eosinophils % (Auto) 0 % (0-10); Hematocrit 27.6 % (41.0-53.0); Hemoglobin 9.8 g/dL (13.5-16.0); Immature Granulocytes Auto 0.05 Thou/mm3 (0.00-0.00); Lymphocytes # (Auto) 0.1 Thou/mm3 (1.0-4.8); Lymphocytes % (Auto) 2 % (10-50); Mean Corpuscular HGB Conc 35.5 g/dl (31.0-37.0); Mean Corpuscular Hemoglobin 32.3 pg (25.0-35.0); Mean Corpuscular Volume 91 fL (80-100); Monocytes # (Auto) 0.2 Thou/mm3 (0.0-0.8); Monocytes % (Auto) 3 % (0-12); Neutrophils # (Auto) 6.1 Thou/mm3 (1.8-7.7); Neutrophils % (Auto) 94 % (37-80); Nucleated Red Blood Cell # 0.00 Thou/mm3 (0.00-0.00); Nucleated Red Blood Cell % 0 /100 WBC (0); RDW Standard Deviation 49.7 fL (35.1-43.9); Red Blood Count 3.03 Miln/mm3 (4.50-5.90); White Blood Count 6.4 Thou/mm3 (3.8-10.6)
[2024-12-19 07:07] LABS: Platelet Count 54 Thou/mm3 (140-440)
[2024-12-19 07:10] LABS: Alanine Aminotransferase 9 U/L (10-49); Albumin, Serum 2.8 gm/dL (3.4-4.8); Albumin/Globulin Ratio 1.2 (1.2-2.2); Alkaline Phosphatase 46 U/L (46-116); Anion Gap 14 (7-16); Aspartate Amino Transferase 13 U/L (0-34); BUN/Creatinine Ratio 34 Ratio (12-20); Bilirubin,Total 0.5 mg/dL (0.3-1.2); Blood Urea Nitrogen 85 mg/dL (9-23); Calcium 7.9 mg/dL (8.3-10.6); Calcium (Corrected) 8.9 mg/dL (8.5-10.1); Carbon Dioxide 18.6 mMol/L (20.0-31.0); Chloride 113 mMol/L (98-107); Creatinine (Component) 2.5 mg/dL (0.6-1.3); Estimated Creatinine Clearance 18.8 mL/min (>60); Globulin 2.4 gm/dL (2.3-3.5); Glucose 170 mg/dL (74-106); Magnesium 2.3 mg/dL (1.6-2.6); Osmolality,Calculated 320 (275-295); Phosphorous 4.2 mg/dL (2.4-5.1); Potassium 3.8 mMol/L (3.4-5.1); Sodium 146 mMol/L (136-145); Thyroid Stimulating Hormone 0.46 uIU/mL (0.55-4.78); Total Protein 5.2 gm/dL (5.7-8.2); eGFR 24 See Note
[2024-12-19 07:40] LABS: Slide Review Platelets confirmed
[2024-12-19] MEDS: DOXYCYCLINE INJ 100 MG in SODIUM CHLORIDE 0.9% (POP) 100 ML IV (08:23)
[2024-12-19] MEDS: SODIUM CHLORIDE 0.9% 1000 ML 1,000 ML 100 ML IV (08:23)
[2024-12-19] MEDS: cefTRIAXone/D5w 1gm IV premix 1 GM/50 ML BAG IV (08:24)
--- NOTE | 2024-12-19 09:53 | XR_ITS ---
Examination: AP chest single view Technique one AP portable upright chest single view Date and time: December 19, 2024 1007 hours Comparison December 17, 2024 INDICATIONS: Chest pain shortness of breath today FINDINGS: Diffuse left lung and right base pneumonia Mild enlargement cardiac contour Orogastric tube satisfactory position Prominent osteopenia IMPRESSION: Significant diffuse left lung and right base pneumonia
--- NOTE | 2024-12-19 10:31 | PD.RESPRO ---
Documentation for date of: 12/19/24 Subjective Subjective Interval history: Lars Landry is an 89-year-old M with a PMH of hypertension, hypothyroidism, T2DM, BPH, GERD, HLD, CKD stage III, and HFrEF who presents today with belly pain, nausea, and vomiting. Patient states that he began to have abdominal discomfort last after eating out, which has worsened since then. States it is localized to the umbilicus region of the abdomen. Patient characterizes the pain as constant and burning. It worsens with eating and improves after drinking liquids. Patient denies ever having a similar presentation in the past. The patient last vomited on Sunday and describes the vomitus as being brown in color. His last bowel movement was 5 to 6 days ago and productive of liquid brown stool. He also endorses a cough that is productive of black mucus. At the time of the interview, patient reported his belly pain to be a 3/10. ED Course: In the ED, patient came in with low blood pressure of 46/35 that improved after having total 1.25 NS bolus and continues to be on 1 L NS maintenance fluids. Patient found to have high anion gap metabolic acidosis, BUN 119, Cr 5.8, eGFR 9, lactic acid of 4.2 (improved to 2.6), and elevated trop 0.098. UA was turbid and showed 1+ protein, 1+ bilirubin, slightly high WBC 8, and amorphous crystals with some hyaline casts. CT AP was consistent with reflux esophagitis and sbo (f/u small bowel series). EKG showed sinus rhythm with possible left atrial enlargement, left axis deviation, and left bundle branch block. Head CT and CXR was unremarkable. Patient was admitted for the work-up and management of suspected SBO. 12/17/2024 When patient was seen and examined, he had his sister and niece at bedside. Patient is alert and oriented x3 and says he is feeling good, just feels a little weak. Denies and new concerns/complaints. Patient denies having fever, headache, chest pain, shortness of breath, abdominal pain, flank pain or dysuria. Patient noted PCP is Dr. Barcenas in [place]. 12/18/2024 Patient was seen and examined. Patient is moving and speaking a lot slower, still is a&o x3. Patient states he feels thirsty, weak and has some mild abdominal pain with nausea that has been getting worse overnight. Patient denies fever, chest pain, shortness of breath, vomiting, dysuria. Patient was given an amp of dextrose this morning and was started on KCl maintenance fluids. Patient's Cr improved to 4.2 today (5.0 yest). 12/19/2024 Patient was seen and examined. Patient's vitals and labs were examined. Patient had ex lap yesterday for obstruction. Patient's Cr improving, on maintenance fluids NS. Patient states he continues to feel thirsty, weak and has some mild abdominal pain. Patient denies fever, chest pain, shortness of breath, nausea, vomiting, dysuria. Notable labs includes sodium 146, chlroide 113, bicarb 18.6, BUN 85, Cr 2.5. Exam Vital Signs Temp Pulse Resp BP Pulse Ox O2 Del Method O2 Flow Rate 97.1 F 81 31 H 124/53 L 93 L Nasal Cannula 4 12/19/24 08:12/19/24 10:12/19/24 10:12/19/24 10:12/19/24 10:12/19/24 10:12/19/24 10:00 Narrative Exam CONST: Negative for fever, body aches and chills. HENT: Negative for neck pain/stiffness, headache, congestion, sore throat, swelling. EYES: Negative for discharge/pain or vision changes. RESP: Negative for cough/hemoptysis and shortness of breath. CV: Negative chest pain, difficulty breathing, palpitations. ABD: Soft, nontender, non-distended; Abdominal pad s/p ex lap; Endorses abdominal pain. Negative pain, nausea, vomiting. : Negative increase frequency, dysuria, blood in urine or stool. MUSC: Negative for muscle aches, edema. SKIN: Negative rash, lesions/sores. NEURO: Negative headache, dizziness, weakness. Objective Labs 12/20/24 04:59 12/20/24 04:59 Labs: Laboratory Results - last 24 hr 12/17/24 12/18/24 12/18/24 17:18 13:10 15:43 WBC RBC Hgb Hct MCV MCH MCHC RDW Std Deviation Plt Count Neut % (Auto) Lymph % (Auto) [place] % (Auto) Eos % (Auto) Baso % (Auto) Neut # (Auto) Lymph # (Auto) [place] # (Auto) Eos # (Auto) Baso # (Auto) Immature Gran # (Auto) Absolute Nucleated RBC Immature Gran % Nucleated RBC % Puncture Site Site Not Noted ABG pH 7.34 L ABG pCO2 45 ABG pO2 111 H D ABG HCO3 25 ABG O2 Saturation 99 H ABG Base Excess -1 FiO2 94 Sodium 144 Potassium 3.0 L Chloride 103 Carbon Dioxide 23.9 Anion Gap 17 H BUN 121 H* Creatinine 3.6 H D Estim Creat Clear Calc 13.0 L eGFR 16 L BUN/Creatinine Ratio 34 H Glucose [address] Glu mg/dL Hemoglobin A1c Calculated Osmolality 327 H Lactic Acid Calcium 8.0 L Corrected Calcium 8.6 Phosphorus 6.4 H Magnesium Total Bilirubin AST ALT Alkaline Phosphatase Total Protein Albumin 3.3 L Globulin Albumin/Globulin Ratio TSH Misc Test Result Blood Type O Positive Antibody Screen NEGATIVE Blood Bank Wristband ID Yes Blood Bank Comment PLATP Ready 12/18/24 12/18/24 12/19/24 16:24 17:14 05:02 WBC 7.4 6.4 RBC 3.32 L 3.03 L Hgb 10.9 L 9.8 L Hct 30.0 L 27.6 L MCV 90 91 MCH 32.8 32.3 MCHC 36.3 35.5 RDW Std Deviation 47.0 H 49.7 H Plt Count 88 L D 54 L D Neut % (Auto) 92 H 94 H Lymph % (Auto) 3 L 2 L [place] % (Auto) 4 3 Eos % (Auto) 0 0 Baso % (Auto) 0 1 Neut # (Auto) 6.8 6.1 Lymph # (Auto) 0.2 L 0.1 L [place] # (Auto) 0.3 0.2 Eos # (Auto) 0.0 0.0 Baso # (Auto) 0.0 0.0 Immature Gran # (Auto) 0.05 H 0.05 H Absolute Nucleated RBC 0.00 0.00 Immature Gran % 1 H 1 H Nucleated RBC % 0 0 Puncture Site Site Not Noted ABG pH 7.30 L ABG pCO2 46 ABG pO2 152 H D ABG HCO3 22 ABG O2 Saturation 100 H ABG Base Excess -4 L FiO2 94 Sodium 145 146 H Potassium 2.8 L 3.8 D Chloride 108 H 113 H Carbon Dioxide 19.8 L 18.6 L Anion Gap 17 H 14 BUN 103 H* 85 H Creatinine 3.2 H 2.5 H D Estim Creat Clear Calc 14.7 L 18.8 L eGFR 18 L 24 L BUN/Creatinine Ratio 32 H 34 H Glucose [address] Glu mg/dL 100 Hemoglobin A1c 5.1 Calculated Osmolality 322 H 320 H Lactic Acid 1.7 Calcium 7.7 L 7.9 L Corrected Calcium 8.6 8.9 Phosphorus 6.0 H 4.2 Magnesium 1.9 2.3 Total Bilirubin 0.6 0.5 AST 17 13 ALT < 7 L 9 L Alkaline Phosphatase 48 46 Total Protein 5.6 L 5.2 L Albumin 2.9 L 2.8 L Globulin 2.7 2.4 Albumin/Globulin Ratio 1.1 L 1.2 TSH 0.46 L Misc Test Result Platelets confirmed Blood Type Antibody Screen Blood Bank Wristband ID Blood Bank Comment ABG Interpretation ABG results: 12/17/24 12/18/24 12/18/24 12:07 15:43 16:24 ABG pH 7.41 7.34 L 7.30 L ABG pCO2 38 45 46 ABG pO2 60 L 111 H D 152 H D ABG HCO3 24 25 22 ABG O2 Saturation 89 L 99 H 100 H ABG Base Excess 0 -1 -4 L Quality Measures Quality Measures VTE prophylaxis Advance care planning discussed with:: patient Assessment & Plan Assessment Current Active Medications: Generic Name Dose Route Start Last Admin Trade Name Freq PRN Reason Stop Dose Admin Dextrose 25 ml 12/17/24 04:55 12/18/24 07:23 Dextrose 50%-Water Inj 50 Ml Syringe IV 01/16/25 04:54 25 ml Q15MIN PRN Administration BG 50-70 responsive npo pt Dextrose 50 ml 12/17/24 04:55 Dextrose 50%-Water Inj 50 Ml Syringe IV 01/16/25 04:54 Q15MIN PRN BG <50 OR BG <70 & pt unresponsive Glucagon 1 mg 12/17/24 04:55 Glucagon Inj 1 Mg Vial IM Q15MIN PRN BG <70, and no IV access Ceftriaxone Sodium/Dextrose 1 gm in 50 mls @ 100 mls/hr 12/17/24 17:54 12/19/24 08:24 Rocephin/D5w 1gm Iv Premix IV 12/24/24 17:53 50 mls/hr QDAY DANNI Administration Sodium Chloride 1,000 mls @ 100 mls/hr 12/19/24 08:30 12/19/24 08:23 Ns IV 01/18/25 08:29 100 mls/hr .Q10H DANNI Administration Insulin Human Lispro 0 unit 12/18/24 00:00 12/19/24 06:15 Insulin Lispro (Admelog) 1 Unit/0.01 Ml Unit SC 01/17/25 00:00 Not Given Q6HR DANNI Protocol Levothyroxine Sodium 100 mcg 12/19/24 06:00 12/19/24 05:48 Levothyroxine Sodium 100 Mcg Tablet PO 01/18/25 05:59 100 mcg ACBR DANNI Administration Morphine Sulfate 3 mg 12/19/24 00:06 Morphine Sulf Inj 10 Mg/Ml Vial IVP 12/24/24 00:05 Q4HR PRN PAIN SCALE 4-10(Mod-Sev Ondansetron HCl 4 mg 12/17/24 00:45 12/17/24 02:39 Ondansetron Inj 2 Mg/Ml Inj 2 Ml IVP 01/16/25 00:44 4 mg Q6H PRN Administration NAUSEA OR VOMITING Protocol Pantoprazole Sodium 40 mg 12/17/24 21:00 12/19/24 08:24 Pantoprazole Inj 40 Mg Vial IVP 01/16/25 20:59 40 mg BID DANNI Administration Pharmacy Consult 1 each 12/17/24 17:54 Pharmacy Renal Dose Adjustment 1 Ea XX 01/16/25 17:53 PRN PRN CONSULT Plan Lars Angelica Landry is an 89-year-old M with a PMH of hypertension, hypothyroidism, T2DM, BPH, GERD, HLD, CKD stage III, and HFrEF who presented with belly pain, nausea, and vomiting. Patient was admitted for the work-up and management of suspected SBO. Patient was consulted for SADIQ on CKD #Acute renal failure on CKD (stage III), improving #Lactic acidosis, improving Suspect pre-renal etiology 2/2 dehydration and poor oral intake. Cr 5.8 on admission (baseline Cr: around 1.2), currently improving at 2.5. Continues to be on maintenance fluids. Currently making urine with stanley in place. No recent contrast or offending medications noted. S/p ex lap for abd obstruction. - Will continue to closely monitor, Cr. improving. - f/u KUB - f/u CMP - Strict I/Os, monitor UOP - Renal dose med, avoid nephrotoxins #SBO #Elevated troponins, likely 2/2 NSTEMI Type II #Chronic medical problems #Reflux esophagitis #T2DM #Hypothyroidism problems above managed via primary team Thank you for allowing us to be apart of the care for Mr. Landry Plan of care discussed with attending, Dr. Andrey Miguel MD PGY-1 Attending Provider Attestation/Addendum Patient seen and examined with resident physician Dr. Burroughs. Note reviewed, agree with findings and recommendations. Patient admitted with bowel obstruction. He has an NG tube. Clinically looks dehydrated. Gave him some IV fluids. Renal ultrasound, electrolytes ordered. Severe azotemia noted. Might be going towards ischemic ATN blood pressure on the soft side. Will monitor closely. Today his BUN is 111, creatinine 5. Bicarbonate 18, potassium 3.3. No need for emergency dialysis. 12/18/2024 patient currently seen in medical floor. He is more alert and awake. Able to move all his extremities. Still with abdominal distention. Small bowel series showed high-grade bowel obstruction. Despite BUN and creatinine still elevated-patient has good urinary output. Continue with IV fluids. At this point I would hold off on dialysis. This afternoon Dr. Jimenez called-planning to take him for surgery. Recommended to continue with observation. No need for emergency dialysis. Dr. Jimenez decided to proceed to take him for surgery. Will monitor him closely post op. If no improvement in azotemia will plan for dialysis tomorrow. 12/19/2024 patient currently seen in ICU. Patient started to have good urine output and BUN and creatinine improving. Status post bowel surgery for his high-grade bowel obstruction. Continue with gentle IV fluids and replace electrolytes.
[2024-12-19 10:35] LABS: Free T4 (Free Thyroxine) 0.72 ng/dL (0.89-1.76)
[2024-12-19] MEDS: RINGERS LACTATED 500 ML 500 ML 999 ML IV (12:13)
--- NOTE | 2024-12-19 12:35 | PD.RESPRO ---
Documentation for date of: 12/19/24 Subjective Subjective Interval history: Mr. 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 Patient's abdominal pain started 3 days prior to presentation was generalized, no aggravating relieving factors with feeding, no such episodes in the past and reported absolute constipation for 4 days. He denied any episode of hematemesis, shortness of breath, palpitation, dizziness or hematochezia. Noncontrast CT AP showed fluid distended esophagus with wall thickening (consistent with reflux esophagitis) and high-grade mechanical small bowel obstruction (recommend Gastrografin small bowel series follow up). Patient was n.p.o. and suctioning was done which he drained 3.5 L of dark liquid. Rapid response was called when the patient was noticed to have blood pressure of 85/51 in which ICU were consulted. Patient was resuscitated by the primary team by 750 mL of NS however his MAP still less than 65. Patient was adequately resuscitated received IV fluid resuscitation and MAP improved. Patient was taken to operating room today by general surgery and had exploratory laparotomy with lysis of adhesions and release of obstruction. Patient upgraded to intensive care unit for overnight monitoring. 12/18/24: Patient seen examined at bedside, alert and oriented x 3, complains of some generalized abdominal pain, did have a bowel movement postop, tolerated extubation well in the PACU, during the surgery patient had estimated blood loss of 200 cc. Arterial line is placed by anesthesiologist, will continue with close monitoring of MAP. Patient did have about 2 L suctioned out via NG tube, we will continue with suctioning per general surgery recommendations. Will give 1 L LR bolus, will continue to monitor patient overnight. 12/19/24: Patient seen and examined at bedside, alert and oriented x 3, more active compared to yesterday, participating in incentive spirometry well. Overnight patient below atrial pressure, was given a 500 cc bolus by night resident patient supposedly had 3 bowel movements overnight, was evaluated by general surgeon in the morning-General Surgery recommends leaving NG tube into low intermittent suctioning, will keep n.p.o. for now. Patient was started on maintenance fluid by general surgeon, will be discontinued and patient will be given a 500 cc LR bolus. Otherwise we will order Acapella device daily to improve mobilization of secretions and assist with atelectasis. Patient does have bilateral coarse breath sounds, will obtain chest x-ray. Low TSH?low free T4 noted, however patient likely unable to take levothyroxine during hospitalization, will resume home dose and patient can follow-up outpatient for titration. There is low clinical suspicion of GI bleed, patient did not require any active transfusion throughout the admission, hemoglobin for baseline on chart review is within the range of 9?10, we will discontinue Protonix. Otherwise patient's MAP has been stable since last night and patient is stable to be downgraded to med/tele, hospitalist team to resume care of the patient. A-line will be discontinued prior. Exam Vital Signs Temp Pulse Resp BP Pulse Ox O2 Del Method O2 Flow Rate 97.5 F 79 15 127/54 L 97 Nasal Cannula 2 12/19/24 12:00 12/19/24 12:00 12/19/24 12:00 12/19/24 12:00 12/19/24 12:00 12/19/24 12:12/19/24 12:00 Narrative Exam Physical Exam General: Awake, tired. Conversational and non-toxic appearing. HEENT: Normocephalic, atraumatic, mucous membranes moist. Heart: Regular rate and rhythm, no murmurs. Lungs: Bilateral coarse breath sounds. Abdomen: Diffuse tenderness, positive bowel sound, dressing intact, no serosanguineous staining of dressing noted. Neurologic: Alert and oriented x3, no gross neurological deficit, and patient able to move all 4 extremities. Extremities: No edema. Skin: No rash or ecchymoses. Objective Labs 12/20/24 04:59 12/20/24 04:59 Labs: Laboratory Results - last 24 hr 12/17/24 12/18/24 12/18/24 17:18 13:10 15:43 WBC RBC Hgb Hct MCV MCH MCHC RDW Std Deviation Plt Count Neut % (Auto) Lymph % (Auto) [place] % (Auto) Eos % (Auto) Baso % (Auto) Neut # (Auto) Lymph # (Auto) [place] # (Auto) Eos # (Auto) Baso # (Auto) Immature Gran # (Auto) Absolute Nucleated RBC Immature Gran % Nucleated RBC % Puncture Site Site Not Noted ABG pH 7.34 L ABG pCO2 45 ABG pO2 111 H D ABG HCO3 25 ABG O2 Saturation 99 H ABG Base Excess -1 FiO2 94 Sodium 144 Potassium 3.0 L Chloride 103 Carbon Dioxide 23.9 Anion Gap 17 H BUN 121 H* Creatinine 3.6 H D Estim Creat Clear Calc 13.0 L eGFR 16 L BUN/Creatinine Ratio 34 H Glucose [address] Glu mg/dL Hemoglobin A1c Calculated Osmolality 327 H Lactic Acid Calcium 8.0 L Corrected Calcium 8.6 Phosphorus 6.4 H Magnesium Total Bilirubin AST ALT Alkaline Phosphatase Total Protein Albumin 3.3 L Globulin Albumin/Globulin Ratio TSH Free T4 Misc Test Result Blood Type O Positive Antibody Screen NEGATIVE Blood Bank Wristband ID Yes Blood Bank Comment PLATP Ready 12/18/24 12/18/24 12/19/24 16:24 17:14 05:02 WBC 7.4 6.4 RBC 3.32 L 3.03 L Hgb 10.9 L 9.8 L Hct 30.0 L 27.6 L MCV 90 91 MCH 32.8 32.3 MCHC 36.3 35.5 RDW Std Deviation 47.0 H 49.7 H Plt Count 88 L D 54 L D Neut % (Auto) 92 H 94 H Lymph % (Auto) 3 L 2 L [place] % (Auto) 4 3 Eos % (Auto) 0 0 Baso % (Auto) 0 1 Neut # (Auto) 6.8 6.1 Lymph # (Auto) 0.2 L 0.1 L [place] # (Auto) 0.3 0.2 Eos # (Auto) 0.0 0.0 Baso # (Auto) 0.0 0.0 Immature Gran # (Auto) 0.05 H 0.05 H Absolute Nucleated RBC 0.00 0.00 Immature Gran % 1 H 1 H Nucleated RBC % 0 0 Puncture Site Site Not Noted ABG pH 7.30 L ABG pCO2 46 ABG pO2 152 H D ABG HCO3 22 ABG O2 Saturation 100 H ABG Base Excess -4 L FiO2 94 Sodium 145 146 H Potassium 2.8 L 3.8 D Chloride 108 H 113 H Carbon Dioxide 19.8 L 18.6 L Anion Gap 17 H 14 BUN 103 H* 85 H Creatinine 3.2 H 2.5 H D Estim Creat Clear Calc 14.7 L 18.8 L eGFR 18 L 24 L BUN/Creatinine Ratio 32 H 34 H Glucose [address] Glu mg/dL 100 Hemoglobin A1c 5.1 Calculated Osmolality 322 H 320 H Lactic Acid 1.7 Calcium 7.7 L 7.9 L Corrected Calcium 8.6 8.9 Phosphorus 6.0 H 4.2 Magnesium 1.9 2.3 Total Bilirubin 0.6 0.5 AST 17 13 ALT < 7 L 9 L Alkaline Phosphatase 48 46 Total Protein 5.6 L 5.2 L Albumin 2.9 L 2.8 L Globulin 2.7 2.4 Albumin/Globulin Ratio 1.1 L 1.2 TSH 0.46 L Free T4 0.72 L Misc Test Result Platelets confirmed Blood Type Antibody Screen Blood Bank Wristband ID Blood Bank Comment ABG Interpretation ABG results: 12/17/24 12/18/24 12/18/24 12:07 15:43 16:24 ABG pH 7.41 7.34 L 7.30 L ABG pCO2 38 45 46 ABG pO2 60 L 111 H D 152 H D ABG HCO3 24 25 22 ABG O2 Saturation 89 L 99 H 100 H ABG Base Excess 0 -1 -4 L Quality Measures Quality Measures VTE prophylaxis Advance care planning discussed with:: patient Assessment & Plan Assessment Current Active Medications: Generic Name Dose Route Start Last Admin Trade Name Freq PRN Reason Stop Dose Admin Dextrose 25 ml 12/17/24 04:55 12/18/24 07:23 Dextrose 50%-Water Inj 50 Ml Syringe IV 01/16/25 04:54 25 ml Q15MIN PRN Administration BG 50-70 responsive npo pt Dextrose 50 ml 12/17/24 04:55 Dextrose 50%-Water Inj 50 Ml Syringe IV 01/16/25 04:54 Q15MIN PRN BG <50 OR BG <70 & pt unresponsive Glucagon 1 mg 12/17/24 04:55 Glucagon Inj 1 Mg Vial IM Q15MIN PRN BG <70, and no IV access Ceftriaxone Sodium/Dextrose 1 gm in 50 mls @ 100 mls/hr 12/17/24 17:54 12/19/24 08:24 Rocephin/D5w 1gm Iv Premix IV 12/24/24 17:53 50 mls/hr QDAY DANNI Administration Insulin Human Lispro 0 unit 12/18/24 00:00 12/19/24 12:20 Insulin Lispro (Admelog) 1 Unit/0.01 Ml Unit SC 01/17/25 00:00 Not Given Q6HR DANNI Protocol Levothyroxine Sodium 100 mcg 12/19/24 06:00 12/19/24 05:48 Levothyroxine Sodium 100 Mcg Tablet PO 01/18/25 05:59 100 mcg ACBR DANNI Administration Morphine Sulfate 3 mg 12/19/24 11:48 Morphine Sulf Inj 10 Mg/Ml Vial IVP 12/24/24 00:05 Q6HR PRN PAIN SCALE 4-10(Mod-Sev Ondansetron HCl 4 mg 12/17/24 00:45 12/17/24 02:39 Ondansetron Inj 2 Mg/Ml Inj 2 Ml IVP 01/16/25 00:44 4 mg Q6H PRN Administration NAUSEA OR VOMITING Protocol Pharmacy Consult 1 each 12/17/24 17:54 Pharmacy Renal Dose Adjustment 1 Ea XX 01/16/25 17:53 PRN PRN CONSULT Plan Summary: Mr. 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 ICU team was priorly consulted due to persistent hypotension however patient's MAP improved with aggressive fluid resuscitation. Patient was taken to operating room today by general surgery and had exploratory laparotomy with lysis of adhesions and release of obstruction. Patient upgraded to intensive care unit for overnight monitoring. Neurological Patient alert and oriented x 3. #Reduced vision right eye Reports that he has vision problems, per chart review patient has history of CRAO of right eye. Has been following ophthalmology, currently reports no acute vision changes. - Follow-up outpatient with ophthalmology Cardiology #Heart failure with reduced ejection fraction, EF 30% 06/2024 Patient's echo in the past shows EF 30%, per review of meds prescribed patient seems to be on GDMT, currently does not seem to be in any exacerbation. TTE(06/09/2024): Normal LV size. Severe systolic dysfunction. Estimated EF 30%, Normal RV size and function, Mild LA dilatation, Moderate MR. Mild TR. Mild sclerosis without stenosis Mild aortic regurgitation Plan: - Monitor for signs of fluid overload - Cardiology was consulted, following - Strict intake and output - Daily weight - Resume GDMT as tolerated once able to take p.o. medications #Elevated troponin #NSTEMI type II Denies any chest pain, elevated troponin 0.098, which eventually down trended, troponin earlier this morning 0.082 Troponin elevation likely in setting of underlying bowel obstruction and underlying SIRS - Consider repeat EKG, monitor for chest pain - Cardiology is following #Hypertension by history #Hyperlipidemia, by history Patient is on Coreg, Lasix, atorvastatin and Entresto - Hold currently, will consider resuming once blood pressure is stable also patient is currently NPO. Pulmonary #Acute hypoxic respiratory failure, in setting of SIRS, pneumonia, postop #Status postextubation 12/18, postop #Diffuse left lung pneumonia CXR (12/17/2024): Significant diffuse left lung pneumonia Patient previously on room air on presentation, was started on supplemental oxygen prior to surgery on hospitalization, likely in setting of increased demand in setting of SIRS. Patient received doxycycline 12/17 - 12/19, MRSA nares negative Plan: -Ceftriaxone 1g IV qd (12/17- -No sputum culture was obtained, blood cultures negative for 48 hours growth -Maintain SPO2 greater than 92, titrate supplemental oxygen. -Incentive spirometry, Acapella device -Will obtain chest x-ray today, follow-up Gastrointestinal # High-grade mechanical small bowel obstruction # Status post exploratory laparotomy with lysis of adhesions and release of obstruction 12/18 Patient's presentation of umbilical abdominal pain that worsens with eating in the setting of absent bowel movements for the past 5-6 days is concerning for SBO. This working diagnosis is corroborated by noncontrast CT AP showing a high-grade mechanical small bowel obstruction . Gastrografin small bowel series (12/17/2024 and 12/18/2024): High grade mechanical Small bowel obstruction pattern Patient taken to the OR 12/18, status post exploratory laparotomy with adhesion lysis and release of obstruction. Per op report in OR there were multiple adhesions, on base of mesentery, few adhesions of ileum, no other findings of any bowel perforation or free fluid in abdomen per op report. Surgery completed without any complications, patient did not receive any medications to improve MAP during procedure, had an arterial line and blood pressure was stable. Plan: - NG tube with low intermittent suction - Strict NPO, monitor for bowel movements - Morphine 3 mg every 6 hours as needed - General Surgery consulted, appreciate recommendations #GI bleed ruled out #Bile-stained fluid through NG tube #GERD, by history Patient's hemoglobin has been downtrending since admission, has had significant copious amount of output through NG tube which is green in color, did not require any active transfusions during hospitalization. -Continue to monitor NG output -Discontinued Protonix -Monitor hemoglobin Renal/Genitourinary #Acute kidney injury likely prerenal, improving #CKD stage III BUN and creatinine significantly elevated at 119 and 5.8 (baseline seems to be between 1.3-1.8) on presentation Renal function improved with IV fluid resuscitation - Creatinine 2.5 today, 500 cc bolus - Monitor renal function - Renally dose medication - Avoid nephrotoxic agents - Monitor UOP #Lactic acidosis, resolved #High anion gap metabolic acidosis, resolved #Normal anion gap metabolic acidosis Likely in setting of high-grade SBO Patient also has high anion gap, competent of uremia in setting of severe SADIQ NAGMA in setting of hyperchloremic acidosis - Prefer fluid resuscitation with IV LR instead of NS #Hypokalemia, resolved #Hyperphosphatemia, resolved #BPH Patient on Flomax 0.4 mg at home, will resume once tolerates p.o. Endocrine #Cdy-Mgginii-ervzdznlw type diabetes mellitus, A1c 5.2 Sliding scale insulin every 6 hours-we will hold Hypoglycemia protocol Monitor fingerstick for now, consider discontinuing if within normal limits Monitor blood glucose, in daily CMP #Hypothyroidism TSH 0.46, free T4 0.72 -Patient likely unable to get home dose levothyroxine due to SBO, continue home dose -Repeat panel outpatient and titrate dose Hematology #Normocytic normochromic anemia DDx: Anemia of chronic disease, has CKD: Acute blood loss, postop blood loss PBF smear report from 2018 shows normocytic normochromic anemia with anisopoikilocytosis and rouleaux formation 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 Patient denies any history of cancer, has never seen a heme oncologist-consider repeating results and outpatient follow-up - Follow CBC in a.m., transfuse hemoglobin if less than 7 #Thrombocytopenia, chronic DDx: In setting of cirrhosis, ITP - Monitor platelet count, transfuse if less than 20 Infectious Disease #Pneumonia #High-grade mechanical SBO Blood cultures negative for 48 hours, as above management MRSA nares negative Integumentary #Status post ex-lap -Monitor Surgical site DVT prophylaxis: SCDs GI prophylaxis: IV Protonix BID Diet: NPO, NG Tube to LIS Lines: Peripheral IV Code status: Full Code Dispo: Downgraded to med/tele, hospitalist team B Case discussed with Attending Dr. Mcclelland. Avery Esquivel MD Internal Medicine PGY2 Disclaimer: This note was dictated by speech recognition. Minor errors in plastic surgery coordinator may be present due to voice recognition software. Attending Provider Attestation/Addendum pt seen and examined, agree with above, in brief this is a 89 yo M s/p SBO with exlap from OR. He is doing well with moderate amount of abd pain. He has an NGT and has had bowel movements. There was lysis of adhesions that was done. Patient has also been treated for an underlying pneumonia question aspiration. Currently he is doing well and is not hemodynamically unstable. He is stable to go to the floor. Case discussed with surgery and ICU Labs, imaging and records reviewed Approximately 35 minutes spent
[2024-12-19] MEDS: guaiFENesin SYRUP 200 MG/10 ML UDC 100 MG PO (15:39)
[2024-12-19] MEDS: SODIUM CHLORIDE 0.9% 1000 ML 1,000 ML 75 ML IV (18:05)
--- NOTE | 2024-12-19 18:16 | ESPR_ITS ---
<Statement entered by Adriano Coughlin MD - 12/30/24 07:44> I reviewed above note and agree with findings and plans. I have also personally examined the patient with medicine team and went over assessment and plan with medical team including global marketing intern and resident physician. Documentation for date of: 12/19/24 Senior resident attestation: Patient evaluated and examined at the bedside, plan of care discussed with rest of the team including my attending physician, except as noted. Pt was downgraded from ICU post exlap and lysis of adhesions, currently stays NPO, NG tube attached to JENNY, minimal output, pending gen surg recommendations. Hgb downtrended since admisssion but stablized now, will continue to trend if blood transfusion needed. Quresh PGY3 Subjective Subjective Interval history: Patient has been downgraded from ICU to med/tele tonight. S/p laparotomy with lysis of adhesions and release of small bowel obstruction. Patient was seen and examined at bedside. A.m. vitals and labs reviewed. Patient did not require pressors during surgery. He is alert and orietned x3 to person, time, and place. He had 3 bowel movment overnight. Currently on NG tube. Per general surgery recommendations, he will be leaving NG tube into low intermittent suctioning. Currently NPO. Participating in incentive spirometry. Based on chest CR (12/19/2024) patient has significant diffuse left lung and right base pneumonia. Continuing on ceftriaxone 1g IV qd. Per ICU, there is low suspicion for GI bleed as most NG tube content was green in color and did not require any active transfusions during hospitalization. Patient will resume GDMP as tolerated. Currently on maintenance fluids. Patient complains of sputum production. Guaifenesin syrup 100mg prn. Up to chair with assistance routine ordered. Patient has minimal abdominal pain. Denies shortness of breathe, chest pain, palpitation, dizziness, headaches, numbness, fevers or chills. Exam Vital Signs Temp Pulse Resp BP Pulse Ox O2 Del Method O2 Flow Rate 97.5 F 84 15 127/54 L 97 Nasal Cannula 2 12/19/24 12:00 12/19/24 16:00 12/19/24 12:00 12/19/24 12:00 12/19/24 12:00 12/19/24 12:00 12/19/24 12:00 Narrative Exam General: Awake, tired. Conversational and non-toxic appearing. HEENT: Normocephalic, atraumatic, mucous membranes moist. Heart: Regular rate and rhythm, no murmurs. Lungs: Bilateral coarse breath sounds. Abdomen: Diffuse tenderness, positive bowel sound, dressing intact, no serosanguineous staining of dressing noted. Neurologic: Alert and oriented x3, no gross neurological deficit, and patient able to move all 4 extremities. Extremities: No edema. Skin: No rash or ecchymoses. Objective Labs 12/20/24 04:59 12/20/24 04:59 Labs: Laboratory Results - last 24 hr 12/18/24 12/19/24 17:14 05:02 WBC 6.4 RBC 3.03 L Hgb 9.8 L Hct 27.6 L MCV 91 MCH 32.3 MCHC 35.5 RDW Std Deviation 49.7 H Plt Count 54 L D Neut % (Auto) 94 H Lymph % (Auto) 2 L [place] % (Auto) 3 Eos % (Auto) 0 Baso % (Auto) 1 Neut # (Auto) 6.1 Lymph # (Auto) 0.1 L [place] # (Auto) 0.2 Eos # (Auto) 0.0 Baso # (Auto) 0.0 Immature Gran # (Auto) 0.05 H Absolute Nucleated RBC 0.00 Immature Gran % 1 H Nucleated RBC % 0 Sodium 145 146 H Potassium 2.8 L 3.8 D Chloride 108 H 113 H Carbon Dioxide 19.8 L 18.6 L Anion Gap 17 H 14 BUN 103 H* 85 H Creatinine 3.2 H 2.5 H D Estim Creat Clear Calc 14.7 L 18.8 L eGFR 18 L 24 L BUN/Creatinine Ratio 32 H 34 H Glucose [address] Glu mg/dL 100 Hemoglobin A1c 5.1 Calculated Osmolality 322 H 320 H Calcium 7.7 L 7.9 L Corrected Calcium 8.6 8.9 Phosphorus 6.0 H 4.2 Magnesium 1.9 2.3 Total Bilirubin 0.6 0.5 AST 17 13 ALT < 7 L 9 L Alkaline Phosphatase 48 46 Total Protein 5.6 L 5.2 L Albumin 2.9 L 2.8 L Globulin 2.7 2.4 Albumin/Globulin Ratio 1.1 L 1.2 TSH 0.46 L Free T4 0.72 L Misc Test Result Platelets confirmed ABG Interpretation ABG results: 12/17/24 12/18/24 12/18/24 12:07 15:43 16:24 ABG pH 7.41 7.34 L 7.30 L ABG pCO2 38 45 46 ABG pO2 60 L 111 H D 152 H D ABG HCO3 24 25 22 ABG O2 Saturation 89 L 99 H 100 H ABG Base Excess 0 -1 -4 L Quality Measures Quality Measures VTE prophylaxis Advance care planning discussed with:: patient Assessment & Plan Assessment Current Active Medications: Generic Name Dose Route Start Last Admin Trade Name Freq PRN Reason Stop Dose Admin Dextrose 25 ml 12/17/24 04:55 12/18/24 07:23 Dextrose 50%-Water Inj 50 Ml Syringe IV 01/16/25 04:54 25 ml Q15MIN PRN Administration BG 50-70 responsive npo pt Dextrose 50 ml 12/17/24 04:55 Dextrose 50%-Water Inj 50 Ml Syringe IV 01/16/25 04:54 Q15MIN PRN BG <50 OR BG <70 & pt unresponsive Glucagon 1 mg 12/17/24 04:55 Glucagon Inj 1 Mg Vial IM Q15MIN PRN BG <70, and no IV access Guaifenesin 100 mg 12/19/24 15:08 12/19/24 15:39 Guaifenesin Syrup 200 Mg/10 Ml Udc PO 01/18/25 15:07 100 mg QID PRN Administration COUGH Protocol Ceftriaxone Sodium/Dextrose 1 gm in 50 mls @ 100 mls/hr 12/17/24 17:54 12/19/24 08:24 Rocephin/D5w 1gm Iv Premix IV 12/24/24 17:53 50 mls/hr QDAY DANNI Administration Sodium Chloride 1,000 mls @ 75 mls/hr 12/19/24 17:33 12/19/24 18:05 Ns IV 01/18/25 17:32 75 mls/hr .[id number] DANNI Administration Insulin Human Lispro 0 unit 12/18/24 00:00 12/19/24 12:20 Insulin Lispro (Admelog) 1 Unit/0.01 Ml Unit SC 01/17/25 00:00 Not Given Q6HR [facility] Protocol Levothyroxine Sodium 100 mcg 12/19/24 06:00 12/19/24 05:48 Levothyroxine Sodium 100 Mcg Tablet PO 01/18/25 05:59 100 mcg ACBR DANNI Administration Morphine Sulfate 3 mg 12/19/24 11:48 Morphine Sulf Inj 10 Mg/Ml Vial IVP 12/24/24 00:05 Q6HR PRN PAIN SCALE 4-10(Mod-Sev Ondansetron HCl 4 mg 12/17/24 00:45 12/17/24 02:39 Ondansetron Inj 2 Mg/Ml Inj 2 Ml IVP 01/16/25 00:44 4 mg Q6H PRN Administration NAUSEA OR VOMITING Protocol Pharmacy Consult 1 each 12/17/24 17:54 Pharmacy Renal Dose Adjustment 1 Ea XX 01/16/25 17:53 PRN PRN CONSULT Plan Patient is a 89-year-old male with past medical history of hypertension, hypothyroidism, BPH, GERD, tos-[id number] type 2 diabetes mellitus, hyperlipidemia, stage III chronic kidney disease, heart failure with reduced ejection fraction, EF 30% 06/2024, chronic anemia 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 ICU team was priorly consulted due to persistent hypotension however patient's MAP improved with aggressive fluid resuscitation. Patient was diagnosed with mechanical small bowel obstruction and taken to operating room by general surgery and had exploratory laparotomy with lysis of adhesions and release of obstruction. Patient upgraded to intensive care unit for overnight monitoring. On 12/19/2024, Patient has been downgraded to med/tele. # S/P exploratory laparotomy with lysis of adhesions and release of obstruction 12/18 #High-grade mechanical small bowel obstruction-Resolved -Patient presented with umbilical abdominal pain, worsen with eating solid food. No bowel movement for 5 days. -Noncontrast CT AP showing a high-grade mechanical small bowel obstruction . -Gastrografin small bowel series (12/17/2024 and 12/18/2024): High grade mechanical Small bowel obstruction pattern -12/18/2024: Patient received exploratory laparotomy with adhesion lysis and release of obstruction. -Per op report, the patient was found to have a complete small bowel obstruction caused by an adhesive band originating from the base of the mesentery, resulting in marked distension of the jejunum. The ileum was decompressed and normal in caliber throughout. No bowel perforation, or free fluid in abdomen. There were no complications and did not require medications to increase MAP during surgery. Had arterial line. Blood pressures was stable. -Patient had 3 bowel movement overnight. Upon examination, patient was alert and oriented X3, abdominal pain noted at incision site. Plan: -Monitor surgical site for any signs of infection or erythema. -NG tube with low intermittent suction, Monitor NG tube output. -Strict NPO, monitor for bowel movements -Morphine 3 mg every 6 hours as needed -General Surgery consulted, appreciate recommendations #Possible GI bleed, likely upper #Hx of GERD -due to trauma from NG tube VS Gastric ulcer -Prior to surgery, on 12/17/2024, 3.2 L coffee-ground fluid was aspirated through NG tube. -Patient's hemoglobin has been downtrending since admission -Currently, Output through NG tube was green in color -Did not require any active transfusions during hospitalization. Plan: -Continue to monitor NG output -Discontinued Protonix -Monitor hemoglobin -Once patient stabilize, possible GI consult for endoscopy. #Acute hypoxic respiratory failure, in setting of SIRS, pneumonia, postop -CXR (12/17/2024): Significant diffuse left lung pneumonia -CXR (12/19/2024): Significant diffuse left lung and right base pneumonia -Patient was on room air was started on supplemental oxygen prior to surgery on hospitalization, likely in setting of increased demand in setting of SIRS. -Patient received doxycycline 12/17 - 12/19, MRSA nares negative -Blood Culture (12/16/2024): Negative for 48hrs. -Currently 97% O2sat in Nasal [place] 2L Plan: -Ceftriaxone 1g IV qd (12/17- -Maintain SPO2 greater than 92, titrate supplemental oxygen. -Incentive spirometry, Acapella device -Will obtain chest x-ray today, follow-up #Acute SADIQ on CKD, likely prerenal #CKD stage III #Non-anion gap metabolic acidosis-Resolving #Lactic acidosis ? Resolved -On admission, Cr initially 5.8 which is >0.3 change from baseline of 1.6, with worsening GFR on admission of 9. (40-50 at baseline). BURN:Cr>20 and FENa was 1.3%. Likely pre-renal. Intrinsic SADIQ cannot be ruled out. Monitor urine output. ? -Upon downgrade from ICU 12/18/2024, Patient kidney function improving. Creatinine downtrending from 3.6 to 2.5. -SADIQ and Non-anion gap metabolic acidosis likely due to combination of Small Bowl Obstruction and Multiple episodes of hypotensive episodes during which MAP dropped to 50s and systolic BP 80s -Renal function improving with IV fluid resuscitation -Hgb:9.8 MCV:91. CO2: 18.6, A -Urine output: 4550 ml? 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 Plan: - Follow up with outpatient oncologist for PBF smear report in 2018 - Monitor CBC, transfuse hemoglobin if less than 7 #Congestive Heart Failure #CHF HFrEF 30% (06/2024) #Severe Systolic Dysfunction #Mild Aortic Regurgitation Patient has a past medical history of heart failure, likely cardiomyopathy given previous echo noted for severe systolic dysfunction. Patient is currently not in CHF exacerbation as no crackles noted on physical exam, Cxr mild vascular congestion, and now lower peripheral edema. Diagnostic: ECHO (06/09/2024): Normal LV size. Severe systolic dysfunction. Estimated EF 30%, Normal RV size and function, Mild LA dilatation, Moderate MR. Mild TR. Mild sclerosis without stenosis Mild aortic regurgitation ASCVD: not applicable given age ? NYHA:I Plan: - Monitor for signs of fluid overload - Cardiology was consulted, following - Strict intake and output - Daily weight - Resume GDMT as tolerated once able to take p.o. medications #Hypertension #Hypotensive, resolved Patient has a past medical history of hypertension. Patient is on GDMT for heart failure, likely Coreg, controlling blood pressure. Plan -continue Coreg, part of GDMT -continue to monitor BP #Hyperlipidemia Patient has pmh of hyperlipidemia, on atorvastatin 20mg hs ASCVD score non applicable given his age of 89, continue nonetheless Plan: -Continue atorvastatin 20mg hs #BPH Patient has a history of BPH, home medication Flomax 0.4 mg. Initially holding Flomax given low blood pressure and concern for shock. Plan -Resume Flomax 0.4 mg -Continue to monitor for low BP #History of Diabetes Mellitus Type 2, non-insulin dependent - Previously patient not taking home medication for diabetes Mellitus not listed. Likely diet controlled -Upon admission patient became hyperglycemic. -A1c 5.2 Plan: -Sliding scale insulin every 6 hours -Hypoglycemia protocol -Monitor fingerstick for now, consider discontinuing if within normal limits -Monitor blood glucose, in daily CMP #Hypothyroidism TSH 0.46, free T4 0.72 -Patient likely unable to get home dose levothyroxine due to SBO, continue home dose -Repeat panel outpatient and titrate dose #Thrombocytopenia, chronic DDx: In setting of cirrhosis, ITP - Monitor platelet count, transfuse if less than 20 #Troponemia, resolved #NSTEMI type II Tropneemia likely NSTEMI type II, in the setting of small bowel obstruction, SIRs, and SADIQ. No ST elevation noted on EKG or changes. Diagnostics: - Elevated to troponin 0.098 currently downtrending to 0.082 Plan - Consider repeat EKG, monitor for chest pain - Cardiology is following - cardiology, Dr. Tapia, following #Reduced vision right eye Reports that he has vision problems, per chart review patient has history of CRAO of right eye. Has been following ophthalmology, currently reports no acute vision changes. - Follow-up outpatient with ophthalmology DVT prophylaxis: SCDs GI prophylaxis: IV Protonix BID Diet: NPO, NG Tube to LIS Lines: Peripheral IV Code status: Full Code Dispo: Downgraded to med/tele, hospitalist team B Assessment and plan discussed with my attending physician Dr. Coughlin and Dr. Kuo (PGY-3) Dr. Zamorano (PGY-1)- Internal medicine resident
[2024-12-19] MEDS: INSULIN LISPRO (AdmeLOG) 1 UNIT/0.01 ML UNIT 3 UNIT SC (21:36)
[2024-12-20] VITALS (10 sets, daily range): BP systolic 112–151; BP diastolic 66–89; PULSE 64–90; RESP 16–24; TEMP 36.1–36.4; O2SAT 92–94
[2024-12-20] MEDS: FUROSEMIDE INJ 10 MG/ML 4ML VIAL 40 MG IVP (02:14)
[2024-12-20] MEDS: guaiFENesin/DM TABLET 2 EACH PO (02:14)
[2024-12-20 05:52] LABS: Basophils # (Auto) 0.1 Thou/mm3 (0.0-0.2); Basophils % (Auto) 1 % (0-2.5); Eosinophils # (Auto) 0.0 Thou/mm3 (0.0-0.5); Eosinophils % (Auto) 0 % (0-10); Hematocrit 34.7 % (41.0-53.0); Hemoglobin 11.8 g/dL (13.5-16.0); Immature Granulocytes Auto 0.33 Thou/mm3 (0.00-0.00); Lymphocytes # (Auto) 0.5 Thou/mm3 (1.0-4.8); Lymphocytes % (Auto) 4 % (10-50); Mean Corpuscular HGB Conc 34.0 g/dl (31.0-37.0); Mean Corpuscular Hemoglobin 32.2 pg (25.0-35.0); Mean Corpuscular Volume 95 fL (80-100); Monocytes # (Auto) 0.2 Thou/mm3 (0.0-0.8); Monocytes % (Auto) 2 % (0-12); Neutrophils # (Auto) 12.3 Thou/mm3 (1.8-7.7); Neutrophils % (Auto) 91 % (37-80); Nucleated Red Blood Cell # 0.00 Thou/mm3 (0.00-0.00); Nucleated Red Blood Cell % 0 /100 WBC (0); Platelet Count 90 Thou/mm3 (140-440); RDW Standard Deviation 53.3 fL (35.1-43.9); Red Blood Count 3.67 Miln/mm3 (4.50-5.90); White Blood Count 13.5 Thou/mm3 (3.8-10.6)
[2024-12-20] MEDS: LEVOTHYROXINE SODIUM 100 MCG TABLET PO (06:00)
[2024-12-20 06:27] LABS: Alanine Aminotransferase 15 U/L (10-49); Albumin, Serum 3.5 gm/dL (3.4-4.8); Albumin/Globulin Ratio 1.2 (1.2-2.2); Alkaline Phosphatase 69 U/L (46-116); Anion Gap 15 (7-16); Aspartate Amino Transferase 19 U/L (0-34); BUN/Creatinine Ratio 36 Ratio (12-20); Bilirubin,Total 0.6 mg/dL (0.3-1.2); Blood Urea Nitrogen 64 mg/dL (9-23); Calcium 9.1 mg/dL (8.3-10.6); Calcium (Corrected) 9.5 mg/dL (8.5-10.1); Carbon Dioxide 25.6 mMol/L (20.0-31.0); Chloride 109 mMol/L (98-107); Creatinine (Component) 1.8 mg/dL (0.6-1.3); Estimated Creatinine Clearance 26.1 mL/min (>60); Globulin 2.9 gm/dL (2.3-3.5); Glucose 241 mg/dL (74-106); Magnesium 1.8 mg/dL (1.6-2.6); Osmolality,Calculated 324 (275-295); Phosphorous 2.1 mg/dL (2.4-5.1); Potassium 3.7 mMol/L (3.4-5.1); Sodium 150 mMol/L (136-145); Total Protein 6.4 gm/dL (5.7-8.2); eGFR 36 See Note
[2024-12-20] MEDS: INSULIN LISPRO (AdmeLOG) 1 UNIT/0.01 ML UNIT SC ×3 (07:39→17:26)
--- NOTE | 2024-12-20 07:57 | ESPR_ITS ---
Documentation for date of: 12/20/24 Subjective Subjective Interval history: Lars Landry is an 89-year-old M with a PMH of hypertension, hypothyroidism, T2DM, BPH, GERD, HLD, CKD stage III, and HFrEF who presents today with belly pain, nausea, and vomiting. Patient states that he began to have abdominal discomfort last after eating out, which has worsened since then. States it is localized to the umbilicus region of the abdomen. Patient characterizes the pain as constant and burning. It worsens with eating and improves after drinking liquids. Patient denies ever having a similar presentation in the past. The patient last vomited on Sunday and describes the vomitus as being brown in color. His last bowel movement was 5 to 6 days ago and productive of liquid brown stool. He also endorses a cough that is productive of black mucus. At the time of the interview, patient reported his belly pain to be a 3/10. ED Course: In the ED, patient came in with low blood pressure of 46/35 that improved after having total 1.25 NS bolus and continues to be on 1 L NS maintenance fluids. Patient found to have high anion gap metabolic acidosis, BUN 119, Cr 5.8, eGFR 9, lactic acid of 4.2 (improved to 2.6), and elevated trop 0.098. UA was turbid and showed 1+ protein, 1+ bilirubin, slightly high WBC 8, and amorphous crystals with some hyaline casts. CT AP was consistent with reflux esophagitis and sbo (f/u small bowel series). EKG showed sinus rhythm with possible left atrial enlargement, left axis deviation, and left bundle branch block. Head CT and CXR was unremarkable. Patient was admitted for the work-up and management of suspected SBO. 12/17/2024 When patient was seen and examined, he had his sister and niece at bedside. Patient is alert and oriented x3 and says he is feeling good, just feels a little weak. Denies and new concerns/complaints. Patient denies having fever, headache, chest pain, shortness of breath, abdominal pain, flank pain or dysuria. Patient noted PCP is Dr. Barcenas in [place]. 12/18/2024 Patient was seen and examined. Patient is moving and speaking a lot slower, still is a&o x3. Patient states he feels thirsty, weak and has some mild abdominal pain with nausea that has been getting worse overnight. Patient denies fever, chest pain, shortness of breath, vomiting, dysuria. Patient was given an amp of dextrose this morning and was started on KCl maintenance fluids. Patient's Cr improved to 4.2 today (5.0 yest). 12/19/2024 Patient was seen and examined. Patient's vitals and labs were examined. Patient had ex lap yesterday for obstruction. Patient's Cr improving, on maintenance fluids NS. Patient states he continues to feel thirsty, weak and has some mild abdominal pain. Patient denies fever, chest pain, shortness of breath, nausea, vomiting, dysuria. Notable labs includes sodium 146, chlroide 113, bicarb 18.6, BUN 85, Cr 2.5. 12/20/2024 Patient was seen and examined. Patient's vitals and labs were examined. Patient's Cr improving, started on d5w now and lantus. Patient still endorses some mild abdominal pain. Patient denies fever, chest pain, shortness of breath, nausea, vomiting, dysuria. Exam Vital Signs Temp Pulse Resp BP Pulse Ox O2 Del Method O2 Flow Rate 97.5 F 79 15 151/79 H 97 Nasal Cannula 2 12/19/24 12:00 12/20/24 04:00 12/19/24 12:00 12/20/24 02:14 12/19/24 12:00 12/19/24 12:00 12/19/24 12:00 Narrative Exam CONST: Negative for fever, body aches and chills. HENT: Negative for neck pain/stiffness, headache, congestion, sore throat, swelling. EYES: Negative for discharge/pain or vision changes. RESP: Negative for cough/hemoptysis and shortness of breath. CV: Negative chest pain, difficulty breathing, palpitations. ABD: Soft, nontender, non-distended; Abdominal pad s/p ex lap; Endorses abdominal pain. Negative pain, nausea, vomiting. : Negative increase frequency, dysuria, blood in urine or stool. MUSC: Negative for muscle aches, edema. SKIN: Negative rash, lesions/sores. NEURO: Negative headache, dizziness, weakness. Objective Labs 12/20/24 04:59 12/20/24 04:59 Labs: Laboratory Results - last 24 hr 12/19/24 12/20/24 05:02 04:59 WBC 13.5 H D RBC 3.67 L Hgb 11.8 L D Hct 34.7 L MCV 95 MCH 32.2 MCHC 34.0 RDW Std Deviation 53.3 H Plt Count 90 L D Neut % (Auto) 91 H Lymph % (Auto) 4 L [place] % (Auto) 2 Eos % (Auto) 0 Baso % (Auto) 1 Neut # (Auto) 12.3 H Lymph # (Auto) 0.5 L [place] # (Auto) 0.2 Eos # (Auto) 0.0 Baso # (Auto) 0.1 Immature Gran # (Auto) 0.33 H Absolute Nucleated RBC 0.00 Immature Gran % 2 H Nucleated RBC % 0 Sodium 150 H Potassium 3.7 Chloride 109 H Carbon Dioxide 25.6 Anion Gap 15 BUN 64 H Creatinine 1.8 H D Estim Creat Clear Calc 26.1 L eGFR 36 L BUN/Creatinine Ratio 36 H Glucose 241 H D Calculated Osmolality 324 H Calcium 9.1 Corrected Calcium 9.5 Phosphorus 2.1 L Magnesium 1.8 Total Bilirubin 0.6 AST 19 ALT 15 Alkaline Phosphatase 69 D Total Protein 6.4 Albumin 3.5 D Globulin 2.9 Albumin/Globulin Ratio 1.2 Free T4 0.72 L ABG Interpretation ABG results: 12/17/24 12/18/24 12/18/24 12:07 15:43 16:24 ABG pH 7.41 7.34 L 7.30 L ABG pCO2 38 45 46 ABG pO2 60 L 111 H D 152 H D ABG HCO3 24 25 22 ABG O2 Saturation 89 L 99 H 100 H ABG Base Excess 0 -1 -4 L Quality Measures Quality Measures VTE prophylaxis Advance care planning discussed with:: patient Assessment & Plan Assessment Current Active Medications: Generic Name Dose Route Start Last Admin Trade Name Freq PRN Reason Stop Dose Admin Dextrose 25 ml 12/17/24 04:55 12/18/24 07:23 Dextrose 50%-Water Inj 50 Ml Syringe IV 01/16/25 04:54 25 ml Q15MIN PRN Administration BG 50-70 responsive npo pt Dextrose 50 ml 12/17/24 04:55 Dextrose 50%-Water Inj 50 Ml Syringe IV 01/16/25 04:54 Q15MIN PRN BG <50 OR BG <70 & pt unresponsive Glucagon 1 mg 12/17/24 04:55 Glucagon Inj 1 Mg Vial IM Q15MIN PRN BG <70, and no IV access Guaifenesin 100 mg 12/19/24 15:08 12/19/24 15:39 Guaifenesin Syrup 200 Mg/10 Ml Udc PO 01/18/25 15:07 100 mg QID PRN Administration COUGH Protocol Ceftriaxone Sodium/Dextrose 1 gm in 50 mls @ 100 mls/hr 12/17/24 17:54 12/19/24 08:24 Rocephin/D5w 1gm Iv Premix IV 12/24/24 17:53 50 mls/hr QDAY DANNI Administration Insulin Human Lispro 0 unit 12/20/24 07:30 12/20/24 07:39 Insulin Lispro (Admelog) 1 Unit/0.01 Ml Unit SC 01/19/25 07:29 3 unit AC DANNI Administration Protocol Levothyroxine Sodium 100 mcg 12/19/24 06:00 12/20/24 06:00 Levothyroxine Sodium 100 Mcg Tablet PO 01/18/25 05:59 100 mcg ACBR DANNI Administration Morphine Sulfate 3 mg 12/19/24 11:48 Morphine Sulf Inj 10 Mg/Ml Vial IVP 12/24/24 00:05 Q6HR PRN PAIN SCALE 4-10(Mod-Sev Ondansetron HCl 4 mg 12/17/24 00:45 12/17/24 02:39 Ondansetron Inj 2 Mg/Ml Inj 2 Ml IVP 01/16/25 00:44 4 mg Q6H PRN Administration NAUSEA OR VOMITING Protocol Pharmacy Consult 1 each 12/17/24 17:54 Pharmacy Renal Dose Adjustment 1 Ea XX 01/16/25 17:53 PRN PRN CONSULT Plan Lars Angelica Landry is an 89-year-old M with a PMH of hypertension, hypothyroidism, T2DM, BPH, GERD, HLD, CKD stage III, and HFrEF who presented with belly pain, nausea, and vomiting. Patient was admitted for the work-up and management of suspected SBO. Patient was consulted for SADIQ on CKD #Acute renal failure on CKD (stage III), improving #Lactic acidosis, improving Suspect pre-renal etiology 2/2 dehydration and poor oral intake. Cr 5.8 on admission (baseline Cr: around 1.2), currently improving at 1.8. Continues to be on maintenance fluids. Currently making urine with stanley in place. S/p ex lap for abd obstruction. - Started d5w @ 100 mls/hr and lantus 10 u q daily - Will continue to closely monitor, Cr. improving. - f/u CMP - Strict I/Os, monitor UOP - Renal dose med, avoid nephrotoxins #SBO #Elevated troponins, likely 2/2 NSTEMI Type II #Chronic medical problems #Reflux esophagitis #T2DM #Hypothyroidism problems above managed via primary team Thank you for allowing us to be apart of the care for Mr. Landry Plan of care discussed with attending, Dr. Andrey Miguel MD PGY-1 Attending Provider Attestation/Addendum Patient seen and examined with resident physician Dr. Miguel. Note reviewed, agree with findings and recommendations. Patient admitted with bowel obstruction. He has an NG tube. Clinically looks dehydrated. Gave him some IV fluids. Renal ultrasound, electrolytes ordered. Severe azotemia noted. Might be going towards ischemic ATN blood pressure on the soft side. Will monitor closely. Today his BUN is 111, creatinine 5. Bicarbonate 18, potassium 3.3. No need for emergency dialysis. 12/18/2024 patient currently seen in medical floor. He is more alert and awake. Able to move all his extremities. Still with abdominal distention. Small bowel series showed high-grade bowel obstruction. Despite BUN and creatinine still elevated-patient has good urinary output. Continue with IV fluids. At this point I would hold off on dialysis. This afternoon Dr. Jimenez called-planning to take him for surgery. Recommended to continue with observation. No need for emergency dialysis. Dr. Jimenez decided to proceed to take him for surgery. Will monitor him closely post op. If no improvement in azotemia will plan for dialysis tomorrow. 12/20/2024 patient currently seen in medical floor. Patient started to have good urine output and BUN and creatinine improving. Status post bowel surgery for his high-grade bowel obstruction. Continue with gentle IV fluids and replace electrolytes. He has a good bowel movement. More alert and awake.
--- NOTE | 2024-12-20 08:39 | XR_ITS ---
Examination: AP chest single view Technique one AP portable semiupright chest single view Date and time: December 20, 2024, 0932 hrs. Comparison December 19, 2024 Indications: Shortness of breath today. Findings: Intervals of the right hemithorax Mild to moderate enlargement left ventricle. Mild bibasilar pneumonia. No pulmonary edema. Impression: Mild bibasilar pneumonia.
[2024-12-20 09:17] LABS: B-Type Natriuretic Peptide 357 pg/mL (0-100)
[2024-12-20] MEDS: DEXTROSE 5%-WATER 1,000 ML 100 ML IV (10:02)
[2024-12-20] MEDS: cefTRIAXone/D5w 1gm IV premix 1 GM/50 ML BAG IV (10:05)
[2024-12-20] MEDS: INSULIN GLARGINE (Lantus) 5 UNIT/0.05 ML (PER 5 UNITS) 10 UNIT SC (10:08)
[2024-12-20] MEDS: metroNIDAZOLE/NS 500 MG IVPB 500 MG/100 ML BAG 200 MG IV ×2 (10:43→22:25)
--- NOTE | 2024-12-20 12:42 | ESPR_ITS ---
<Statement entered by Adriano Coughlin MD - 12/30/24 07:44> I reviewed above note and agree with findings and plans. I have also personally examined the patient with medicine team and went over assessment and plan with medical team including internal affairs investigator and resident physician. Documentation for date of: 12/20/24 Subjective Subjective Interval history: Patient was seen and examined at bedside. A.m. vitals and labs reviewed. The patient S/P exploratory laparotomy with lysis of adhesions and release of obstruction DAY2. Patient's creatinine is improving from 2.5 to 1.8. WBC increased from 6.4 to 13.5 likely due to surgeries he had. However, with CXR indication of pneumonia and elevated WBC count, added metronidazole for possible aspiration pneumonia. Today's EKG (12/20/2024) showed some T wave abnormalities. Troponin test was ordered. He was alert and oriented X3. Very interactive compared to yesterday. He was off of NG tube. Patient endorsed some pain in his abdomen but denied any shortness of breathe, chest pain, palpitations, fevers or chills. Exam Vital Signs Temp Pulse Resp BP Pulse Ox O2 Del Method O2 Flow Rate 97 F 64 18 149/69 H 94 L Nasal Cannula 4 12/20/24 11:48 12/20/24 11:48 12/20/24 11:48 12/20/24 11:48 12/20/24 11:48 12/20/24 11:48 12/20/24 11:48 Narrative Exam General: Awake, tired. Conversational and non-toxic appearing. HEENT: Normocephalic, atraumatic, mucous membranes moist. Heart: Regular rate and rhythm, no murmurs. Lungs: Bilateral coarse breath sounds. Abdomen: Diffuse tenderness, positive bowel sound, dressing intact, no serosanguineous staining of dressing noted. Neurologic: Alert and oriented x3, no gross neurological deficit, and patient able to move all 4 extremities. Extremities: No edema. Skin: No rash or ecchymoses. Objective Labs 12/20/24 04:59 12/20/24 04:59 Labs: Laboratory Results - last 24 hr 12/20/24 04:59 WBC 13.5 H D RBC 3.67 L Hgb 11.8 L D Hct 34.7 L MCV 95 MCH 32.2 MCHC 34.0 RDW Std Deviation 53.3 H Plt Count 90 L D Neut % (Auto) 91 H Lymph % (Auto) 4 L Isabella % (Auto) 2 Eos % (Auto) 0 Baso % (Auto) 1 Neut # (Auto) 12.3 H Lymph # (Auto) 0.5 L Isabella # (Auto) 0.2 Eos # (Auto) 0.0 Baso # (Auto) 0.1 Immature Gran # (Auto) 0.33 H Absolute Nucleated RBC 0.00 Immature Gran % 2 H Nucleated RBC % 0 Sodium 150 H Potassium 3.7 Chloride 109 H Carbon Dioxide 25.6 Anion Gap 15 BUN 64 H Creatinine 1.8 H D Estim Creat Clear Calc 26.1 L eGFR 36 L BUN/Creatinine Ratio 36 H Glucose 241 H D Calculated Osmolality 324 H Calcium 9.1 Corrected Calcium 9.5 Phosphorus 2.1 L Magnesium 1.8 Total Bilirubin 0.6 AST 19 ALT 15 Alkaline Phosphatase 69 D B-Natriuretic Peptide 357 H Total Protein 6.4 Albumin 3.5 D Globulin 2.9 Albumin/Globulin Ratio 1.2 ABG Interpretation ABG results: 12/17/24 12/18/24 12/18/24 12:07 15:43 16:24 ABG pH 7.41 7.34 L 7.30 L ABG pCO2 38 45 46 ABG pO2 60 L 111 H D 152 H D ABG HCO3 24 25 22 ABG O2 Saturation 89 L 99 H 100 H ABG Base Excess 0 -1 -4 L Quality Measures Quality Measures VTE prophylaxis Advance care planning discussed with:: patient Assessment & Plan Assessment Current Active Medications: Generic Name Dose Route Start Last Admin Trade Name Berryq PRN Reason Stop Dose Admin Carvedilol 12.5 mg 12/20/24 17:30 Carvedilol 12.5 Mg Tablet PO 01/19/25 17:29 BIDWM DANNI Dextrose 25 ml 12/17/24 04:55 12/18/24 07:23 Dextrose 50%-Water Inj 50 Ml Syringe IV 01/16/25 04:54 25 ml Q15MIN PRN Administration BG 50-70 responsive npo pt Dextrose 50 ml 12/17/24 04:55 Dextrose 50%-Water Inj 50 Ml Syringe IV 01/16/25 04:54 Q15MIN PRN BG <50 OR BG <70 & pt unresponsive Glucagon 1 mg 12/17/24 04:55 Glucagon Inj 1 Mg Vial IM Q15MIN PRN BG <70, and no IV access Guaifenesin 100 mg 12/19/24 15:08 12/19/24 15:39 Guaifenesin Syrup 200 Mg/10 Ml Udc PO 01/18/25 15:07 100 mg QID PRN Administration COUGH Protocol Ceftriaxone Sodium/Dextrose 1 gm in 50 mls @ 100 mls/hr 12/17/24 17:54 12/20/24 10:05 Rocephin/D5w 1gm Iv Premix IV 12/24/24 17:53 50 mls/hr QDAY DANNI Administration Dextrose 1,000 mls @ 100 mls/hr 12/20/24 08:45 12/20/24 10:02 D5w IV 01/19/25 08:44 100 mls/hr .Q10H DANNI Administration Metronidazole 500 mg in 100 mls @ 200 mls/hr 12/20/24 09:00 12/20/24 10:43 Flagyl 500 Mg Iv IV 12/27/24 08:59 200 mls/hr Q12HR DANNI Administration Insulin Glargine 10 unit 12/20/24 09:00 12/20/24 10:08 Insulin Glargine (Lantus) 5 Unit/0.05 Ml (Per 5 Units) SC 01/19/25 08:59 10 unit QDAY DANNI Administration Insulin Human Lispro 0 unit 12/20/24 07:30 12/20/24 11:26 Insulin Lispro (Admelog) 1 Unit/0.01 Ml Unit SC 01/19/25 07:29 2 unit AC DANNI Administration Protocol Levothyroxine Sodium 100 mcg 12/19/24 06:00 12/20/24 06:00 Levothyroxine Sodium 100 Mcg Tablet PO 01/18/25 05:59 100 mcg ACBR DANNI Administration Morphine Sulfate 3 mg 12/19/24 11:48 Morphine Sulf Inj 10 Mg/Ml Vial IVP 12/24/24 00:05 Q6HR PRN PAIN SCALE 4-10(Mod-Sev Ondansetron HCl 4 mg 12/17/24 00:45 12/17/24 02:39 Ondansetron Inj 2 Mg/Ml Inj 2 Ml IVP 01/16/25 00:44 4 mg Q6H PRN Administration NAUSEA OR VOMITING Protocol Pantoprazole Sodium 40 mg 12/20/24 21:00 Pantoprazole Inj 40 Mg Vial IVP 01/19/25 20:59 BID [facility] Pharmacy Consult 1 each 12/17/24 17:54 Pharmacy Renal Dose Adjustment 1 Ea XX 01/16/25 17:53 PRN PRN CONSULT Plan Patient is a 89-year-old male with past medical history of hypertension, hypothyroidism, BPH, GERD, [id number] type 2 diabetes mellitus, hyperlipidemia, stage III chronic kidney disease, heart failure with reduced ejection fraction, EF 30% 06/2024, chronic anemia 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 ICU team was priorly consulted due to persistent hypotension however patient's MAP improved with aggressive fluid resuscitation. Patient was diagnosed with mechanical small bowel obstruction and taken to operating room by general surgery and had exploratory laparotomy with lysis of adhesions and release of obstruction. Patient upgraded to intensive care unit for overnight monitoring. On 12/19/2024, Patient has been downgraded to med/tele. # S/P exploratory laparotomy with lysis of adhesions and release of obstruction 12/18 #High-grade mechanical small bowel obstruction-Resolved #Leukocytosis 2/2 surgery -Patient presented with umbilical abdominal pain, worsen with eating solid food. No bowel movement for 5 days. -Noncontrast CT AP showing a high-grade mechanical small bowel obstruction . -Gastrografin small bowel series (12/17/2024 and 12/18/2024): High grade mechanical Small bowel obstruction pattern -12/18/2024: Patient received exploratory laparotomy with adhesion lysis and release of obstruction. -Per op report, the patient was found to have a complete small bowel obstruction caused by an adhesive band originating from the base of the mesentery, resulting in marked distension of the jejunum. The ileum was decompressed and normal in caliber throughout. No bowel perforation, or free fluid in abdomen. There were no complications and did not require medications to increase MAP during surgery. Had arterial line. Blood pressures was stable. -Patient had 3 bowel movement overnight. Upon examination, patient was alert and oriented X3, abdominal pain noted at incision site. -Patient's WBC increased from 6.4 to 13.5, likely from the SBO surgery VS aspiration pneumonia, unlikely based on his recent CXR(12/20/2024) showing mild bibasilar pneumonia Plan: -Monitor surgical site for any signs of infection or erythema. -NG tube discontinued. Currently on diabetic Carbohydrate consistent diet. -Monitor for bowel movements -Morphine 3 mg every 6 hours as needed -General Surgery consulted, appreciate recommendations -Continue monitor CBC. #Possible GI bleed, likely upper #Hx of GERD -due to trauma from NG tube VS Gastric ulcer -Prior to surgery, on 12/17/2024, 3.2 L coffee-ground fluid was aspirated through NG tube. -Patient's hemoglobin has been downtrending since admission -Yesterday, output through NG tube was green in color -Did not require any active transfusions during hospitalization. Plan: -Resumed protonix 40mg IV bid -Monitor hemoglobin -Once patient stabilize, possible GI consult for endoscopy. #Acute hypoxic respiratory failure, in setting of SIRS, pneumonia, postop -CXR (12/17/2024): Significant diffuse left lung pneumonia -CXR (12/19/2024): Significant diffuse left lung and right base pneumonia -CXR (12/20/2024): Mild bibasilar pneumonia. -Patient was on room air was started on supplemental oxygen prior to surgery on hospitalization, likely in setting of increased demand in setting of SIRS. -Patient received doxycycline 12/17 - 12/19, MRSA nares negative -Blood Culture (12/16/2024): Negative for 48hrs. -Currently 94% O2sat in Nasal Cannula 4L Plan: -Ceftriaxone 1g IV qd (12/17- -Maintain SPO2 greater than 92, titrate supplemental oxygen. -Incentive spirometry, Acapella device -Metronidazole 500mg in 100ml IV Q12hr was added to cover possible aspiration pneumonia. #Acute SADIQ on CKD, likely prerenal #CKD stage III #Non-anion gap metabolic acidosis-Resolving #Lactic acidosis ? Resolved -On admission, Cr initially 5.8 which is >0.3 change from baseline of 1.6, with worsening GFR on admission of 9. (40-50 at baseline). BURN:Cr>20 and FENa was 1.3%. Likely pre-renal. Intrinsic SADIQ cannot be ruled out. Monitor urine output. ? -Upon downgrade from ICU 12/18/2024, Patient kidney function improving. Creatinine downtrending from 2.5 to 1.8. -SADIQ and Non-anion gap metabolic acidosis likely due to combination of Small Bowl Obstruction and Multiple episodes of hypotensive episodes during which MAP dropped to 50s and systolic BP 80s -Renal function improving with IV fluid resuscitation -Hgb:11.8 MCV:95. CO2: 25.6, A -Urine output: 3650 ml? 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 Plan: - Follow up with outpatient oncologist for PBF smear report in 2018 - Monitor CBC, transfuse hemoglobin if less than 7 #Troponemia, resolved? #NSTEMI type II Tropneemia likely NSTEMI type II, in the setting of small bowel obstruction, SIRs, and SADIQ. No ST elevation noted on EKG or changes. Diagnostics: - Elevated to troponin 0.098 currently downtrending to 0.082 - EKG(12/20/2024) showed abnormal T-waves. Plan - Consider repeat EKG, monitor for chest pain - Cardiology is following - Cardiology, Dr. Tapia, following - Ordered troponin levels. #Congestive Heart Failure #CHF HFrEF 30% (06/2024) #Severe Systolic Dysfunction #Mild Aortic Regurgitation Patient has a past medical history of heart failure, likely cardiomyopathy given previous echo noted for severe systolic dysfunction. Patient is currently not in CHF exacerbation as no crackles noted on physical exam, Cxr mild vascular congestion, and now lower peripheral edema. Diagnostic: ECHO (06/09/2024): Normal LV size. Severe systolic dysfunction. Estimated EF 30%, Normal RV size and function, Mild LA dilatation, Moderate MR. Mild TR. Mild sclerosis without stenosis Mild aortic regurgitation ASCVD: not applicable given age ? NYHA:I Plan: - Monitor for signs of fluid overload - Cardiology was consulted, following - Strict intake and output - Daily weight - Resume GDMT as tolerated once able to take p.o. medications #Hypertension #Hypotensive, resolved Patient has a past medical history of hypertension. Patient is on GDMT for heart failure, likely Coreg, controlling blood pressure. Plan -continue Coreg, part of GDMT -continue to monitor BP #Hyperlipidemia Patient has pmh of hyperlipidemia, on atorvastatin 20mg hs ASCVD score non applicable given his age of 89, continue nonetheless Plan: -Continue atorvastatin 20mg hs #BPH Patient has a history of BPH, home medication Flomax 0.4 mg. Initially holding Flomax given low blood pressure and concern for shock. Plan -Resume Flomax 0.4 mg -Continue to monitor for low BP #History of Diabetes Mellitus Type 2, non-insulin dependent - Previously patient not taking home medication for diabetes Mellitus not listed. Likely diet controlled -Upon admission patient became hyperglycemic. -A1c 5.2 Plan: -Sliding scale insulin every 6 hours -Hypoglycemia protocol -Monitor fingerstick for now, consider discontinuing if within normal limits -Monitor blood glucose, in daily CMP #Hypothyroidism TSH 0.46, free T4 0.72 -Patient likely unable to get home dose levothyroxine due to SBO, continue home dose -Repeat panel outpatient and titrate dose #Thrombocytopenia, chronic DDx: In setting of cirrhosis, ITP - Monitor platelet count, transfuse if less than 20 #Reduced vision right eye Reports that he has vision problems, per chart review patient has history of CRAO of right eye. Has been following ophthalmology, currently reports no acute vision changes. - Follow-up outpatient with ophthalmology DVT prophylaxis: SCDs GI prophylaxis: IV Protonix BID Diet: Diabetic carbohydrate consisten diet Lines: Peripheral IV Code status: Full Code Dispo: Downgraded to med/tele, hospitalist team B
--- NOTE | 2024-12-20 12:59 | PD.SURPROG ---
Documentation for date of: 12/20/24 Subjective Subjective Brief History: History of present illness revealed that the patient had considerable abdominal distention and after the NG tube decompression he flattened out. Patient was admitted with the abdominal complaint of pain for 3 days and he has not had a bowel movement at least for 3 days. Patient is very obtunded and is not able to give any history. He was also hypotensive on the call in rapid response. Patient's past medical history could not be elicited properly because of his patient's mental status. He has had abdominal surgery as shown by the surgical scar in the midline patient also has had a colostomy done and then reversed in [facility] in . Patient has been having a history of congestive heart failure and he has been admitted here in the past year and was diagnosed as CHF his other medical problem consisted of hypertension hypothyroidism diabetes GERD coronary artery disease and benign prostatic hypertrophy. Narrative: Patient tolerated clear liquids. Exam Vital Signs Temp Pulse Resp BP Pulse Ox O2 Del Method O2 Flow Rate 97 F 64 18 149/69 H 94 L Nasal Cannula 4 12/20/24 11:48 12/20/24 11:48 12/20/24 11:48 12/20/24 11:48 12/20/24 11:48 12/20/24 11:48 12/20/24 11:48 His vital signs are normal Routine Abdominal Exam Comments: Abdominal examination shows excellent bowel sounds Results Results: Laboratory Laboratory Narrative: He has mild leukocytosis. BUN/creatinine are trending down Assessment & Plan Assessment Additional comments: Impression: Satisfactory recovery following enterolysis Plan Plan we shall advance diet Increase activity DC Coates PROCEDURES: Procedures Exploratory laparotomy and lysis of adhesions and release of obstruction
--- NOTE | 2024-12-20 16:33 | PC.NURSE ---
Received call from automated equipment engineer technician regarding patient heart rhythm A-FIB, patient sitting at side of bed, BP 132/89 RR 16 oxygen 94% 4LNC, denies any chest pain, patient states feels good.
--- NOTE | 2024-12-20 16:37 | PC.NURSE ---
Called ekg monitor, patient continues to be in A-Fib. Notified Dr. Zamorano. Stat EKG ordered.
--- NOTE | 2024-12-20 16:41 | EKG_ITS ---
[facility] Test Date: 2024-12-20 Pat Name: MADDISON GILLETTE [facility] Commissioner Of Officials: ELAINE : 1935 Requested By: Santosh Zamorano Order Number: [id number] Reading MD: Santosh Zamorano Measurements Intervals Babbitt Rate: 86 P: ID: QRS: -83 QRSD: 169 T: 87 QT: 469 QTc: 562 Interpretive Statements ATRIAL FIBRILLATION WITH ABERRANT CONDUCTION OR VENTRICULAR PREMATURE COMPLEXES RIGHT BUNDLE BRANCH BLOCK LEFT ANTERIOR FASCICULAR BLOCK ANTEROSEPTAL MYOCARDIAL INFARCTION , OF INDETERMINATE AGE MODERATE T-WAVE ABNORMALITY, CONSIDER LATERAL ISCHEMIA Compared to ECG 12/18/2024 12:16:43 Ventricular premature complex(es) now present Aberrant conduction of supraventricular beat(s) now present Left anterior fascicular block now present Myocardial infarct finding now present T-wave abnormality now present Possible ischemia now present Sinus rhythm no longer present Left-axis deviation no longer present /store/S0/[id number]/[id number].pdf
[2024-12-20 20:06] LABS: Troponin I 0.069 ng/mL (0.0-0.045)
--- NOTE | 2024-12-20 20:56 | PD.IMCONS ---
HPI Data of Consult Requesting Physician: Krish Ramirez MD Primary Care Provider: Physician No Primary/Family Consult Narrative Reason for consult: History of GI bleed and low hemoglobin hematocrit History of present illness: 89 years old male presented on 12/17/2024 with nausea vomiting abdominal pain was found to have small bowel obstruction requiring exploratory laparotomy with lysis of the adhesions in the distal jejunum there was a point of transition Patient NGT has been pulled out he has been passing flatus At some point during this hospitalization patient had GI bleed with a low hemoglobin hematocrit at 9.8 and 27.6 And that is why I have been consulted No active bleeding seen by the nursing staff in terms of hematemesis or melanotic stools Patient does have a history of essential hypertension hypothyroidism diabetes mellitus type 2 BPH hyperlipidemia and CKD stage III Renal function is improving as a BUN/creatinine has come down to 64 and 1.8 cc:: cc: Krish Ramirez MD Review of Systems Review of Systems Systems Reviewed: All systems reviewed, normal except as documented Past Medical History Surgical History OTHER SURGICAL HX: As in the history of present illness Meds Home Medications and Allergies Home Medications ?Medication ?Instructions ?Recorded ?Confirmed ?Type GLIPIZIDE 10 mg PO QDAY ##0 06/23/13 12/18/24 History Isosorbide Mononitrate * (IMDUR *) 30 mg PO QDAY ##90 06/23/13 12/18/24 History Levothyroxine * (SYNTHROID *) 100 mcg PO QDAY ##90 06/23/13 12/18/24 History lisinopril 40 mg tablet 40 mg PO QDAY ##90 06/23/13 12/18/24 History Glucosamine/MSM/Chondroitin A * 1 tab PO BID #0 tabs 08/25/16 12/18/24 History (TRIPLEFLEX *) cholecalciferol (vitamin D3) 50 2,000 unit PO QDAY #0 caps 08/25/16 12/18/24 History mcg (2,000 unit) capsule (Vitamin D3) hydrochlorothiazide 25 mg tablet 25 mg PO QAM #0 tabs 08/25/16 12/18/24 History tamsulosin 0.4 mg capsule 0.4 mg PO QDAY 07/02/18 12/18/24 History atorvastatin 20 mg tablet 20 mg PO QDAY 12/17/24 12/17/24 History levothyroxine 100 mcg tablet 100 mcg PO DAILY 12/17/24 12/19/24 History sacubitril 24 mg-valsartan 26 mg 1 tab PO BID 12/17/24 12/18/24 History tablet (Entresto) potassium chloride 8 mEq 8 meq PO BID 12/18/24 12/18/24 History tablet,extended release Allergies Allergy/AdvReac Type Severity Reaction Status Date / Time No Known Allergies Allergy Verified 12/16/24 20:29 Exam Vital Signs Temp Pulse Resp BP Pulse Ox O2 Del Method O2 Flow Rate 97.5 F 77 24 H 144/69 H 93 L Nasal Cannula 4 12/20/24 19:00 12/20/24 19:00 12/20/24 19:00 12/20/24 19:00 12/20/24 19:00 12/20/24 19:00 12/20/24 15:48 Routine Respiratory Exam Comments: Normal to auscultation Routine Abdominal Exam Comments: Soft nontender hypoactive bowel sounds Results Labs 12/20/24 04:59 12/20/24 04:59 Labs: Short CBC 12/20/24 Range/Units 04:59 WBC 13.5 H D (3.8-10.6) Thou/mm3 Hgb 11.8 L D (13.5-16.0) g/dL Hct 34.7 L (41.0-53.0) % Plt Count 90 L D (140-440) Thou/mm3 BMP 12/20/24 04:59 Sodium 150 H Potassium 3.7 Chloride 109 H Carbon Dioxide 25.6 BUN 64 H Creatinine 1.8 H D Glucose 241 H D Calcium 9.1 Cardiac Enzymes 12/20/24 Range/Units 18:50 Troponin I 0.069 H* (0.0-0.045) ng/mL Liver Function 12/20/24 Range/Units 04:59 Total Bilirubin 0.6 (0.3-1.2) mg/dL AST 19 (0-34) U/L ALT 15 (10-49) U/L Alkaline Phosphatase 69 D (46-116) U/L Albumin 3.5 D (3.4-4.8) gm/dL ABG Interpretation ABG results: 12/17/24 12/18/24 12/18/24 12:07 15:43 16:24 ABG pH 7.41 7.34 L 7.30 L ABG pCO2 38 45 46 ABG pO2 60 L 111 H D 152 H D ABG HCO3 24 25 22 ABG O2 Saturation 89 L 99 H 100 H ABG Base Excess 0 -1 -4 L Assessment and Plan Additional Assessment & Plan Additional Plan: # Anemia multifactorial Before any invasive GI workup Recommend stool for occult blood Iron panel Iron saturation B12 Folate level Reticulocyte count Will follow the patient Other medical problems include Small bowel obstruction status post exploratory lap and lysis of the adhesions Essential hypertension Diabetes mellitus type 2 CKD stage III BPH
[2024-12-20 22:35] LABS: Immature Reticulocyte Fraction 9.5 % (2.3-13.4); Reticulocyte % (Auto) 2.2 % (0.5-1.5); Reticulocyte Absolute Auto 69.6 Biln/L (25.0-75.0); Reticulocyte Hgb Content 32.3 pg (28.0-35.0)
[2024-12-20 22:56] LABS: Iron 64 mcg/dL (65-175); Percent Iron Saturation 36 % (20-55); Total Iron Binding Capacity 174 mcg/dL (250-425); Unsaturated Iron Binding 110 (225-295)
[2024-12-21] VITALS (7 sets, daily range): BP systolic 129–149; BP diastolic 69–83; PULSE 65–85; RESP 17–24; TEMP 36.1–36.5; O2SAT 93–96
[2024-12-21 01:02] LABS: Troponin I 0.055 ng/mL (0.0-0.045)
--- NOTE | 2024-12-21 01:11 | PC.NURSE ---
Dr. Vogel notified regarding elevated troponin around 2014 on 12/20. No new orders.
--- NOTE | 2024-12-21 01:30 | PC.NURSE ---
Dr. Vogel notified regarding elevated troponin at 2149 on 12/20. No new orders.
[2024-12-21] MEDS: LEVOTHYROXINE SODIUM 100 MCG TABLET PO (05:23)
[2024-12-21 06:49] LABS: Basophils # (Auto) 0.0 Thou/mm3 (0.0-0.2); Basophils % (Auto) 0 % (0-2.5); Eosinophils # (Auto) 0.0 Thou/mm3 (0.0-0.5); Eosinophils % (Auto) 0 % (0-10); Hematocrit 29.3 % (41.0-53.0); Hemoglobin 10.2 g/dL (13.5-16.0); Immature Granulocytes Auto 0.29 Thou/mm3 (0.00-0.00); Lymphocytes # (Auto) 0.3 Thou/mm3 (1.0-4.8); Lymphocytes % (Auto) 4 % (10-50); Mean Corpuscular HGB Conc 34.8 g/dl (31.0-37.0); Mean Corpuscular Hemoglobin 32.5 pg (25.0-35.0); Mean Corpuscular Volume 93 fL (80-100); Monocytes # (Auto) 0.4 Thou/mm3 (0.0-0.8); Monocytes % (Auto) 5 % (0-12); Neutrophils # (Auto) 7.0 Thou/mm3 (1.8-7.7); Neutrophils % (Auto) 87 % (37-80); Nucleated Red Blood Cell # 0.00 Thou/mm3 (0.00-0.00); Nucleated Red Blood Cell % 0 /100 WBC (0); RDW Standard Deviation 50.3 fL (35.1-43.9); Red Blood Count 3.14 Miln/mm3 (4.50-5.90); White Blood Count 8.1 Thou/mm3 (3.8-10.6)
[2024-12-21 07:22] LABS: Platelet Count 58 Thou/mm3 (140-440)
[2024-12-21 07:26] LABS: Alanine Aminotransferase 14 U/L (10-49); Albumin, Serum 2.8 gm/dL (3.4-4.8); Albumin/Globulin Ratio 1.1 (1.2-2.2); Alkaline Phosphatase 53 U/L (46-116); Anion Gap 9 (7-16); Aspartate Amino Transferase 20 U/L (0-34); BUN/Creatinine Ratio 41 Ratio (12-20); Bilirubin,Total 0.5 mg/dL (0.3-1.2); Blood Urea Nitrogen 49 mg/dL (9-23); Calcium 8.6 mg/dL (8.3-10.6); Calcium (Corrected) 9.6 mg/dL (8.5-10.1); Carbon Dioxide 29.5 mMol/L (20.0-31.0); Chloride 109 mMol/L (98-107); Creatinine (Component) 1.2 mg/dL (0.6-1.3); Estimated Creatinine Clearance 39.1 mL/min (>60); Globulin 2.5 gm/dL (2.3-3.5); Glucose 140 mg/dL (74-106); Magnesium 1.3 mg/dL (1.6-2.6); Osmolality,Calculated 307 (275-295); Phosphorous 1.5 mg/dL (2.4-5.1); Potassium 3.1 mMol/L (3.4-5.1); Sodium 147 mMol/L (136-145); Total Protein 5.3 gm/dL (5.7-8.2); eGFR 59 See Note
[2024-12-21 07:27] LABS: Troponin I 0.048 ng/mL (0.0-0.045)
--- NOTE | 2024-12-21 08:00 | PC.NURSE ---
Dr Balderas in to assess pt, ensuring hospitalist team is placing orders for electrolyte replacement. Informed orders are through pending pharmacy verification.
[2024-12-21 09:00] LABS: Slide Review Platelets confirmed
[2024-12-21] MEDS: cefTRIAXone/D5w 1gm IV premix 1 GM/50 ML BAG IV (09:02)
[2024-12-21] MEDS: POT PHOS 15 mMol in NS 250 ML 15 MMOL/250 ML BAG 62.5 MMOL IV ×2 (09:02→13:31)
[2024-12-21] MEDS: metroNIDAZOLE/NS 500 MG IVPB 500 MG/100 ML BAG 200 MG IV ×2 (09:02→20:51)
[2024-12-21] MEDS: INSULIN GLARGINE (Lantus) 5 UNIT/0.05 ML (PER 5 UNITS) 10 UNIT SC (09:04)
--- NOTE | 2024-12-21 10:05 | ESPR_ITS ---
Documentation for date of: 12/21/24 Subjective Subjective Interval history: Lars Landry is an 89-year-old M with a PMH of hypertension, hypothyroidism, T2DM, BPH, GERD, HLD, CKD stage III, and HFrEF who presents today with belly pain, nausea, and vomiting. Patient states that he began to have abdominal discomfort last after eating out, which has worsened since then. States it is localized to the umbilicus region of the abdomen. Patient characterizes the pain as constant and burning. It worsens with eating and improves after drinking liquids. Patient denies ever having a similar presentation in the past. The patient last vomited on Sunday and describes the vomitus as being brown in color. His last bowel movement was 5 to 6 days ago and productive of liquid brown stool. He also endorses a cough that is productive of black mucus. At the time of the interview, patient reported his belly pain to be a 3/10. In the ED, patient came in with low blood pressure of 46/35 that improved after having total 1.25 NS bolus and continues to be on 1 L NS maintenance fluids. Patient found to have high anion gap metabolic acidosis, BUN 119, Cr 5.8, eGFR 9, lactic acid of 4.2 (improved to 2.6), and elevated trop 0.098. UA was turbid and showed 1+ protein, 1+ bilirubin, slightly high WBC 8, and amorphous crystals with some hyaline casts. CT AP was consistent with reflux esophagitis and sbo (f/u small bowel series). EKG showed sinus rhythm with possible left atrial enlargement, left axis deviation, and left bundle branch block. Head CT and CXR was unremarkable. Patient was admitted for the work-up and management of suspected SBO. 12/17/2024 When patient was seen and examined, he had his sister and niece at bedside. Patient is alert and oriented x3 and says he is feeling good, just feels a little weak. Denies and new concerns/complaints. Patient denies having fever, headache, chest pain, shortness of breath, abdominal pain, flank pain or dysuria. Patient noted PCP is Dr. Barcenas in [place]. 12/18/2024 Patient was seen and examined. Patient is moving and speaking a lot slower, still is a&o x3. Patient states he feels thirsty, weak and has some mild abdominal pain with nausea that has been getting worse overnight. Patient denies fever, chest pain, shortness of breath, vomiting, dysuria. Patient was given an amp of dextrose this morning and was started on KCl maintenance fluids. Patient's Cr improved to 4.2 today (5.0 yest). 12/19/2024 Patient was seen and examined. Patient's vitals and labs were examined. Patient had ex lap yesterday for obstruction. Patient's Cr improving, on maintenance fluids NS. Patient states he continues to feel thirsty, weak and has some mild abdominal pain. Patient denies fever, chest pain, shortness of breath, nausea, vomiting, dysuria. Notable labs includes sodium 146, chlroide 113, bicarb 18.6, BUN 85, Cr 2.5. 12/20/2024 Patient was seen and examined. Patient's vitals and labs were examined. Patient's Cr improving, started on d5w now and lantus. Patient still endorses some mild abdominal pain. Patient denies fever, chest pain, shortness of breath, nausea, vomiting, dysuria. 12/21/24: Patient seen and examined at bedside. No new complaints. Denies chest pain, SOB or fever. Cr and BUN continue to improve 1.8->1.2 and 64->49. Exam Vital Signs Temp Pulse Resp BP Pulse Ox O2 Del Method O2 Flow Rate 97.2 F 65 17 149/69 H 96 Nasal Cannula 4 12/21/24 08:00 12/21/24 09:03 12/21/24 08:00 12/21/24 09:03 12/21/24 08:00 12/21/24 08:00 12/21/24 08:00 Narrative Exam GENERAL: AOx3, no acute distress HEENT: NC/AT, mucous membranes moist, bilateral sclera anicteric CARDIOVASCULAR: regular rate and rhythm, S1/S2 present, no murmurs appreciated PULMONARY: clear to auscultation bilaterally, no rales/rhonchi/wheezes ABDOMINAL: soft, tender to palpation around surgical site, non-distended, no rebound/guarding, bowel sounds present EXTREMITIES: no peripheral edema SKIN: warm and dry, intact, no rashes NEURO: CN II-XII grossly intact, no focal deficits, alert, following commands Objective Labs 12/21/24 06:20 12/21/24 06:20 Labs: Laboratory Results - last 24 hr 12/20/24 12/20/24 12/21/24 18:50 21:44 00:20 WBC RBC Hgb Hct MCV MCH MCHC RDW Std Deviation Plt Count Neut % (Auto) Lymph % (Auto) [place] % (Auto) Eos % (Auto) Baso % (Auto) Neut # (Auto) Lymph # (Auto) [place] # (Auto) Eos # (Auto) Baso # (Auto) Immature Gran # (Auto) Absolute Nucleated RBC Immature Gran % Nucleated RBC % Retic Count (auto) 2.2 H Absolute Retic 69.6 Immature Retic Fraction 9.5 Retic Hgb Content CHr 32.3 Sodium Potassium Chloride Carbon Dioxide Anion Gap BUN Creatinine Estim Creat Clear Calc eGFR BUN/Creatinine Ratio Glucose Calculated Osmolality Calcium Corrected Calcium Phosphorus Magnesium Iron 64 L TIBC 174 L Iron Saturation 36 Unsat Iron Binding 110 L Total Bilirubin AST ALT Alkaline Phosphatase Troponin I 0.069 H* 0.055 H* Total Protein Albumin Globulin Albumin/Globulin Ratio [facility] Test Result 12/21/24 06:20 WBC 8.1 D RBC 3.14 L Hgb 10.2 L Hct 29.3 L MCV 93 MCH 32.5 MCHC 34.8 RDW Std Deviation 50.3 H Plt Count 58 L D Neut % (Auto) 87 H Lymph % (Auto) 4 L [place] % (Auto) 5 Eos % (Auto) 0 Baso % (Auto) 0 Neut # (Auto) 7.0 Lymph # (Auto) 0.3 L [place] # (Auto) 0.4 Eos # (Auto) 0.0 Baso # (Auto) 0.0 Immature Gran # (Auto) 0.29 H Absolute Nucleated RBC 0.00 Immature Gran % 4 H Nucleated RBC % 0 Retic Count (auto) Absolute Retic Immature Retic Fraction Retic Hgb Content CHr Sodium 147 H Potassium 3.1 L D Chloride 109 H Carbon Dioxide 29.5 Anion Gap 9 BUN 49 H Creatinine 1.2 D Estim Creat Clear Calc 39.1 L eGFR 59 L BUN/Creatinine Ratio 41 H Glucose 140 H D Calculated Osmolality 307 H Calcium 8.6 Corrected Calcium 9.6 Phosphorus 1.5 L Magnesium 1.3 L Iron TIBC Iron Saturation Unsat Iron Binding Total Bilirubin 0.5 AST 20 ALT 14 Alkaline Phosphatase 53 D Troponin I 0.048 H* Total Protein 5.3 L Albumin 2.8 L D Globulin 2.5 Albumin/Globulin Ratio 1.1 L Misc Test Result Platelets confirmed ABG Interpretation ABG results: 12/17/24 12/18/24 12/18/24 12:07 15:43 16:24 ABG pH 7.41 7.34 L 7.30 L ABG pCO2 38 45 46 ABG pO2 60 L 111 H D 152 H D ABG HCO3 24 25 22 ABG O2 Saturation 89 L 99 H 100 H ABG Base Excess 0 -1 -4 L Quality Measures Quality Measures VTE prophylaxis Advance care planning discussed with:: patient Assessment & Plan Assessment Current Active Medications: Generic Name Dose Route Start Last Admin Trade Name Freq PRN Reason Stop Dose Admin Carvedilol 12.5 mg 12/21/24 08:02 Carvedilol 12.5 Mg Tablet PO 01/19/25 17:29 BIDWM DANNI Dextrose 25 ml 12/17/24 04:55 12/18/24 07:23 Dextrose 50%-Water Inj 50 Ml Syringe IV 01/16/25 04:54 25 ml Q15MIN PRN Administration BG 50-70 responsive npo pt Dextrose 50 ml 12/17/24 04:55 Dextrose 50%-Water Inj 50 Ml Syringe IV 01/16/25 04:54 Q15MIN PRN BG <50 OR BG <70 & pt unresponsive Furosemide 20 mg 12/21/24 09:00 12/21/24 09:03 Furosemide 20 Mg Tablet PO 01/20/25 08:59 20 mg QDAY DANNI Administration Glucagon 1 mg 12/17/24 04:55 Glucagon Inj 1 Mg Vial IM Q15MIN PRN BG <70, and no IV access Guaifenesin 100 mg 12/19/24 15:08 12/19/24 15:39 Guaifenesin Syrup 200 Mg/10 Ml Udc PO 01/18/25 15:07 100 mg QID PRN Administration COUGH Protocol Ceftriaxone Sodium/Dextrose 1 gm in 50 mls @ 100 mls/hr 12/17/24 17:54 12/21/24 09:02 Rocephin/D5w 1gm Iv Premix IV 12/24/24 17:53 50 mls/hr QDAY DANNI Administration Dextrose 1,000 mls @ 100 mls/hr 12/20/24 08:45 12/20/24 10:02 D5w IV 01/19/25 08:44 100 mls/hr .Q10H DANNI Administration Metronidazole 500 mg in 100 mls @ 200 mls/hr 12/20/24 09:00 12/21/24 09:02 Flagyl 500 Mg Iv IV 12/27/24 08:59 200 mls/hr Q12HR DANNI Administration Potassium Phosphate 15 mmol in 250 mls @ 62.5 mls/hr 12/21/24 08:00 12/21/24 09:02 Pot Phos 15 Mmol In Ns 250 Ml IV 12/21/24 15:59 62.5 mls/hr Q4H DANNI Administration Magnesium Sulfate 4 gm in 50 mls @ 12.5 mls/hr 12/21/24 07:41 Magnesium Sulfate Ivpb IV 12/21/24 11:40 X1 ONE Insulin Glargine 10 unit 12/20/24 09:00 12/21/24 09:04 Insulin Glargine (Lantus) 5 Unit/0.05 Ml (Per 5 Units) SC 01/19/25 08:59 10 unit QDAY DANNI Administration Insulin Human Lispro 0 unit 12/20/24 07:30 12/21/24 09:01 Insulin Lispro (Admelog) 1 Unit/0.01 Ml Unit SC 01/19/25 07:29 Not Given AC DANNI Protocol Levothyroxine Sodium 100 mcg 12/19/24 06:00 12/21/24 05:23 Levothyroxine Sodium 100 Mcg Tablet PO 01/18/25 05:59 100 mcg ACBR DANNI Administration Morphine Sulfate 3 mg 12/19/24 11:48 Morphine Sulf Inj 10 Mg/Ml Vial IVP 12/24/24 00:05 Q6HR PRN PAIN SCALE 4-10(Mod-Sev Ondansetron HCl 4 mg 12/17/24 00:45 12/17/24 02:39 Ondansetron Inj 2 Mg/Ml Inj 2 Ml IVP 01/16/25 00:44 4 mg Q6H PRN Administration NAUSEA OR VOMITING Protocol Pantoprazole Sodium 40 mg 12/21/24 09:00 12/21/24 09:01 Pantoprazole Inj 40 Mg Vial IVP 01/20/25 08:59 40 mg QDAY DANNI Administration Pharmacy Consult 1 each 12/17/24 17:54 Pharmacy Renal Dose Adjustment 1 Ea XX 01/16/25 17:53 PRN PRN CONSULT Plan Lars Landry is an 89-year-old M with a PMH of hypertension, hypothyroidism, T2DM, BPH, GERD, HLD, CKD stage III, and HFrEF who presented with belly pain, nausea, and vomiting. Patient was admitted for the work-up and management of suspected SBO. Patient was consulted for SADQI on CKD #Acute renal failure on CKD (stage III), improved #Lactic acidosis, resolved Suspect pre-renal etiology 2/2 dehydration and poor oral intake. Cr 5.8 on admission (baseline Cr: around 1.2), improving 1.8->1.2. BUN improving 64->49. Good urine output with stanley. S/p ex lap for abd obstruction. - Continue d5w @ 100 mls/hr and lantus 10 u q daily - CTM Cr - Strict I/Os, monitor UOP - Renal dose med, avoid nephrotoxins - Will likely need to be discharged to SNF/rehab #SBO #Elevated troponins, likely 2/2 NSTEMI Type II #Chronic medical problems #Reflux esophagitis #T2DM #Hypothyroidism problems above managed via primary team Thank you for allowing us to be apart of the care for Mr. Landry Plan of care discussed with attending, Dr. Andrey Burroughs, DO Internal Medicine PGY-1 Attending Provider Attestation/Addendum Patient seen and examined with resident physician Dr. Burroughs. Note reviewed, agree with findings and recommendations. Patient admitted with bowel obstruction. He has an NG tube. Clinically looks dehydrated. Gave him some IV fluids. Renal ultrasound, electrolytes ordered. Severe azotemia noted. Might be going towards ischemic ATN blood pressure on the soft side. Will monitor closely. Today his BUN is 111, creatinine 5. Bicarbonate 18, potassium 3.3. No need for emergency dialysis. 12/18/2024 patient currently seen in medical floor. He is more alert and awake. Able to move all his extremities. Still with abdominal distention. Small bowel series showed high-grade bowel obstruction. Despite BUN and creatinine still elevated-patient has good urinary output. Continue with IV fluids. At this point I would hold off on dialysis. This afternoon Dr. Jimenez called-planning to take him for surgery. Recommended to continue with observation. No need for emergency dialysis. Dr. Jimenez decided to proceed to take him for surgery. Will monitor him closely post op. If no improvement in azotemia will plan for dialysis tomorrow. 12/21/2024 patient currently seen in medical floor. Patient started to have good urine output and BUN and creatinine improving. Status post bowel surgery for his high-grade bowel obstruction. Continue with gentle IV fluids and replace electrolytes. He has a good bowel movement. More alert and awake. dc planning per primary team
[2024-12-21] MEDS: Magnesium Sulfate 4 GM Ivpb 4 GM/50 ML BAG IV (11:22)
[2024-12-21] MEDS: NAPH,KPH MBDB 1 PACKET (1.5 GM) PO (11:23)
--- NOTE | 2024-12-21 11:32 | ESPR_ITS ---
<Statement entered by Adriano Coughlin MD - 12/30/24 07:45> I reviewed above note and agree with findings and plans. I have also personally examined the patient with medicine team and went over assessment and plan with medical team including internal medicine physician and resident physician. Documentation for date of: 12/21/24 Senior resident attestation: Patient evaluated and examined at the bedside, plan of care discussed with rest of the team including my attending physician, except as noted. In brief, patient was admitted for small bowel obstruction, requiring exploratory laparotomy and lysis of adhesions, short ICU stay postsurgery, pt was downgraded from ICU post exlap and lysis of adhesions, general surgery Dr. Jimenez following the patient, started clear liquid diet, patient had a bowel movement the day following surgery, but has had no bowel movement today. Abdomen feels soft and nondistended, slightly tender only at site of incision. Will continue to advance diet as tolerated. Quresh PGY3 Subjective Subjective Interval history: Patient was seen and evaluated bedside today. Patient was resting comfortably and did not appear to be in acute distress. Patient denied abdominal pain today. Patient stated that all they needed was rest. Patient has resumed solid food consumption as of yesterday, per general surgery, Dr. Parikh. Exam Vital Signs Temp Pulse Resp BP Pulse Ox O2 Del Method O2 Flow Rate 97.2 F 65 17 149/69 H 96 Nasal Cannula 4 12/21/24 08:00 12/21/24 09:03 12/21/24 08:00 12/21/24 09:03 12/21/24 08:00 12/21/24 08:00 12/21/24 08:00 Narrative Exam General Appearance: Alert & Oriented to person, time, location, and condition; well-nourished male who is lying in bed in no acute distress. HEENT: Skull symmetrical and atraumatic. Conjunctivae pink and moist. Pupils equal, round, reactive to light and accommodation (PERRL). External ear without lesion or discharge. Straight, nares patient, mucosa pink, no discharge. No thyroid nodule appreciated. No cervical lymphadenopathy. Cardio: Normal Rate and Rhythm with S1 and S2 heart sounds. No murmurs or extra heart sounds auscultated. No bruits on carotid auscultation. No peripheral edema or cyanosis. Lungs: Symmetric with good expansion. Chest and back non-tender. Breath sounds vesicular without crackles, wheezing or rhonchi Abdomen: Non-tender, Non-distended, Normal Reactive Bowel Sounds Neuro: Alert, cooperative, oriented to person, place, and time. Speech clear. CN grossly intact. Upper motor strength 5/5 and Lower motor strength 5/5. Sensation intact. Objective Labs 12/22/24 04:55 12/22/24 04:55 Labs: Laboratory Results - last 24 hr 12/20/24 12/20/24 12/21/24 18:50 21:44 00:20 WBC RBC Hgb Hct MCV MCH MCHC RDW Std Deviation Plt Count Neut % (Auto) Lymph % (Auto) [place] % (Auto) Eos % (Auto) Baso % (Auto) Neut # (Auto) Lymph # (Auto) [place] # (Auto) Eos # (Auto) Baso # (Auto) Immature Gran # (Auto) Absolute Nucleated RBC Immature Gran % Nucleated RBC % Retic Count (auto) 2.2 H Absolute Retic 69.6 Immature Retic Fraction 9.5 Retic Hgb Content CHr 32.3 Sodium Potassium Chloride Carbon Dioxide Anion Gap BUN Creatinine Estim Creat Clear Calc eGFR BUN/Creatinine Ratio Glucose Calculated Osmolality Calcium Corrected Calcium Phosphorus Magnesium Iron 64 L TIBC 174 L Iron Saturation 36 Unsat Iron Binding 110 L Total Bilirubin AST ALT Alkaline Phosphatase Troponin I 0.069 H* 0.055 H* Total Protein Albumin Globulin Albumin/Globulin Ratio [facility] Test Result 12/21/24 06:20 WBC 8.1 D RBC 3.14 L Hgb 10.2 L Hct 29.3 L MCV 93 MCH 32.5 MCHC 34.8 RDW Std Deviation 50.3 H Plt Count 58 L D Neut % (Auto) 87 H Lymph % (Auto) 4 L [place] % (Auto) 5 Eos % (Auto) 0 Baso % (Auto) 0 Neut # (Auto) 7.0 Lymph # (Auto) 0.3 L [place] # (Auto) 0.4 Eos # (Auto) 0.0 Baso # (Auto) 0.0 Immature Gran # (Auto) 0.29 H Absolute Nucleated RBC 0.00 Immature Gran % 4 H Nucleated RBC % 0 Retic Count (auto) Absolute Retic Immature Retic Fraction Retic Hgb Content CHr Sodium 147 H Potassium 3.1 L D Chloride 109 H Carbon Dioxide 29.5 Anion Gap 9 BUN 49 H Creatinine 1.2 D Estim Creat Clear Calc 39.1 L eGFR 59 L BUN/Creatinine Ratio 41 H Glucose 140 H D Calculated Osmolality 307 H Calcium 8.6 Corrected Calcium 9.6 Phosphorus 1.5 L Magnesium 1.3 L Iron TIBC Iron Saturation Unsat Iron Binding Total Bilirubin 0.5 AST 20 ALT 14 Alkaline Phosphatase 53 D Troponin I 0.048 H* Total Protein 5.3 L Albumin 2.8 L D Globulin 2.5 Albumin/Globulin Ratio 1.1 L Misc Test Result Platelets confirmed ABG Interpretation ABG results: 12/17/24 12/18/24 12/18/24 12:07 15:43 16:24 ABG pH 7.41 7.34 L 7.30 L ABG pCO2 38 45 46 ABG pO2 60 L 111 H D 152 H D ABG HCO3 24 25 22 ABG O2 Saturation 89 L 99 H 100 H ABG Base Excess 0 -1 -4 L Quality Measures Quality Measures VTE prophylaxis Advance care planning discussed with:: patient Assessment & Plan Assessment Current Active Medications: Generic Name Dose Route Start Last Admin Trade Name Freq PRN Reason Stop Dose Admin Carvedilol 12.5 mg 12/21/24 08:02 Carvedilol 12.5 Mg Tablet PO 01/19/25 17:29 BIDWM DANNI Dextrose 25 ml 12/17/24 04:55 12/18/24 07:23 Dextrose 50%-Water Inj 50 Ml Syringe IV 01/16/25 04:54 25 ml Q15MIN PRN Administration BG 50-70 responsive npo pt Dextrose 50 ml 12/17/24 04:55 Dextrose 50%-Water Inj 50 Ml Syringe IV 01/16/25 04:54 Q15MIN PRN BG <50 OR BG <70 & pt unresponsive Furosemide 20 mg 12/21/24 09:00 12/21/24 09:03 Furosemide 20 Mg Tablet PO 01/20/25 08:59 20 mg QDAY DANNI Administration Glucagon 1 mg 12/17/24 04:55 Glucagon Inj 1 Mg Vial IM Q15MIN PRN BG <70, and no IV access Guaifenesin 100 mg 12/19/24 15:08 12/19/24 15:39 Guaifenesin Syrup 200 Mg/10 Ml Udc PO 01/18/25 15:07 100 mg QID PRN Administration COUGH Protocol Ceftriaxone Sodium/Dextrose 1 gm in 50 mls @ 100 mls/hr 12/17/24 17:54 12/21/24 09:02 Rocephin/D5w 1gm Iv Premix IV 12/24/24 17:53 50 mls/hr QDAY DANNI Administration Dextrose 1,000 mls @ 100 mls/hr 12/20/24 08:45 12/20/24 10:02 D5w IV 01/19/25 08:44 100 mls/hr .Q10H DANNI Administration Metronidazole 500 mg in 100 mls @ 200 mls/hr 12/20/24 09:00 12/21/24 09:02 Flagyl 500 Mg Iv IV 12/27/24 08:59 200 mls/hr Q12HR DANNI Administration Potassium Phosphate 15 mmol in 250 mls @ 62.5 mls/hr 12/21/24 08:00 12/21/24 09:02 Pot Phos 15 Mmol In Ns 250 Ml IV 12/21/24 15:59 62.5 mls/hr Q4H DANNI Administration Magnesium Sulfate 4 gm in 50 mls @ 12.5 mls/hr 12/21/24 07:41 12/21/24 11:22 Magnesium Sulfate Ivpb IV 12/21/24 11:40 12.5 mls/hr X1 ONE Administration Insulin Glargine 10 unit 12/20/24 09:00 12/21/24 09:04 Insulin Glargine (Lantus) 5 Unit/0.05 Ml (Per 5 Units) SC 01/19/25 08:59 10 unit QDAY DANNI Administration Insulin Human Lispro 0 unit 12/20/24 07:30 12/21/24 09:01 Insulin Lispro (Admelog) 1 Unit/0.01 Ml Unit SC 01/19/25 07:29 Not Given AC DANNI Protocol Levothyroxine Sodium 100 mcg 12/19/24 06:00 12/21/24 05:23 Levothyroxine Sodium 100 Mcg Tablet PO 01/18/25 05:59 100 mcg ACBR DANNI Administration Morphine Sulfate 3 mg 12/19/24 11:48 Morphine Sulf Inj 10 Mg/Ml Vial IVP 12/24/24 00:05 Q6HR PRN PAIN SCALE 4-10(Mod-Sev Ondansetron HCl 4 mg 12/17/24 00:45 12/17/24 02:39 Ondansetron Inj 2 Mg/Ml Inj 2 Ml IVP 01/16/25 00:44 4 mg Q6H PRN Administration NAUSEA OR VOMITING Protocol Pantoprazole Sodium 40 mg 12/21/24 09:00 12/21/24 09:01 Pantoprazole Inj 40 Mg Vial IVP 01/20/25 08:59 40 mg QDAY DANNI Administration Pharmacy Consult 1 each 12/17/24 17:54 Pharmacy Renal Dose Adjustment 1 Ea XX 01/16/25 17:53 PRN PRN CONSULT Plan Plan Patient is a 89-year-old male with past medical history of hypertension, hypothyroidism, BPH, GERD, [id number] type 2 diabetes mellitus, hyperlipidemia, stage III chronic kidney disease, heart failure with reduced ejection fraction, EF 30% 06/2024, chronic anemia 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 emergency department on December 18, 2024 with a chief complaint of abdominal pain nausea and vomiting. ICU team was priorly consulted due to persistent hypotension however patient's MAP improved with aggressive fluid resuscitation. Patient was diagnosed with mechanical small bowel obstruction and taken to operating room by general surgery and had exploratory laparotomy with lysis of adhesions and release of obstruction. Patient upgraded to intensive care unit for overnight monitoring. On 12/19/2024, patient was downgraded to med/tele. # S/P exploratory laparotomy with lysis of adhesions and release of obstruction 12/18 #High-grade mechanical small bowel obstruction-Resolved -Patient presented with umbilical abdominal pain, worsen with eating solid food. No bowel movement for 5 days. -Noncontrast CT AP showing a high-grade mechanical small bowel obstruction . -Gastrografin small bowel series (12/17/2024 and 12/18/2024): High grade mechanical Small bowel obstruction pattern -12/18/2024: Patient received exploratory laparotomy with adhesion lysis and release of obstruction. -Per op report, the patient was found to have a complete small bowel obstruction caused by an adhesive band originating from the base of the mesentery, resulting in marked distension of the jejunum. The ileum was decompressed and normal in caliber throughout. No bowel perforation, or free fluid in abdomen. There were no complications and did not require medications to increase MAP during surgery. Had arterial line. Blood pressures was stable. -Patient had 3 bowel movement overnight. Upon examination, patient was alert and oriented X3, abdominal pain noted at incision site. Plan: -Monitor surgical site for any signs of infection or erythema. -NG tube discontinued. Currently on diabetic Carbohydrate consistent diet. -Monitor for bowel movements -Morphine 3 mg every 6 hours as needed -General Surgery consulted Dr. Parikh, appreciate recommendations -Continue monitor CBC. #Possible GI bleed, likely upper #Hx of GERD -due to trauma from NG tube VS Gastric ulcer -Prior to surgery, on 12/17/2024, 3.2 L coffee-ground fluid was aspirated through NG tube. -Pertinent labs: 12/20 RBC 3.67 Hgb 11.8 Hct 34.7 12/21: 3.14 Hgb 10.2 Hct 29.3 -Yesterday, output through NG tube was green in color -Did not require any active transfusions during hospitalization. Plan: -Protonix 40mg IV BID down titrated to 40 mg IVP QD 12/21 -Monitor hemoglobin -GI consult Dr. Moreland: No active bleeding noted, continue to monitor, appreciate recommendations #Acute hypoxic respiratory failure, in setting of SIRS, pneumonia, postop -CXR (12/17/2024): Significant diffuse left lung pneumonia -CXR (12/19/2024): Significant diffuse left lung and right base pneumonia -CXR (12/20/2024): Mild bibasilar pneumonia. -Patient was on room air was started on supplemental oxygen prior to surgery on hospitalization, likely in setting of increased demand in setting of SIRS. -Patient received doxycycline 12/17 - 12/19, MRSA nares negative -Blood Culture (12/16/2024): Negative for 48hrs. -Currently 94% O2sat in Nasal Cannula 4L Plan: -Ceftriaxone 1g IV qd (12/17-12/24) and Metronidazole 500 mg Q12HR (12/20-12/27) for possible aspiration pneumonia -Maintain SPO2 greater than 92, titrate supplemental oxygen. -Incentive spirometry, Acapella device #Acute SADIQ on CKD, likely prerenal #CKD stage III #Non-anion gap metabolic acidosis-Resolving #Lactic acidosis ? Resolved -On admission, Cr initially 5.8 which is >0.3 change from baseline of 1.6, with worsening GFR on admission of 9. (40-50 at baseline). BURN:Cr>20 and FENa was 1.3%. Likely pre-renal. Intrinsic SADIQ cannot be ruled out. Monitor urine output. ? -SADIQ and Non-anion gap metabolic acidosis likely due to combination of Small Bowl Obstruction and Multiple episodes of hypotensive episodes during which MAP dropped to 50s and systolic BP 80s -Pertinent labs 12/20: BUN 64 Cr 1.8 GFR 36 12/21: BUN 49 Cr 1.2 GFR 59, Anion Gap: 9, compared to 17 on 12/18 and 15 on 12/20 -Renal function improving with IV fluid resuscitation Plan: - Per nephrology recommendations, continue D5W 100 ml/hr and Lantus 10 units QD - Monitor renal function - Renally dose medication - Avoid nephrotoxic agents - Monitor UOP #Leukocytosis, ?due to surgery vs. #? infection On admission 12/16 the patient's WBC was 8.2. 12/17 WBC 2.5, followed by 12/20 WBC 13.5 and 12/21 WBC 8.1. This is possibly due to an inflammatory response due to small bowel obstruction vs. insult and healing from surgery vs. pneumonia seen on CXR 12/17. Most likely due to inflammatory response originally from SBO exacerbated by body's response to surgery given the patient's additional chronic conditions, such as CKD and HFrEF putting stress on the body. 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 -Pertinent labs: 12/20 12/21 Iron 64 TIBC 174 Iron Sat 36 MCV 93 RBC 3.14 Hgb 10.4 Hct 29.3 Plan: - Follow up with outpatient oncologist for PBF smear report in 2018 - Monitor CBC, transfuse hemoglobin if less than 7 #Congestive Heart Failure #CHF HFrEF 30% (06/2024) #Severe Systolic Dysfunction #Mild Aortic Regurgitation Patient has a past medical history of heart failure, likely cardiomyopathy given previous echo noted for severe systolic dysfunction. Patient is currently not in CHF exacerbation as no crackles noted on physical exam, Cxr mild vascular congestion, and now lower peripheral edema. Diagnostic: ECHO (06/09/2024): Normal LV size. Severe systolic dysfunction. Estimated EF 30%, Normal RV size and function, Mild LA dilatation, Moderate MR. Mild TR. Mild sclerosis without stenosis Mild aortic regurgitation ASCVD: not applicable given age ? NYHA:I Plan: - Monitor for signs of fluid overload - Cardiology was consulted, following - Strict intake and output - Daily weight - Continue Carvedilol 12.5mg PO BID and Furesomide 20 mg PO QD; has not currently restarted Entresto; not taking Lisinopril 40 mg PO QD or Hydrochlorothiazide 25 mg PO QD #Hypernatremia, resolving Patient may have imbalance of sodium due to: SADIQ leading to decreased filtration of kidneys, resulting in excess sodium remaining in the body. Moreover, patient may not be hydrating enough given recent small bowel obstruction. One other possible explanation is not taking thiazide diuretics led to a short term increase in sodium. Pertinent labs: 12/19 Na 146 12/20 Na 150 12/21 Na 147 Plan: -monitor renal panel -currently holding D5W 100 ml/hr, per Nephrology Dr. Emerson, appreciate recommendations #Thrombocytopenia, ?chronic Patient recently underwent surgery and needed to receive a unit of platelets prior to surgery. Possible differentials include: infection, given that this patient had a small bowel obstruction, this could have been a source; one other possible cause is vitamin deficiency, such as folate or b12, but that is unlikely given the patient's values are normal; another possible cause is a bone marrow disorder or dysregulation since the patient has low RBC counts too Platelet counts: 12/16 124 12/17 93 12/18 43 12/19 54 12/20 90 12/21 58 Plan: -Monitor for active bruising or bleeding -Monitor CBC #Troponemia, resolved? #NSTEMI type II Tropneemia likely NSTEMI type II, in the setting of small bowel obstruction, SIRs, and SADIQ. No ST elevation noted on EKG or changes. Patient is not currently taking nitrates for chest pain Diagnostics: - Pertinent labs 12/20: trop 0.069 trop 12/21: trop 0.048 - EKG(12/20/2024) showed abnormal T-waves with possible atrial fibrillation and PVCs Plan - Consider repeat EKG, monitor for chest pain - Cardiology recommendation: PACs noted and continue telemetry monitoring, Dr. Tapia, appreciate recommendations #Hypertension #Hypotensive, resolved Patient has a past medical history of hypertension. Patient is on GDMT for heart failure, likely Coreg, controlling blood pressure. Plan -continue Carvedilol 12.5 mg PO BID -continue to monitor BP #Hyperlipidemia Patient has pmh of hyperlipidemia, on atorvastatin 20mg hs ASCVD score non applicable given his age of 89, continue nonetheless Plan: -Resume atorvastatin 20mg QHS upon discharge #BPH Patient has a history of BPH, home medication Flomax 0.4 mg. Initially holding Flomax given low blood pressure and concern for shock. Plan -Resume Flomax 0.4 mg upon discharge -Continue to monitor for low BP #History of Diabetes Mellitus Type 2, non-insulin dependent - Previously patient not taking home medication for diabetes Mellitus not listed. Likely diet controlled -Upon admission patient became hyperglycemic. Pertinent labs: 06/19/24 A1C 6.4 12/19/24 A1C 5.1; FSBG 12/20 193 12/21 150 Plan: -Sliding scale insulin every 6 hours -Hypoglycemia protocol -Monitor fingerstick for now, consider discontinuing if within normal limits -Monitor blood glucose, in daily CMP #Hypothyroidism Pertinent labs 12/19 TSH 0.46, free T4 0.72 Plan: -Resume levothyroxine home dose upon discharge -Repeat panel outpatient and titrate dose #Reduced vision right eye Reports that he has vision problems, per chart review patient has history of CRAO of right eye. Has been following ophthalmology, currently reports no acute vision changes. Plan: - Follow-up outpatient with ophthalmology DVT prophylaxis: SCDs GI prophylaxis: IV Protonix 40 mg QD Diet: Diabetic carbohydrate consistent diet Lines: Peripheral IV Code status: Full Code Dispo: Downgraded to med/tele, hospitalist team B Case reviewed with attending Dr. Coughlin and senior resident Dr. Kuo. Amee Helms MS-4 Attending Provider Attestation/Addendum I have discussed and was present for the essential components of the history, physical examination, diagnosis, and treatment plan with the resident. I agree with the patient's care as documented by the resident and amended herein by me. Adriano Coughlin MD. Although this document has been carefully reviewed, there may still be some phonetic and other typographical errors. These errors are purely grammatical due to imperfections in the software program and should not be construed in any way to compromise the substance of the patient's medical care during this visit.
--- NOTE | 2024-12-21 12:08 | PC.NURSE ---
Josh Deras, daughter provided number [phone]
--- NOTE | 2024-12-21 15:42 | ESPR_ITS ---
Documentation for date of: 12/21/24 Subjective Subjective Interval history: s/p bowel surgery improving creatinine short run of PACs in [place] nos pos currently in SR; 65_-85 stable hemodynamics Exam Vital Signs Temp Pulse Resp BP Pulse Ox O2 Del Method O2 Flow Rate 97.1 F 74 18 129/83 95 Nasal Cannula 4 12/21/24 12:00 12/21/24 12:00 12/21/24 12:00 12/21/24 12:00 12/21/24 12:00 12/21/24 12:00 12/21/24 12:00 Routine HEENT Exam Head: Present normocephalic and atraumatic Eye: Present EOMI and PERRL ENT: Present mucous membranes moist Routine Neck Exam Neck: Present supple and trachea midline Routine Respiratory Exam Respiratory: Present chest non-tender, lungs clear, normal breath sounds and no resp distress Routine Cardiovascular Exam Cardiovascular: Present RRR Routine Abdominal Exam Abdominal: Present soft and normoactive bowel sounds Routine Extremities Exam Extremities: Present full ROM Routine Skin Exam Skin: Present intact, dry and warm Routine Neurological Exam Neurological: Present alert, oriented X3 and CN II-XII intact Routine Psychiatric Exam Psychiatric: Present normal affect and normal thought process Objective Labs 12/21/24 06:20 12/21/24 06:20 Labs: Laboratory Results - last 24 hr 12/20/24 12/20/24 12/21/24 18:50 21:44 00:20 WBC RBC Hgb Hct MCV MCH MCHC RDW Std Deviation Plt Count Neut % (Auto) Lymph % (Auto) [place] % (Auto) Eos % (Auto) Baso % (Auto) Neut # (Auto) Lymph # (Auto) [place] # (Auto) Eos # (Auto) Baso # (Auto) Immature Gran # (Auto) Absolute Nucleated RBC Immature Gran % Nucleated RBC % Retic Count (auto) 2.2 H Absolute Retic 69.6 Immature Retic Fraction 9.5 Retic Hgb Content CHr 32.3 Sodium Potassium Chloride Carbon Dioxide Anion Gap BUN Creatinine Estim Creat Clear Calc eGFR BUN/Creatinine Ratio Glucose Calculated Osmolality Calcium Corrected Calcium Phosphorus Magnesium Iron 64 L TIBC 174 L Iron Saturation 36 Unsat Iron Binding 110 L Total Bilirubin AST ALT Alkaline Phosphatase Troponin I 0.069 H* 0.055 H* Total Protein Albumin Globulin Albumin/Globulin Ratio Misc Test Result 12/21/24 06:20 WBC 8.1 D RBC 3.14 L Hgb 10.2 L Hct 29.3 L MCV 93 MCH 32.5 MCHC 34.8 RDW Std Deviation 50.3 H Plt Count 58 L D Neut % (Auto) 87 H Lymph % (Auto) 4 L [place] % (Auto) 5 Eos % (Auto) 0 Baso % (Auto) 0 Neut # (Auto) 7.0 Lymph # (Auto) 0.3 L [place] # (Auto) 0.4 Eos # (Auto) 0.0 Baso # (Auto) 0.0 Immature Gran # (Auto) 0.29 H Absolute Nucleated RBC 0.00 Immature Gran % 4 H Nucleated RBC % 0 Retic Count (auto) Absolute Retic Immature Retic Fraction Retic Hgb Content CHr Sodium 147 H Potassium 3.1 L D Chloride 109 H Carbon Dioxide 29.5 Anion Gap 9 BUN 49 H Creatinine 1.2 D Estim Creat Clear Calc 39.1 L eGFR 59 L BUN/Creatinine Ratio 41 H Glucose 140 H D Calculated Osmolality 307 H Calcium 8.6 Corrected Calcium 9.6 Phosphorus 1.5 L Magnesium 1.3 L Iron TIBC Iron Saturation Unsat Iron Binding Total Bilirubin 0.5 AST 20 ALT 14 Alkaline Phosphatase 53 D Troponin I 0.048 H* Total Protein 5.3 L Albumin 2.8 L D Globulin 2.5 Albumin/Globulin Ratio 1.1 L Misc Test Result Platelets confirmed ABG Interpretation ABG results: 12/17/24 12/18/24 12/18/24 12:07 15:43 16:24 ABG pH 7.41 7.34 L 7.30 L ABG pCO2 38 45 46 ABG pO2 60 L 111 H D 152 H D ABG HCO3 24 25 22 ABG O2 Saturation 89 L 99 H 100 H ABG Base Excess 0 -1 -4 L Assessment & Plan A&P Narrative pt had short runs of PACs in [facility] ; currently in SR continue telemetry monitoring Time Spent With Patient Time: Total time spent is greater than 50% in coordination of care (as documented) at patient's floor/unit and/or counseling patient:
--- NOTE | 2024-12-21 18:20 | ESPR_ITS ---
Documentation for date of: 12/21/24 Subjective Subjective Interval history: Hemoglobin hematocrit 10.2 and 29.3 Iron saturation is 36% which is normal Low platelet count 58,000 B12 and folate level are pending Stool for Hemoccult testing is also pending Exam Vital Signs Temp Pulse Resp BP Pulse Ox O2 Del Method O2 Flow Rate 97 F 76 18 130/74 96 Nasal Cannula 4 12/21/24 16:00 12/21/24 16:00 12/21/24 16:00 12/21/24 16:00 12/21/24 16:00 12/21/24 16:00 12/21/24 16:00 Objective Labs 12/21/24 06:20 12/21/24 06:20 Labs: Laboratory Results - last 24 hr 12/20/24 12/20/24 12/21/24 18:50 21:44 00:20 WBC RBC Hgb Hct MCV MCH MCHC RDW Std Deviation Plt Count Neut % (Auto) Lymph % (Auto) Holt % (Auto) Eos % (Auto) Baso % (Auto) Neut # (Auto) Lymph # (Auto) Holt # (Auto) Eos # (Auto) Baso # (Auto) Immature Gran # (Auto) Absolute Nucleated RBC Immature Gran % Nucleated RBC % Retic Count (auto) 2.2 H Absolute Retic 69.6 Immature Retic Fraction 9.5 Retic Hgb Content CHr 32.3 Sodium Potassium Chloride Carbon Dioxide Anion Gap BUN Creatinine Estim Creat Clear Calc eGFR BUN/Creatinine Ratio Glucose Calculated Osmolality Calcium Corrected Calcium Phosphorus Magnesium Iron 64 L TIBC 174 L Iron Saturation 36 Unsat Iron Binding 110 L Total Bilirubin AST ALT Alkaline Phosphatase Troponin I 0.069 H* 0.055 H* Total Protein Albumin Globulin Albumin/Globulin Ratio Misc Test Result 12/21/24 06:20 WBC 8.1 D RBC 3.14 L Hgb 10.2 L Hct 29.3 L MCV 93 MCH 32.5 MCHC 34.8 RDW Std Deviation 50.3 H Plt Count 58 L D Neut % (Auto) 87 H Lymph % (Auto) 4 L Holt % (Auto) 5 Eos % (Auto) 0 Baso % (Auto) 0 Neut # (Auto) 7.0 Lymph # (Auto) 0.3 L Holt # (Auto) 0.4 Eos # (Auto) 0.0 Baso # (Auto) 0.0 Immature Gran # (Auto) 0.29 H Absolute Nucleated RBC 0.00 Immature Gran % 4 H Nucleated RBC % 0 Retic Count (auto) Absolute Retic Immature Retic Fraction Retic Hgb Content CHr Sodium 147 H Potassium 3.1 L D Chloride 109 H Carbon Dioxide 29.5 Anion Gap 9 BUN 49 H Creatinine 1.2 D Estim Creat Clear Calc 39.1 L eGFR 59 L BUN/Creatinine Ratio 41 H Glucose 140 H D Calculated Osmolality 307 H Calcium 8.6 Corrected Calcium 9.6 Phosphorus 1.5 L Magnesium 1.3 L Iron TIBC Iron Saturation Unsat Iron Binding Total Bilirubin 0.5 AST 20 ALT 14 Alkaline Phosphatase 53 D Troponin I 0.048 H* Total Protein 5.3 L Albumin 2.8 L D Globulin 2.5 Albumin/Globulin Ratio 1.1 L Misc Test Result Platelets confirmed Impressions Impression: Anemia of chronic disease but it appears to be Waiting for laboratory workup including stool Hemoccult testing before deciding whether he needs invasive GI workup or not ABG Interpretation ABG results: 12/17/24 12/18/24 12/18/24 12:07 15:43 16:24 ABG pH 7.41 7.34 L 7.30 L ABG pCO2 38 45 46 ABG pO2 60 L 111 H D 152 H D ABG HCO3 24 25 22 ABG O2 Saturation 89 L 99 H 100 H ABG Base Excess 0 -1 -4 L Assessment & Plan A&P Narrative pt had short runs of PACs in [facility] ; currently in [facility] continue telemetry monitoring Time Spent With Patient Time: Total time spent is greater than 50% in coordination of care (as documented) at patient's floor/unit and/or counseling patient:
--- NOTE | 2024-12-21 18:34 | PD.SURPROG ---
Documentation for date of: 12/21/24 Subjective Subjective Brief History: History of present illness revealed that the patient had considerable abdominal distention and after the NG tube decompression he flattened out. Patient was admitted with the abdominal complaint of pain for 3 days and he has not had a bowel movement at least for 3 days. Patient is very obtunded and is not able to give any history. He was also hypotensive on the call in rapid response. Patient's past medical history could not be elicited properly because of his patient's mental status. He has had abdominal surgery as shown by the surgical scar in the midline patient also has had a colostomy done and then reversed in [facility] in . Patient has been having a history of congestive heart failure and he has been admitted here in the past year and was diagnosed as CHF his other medical problem consisted of hypertension hypothyroidism diabetes GERD coronary artery disease and benign prostatic hypertrophy. Narrative: The patient feels very weak and has no appetite. He is not eating well today Exam Vital Signs Temp Pulse Resp BP Pulse Ox O2 Del Method O2 Flow Rate 97 F 76 18 130/74 96 Nasal Cannula 4 12/21/24 16:00 12/21/24 16:00 12/21/24 16:00 12/21/24 16:00 12/21/24 16:00 12/21/24 16:00 12/21/24 16:00 His vital signs are normal Routine Abdominal Exam Comments: Abdominal examination shows no distention and good bowel sounds Results Results: Laboratory Laboratory Narrative: Laboratory results are normal. BUN/creatinine are returning to normal Assessment & Plan Assessment Additional comments: Impression: Slow but steady recovery following small bowel obstruction Plan Plan: We shall discharge him whenever he is tolerating diet. PROCEDURES: Procedures Exploratory laparotomy and lysis of adhesions and release of obstruction
[2024-12-21 21:55] LABS: Vitamin B12 1655 pg/mL (211-911)
[2024-12-21 22:25] LABS: Folate 10.30 ng/mL (>5.38)
[2024-12-22] VITALS (12 sets, daily range): BP systolic 100–129; BP diastolic 62–76; PULSE 68–120; RESP 15–22; TEMP 36.2–36.9; O2SAT 94–98; BMI 13.0
[2024-12-22 05:22] LABS: Basophils # (Auto) 0.0 Thou/mm3 (0.0-0.2); Basophils % (Auto) 0 % (0-2.5); Eosinophils # (Auto) 0.0 Thou/mm3 (0.0-0.5); Eosinophils % (Auto) 0 % (0-10); Hematocrit 32.1 % (41.0-53.0); Hemoglobin 10.9 g/dL (13.5-16.0); Immature Granulocytes Auto 0.24 Thou/mm3 (0.00-0.00); Lymphocytes # (Auto) 0.4 Thou/mm3 (1.0-4.8); Lymphocytes % (Auto) 6 % (10-50); Mean Corpuscular HGB Conc 34.0 g/dl (31.0-37.0); Mean Corpuscular Hemoglobin 32.9 pg (25.0-35.0); Mean Corpuscular Volume 97 fL (80-100); Monocytes # (Auto) 0.5 Thou/mm3 (0.0-0.8); Monocytes % (Auto) 8 % (0-12); Neutrophils # (Auto) 5.0 Thou/mm3 (1.8-7.7); Neutrophils % (Auto) 81 % (37-80); Nucleated Red Blood Cell # 0.00 Thou/mm3 (0.00-0.00); Nucleated Red Blood Cell % 0 /100 WBC (0); RDW Standard Deviation 50.9 fL (35.1-43.9); Red Blood Count 3.31 Miln/mm3 (4.50-5.90); White Blood Count 6.1 Thou/mm3 (3.8-10.6)
[2024-12-22 05:23] LABS: Platelet Count 66 Thou/mm3 (140-440)
[2024-12-22 05:43] LABS: Alanine Aminotransferase 19 U/L (10-49); Albumin, Serum 2.9 gm/dL (3.4-4.8); Albumin/Globulin Ratio 1.3 (1.2-2.2); Alkaline Phosphatase 60 U/L (46-116); Anion Gap 12 (7-16); Aspartate Amino Transferase 28 U/L (0-34); BUN/Creatinine Ratio 31 Ratio (12-20); Bilirubin,Total 0.5 mg/dL (0.3-1.2); Blood Urea Nitrogen 31 mg/dL (9-23); Calcium 8.3 mg/dL (8.3-10.6); Calcium (Corrected) 9.2 mg/dL (8.5-10.1); Carbon Dioxide 29.8 mMol/L (20.0-31.0); Chloride 106 mMol/L (98-107); Creatinine (Component) 1.0 mg/dL (0.6-1.3); Estimated Creatinine Clearance 47.0 mL/min (>60); Globulin 2.3 gm/dL (2.3-3.5); Glucose 104 mg/dL (74-106); Magnesium 1.4 mg/dL (1.6-2.6); Osmolality,Calculated 300 (275-295); Phosphorous 2.1 mg/dL (2.4-5.1); Potassium 3.2 mMol/L (3.4-5.1); Sodium 148 mMol/L (136-145); Total Protein 5.2 gm/dL (5.7-8.2); eGFR > 60 See Note
[2024-12-22 05:44] LABS: Slide Review Platelets confirmed
[2024-12-22] MEDS: LEVOTHYROXINE SODIUM 100 MCG TABLET PO (06:12)
[2024-12-22] MEDS: MAGNESIUM OXIDE 400 MG TABLET PO (08:31)
[2024-12-22] MEDS: cefTRIAXone/D5w 1gm IV premix 1 GM/50 ML BAG IV (08:31)
[2024-12-22] MEDS: POTASSIUM CHL 10 mEq IVPB 10 MEQ/100 ML BAG 100 MEQ IV ×2 (08:31→10:35)
[2024-12-22] MEDS: metroNIDAZOLE/NS 500 MG IVPB 500 MG/100 ML BAG 200 MG IV ×2 (08:31→21:32)
[2024-12-22] MEDS: INSULIN GLARGINE (Lantus) 5 UNIT/0.05 ML (PER 5 UNITS) 10 UNIT SC (08:32)
--- NOTE | 2024-12-22 08:59 | XR_ITS ---
Examination: AP chest single view Technique one AP portable upright chest single view Date and time: December 22, 2024 0931 hours COMPARISON: December 20, 2024 INDICATIONS: Hypoxia today. FINDINGS: Mild heart failure. Mild enlargement cardiac contour, prominent vascular congestion There appears to be free air beneath right hemidiaphragm, clinical correlation advised Pneumonia left base IMPRESSION: Mild heart failure pattern Mild pneumonia left base There appears to be free air beneath right hemidiaphragm, clinical correlation advised
--- NOTE | 2024-12-22 09:45 | PD.RESPRO ---
Documentation for date of: 12/22/24 Subjective Subjective Interval history: Lars Landry is an 89-year-old M with a PMH of hypertension, hypothyroidism, T2DM, BPH, GERD, HLD, CKD stage III, and HFrEF who presents today with belly pain, nausea, and vomiting. Patient states that he began to have abdominal discomfort last after eating out, which has worsened since then. States it is localized to the umbilicus region of the abdomen. Patient characterizes the pain as constant and burning. It worsens with eating and improves after drinking liquids. Patient denies ever having a similar presentation in the past. The patient last vomited on Sunday and describes the vomitus as being brown in color. His last bowel movement was 5 to 6 days ago and productive of liquid brown stool. He also endorses a cough that is productive of black mucus. At the time of the interview, patient reported his belly pain to be a 3/10. In the ED, patient came in with low blood pressure of 46/35 that improved after having total 1.25 NS bolus and continues to be on 1 L NS maintenance fluids. Patient found to have high anion gap metabolic acidosis, BUN 119, Cr 5.8, eGFR 9, lactic acid of 4.2 (improved to 2.6), and elevated trop 0.098. UA was turbid and showed 1+ protein, 1+ bilirubin, slightly high WBC 8, and amorphous crystals with some hyaline casts. CT AP was consistent with reflux esophagitis and sbo (f/u small bowel series). EKG showed sinus rhythm with possible left atrial enlargement, left axis deviation, and left bundle branch block. Head CT and CXR was unremarkable. Patient was admitted for the work-up and management of suspected SBO. 12/17/2024 When patient was seen and examined, he had his sister and niece at bedside. Patient is alert and oriented x3 and says he is feeling good, just feels a little weak. Denies and new concerns/complaints. Patient denies having fever, headache, chest pain, shortness of breath, abdominal pain, flank pain or dysuria. Patient noted PCP is Dr. Barcenas in [place]. 12/18/2024 Patient was seen and examined. Patient is moving and speaking a lot slower, still is a&o x3. Patient states he feels thirsty, weak and has some mild abdominal pain with nausea that has been getting worse overnight. Patient denies fever, chest pain, shortness of breath, vomiting, dysuria. Patient was given an amp of dextrose this morning and was started on KCl maintenance fluids. Patient's Cr improved to 4.2 today (5.0 yest). 12/19/2024 Patient was seen and examined. Patient's vitals and labs were examined. Patient had ex lap yesterday for obstruction. Patient's Cr improving, on maintenance fluids NS. Patient states he continues to feel thirsty, weak and has some mild abdominal pain. Patient denies fever, chest pain, shortness of breath, nausea, vomiting, dysuria. Notable labs includes sodium 146, chlroide 113, bicarb 18.6, BUN 85, Cr 2.5. 12/20/2024 Patient was seen and examined. Patient's vitals and labs were examined. Patient's Cr improving, started on d5w now and lantus. Patient still endorses some mild abdominal pain. Patient denies fever, chest pain, shortness of breath, nausea, vomiting, dysuria. 12/21/24: Patient seen and examined at bedside. No new complaints. Denies chest pain, SOB or fever. Cr and BUN continue to improve 1.8->1.2 and 64->49. 12/22/24: Patient seen and examined at bedside. Patient is sitting up on the side of the bed, eating breakfast. No new complaints. Denies chest pain, SOB or fever. Cr continues to be improved (1.0). Exam Vital Signs Temp Pulse Resp BP Pulse Ox O2 Del Method O2 Flow Rate 97.1 F 95 15 117/76 96 Nasal Cannula 4 12/22/24 07:57 12/22/24 08:31 12/22/24 07:57 12/22/24 08:31 12/22/24 07:57 12/22/24 04:00 12/21/24 16:00 Narrative Exam GENERAL: AOx3, no acute distress HEENT: NC/AT, mucous membranes moist, bilateral sclera anicteric CARDIOVASCULAR: regular rate and rhythm, S1/S2 present, no murmurs appreciated PULMONARY: clear to auscultation bilaterally, no rales/rhonchi/wheezes ABDOMINAL: soft, tender to palpation around surgical site, non-distended, no rebound/guarding, bowel sounds present EXTREMITIES: no peripheral edema SKIN: warm and dry, intact, no rashes NEURO: CN II-XII grossly intact, no focal deficits, alert, following commands Objective Labs 12/23/24 04:51 12/23/24 04:51 Labs: Laboratory Results - last 24 hr 12/20/24 12/22/24 21:44 04:55 WBC 6.1 RBC 3.31 L Hgb 10.9 L Hct 32.1 L MCV 97 MCH 32.9 MCHC 34.0 RDW Std Deviation 50.9 H Plt Count 66 L Neut % (Auto) 81 H Lymph % (Auto) 6 L Patrick % (Auto) 8 Eos % (Auto) 0 Baso % (Auto) 0 Neut # (Auto) 5.0 Lymph # (Auto) 0.4 L Patrick # (Auto) 0.5 Eos # (Auto) 0.0 Baso # (Auto) 0.0 Immature Gran # (Auto) 0.24 H Absolute Nucleated RBC 0.00 Immature Gran % 4 H Nucleated RBC % 0 Sodium 148 H Potassium 3.2 L Chloride 106 Carbon Dioxide 29.8 Anion Gap 12 BUN 31 H Creatinine 1.0 Estim Creat Clear Calc 47.0 L eGFR > 60 BUN/Creatinine Ratio 31 H Glucose 104 Calculated Osmolality 300 H Calcium 8.3 Corrected Calcium 9.2 Phosphorus 2.1 L Magnesium 1.4 L Total Bilirubin 0.5 AST 28 ALT 19 Alkaline Phosphatase 60 Total Protein 5.2 L Albumin 2.9 L Globulin 2.3 Albumin/Globulin Ratio 1.3 Vitamin B12 1655 H Folate 10.30 Misc Test Result Platelets confirmed ABG Interpretation ABG results: 12/17/24 12/18/24 12/18/24 12:07 15:43 16:24 ABG pH 7.41 7.34 L 7.30 L ABG pCO2 38 45 46 ABG pO2 60 L 111 H D 152 H D ABG HCO3 24 25 22 ABG O2 Saturation 89 L 99 H 100 H ABG Base Excess 0 -1 -4 L Quality Measures Quality Measures VTE prophylaxis Advance care planning discussed with:: patient Assessment & Plan Assessment Current Active Medications: Generic Name Dose Route Start Last Admin Trade Name Freq PRN Reason Stop Dose Admin Carvedilol 12.5 mg 12/21/24 08:02 12/22/24 08:31 Carvedilol 12.5 Mg Tablet PO 01/19/25 17:29 12.5 mg BIDWM DANNI Administration Dextrose 25 ml 12/17/24 04:55 12/18/24 07:23 Dextrose 50%-Water Inj 50 Ml Syringe IV 01/16/25 04:54 25 ml Q15MIN PRN Administration BG 50-70 responsive npo pt Dextrose 50 ml 12/17/24 04:55 Dextrose 50%-Water Inj 50 Ml Syringe IV 01/16/25 04:54 Q15MIN PRN BG <50 OR BG <70 & pt unresponsive Furosemide 20 mg 12/21/24 09:00 12/22/24 08:30 Furosemide 20 Mg Tablet PO 01/20/25 08:59 20 mg QDAY DANNI Administration Glucagon 1 mg 12/17/24 04:55 Glucagon Inj 1 Mg Vial IM Q15MIN PRN BG <70, and no IV access Guaifenesin 100 mg 12/19/24 15:08 12/19/24 15:39 Guaifenesin Syrup 200 Mg/10 Ml Udc PO 01/18/25 15:07 100 mg QID PRN Administration COUGH Protocol Ceftriaxone Sodium/Dextrose 1 gm in 50 mls @ 100 mls/hr 12/17/24 17:54 12/22/24 08:31 Rocephin/D5w 1gm Iv Premix IV 12/24/24 17:53 50 mls/hr QDAY DANNI Administration Dextrose 1,000 mls @ 100 mls/hr 12/20/24 08:45 12/20/24 10:02 D5w IV 01/19/25 08:44 100 mls/hr .Q10H DANNI Administration Metronidazole 500 mg in 100 mls @ 200 mls/hr 12/20/24 09:00 12/22/24 08:31 Flagyl 500 Mg Iv IV 12/27/24 08:59 200 mls/hr Q12HR DANNI Administration Potassium Chloride 10 meq in 100 mls @ 100 mls/hr 12/22/24 07:31 12/22/24 08:31 Kcl Ivpb IV 12/22/24 11:30 100 mls/hr Q1H DANNI Administration Magnesium Sulfate 4 gm in 50 mls @ 12.5 mls/hr 12/22/24 08:42 Magnesium Sulfate Ivpb IV 12/22/24 12:41 X1 ONE Insulin Glargine 10 unit 12/20/24 09:00 12/22/24 08:32 Insulin Glargine (Lantus) 5 Unit/0.05 Ml (Per 5 Units) SC 01/19/25 08:59 10 unit QDAY DANNI Administration Insulin Human Lispro 0 unit 12/20/24 07:30 12/22/24 07:21 Insulin Lispro (Admelog) 1 Unit/0.01 Ml Unit SC 01/19/25 07:29 Not Given AC DANNI Protocol Levothyroxine Sodium 100 mcg 12/19/24 06:00 12/22/24 06:12 Levothyroxine Sodium 100 Mcg Tablet PO 01/18/25 05:59 100 mcg ACBR DANNI Administration Morphine Sulfate 3 mg 12/19/24 11:48 Morphine Sulf Inj 10 Mg/Ml Vial IVP 12/24/24 00:05 Q6HR PRN PAIN SCALE 4-10(Mod-Sev Ondansetron HCl 4 mg 12/17/24 00:45 12/17/24 02:39 Ondansetron Inj 2 Mg/Ml Inj 2 Ml IVP 01/16/25 00:44 4 mg Q6H PRN Administration NAUSEA OR VOMITING Protocol Pantoprazole Sodium 40 mg 12/21/24 09:00 12/22/24 08:32 Pantoprazole Inj 40 Mg Vial IVP 01/20/25 08:59 40 mg QDAY DANNI Administration Pharmacy Consult 1 each 12/17/24 17:54 Pharmacy Renal Dose Adjustment 1 Ea XX 01/16/25 17:53 PRN PRN CONSULT Plan Lars Angelica Landry is an 89-year-old M with a PMH of hypertension, hypothyroidism, T2DM, BPH, GERD, HLD, CKD stage III, and HFrEF who presented with belly pain, nausea, and vomiting. Patient was admitted for the work-up and management of suspected SBO. Patient was consulted for SADIQ on CKD #Acute renal failure on CKD (stage III), improved #Lactic acidosis, resolved Suspect pre-renal etiology 2/2 dehydration and poor oral intake. Cr 5.8 on admission (baseline Cr: around 1.2), improving 1.8->1.2. BUN improving 64->49. Good urine output with stanley. S/p ex lap for abd obstruction. - CTM Cr - Strict I/Os, monitor UOP - Renal dose med, avoid nephrotoxins #SBO #Elevated troponins, likely 2/2 NSTEMI Type II #Chronic medical problems #Reflux esophagitis #T2DM #Hypothyroidism problems above managed via primary team Thank you for allowing us to be apart of the care for Mr. Landry Plan of care discussed with attending, Dr. Andrey Miguel MD PGY-1 Attending Provider Attestation/Addendum Patient seen and examined with resident physician Dr. Miguel. Note reviewed, agree with findings and recommendations. Patient admitted with bowel obstruction. He has an NG tube. Clinically looks dehydrated. Gave him some IV fluids. Renal ultrasound, electrolytes ordered. Severe azotemia noted. Might be going towards ischemic ATN blood pressure on the soft side. Will monitor closely. Today his BUN is 111, creatinine 5. Bicarbonate 18, potassium 3.3. No need for emergency dialysis. 12/18/2024 patient currently seen in medical floor. He is more alert and awake. Able to move all his extremities. Still with abdominal distention. Small bowel series showed high-grade bowel obstruction. Despite BUN and creatinine still elevated-patient has good urinary output. Continue with IV fluids. At this point I would hold off on dialysis. This afternoon Dr. Jimenez called-planning to take him for surgery. Recommended to continue with observation. No need for emergency dialysis. Dr. Jimenez decided to proceed to take him for surgery. Will monitor him closely post op. If no improvement in azotemia will plan for dialysis tomorrow. 12/22/2024 patient currently seen in medical floor. Patient started to have good urine output and BUN and creatinine improving. Status post bowel surgery for his high-grade bowel obstruction. Continue with gentle IV fluids and replace electrolytes. He has a good bowel movement. More alert and awake. dc planning per primary team
--- NOTE | 2024-12-22 10:21 | XR_ITS ---
Examination: Abdomen AP single view Technique: AP portable supine abdomen, single view Exam date and time: December 22, 2024 1159 hours INDICATIONS: Abdominal distention this week no bowel movements FINDINGS: Prominently air distended small bowel loops No free air IMPRESSION: Small bowel obstruction pattern
--- NOTE | 2024-12-22 10:38 | ESPR_ITS ---
<Statement entered by Adriano Coughlin MD - 12/30/24 07:46> I reviewed above note and agree with findings and plans. I have also personally examined the patient with medicine team and went over assessment and plan with medical team including internal recruiter and resident physician. Documentation for date of: 12/22/24 Senior resident attestation: Patient evaluated and examined at the bedside, plan of care discussed with rest of the team including my attending physician, except as noted. The patient is making good progress, on clear liquid diet, but he reports he does not have much of an appetite, reported has not had a bowel movement except day 1 postop, abdomen continues to be soft and nondistended, tender only at the site of surgical incision. Bowel sounds were audible on auscultation. The patient continues to stay on 2 L oxygen, at baseline patient does not have any oxygen at home. Chest x-ray was ordered to rule out pneumonia, was concerning for air under diaphragm, repeat x-ray abdomen was done which showed no free air, surgery was contacted, Dr. Jimenez recommended continuing current management, continuing with diet. General surgery not concerned about acute surgical abdomen. Consider PPN if no improvement in Diet, also consider GI consult for possible EGD. We consulted dr Moreland and Obstetrics Nurse Practitioner, pending recs. Family was present at the bedside, agreed with final disposition to SNF when patient is ready for discharge. Quresh PGY3 Subjective Subjective Interval history: Overnight events and labs reviewed. Post-op 4 days. Patient had bowel movement in 12/19 right after surgery, but didn't have bowel movement or passed gas ever since. Chest XR showed free air beneath right hemidiaphragm. subsequent abdomen XR showed small bowel obstruction pattern with prominently air distended small bowel loops and no free air. However, perforated viscus unlikely as abdomen XR showed no free air and patient had bowel sounds, abdomen was soft and non- distended. Consulted with General Surgery, Dr. Brady who also agreed on this point of view. We will continue to monitor his condition and will continue with his diet. The patient reports constant throat pain that worsens with swallowing. Oropharyngeal examination revealed no visible white exudates or lesions. Benzocaine spray has been given. Patient also complained of left sided arm pain. Physical Therapy ordered. Today patient is very conversational and interactive. Complaint of mild abdominal pain near the incision site. Abdomen was soft and had bowel sounds. Denied any headaches, shortness of breath, chest palpitation, chest pain, fever, and chills. Exam Vital Signs Temp Pulse Resp BP Pulse Ox O2 Del Method O2 Flow Rate 97.1 F 95 15 117/76 96 Nasal Cannula 4 12/22/24 07:57 12/22/24 08:31 12/22/24 07:57 12/22/24 08:31 12/22/24 07:57 12/22/24 04:00 12/21/24 16:00 Narrative Exam General: Awake, tired. Conversational and non-toxic appearing. HEENT: Normocephalic, atraumatic, mucous membranes moist. Heart: Regular rate and rhythm, no murmurs. Lungs: Bilateral coarse breath sounds. Abdomen: Soft, non-distended, mild tenderness at the site of surgery, positive bowel sounds, dressing intact, no serosanguineous staining of dressing noted. Neurologic: Alert and oriented x3, no gross neurological deficit, and patient able to move all 4 extremities. Extremities: No edema. Skin: No rash or ecchymoses. Objective Labs 12/23/24 04:51 12/23/24 04:51 Labs: Laboratory Results - last 24 hr 12/20/24 12/22/24 21:44 04:55 WBC 6.1 RBC 3.31 L Hgb 10.9 L Hct 32.1 L MCV 97 MCH 32.9 MCHC 34.0 RDW Std Deviation 50.9 H Plt Count 66 L Neut % (Auto) 81 H Lymph % (Auto) 6 L [place] % (Auto) 8 Eos % (Auto) 0 Baso % (Auto) 0 Neut # (Auto) 5.0 Lymph # (Auto) 0.4 L [place] # (Auto) 0.5 Eos # (Auto) 0.0 Baso # (Auto) 0.0 Immature Gran # (Auto) 0.24 H Absolute Nucleated RBC 0.00 Immature Gran % 4 H Nucleated RBC % 0 Sodium 148 H Potassium 3.2 L Chloride 106 Carbon Dioxide 29.8 Anion Gap 12 BUN 31 H Creatinine 1.0 Estim Creat Clear Calc 47.0 L eGFR > 60 BUN/Creatinine Ratio 31 H Glucose 104 Calculated Osmolality 300 H Calcium 8.3 Corrected Calcium 9.2 Phosphorus 2.1 L Magnesium 1.4 L Total Bilirubin 0.5 AST 28 ALT 19 Alkaline Phosphatase 60 Total Protein 5.2 L Albumin 2.9 L Globulin 2.3 Albumin/Globulin Ratio 1.3 Vitamin B12 1655 H Folate 10.30 Misc Test Result Platelets confirmed ABG Interpretation ABG results: 12/17/24 12/18/24 12/18/24 12:07 15:43 16:24 ABG pH 7.41 7.34 L 7.30 L ABG pCO2 38 45 46 ABG pO2 60 L 111 H D 152 H D ABG HCO3 24 25 22 ABG O2 Saturation 89 L 99 H 100 H ABG Base Excess 0 -1 -4 L Quality Measures Quality Measures VTE prophylaxis Advance care planning discussed with:: patient Assessment & Plan Assessment Current Active Medications: Generic Name Dose Route Start Last Admin Trade Name Freq PRN Reason Stop Dose Admin Carvedilol 12.5 mg 12/21/24 08:02 12/22/24 08:31 Carvedilol 12.5 Mg Tablet PO 01/19/25 17:29 12.5 mg BIDWM DANNI Administration Dextrose 25 ml 12/17/24 04:55 12/18/24 07:23 Dextrose 50%-Water Inj 50 Ml Syringe IV 01/16/25 04:54 25 ml Q15MIN PRN Administration BG 50-70 responsive npo pt Dextrose 50 ml 12/17/24 04:55 Dextrose 50%-Water Inj 50 Ml Syringe IV 01/16/25 04:54 Q15MIN PRN BG <50 OR BG <70 & pt unresponsive Furosemide 20 mg 12/21/24 09:00 12/22/24 08:30 Furosemide 20 Mg Tablet PO 01/20/25 08:59 20 mg QDAY DANNI Administration Glucagon 1 mg 12/17/24 04:55 Glucagon Inj 1 Mg Vial IM Q15MIN PRN BG <70, and no IV access Guaifenesin 100 mg 12/19/24 15:08 12/19/24 15:39 Guaifenesin Syrup 200 Mg/10 Ml Udc PO 01/18/25 15:07 100 mg QID PRN Administration COUGH Protocol Ceftriaxone Sodium/Dextrose 1 gm in 50 mls @ 100 mls/hr 12/17/24 17:54 12/22/24 08:31 Rocephin/D5w 1gm Iv Premix IV 12/24/24 17:53 50 mls/hr QDAY DANNI Administration Dextrose 1,000 mls @ 100 mls/hr 12/20/24 08:45 12/20/24 10:02 D5w IV 01/19/25 08:44 100 mls/hr .Q10H DANNI Administration Metronidazole 500 mg in 100 mls @ 200 mls/hr 12/20/24 09:00 12/22/24 08:31 Flagyl 500 Mg Iv IV 12/27/24 08:59 200 mls/hr Q12HR DANNI Administration Potassium Chloride 10 meq in 100 mls @ 100 mls/hr 12/22/24 07:31 12/22/24 10:35 Kcl Ivpb IV 12/22/24 11:30 100 mls/hr Q1H DANNI Administration Magnesium Sulfate 4 gm in 50 mls @ 12.5 mls/hr 12/22/24 08:42 Magnesium Sulfate Ivpb IV 12/22/24 12:41 X1 ONE Insulin Glargine 10 unit 12/20/24 09:00 12/22/24 08:32 Insulin Glargine (Lantus) 5 Unit/0.05 Ml (Per 5 Units) SC 01/19/25 08:59 10 unit QDAY DANNI Administration Insulin Human Lispro 0 unit 12/20/24 07:30 12/22/24 07:21 Insulin Lispro (Admelog) 1 Unit/0.01 Ml Unit SC 01/19/25 07:29 Not Given AC DANNI Protocol Levothyroxine Sodium 100 mcg 12/19/24 06:00 12/22/24 06:12 Levothyroxine Sodium 100 Mcg Tablet PO 01/18/25 05:59 100 mcg ACBR DANNI Administration Morphine Sulfate 3 mg 12/19/24 11:48 Morphine Sulf Inj 10 Mg/Ml Vial IVP 12/24/24 00:05 Q6HR PRN PAIN SCALE 4-10(Mod-Sev Ondansetron HCl 4 mg 12/17/24 00:45 12/17/24 02:39 Ondansetron Inj 2 Mg/Ml Inj 2 Ml IVP 01/16/25 00:44 4 mg Q6H PRN Administration NAUSEA OR VOMITING Protocol Pantoprazole Sodium 40 mg 12/21/24 09:00 12/22/24 08:32 Pantoprazole Inj 40 Mg Vial IVP 01/20/25 08:59 40 mg QDAY DANNI Administration Pharmacy Consult 1 each 12/17/24 17:54 Pharmacy Renal Dose Adjustment 1 Ea XX 01/16/25 17:53 PRN PRN CONSULT Sennosides 2 tab 12/22/24 10:20 Senna Tablet PO 01/21/25 10:19 QDAY PRN CONSTIPATION Protocol Plan Patient is a 89-year-old male with past medical history of hypertension, hypothyroidism, BPH, GERD, [id number] type 2 diabetes mellitus, hyperlipidemia, stage III chronic kidney disease, heart failure with reduced ejection fraction, 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 ICU team was priorly consulted due to persistent hypotension however patient's MAP improved with aggressive fluid resuscitation. Patient was diagnosed with mechanical small bowel obstruction and taken to operating room by general surgery and had exploratory laparotomy with lysis of adhesions and release of obstruction. Patient upgraded to intensive care unit for overnight monitoring. On 12/19/2024, patient was downgraded to med/tele. # S/P exploratory laparotomy with lysis of adhesions and release of obstruction 12/18 #High-grade mechanical small bowel obstruction-Resolved -Per op report, the patient was found to have a complete small bowel obstruction caused by an adhesive band originating from the base of the mesentery, resulting in marked distension of the jejunum. The ileum was decompressed and normal in caliber throughout. No bowel perforation, or free fluid in abdomen. Had arterial line. Blood pressures was stable. Patient had no bowel movement overnight. Upon examination, patient was alert and oriented X3, abdominal pain noted at incision site. -CXR (12/22/2024): Mild heart failure pattern, Mild pneumonia left base, and showed free air beneath right hemidiaphragm. subsequent abdomen XR showed small bowel obstruction pattern with prominently air distended small bowel loops and no free air. However, perforated viscus unlikely as abdomen XR showed no free air and patient had bowel sounds, abdomen was soft and non-distended. Consulted with General Surgery, Dr. Brady who also agreed on this point of view. We will continue to monitor his condition and will continue with his diet. -Abdominal XR (12/22/2024): Small bowel obstruction pattern with prominently air distended small bowel loops and no free air. Plan: -Monitor surgical site for any signs of infection or erythema. -Morphine 3 mg every 6 hours as needed -General Surgery consulted Dr. Parikh, appreciate recommendations -Per General Surgery, Dr. Brady, we will continue to monitor his condition and continue with his diet. #Acute hypoxic respiratory failure, #Pneumonia -CXR (12/22/2024): Mild heart failure pattern, Mild pneumonia left base, and There appears to be free air beneath right hemidiaphragm, clinical correlation advised -Patient was on room air was started on supplemental oxygen prior to surgery on hospitalization, likely in setting of increased demand in setting of SIRS. -Patient received doxycycline 12/17 - 12/19, MRSA nares negative -Blood Culture (12/16/2024): Negative for 48hrs. 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 -Pertinent labs: 12/20 12/21 Iron 64 TIBC 174 Iron Sat 36 MCV 93 RBC 3.14 Hgb 10.4 Hct 29.3 Plan: - Follow up with outpatient oncologist for PBF smear report in 2018 - Monitor CBC, transfuse hemoglobin if less than 7 #Chronic HFrEF 30% #Mild Aortic Regurgitation Patient has a past medical history of heart failure, likely cardiomyopathy given previous echo noted for severe systolic dysfunction. Patient is currently not in CHF exacerbation as no crackles noted on physical exam, Cxr mild vascular congestion, and now lower peripheral edema. Previous echocardiogram showed EF 30%. Patient required cardiac clearance prior to surgery which was given by soldering technician Dr. Tapia. Plan: - Monitor for signs of fluid overload - Sampler First Dr. Tapia was consulted, appreciate recs. - Continue Carvedilol 12.5mg PO BID and Furesomide 20 mg PO QD - Holding home medications Entresto, lisinopril and hydrochlorothiazide in the setting of renal impairment and hypotension during hospital course, consider resuming home medications on discharge or until follow-up appointment with soldering technician. #Hypernatremia, resolving Patient may have imbalance of sodium due to: SADIQ leading to decreased filtration of kidneys, resulting in excess sodium remaining in the body. Moreover, patient may not be hydrating enough given recent small bowel obstruction. One other possible explanation is not taking thiazide diuretics led to a short term increase in sodium. Plan: - Holding IV fluids in the setting of HFrEF, encourage per oral intake of free water. - Dr. Emerson, appreciate recommendations #Thrombocytopenia, ?chronic Patient recently underwent surgery and needed to receive a unit of platelets prior to surgery. Possible differentials include: infection, given that this patient had a small bowel obstruction, this could have been a source; one other possible cause is vitamin deficiency, such as folate or b12, but that is unlikely given the patient's values are normal; another possible cause is a bone marrow disorder or dysregulation since the patient has low RBC counts too Platelet counts: 12/16 124 12/17 93 12/18 43 12/19 54 12/20 90 12/21 58 Plan: -Monitor for active bruising or bleeding -Monitor CBC #Troponemia, resolving #NSTEMI type II Tropneemia likely NSTEMI type II, in the setting of small bowel obstruction, SIRs, and SADIQ. No ST elevation noted on EKG or changes. Patient is not currently taking nitrates for chest pain Diagnostics: - Pertinent labs 12/20: trop 0.069 trop 12/21: trop 0.048 - EKG(12/20/2024) showed abnormal T-waves with possible atrial fibrillation and PVCs Plan - Consider repeat EKG, monitor for chest pain - Cardiology recommendation: PACs noted and continue telemetry monitoring, Dr. Tapia, appreciate recommendations #Acute SADIQ on CKD, resolved Acute on chronic CKD in the setting of hemorrhagic shock, possible ischemic ATN, patient had remarkable recovery of renal function with improving BUN creatinine and urine output. Chicken Cleaner Dr Balderas follow the patient. Plan: - Chicken Cleaner Dr Balderas is consulted, appreciate recommendations - Monitor renal function - Renally dose medication - Avoid nephrotoxic agents - Monitor UOP # History of hypertension Patient has a past medical history of hypertension. Patient is on GDMT for heart failure, likely Coreg, controlling blood pressure. Patient did have hypovolemic shock on admission, but was fluid responsive with IV fluids, currently post surgery, post resolution of obstruction, noted to be hypertensive, home medication resumed. Plan -continue Carvedilol 12.5 mg PO BID # History of hyperlipidemia Patient has pmh of hyperlipidemia, on atorvastatin 20mg hs ASCVD score non applicable given his age of 89, continue nonetheless Plan: -Resume atorvastatin 20mg QHS upon discharge # history of BPH Patient has a history of BPH, home medication Flomax 0.4 mg. Initially holding Flomax given low blood pressure and concern for shock. Plan -Resume Flomax 0.4 mg #History of Diabetes Mellitus Type 2, non-insulin dependent - Previously patient not taking home medication for diabetes Mellitus not listed. Likely diet controlled -Upon admission patient became hyperglycemic. Pertinent labs: 06/19/24 A1C 6.4 12/19/24 A1C 5.1; FSBG 12/20 193 12/21 150 Plan: -Sliding scale insulin every 6 hours -Hypoglycemia protocol -Monitor fingerstick for now, consider discontinuing if within normal limits -Monitor blood glucose, in daily CMP # History of hypothyroidism Pertinent labs 12/19 TSH 0.46, free T4 0.72 Plan: -Resume levothyroxine DVT prophylaxis: SCDs GI prophylaxis: IV Protonix 40 mg QD Diet: Diabetic carbohydrate consistent diet Lines: Peripheral IV Code status: Full Code Dispo: Downgraded to med/tele, hospitalist team B Assessment and plan discussed with my attending physician Dr. Coughlin and Dr. Kuo (PGY-3) Dr. Zamorano (PGY-1)- Internal medicine resident
[2024-12-22] MEDS: Magnesium Sulfate 4 GM Ivpb 4 GM/50 ML BAG IV (10:56)
[2024-12-22] MEDS: NAPH,KPH MBDB 1 PACKET (1.5 GM) PO (10:56)
--- NOTE | 2024-12-22 11:04 | PC.PT ---
Patient is safe to ambulate to the bathroom with a FWW and 1 staff assist. RN made aware.
--- NOTE | 2024-12-22 11:25 | PC.SS ---
Addendum entered by Nadia Madrid 12/22/24 15:24: Rounding note: Has not had BM nor passed gas. Dr. Jimenez's recommendations are pending. Discharge plan: SNF [facility]. Addendum entered by Nadia Madrid 12/22/24 13:41: Patient's sister Cirilo informed [facility] accepted patient. Original Note: SS informed by JEANE Moreno short term SNF is being recommended for patient. Patient and family agreeable for SN. SS met with patient and family at bedside, preferred SNF is [facility]. Insurance Auth. for SNF will be needed. SS to follow up and submit SNF referrals via [facility].
[2024-12-22] MEDS: LACTULOSE SYRUP 20 GM/30 ML UDC 30 GM PO (11:41)
--- NOTE | 2024-12-22 13:25 | PC.NURSE ---
Notified Dr Zamorano that patient is having painful swallowing
--- NOTE | 2024-12-22 18:36 | PC.NURSE ---
Spoke with Dr Douglas inquiring about the NPO after MN order, per Dr Douglas, Dr Moreland is planning to scope the pt tomorrow.
[2024-12-22] MEDS: BENZOCAINE 20% (Hurricaine) SPRAY 1 DOSE TOP (18:41)
--- NOTE | 2024-12-22 19:49 | ESPR_ITS ---
Documentation for date of: 12/22/24 Subjective Subjective Interval history: Patient has developed dysphagia and a dyne aphasia Case discussed with internal medicine team If tolerated patient can have liquid diet till tomorrow 10 AM then n.p.o. Consent obtained for fiberoptic esophagogastroduodenoscopy with possible biopsies possible esophageal dilatation Exam Vital Signs Temp Pulse Resp BP Pulse Ox O2 Del Method O2 Flow Rate 97.6 F 69 18 100/66 97 Nasal Cannula 3 12/22/24 15:39 12/22/24 16:00 12/22/24 15:39 12/22/24 15:39 12/22/24 15:39 12/22/24 04:00 12/22/24 12:00 Objective Labs 12/22/24 04:55 12/22/24 04:55 Labs: Laboratory Results - last 24 hr 12/20/24 12/22/24 21:44 04:55 WBC 6.1 RBC 3.31 L Hgb 10.9 L Hct 32.1 L MCV 97 MCH 32.9 MCHC 34.0 RDW Std Deviation 50.9 H Plt Count 66 L Neut % (Auto) 81 H Lymph % (Auto) 6 L [place] % (Auto) 8 Eos % (Auto) 0 Baso % (Auto) 0 Neut # (Auto) 5.0 Lymph # (Auto) 0.4 L [place] # (Auto) 0.5 Eos # (Auto) 0.0 Baso # (Auto) 0.0 Immature Gran # (Auto) 0.24 H Absolute Nucleated RBC 0.00 Immature Gran % 4 H Nucleated RBC % 0 Sodium 148 H Potassium 3.2 L Chloride 106 Carbon Dioxide 29.8 Anion Gap 12 BUN 31 H Creatinine 1.0 Estim Creat Clear Calc 47.0 L eGFR > 60 BUN/Creatinine Ratio 31 H Glucose 104 Calculated Osmolality 300 H Calcium 8.3 Corrected Calcium 9.2 Phosphorus 2.1 L Magnesium 1.4 L Total Bilirubin 0.5 AST 28 ALT 19 Alkaline Phosphatase 60 Total Protein 5.2 L Albumin 2.9 L Globulin 2.3 Albumin/Globulin Ratio 1.3 Vitamin B12 1655 H Folate 10.30 Misc Test Result Platelets confirmed Impressions Impression: Dysphagia Odynophagia Plan Consent obtained for fiberoptic esophagogastroduodenoscopy with possible biopsy possible therapeutic intervention under intravenous moderate sedation ABG Interpretation ABG results: 12/17/24 12/18/24 12/18/24 12:07 15:43 16:24 ABG pH 7.41 7.34 L 7.30 L ABG pCO2 38 45 46 ABG pO2 60 L 111 H D 152 H D ABG HCO3 24 25 22 ABG O2 Saturation 89 L 99 H 100 H ABG Base Excess 0 -1 -4 L Assessment & Plan A&P Narrative pt had short runs of PACs in [facility] ; currently in [facility] continue telemetry monitoring Time Spent With Patient Time: Total time spent is greater than 50% in coordination of care (as documented) at patient's floor/unit and/or counseling patient:
[2024-12-23] VITALS (10 sets, daily range): BP systolic 100–144; BP diastolic 53–70; PULSE 65–73; RESP 16–22; TEMP 36.1–36.4; O2SAT 95–97; BMI 25.1; BMI 13.0
[2024-12-23 06:04] LABS: OBS Card Expiration Date 2026-09; OBS Card Lot # 23001; OBS Developer Lot # 23003; OBS Performed By ANDRS3; OBS QC OK? Yes; Occult Blood, Stool Negative (Negative)
[2024-12-23 06:08] LABS: Basophils # (Auto) 0.0 Thou/mm3 (0.0-0.2); Basophils % (Auto) 0 % (0-2.5); Eosinophils # (Auto) 0.1 Thou/mm3 (0.0-0.5); Eosinophils % (Auto) 1 % (0-10); Hematocrit 32.2 % (41.0-53.0); Hemoglobin 11.0 g/dL (13.5-16.0); Immature Granulocytes Auto 0.18 Thou/mm3 (0.00-0.00); Lymphocytes # (Auto) 0.5 Thou/mm3 (1.0-4.8); Lymphocytes % (Auto) 9 % (10-50); Mean Corpuscular HGB Conc 34.2 g/dl (31.0-37.0); Mean Corpuscular Hemoglobin 32.2 pg (25.0-35.0); Mean Corpuscular Volume 94 fL (80-100); Monocytes # (Auto) 0.4 Thou/mm3 (0.0-0.8); Monocytes % (Auto) 6 % (0-12); Neutrophils # (Auto) 4.7 Thou/mm3 (1.8-7.7); Neutrophils % (Auto) 81 % (37-80); Nucleated Red Blood Cell # 0.00 Thou/mm3 (0.00-0.00); Nucleated Red Blood Cell % 0 /100 WBC (0); RDW Standard Deviation 48.2 fL (35.1-43.9); Red Blood Count 3.42 Miln/mm3 (4.50-5.90); White Blood Count 5.8 Thou/mm3 (3.8-10.6)
[2024-12-23 06:27] LABS: Alanine Aminotransferase 27 U/L (10-49); Albumin, Serum 2.9 gm/dL (3.4-4.8); Albumin/Globulin Ratio 1.1 (1.2-2.2); Alkaline Phosphatase 67 U/L (46-116); Anion Gap 11 (7-16); Aspartate Amino Transferase 41 U/L (0-34); BUN/Creatinine Ratio 21 Ratio (12-20); Bilirubin,Total 0.5 mg/dL (0.3-1.2); Blood Urea Nitrogen 23 mg/dL (9-23); Calcium 8.3 mg/dL (8.3-10.6); Calcium (Corrected) 9.2 mg/dL (8.5-10.1); Carbon Dioxide 32.1 mMol/L (20.0-31.0); Chloride 105 mMol/L (98-107); Creatinine (Component) 1.1 mg/dL (0.6-1.3); Estimated Creatinine Clearance 42.7 mL/min (>60); Globulin 2.7 gm/dL (2.3-3.5); Glucose 86 mg/dL (74-106); Magnesium 1.8 mg/dL (1.6-2.6); Osmolality,Calculated 296 (275-295); Phosphorous 2.2 mg/dL (2.4-5.1); Potassium 3.4 mMol/L (3.4-5.1); Sodium 148 mMol/L (136-145); Total Protein 5.6 gm/dL (5.7-8.2); eGFR > 60 See Note
[2024-12-23 06:29] LABS: Platelet Count 65 Thou/mm3 (140-440)
[2024-12-23] MEDS: cefTRIAXone/D5w 1gm IV premix 1 GM/50 ML BAG IV (08:38)
[2024-12-23] MEDS: TAMSULOSIN HCL 0.4 MG CAPSULE PO (08:38)
[2024-12-23 08:43] LABS: Slide Review Platelets confirmed
[2024-12-23] MEDS: metroNIDAZOLE/NS 500 MG IVPB 500 MG/100 ML BAG 200 MG IV ×2 (08:51→22:02)
--- NOTE | 2024-12-23 09:18 | PD.RESPRO ---
Documentation for date of: 12/23/24 Subjective Subjective Interval history: Lars Landry is an 89-year-old M with a PMH of hypertension, hypothyroidism, T2DM, BPH, GERD, HLD, CKD stage III, and HFrEF who presents today with belly pain, nausea, and vomiting. Patient states that he began to have abdominal discomfort last after eating out, which has worsened since then. States it is localized to the umbilicus region of the abdomen. Patient characterizes the pain as constant and burning. It worsens with eating and improves after drinking liquids. Patient denies ever having a similar presentation in the past. The patient last vomited on Sunday and describes the vomitus as being brown in color. His last bowel movement was 5 to 6 days ago and productive of liquid brown stool. He also endorses a cough that is productive of black mucus. At the time of the interview, patient reported his belly pain to be a 3/10. In the ED, patient came in with low blood pressure of 46/35 that improved after having total 1.25 NS bolus and continues to be on 1 L NS maintenance fluids. Patient found to have high anion gap metabolic acidosis, BUN 119, Cr 5.8, eGFR 9, lactic acid of 4.2 (improved to 2.6), and elevated trop 0.098. UA was turbid and showed 1+ protein, 1+ bilirubin, slightly high WBC 8, and amorphous crystals with some hyaline casts. CT AP was consistent with reflux esophagitis and sbo (f/u small bowel series). EKG showed sinus rhythm with possible left atrial enlargement, left axis deviation, and left bundle branch block. Head CT and CXR was unremarkable. Patient was admitted for the work-up and management of suspected SBO. 12/17/2024 When patient was seen and examined, he had his sister and niece at bedside. Patient is alert and oriented x3 and says he is feeling good, just feels a little weak. Denies and new concerns/complaints. Patient denies having fever, headache, chest pain, shortness of breath, abdominal pain, flank pain or dysuria. Patient noted PCP is Dr. Barcenas in [place]. 12/18/2024 Patient was seen and examined. Patient is moving and speaking a lot slower, still is a&o x3. Patient states he feels thirsty, weak and has some mild abdominal pain with nausea that has been getting worse overnight. Patient denies fever, chest pain, shortness of breath, vomiting, dysuria. Patient was given an amp of dextrose this morning and was started on KCl maintenance fluids. Patient's Cr improved to 4.2 today (5.0 yest). 12/19/2024 Patient was seen and examined. Patient's vitals and labs were examined. Patient had ex lap yesterday for obstruction. Patient's Cr improving, on maintenance fluids NS. Patient states he continues to feel thirsty, weak and has some mild abdominal pain. Patient denies fever, chest pain, shortness of breath, nausea, vomiting, dysuria. Notable labs includes sodium 146, chlroide 113, bicarb 18.6, BUN 85, Cr 2.5. 12/20/2024 Patient was seen and examined. Patient's vitals and labs were examined. Patient's Cr improving, started on d5w now and lantus. Patient still endorses some mild abdominal pain. Patient denies fever, chest pain, shortness of breath, nausea, vomiting, dysuria. 12/21/24: Patient seen and examined at bedside. No new complaints. Denies chest pain, SOB or fever. Cr and BUN continue to improve 1.8->1.2 and 64->49. 12/22/24: Patient seen and examined at bedside. Patient is sitting up on the side of the bed, eating breakfast. No new complaints. Denies chest pain, SOB or fever. Cr continues to be improved (1.0). 12/23/24: No acute events overnight. Patient resting in bed with no acute distress, a&o x3. Patient is tolerating drinking a little bit of fluids, endorsed BM this morning. No new complaints. Denies chest pain, SOB or fever. Cr continues to be improved (1.1). Exam Vital Signs Temp Pulse Resp BP Pulse Ox O2 Del Method O2 Flow Rate 96.9 F 69 19 136/66 H 97 Nasal Cannula 2 12/23/24 07:41 12/23/24 08:39 12/23/24 07:41 12/23/24 08:39 12/23/24 07:41 12/23/24 07:41 12/23/24 07:41 Narrative Exam GENERAL: AOx3, no acute distress HEENT: NC/AT, mucous membranes moist, bilateral sclera anicteric CARDIOVASCULAR: regular rate and rhythm, S1/S2 present, no murmurs appreciated PULMONARY: clear to auscultation bilaterally, no rales/rhonchi/wheezes ABDOMINAL: soft, tender to palpation around surgical site, non-distended, no rebound/guarding, bowel sounds present EXTREMITIES: no peripheral edema SKIN: warm and dry, intact, no rashes NEURO: CN II-XII grossly intact, no focal deficits, alert, following commands Objective Labs 12/23/24 04:51 12/23/24 04:51 Labs: Laboratory Results - last 24 hr 12/23/24 12/23/24 00:55 04:51 WBC 5.8 RBC 3.42 L Hgb 11.0 L Hct 32.2 L MCV 94 MCH 32.2 MCHC 34.2 RDW Std Deviation 48.2 H Plt Count 65 L Neut % (Auto) 81 H Lymph % (Auto) 9 L [place] % (Auto) 6 Eos % (Auto) 1 Baso % (Auto) 0 Neut # (Auto) 4.7 Lymph # (Auto) 0.5 L [place] # (Auto) 0.4 Eos # (Auto) 0.1 Baso # (Auto) 0.0 Immature Gran # (Auto) 0.18 H Absolute Nucleated RBC 0.00 Immature Gran % 3 H Nucleated RBC % 0 Sodium 148 H Potassium 3.4 Chloride 105 Carbon Dioxide 32.1 H Anion Gap 11 BUN 23 Creatinine 1.1 Estim Creat Clear Calc 42.7 L eGFR > 60 BUN/Creatinine Ratio 21 H Glucose 86 Calculated Osmolality 296 H Calcium 8.3 Corrected Calcium 9.2 Phosphorus 2.2 L Magnesium 1.8 Total Bilirubin 0.5 AST 41 H ALT 27 Alkaline Phosphatase 67 Total Protein 5.6 L Albumin 2.9 L Globulin 2.7 Albumin/Globulin Ratio 1.1 L Stool Occult Blood Negative Misc Test Result Platelets confirmed ABG Interpretation ABG results: 12/17/24 12/18/24 12/18/24 12:07 15:43 16:24 ABG pH 7.41 7.34 L 7.30 L ABG pCO2 38 45 46 ABG pO2 60 L 111 H D 152 H D ABG HCO3 24 25 22 ABG O2 Saturation 89 L 99 H 100 H ABG Base Excess 0 -1 -4 L Quality Measures Quality Measures VTE prophylaxis Advance care planning discussed with:: patient Assessment & Plan Assessment Current Active Medications: Generic Name Dose Route Start Last Admin Trade Name Freq PRN Reason Stop Dose Admin Benzocaine 0 dose 12/22/24 13:39 12/22/24 18:41 Benzocaine 20% (Hurricaine) [place] 1 Dose TOP 01/21/25 13:38 1 dose Q6HR PRN Administration Odynophagia Carvedilol 12.5 mg 12/21/24 08:02 12/23/24 08:39 Carvedilol 12.5 Mg Tablet PO 01/19/25 17:29 12.5 mg BIDWM DANNI Administration Dextrose 25 ml 12/17/24 04:55 12/18/24 07:23 Dextrose 50%-Water Inj 50 Ml Syringe IV 01/16/25 04:54 25 ml Q15MIN PRN Administration BG 50-70 responsive npo pt Dextrose 50 ml 12/17/24 04:55 Dextrose 50%-Water Inj 50 Ml Syringe IV 01/16/25 04:54 Q15MIN PRN BG <50 OR BG <70 & pt unresponsive Furosemide 20 mg 12/21/24 09:00 12/23/24 08:38 Furosemide 20 Mg Tablet PO 01/20/25 08:59 20 mg QDAY DANNI Administration Glucagon 1 mg 12/17/24 04:55 Glucagon Inj 1 Mg Vial IM Q15MIN PRN BG <70, and no IV access Guaifenesin 100 mg 12/19/24 15:08 12/19/24 15:39 Guaifenesin Syrup 200 Mg/10 Ml Udc PO 01/18/25 15:07 100 mg QID PRN Administration COUGH Protocol Ceftriaxone Sodium/Dextrose 1 gm in 50 mls @ 100 mls/hr 12/17/24 17:54 12/23/24 08:38 Rocephin/D5w 1gm Iv Premix IV 12/24/24 17:53 50 mls/hr QDAY DANNI Administration Metronidazole 500 mg in 100 mls @ 200 mls/hr 12/20/24 09:00 12/23/24 08:51 Flagyl 500 Mg Iv IV 12/27/24 08:59 200 mls/hr Q12HR DANNI Administration Insulin Glargine 10 unit 12/20/24 09:00 12/23/24 08:50 Insulin Glargine (Lantus) 5 Unit/0.05 Ml (Per 5 Units) SC 01/19/25 08:59 Not Given QDAY DANNI Insulin Human Lispro 0 unit 12/20/24 07:30 12/23/24 07:25 Insulin Lispro (Admelog) 1 Unit/0.01 Ml Unit SC 01/19/25 07:29 Not Given AC DANNI Protocol Levothyroxine Sodium 100 mcg 12/19/24 06:00 12/23/24 06:10 Levothyroxine Sodium 100 Mcg Tablet PO 01/18/25 05:59 Not Given ACBR DANNI Morphine Sulfate 3 mg 12/19/24 11:48 Morphine Sulf Inj 10 Mg/Ml Vial IVP 12/24/24 00:05 Q6HR PRN PAIN SCALE 4-10(Mod-Sev Ondansetron HCl 4 mg 12/17/24 00:45 12/17/24 02:39 Ondansetron Inj 2 Mg/Ml Inj 2 Ml IVP 01/16/25 00:44 4 mg Q6H PRN Administration NAUSEA OR VOMITING Protocol Pantoprazole Sodium 40 mg 12/21/24 09:00 12/23/24 08:38 Pantoprazole Inj 40 Mg Vial IVP 01/20/25 08:59 40 mg QDAY DANNI Administration Pharmacy Consult 1 each 12/17/24 17:54 Pharmacy Renal Dose Adjustment 1 Ea XX 01/16/25 17:53 PRN PRN CONSULT Sennosides 2 tab 12/22/24 10:20 Senna Tablet PO 01/21/25 10:19 QDAY PRN CONSTIPATION Protocol Tamsulosin HCl 0.4 mg 12/23/24 09:00 12/23/24 08:38 Tamsulosin Hcl 0.4 Mg Capsule PO 01/22/25 08:59 0.4 mg QDAY DANNI Administration Plan Lars Landry is an 89-year-old M with a PMH of hypertension, hypothyroidism, T2DM, BPH, GERD, HLD, CKD stage III, and HFrEF who presented with belly pain, nausea, and vomiting. Patient was admitted for the work-up and management of suspected SBO. Patient was consulted for SADIQ on CKD #Acute renal failure on CKD (stage III), improved #Lactic acidosis, resolved Suspect pre-renal etiology 2/2 dehydration and poor oral intake. Cr 5.8 on admission (baseline 1.2), continues to be improved, at . BUN improving 64->49. Good urine output with stanley. S/p ex lap for abd obstruction. - Patient currently tolerating liquid this morning, BM this morning. - Cr 1.1, ctm - Strict I/Os, monitor UOP - Renal dose med, avoid nephrotoxins #SBO #Elevated troponins, likely 2/2 NSTEMI Type II #Chronic medical problems #Reflux esophagitis #T2DM #Hypothyroidism problems above managed via primary team Thank you for allowing us to be apart of the care for Mr. Landry Plan of care discussed with attending, Dr. Andrey Miguel MD PGY-1 Attending Provider Attestation/Addendum Patient seen and examined with resident physician Dr. Miguel. Note reviewed, agree with findings and recommendations. Patient admitted with bowel obstruction. He has an NG tube. Clinically looks dehydrated. Gave him some IV fluids. Renal ultrasound, electrolytes ordered. Severe azotemia noted. Might be going towards ischemic ATN blood pressure on the soft side. Will monitor closely. Today his BUN is 111, creatinine 5. Bicarbonate 18, potassium 3.3. No need for emergency dialysis. 12/18/2024 patient currently seen in medical floor. He is more alert and awake. Able to move all his extremities. Still with abdominal distention. Small bowel series showed high-grade bowel obstruction. Despite BUN and creatinine still elevated-patient has good urinary output. Continue with IV fluids. At this point I would hold off on dialysis. This afternoon Dr. Jimenez called-planning to take him for surgery. Recommended to continue with observation. No need for emergency dialysis. Dr. Jimenez decided to proceed to take him for surgery. Will monitor him closely post op. If no improvement in azotemia will plan for dialysis tomorrow. 12/23/2024 patient currently seen in medical floor. Patient started to have good urine output and BUN and creatinine improving. Status post bowel surgery for his high-grade bowel obstruction. Continue with gentle IV fluids and replace electrolytes. He has a good bowel movement. More alert and awake. dc planning per primary team. Renal perez stable for discharge. Creatinine markedly improved.
--- NOTE | 2024-12-23 09:30 | PC.SS ---
Addendum entered by MARSHA Browne 12/23/24 14:34: Rounding note: patient is pending surgery recommendations. Possible d/c tomorrow. D/c plan is SNF with [facility] if insurance authorization is obtained. Addendum entered by MARSHA Browne 12/23/24 11:39: SS follow up: contacted Angie with [facility] to notify that patient was accepted at [facility] to review for SNF insurance authorization. Angie to review and call back with update. Original Note: SS follow up: Spoke with Dena Sauceda with admissions at [facility]. She informs they have accepted the patient. However, patient will require insurance authorization.
--- NOTE | 2024-12-23 11:45 | ESPR_ITS ---
Documentation for date of: 12/23/24 Subjective Subjective Interval history: pt comfortable ; Exam Vital Signs Temp Pulse Resp BP Pulse Ox O2 Del Method O2 Flow Rate 96.9 F 69 19 136/66 H 97 Nasal Cannula 2 12/23/24 07:41 12/23/24 08:39 12/23/24 07:41 12/23/24 08:39 12/23/24 07:41 12/23/24 07:41 12/23/24 07:41 Routine HEENT Exam Head: Present normocephalic and atraumatic Eye: Present EOMI and PERRL ENT: Present mucous membranes moist Routine Neck Exam Neck: Present supple and trachea midline Routine Respiratory Exam Respiratory: Present chest non-tender, lungs clear, normal breath sounds and no resp distress Routine Cardiovascular Exam Cardiovascular: Present RRR Routine Abdominal Exam Abdominal: Present soft and normoactive bowel sounds Routine Extremities Exam Extremities: Present full ROM Routine Skin Exam Skin: Present intact, dry and warm Routine Neurological Exam Neurological: Present alert, oriented X3 and CN II-XII intact Routine Psychiatric Exam Psychiatric: Present normal affect and normal thought process Objective Labs 12/23/24 04:51 12/23/24 04:51 Labs: Laboratory Results - last 24 hr 12/23/24 12/23/24 00:55 04:51 WBC 5.8 RBC 3.42 L Hgb 11.0 L Hct 32.2 L MCV 94 MCH 32.2 MCHC 34.2 RDW Std Deviation 48.2 H Plt Count 65 L Neut % (Auto) 81 H Lymph % (Auto) 9 L [place] % (Auto) 6 Eos % (Auto) 1 Baso % (Auto) 0 Neut # (Auto) 4.7 Lymph # (Auto) 0.5 L [place] # (Auto) 0.4 Eos # (Auto) 0.1 Baso # (Auto) 0.0 Immature Gran # (Auto) 0.18 H Absolute Nucleated RBC 0.00 Immature Gran % 3 H Nucleated RBC % 0 Sodium 148 H Potassium 3.4 Chloride 105 Carbon Dioxide 32.1 H Anion Gap 11 BUN 23 Creatinine 1.1 Estim Creat Clear Calc 42.7 L eGFR > 60 BUN/Creatinine Ratio 21 H Glucose 86 Calculated Osmolality 296 H Calcium 8.3 Corrected Calcium 9.2 Phosphorus 2.2 L Magnesium 1.8 Total Bilirubin 0.5 AST 41 H ALT 27 Alkaline Phosphatase 67 Total Protein 5.6 L Albumin 2.9 L Globulin 2.7 Albumin/Globulin Ratio 1.1 L Stool Occult Blood Negative Misc Test Result Platelets confirmed ABG Interpretation ABG results: 12/17/24 12/18/24 12/18/24 12:07 15:43 16:24 ABG pH 7.41 7.34 L 7.30 L ABG pCO2 38 45 46 ABG pO2 60 L 111 H D 152 H D ABG HCO3 24 25 22 ABG O2 Saturation 89 L 99 H 100 H ABG Base Excess 0 -1 -4 L Assessment & Plan A&P Narrative pt [facility] ; currently in [facility] continue telemetry monitoring Time Spent With Patient Time: Total time spent is greater than 50% in coordination of care (as documented) at patient's floor/unit and/or counseling patient:
--- NOTE | 2024-12-23 13:44 | ESPR_ITS ---
Documentation for date of: 12/23/24 Senior resident attestation: Patient evaluated and examined at the bedside, plan of care discussed with rest of the team including my attending physician, except as noted. The patient is tolerating diet, finished 100% of his breakfast, stated he is ready to try diet, feels more hungry. Patient was made n.p.o. initially for possible EGD, but per Dr. Moreland patient ate 100% of breakfast. Per Dr. Moreland no need for further invasive workup. Will advance diet. Anticipate discharge tomorrow. Quresh PGY3 Subjective Subjective Interval history: No Overnight events. Labs reviewed and patient examined at the bedside. Patient had 2 bowel movements overnight. Patient was able to eat all her meals. Patient is no longer feeling difficulty swallowing. NPO was scheduled this morning for EGD, but since patient had bowel movement and had no difficulty swallowing. EGD was canceled and the patient's diet was changed from n.p.o. to dysphagia diet. Patient will have any abdominal pain. Denies chest pain, palpitations, headaches, dizziness, fever and chills. Exam Vital Signs Temp Pulse Resp BP Pulse Ox O2 Del Method O2 Flow Rate 96.9 F 66 22 H 109/58 L 97 Nasal Cannula 2 12/23/24 12:00 12/23/24 12:00 12/23/24 12:00 12/23/24 12:00 12/23/24 12:00 12/23/24 12:00 12/23/24 12:00 Narrative Exam General: Awake, tired. Conversational and non-toxic appearing. HEENT: Normocephalic, atraumatic, mucous membranes moist. Heart: Regular rate and rhythm, no murmurs. Lungs: Bilateral coarse breath sounds. Abdomen: Soft, non-distended, mild tenderness at the site of surgery, positive bowel sounds, dressing intact, no serosanguineous staining of dressing noted. Neurologic: Alert and oriented x3, no gross neurological deficit, and patient able to move all 4 extremities. Extremities: No edema. Skin: No rash or ecchymoses. Objective Labs 12/24/24 04:48 12/24/24 04:48 Labs: Laboratory Results - last 24 hr 12/23/24 12/23/24 00:55 04:51 WBC 5.8 RBC 3.42 L Hgb 11.0 L Hct 32.2 L MCV 94 MCH 32.2 MCHC 34.2 RDW Std Deviation 48.2 H Plt Count 65 L Neut % (Auto) 81 H Lymph % (Auto) 9 L [place] % (Auto) 6 Eos % (Auto) 1 Baso % (Auto) 0 Neut # (Auto) 4.7 Lymph # (Auto) 0.5 L [place] # (Auto) 0.4 Eos # (Auto) 0.1 Baso # (Auto) 0.0 Immature Gran # (Auto) 0.18 H Absolute Nucleated RBC 0.00 Immature Gran % 3 H Nucleated RBC % 0 Sodium 148 H Potassium 3.4 Chloride 105 Carbon Dioxide 32.1 H Anion Gap 11 BUN 23 Creatinine 1.1 Estim Creat Clear Calc 42.7 L eGFR > 60 BUN/Creatinine Ratio 21 H Glucose 86 Calculated Osmolality 296 H Calcium 8.3 Corrected Calcium 9.2 Phosphorus 2.2 L Magnesium 1.8 Total Bilirubin 0.5 AST 41 H ALT 27 Alkaline Phosphatase 67 Total Protein 5.6 L Albumin 2.9 L Globulin 2.7 Albumin/Globulin Ratio 1.1 L Stool Occult Blood Negative Misc Test Result Platelets confirmed ABG Interpretation ABG results: 12/17/24 12/18/24 12/18/24 12:07 15:43 16:24 ABG pH 7.41 7.34 L 7.30 L ABG pCO2 38 45 46 ABG pO2 60 L 111 H D 152 H D ABG HCO3 24 25 22 ABG O2 Saturation 89 L 99 H 100 H ABG Base Excess 0 -1 -4 L Quality Measures Quality Measures VTE prophylaxis Advance care planning discussed with:: patient Assessment & Plan Assessment Current Active Medications: Generic Name Dose Route Start Last Admin Trade Name Freq PRN Reason Stop Dose Admin Benzocaine 0 dose 12/22/24 13:39 12/22/24 18:41 Benzocaine 20% (Hurricaine) [place] 1 Dose TOP 01/21/25 13:38 1 dose Q6HR PRN Administration Odynophagia Carvedilol 12.5 mg 12/21/24 08:02 12/23/24 08:39 Carvedilol 12.5 Mg Tablet PO 01/19/25 17:29 12.5 mg BIDWM DANNI Administration Dextrose 25 ml 12/17/24 04:55 12/18/24 07:23 Dextrose 50%-Water Inj 50 Ml Syringe IV 01/16/25 04:54 25 ml Q15MIN PRN Administration BG 50-70 responsive npo pt Dextrose 50 ml 12/17/24 04:55 Dextrose 50%-Water Inj 50 Ml Syringe IV 01/16/25 04:54 Q15MIN PRN BG <50 OR BG <70 & pt unresponsive Furosemide 20 mg 12/21/24 09:00 12/23/24 08:38 Furosemide 20 Mg Tablet PO 01/20/25 08:59 20 mg QDAY DANNI Administration Glucagon 1 mg 12/17/24 04:55 Glucagon Inj 1 Mg Vial IM Q15MIN PRN BG <70, and no IV access Guaifenesin 100 mg 12/19/24 15:08 12/19/24 15:39 Guaifenesin Syrup 200 Mg/10 Ml Udc PO 01/18/25 15:07 100 mg QID PRN Administration COUGH Protocol Ceftriaxone Sodium/Dextrose 1 gm in 50 mls @ 100 mls/hr 12/17/24 17:54 12/23/24 08:38 Rocephin/D5w 1gm Iv Premix IV 12/24/24 17:53 50 mls/hr QDAY DANNI Administration Metronidazole 500 mg in 100 mls @ 200 mls/hr 12/20/24 09:00 12/23/24 08:51 Flagyl 500 Mg Iv IV 12/27/24 08:59 200 mls/hr Q12HR DANNI Administration Insulin Glargine 10 unit 12/20/24 09:00 12/23/24 08:50 Insulin Glargine (Lantus) 5 Unit/0.05 Ml (Per 5 Units) SC 01/19/25 08:59 Not Given QDAY DANNI Insulin Human Lispro 0 unit 12/20/24 07:30 12/23/24 11:13 Insulin Lispro (Admelog) 1 Unit/0.01 Ml Unit SC 01/19/25 07:29 Not Given AC DANNI Protocol Levothyroxine Sodium 100 mcg 12/19/24 06:00 12/23/24 06:10 Levothyroxine Sodium 100 Mcg Tablet PO 01/18/25 05:59 Not Given ACBR DANNI Morphine Sulfate 3 mg 12/19/24 11:48 Morphine Sulf Inj 10 Mg/Ml Vial IVP 12/24/24 00:05 Q6HR PRN PAIN SCALE 4-10(Mod-Sev Ondansetron HCl 4 mg 12/17/24 00:45 12/17/24 02:39 Ondansetron Inj 2 Mg/Ml Inj 2 Ml IVP 01/16/25 00:44 4 mg Q6H PRN Administration NAUSEA OR VOMITING Protocol Pantoprazole Sodium 40 mg 12/21/24 09:00 12/23/24 08:38 Pantoprazole Inj 40 Mg Vial IVP 01/20/25 08:59 40 mg QDAY DANNI Administration Pharmacy Consult 1 each 12/17/24 17:54 Pharmacy Renal Dose Adjustment 1 Ea XX 01/16/25 17:53 PRN PRN CONSULT Sennosides 2 tab 12/22/24 10:20 Senna Tablet PO 01/21/25 10:19 QDAY PRN CONSTIPATION Protocol Tamsulosin HCl 0.4 mg 12/23/24 09:00 12/23/24 08:38 Tamsulosin Hcl 0.4 Mg Capsule PO 01/22/25 08:59 0.4 mg QDAY DANNI Administration Plan Patient is a 89-year-old male with past medical history of hypertension, hypothyroidism, BPH, GERD, [id number] type 2 diabetes mellitus, hyperlipidemia, stage III chronic kidney disease, heart failure with reduced ejection fraction, 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 ICU team was priorly consulted due to persistent hypotension however patient's MAP improved with aggressive fluid resuscitation. Patient was diagnosed with mechanical small bowel obstruction and taken to operating room by general surgery and had exploratory laparotomy with lysis of adhesions and release of obstruction. Patient upgraded to intensive care unit for overnight monitoring. On 12/19/2024, patient was downgraded to med/tele. # S/P exploratory laparotomy with lysis of adhesions and release of obstruction 12/18 #High-grade mechanical small bowel obstruction-Resolved -Per op report, the patient was found to have a complete small bowel obstruction caused by an adhesive band originating from the base of the mesentery, resulting in marked distension of the jejunum. The ileum was decompressed and normal in caliber throughout. No bowel perforation, or free fluid in abdomen. Had arterial line. Blood pressures was stable. Patient had no bowel movement overnight. Upon examination, patient was alert and oriented X3, abdominal pain noted at incision site. -CXR (12/22/2024): Mild heart failure pattern, Mild pneumonia left base, and showed free air beneath right hemidiaphragm. subsequent abdomen XR showed small bowel obstruction pattern with prominently air distended small bowel loops and no free air. However, perforated viscus unlikely as abdomen XR showed no free air and patient had bowel sounds, abdomen was soft and non-distended. Consulted with General Surgery, Dr. Brady who also agreed on this point of view. We will continue to monitor his condition and will continue with his diet. -Abdominal XR (12/22/2024): Small bowel obstruction pattern with prominently air distended small bowel loops and no free air. -Patient had 2 bowel movement overnight. Was able to eat meals without any issues. Plan: -Monitor surgical site for any signs of infection or erythema. -Morphine 3 mg every 6 hours as needed -General Surgery consulted Dr. Parikh, appreciate recommendations -Per General Surgery, Dr. Brady, we will continue to monitor his condition and continue with his diet. -Consulted with GI,Dr. Moreland. EGD is cancelled. Patient's diet changed from NPO to dysphagia diet #Acute hypoxic respiratory failure, #Pneumonia -CXR (12/22/2024): Mild heart failure pattern, Mild pneumonia left base, and There appears to be free air beneath right hemidiaphragm, clinical correlation advised -Patient was on room air was started on supplemental oxygen prior to surgery on hospitalization, likely in setting of increased demand in setting of SIRS. -Patient received doxycycline 12/17 - 12/19, MRSA nares negative -Blood Culture (12/16/2024): Negative for 48hrs. 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 -Pertinent labs: 12/20 12/21 Iron 64 TIBC 174 Iron Sat 36 MCV 93 RBC 3.14 Hgb 10.4 Hct 29.3 Plan: - Follow up with outpatient oncologist for PBF smear report in 2018 - Monitor CBC, transfuse hemoglobin if less than 7 #Chronic HFrEF 30% #Mild Aortic Regurgitation Patient has a past medical history of heart failure, likely cardiomyopathy given previous echo noted for severe systolic dysfunction. Patient is currently not in CHF exacerbation as no crackles noted on physical exam, Cxr mild vascular congestion, and now lower peripheral edema. Previous echocardiogram showed EF 30%. Patient required cardiac clearance prior to surgery which was given by channel marketing coordinator Dr. Tapia. Plan: - Monitor for signs of fluid overload - Metal Fabricator Dr. Tapia was consulted, appreciate recs. - Continue Carvedilol 12.5mg PO BID and Furesomide 20 mg PO QD - Holding home medications Entresto, lisinopril and hydrochlorothiazide in the setting of renal impairment and hypotension during hospital course, consider resuming home medications on discharge or until follow-up appointment with channel marketing coordinator. #Hypernatremia, resolving Patient may have imbalance of sodium due to: SADIQ leading to decreased filtration of kidneys, resulting in excess sodium remaining in the body. Moreover, patient may not be hydrating enough given recent small bowel obstruction. One other possible explanation is not taking thiazide diuretics led to a short term increase in sodium. Plan: - Holding IV fluids in the setting of HFrEF, encourage per oral intake of free water. - Dr. Emerson, appreciate recommendations #Thrombocytopenia, ?chronic Patient recently underwent surgery and needed to receive a unit of platelets prior to surgery. Possible differentials include: infection, given that this patient had a small bowel obstruction, this could have been a source; one other possible cause is vitamin deficiency, such as folate or b12, but that is unlikely given the patient's values are normal; another possible cause is a bone marrow disorder or dysregulation since the patient has low RBC counts too Platelet counts: 12/16 124 12/17 93 12/18 43 12/19 54 12/20 90 12/21 58 Plan: -Monitor for active bruising or bleeding -Monitor CBC #Troponemia, resolving #NSTEMI type II Tropneemia likely NSTEMI type II, in the setting of small bowel obstruction, SIRs, and SADIQ. No ST elevation noted on EKG or changes. Patient is not currently taking nitrates for chest pain Diagnostics: - Pertinent labs 12/20: trop 0.069 trop 12/21: trop 0.048 - EKG(12/20/2024) showed abnormal T-waves with possible atrial fibrillation and PVCs Plan - Consider repeat EKG, monitor for chest pain - Cardiology recommendation: PACs noted and continue telemetry monitoring, Dr. Tapia, appreciate recommendations #Acute SADIQ on CKD, resolved Acute on chronic CKD in the setting of hemorrhagic shock, possible ischemic ATN, patient had remarkable recovery of renal function with improving BUN creatinine and urine output. Special Investigator Dr Balderas follow the patient. Plan: - Special Investigator Dr Balderas is consulted, appreciate recommendations - Monitor renal function - Renally dose medication - Avoid nephrotoxic agents - Monitor UOP # History of hypertension Patient has a past medical history of hypertension. Patient is on GDMT for heart failure, likely Coreg, controlling blood pressure. Patient did have hypovolemic shock on admission, but was fluid responsive with IV fluids, currently post surgery, post resolution of obstruction, noted to be hypertensive, home medication resumed. Plan -continue Carvedilol 12.5 mg PO BID # History of hyperlipidemia Patient has pmh of hyperlipidemia, on atorvastatin 20mg hs ASCVD score non applicable given his age of 89, continue nonetheless Plan: -Resume atorvastatin 20mg QHS upon discharge # history of BPH Patient has a history of BPH, home medication Flomax 0.4 mg. Initially holding Flomax given low blood pressure and concern for shock. Plan -Resume Flomax 0.4 mg #History of Diabetes Mellitus Type 2, non-insulin dependent - Previously patient not taking home medication for diabetes Mellitus not listed. Likely diet controlled -Upon admission patient became hyperglycemic. Pertinent labs: 06/19/24 A1C 6.4 12/19/24 A1C 5.1; FSBG 12/20 193 12/21 150 Plan: -Sliding scale insulin every 6 hours -Hypoglycemia protocol -Monitor fingerstick for now, consider discontinuing if within normal limits -Monitor blood glucose, in daily CMP # History of hypothyroidism Pertinent labs 12/19 TSH 0.46, free T4 0.72 Plan: -Resume levothyroxine DVT prophylaxis: SCDs GI prophylaxis: IV Protonix 40 mg QD Diet: Dysphagia diet Lines: Peripheral IV Code status: Full Code Dispo: Downgraded to med/tele, hospitalist team B Assessment and plan discussed with my attending physician Dr. Anna and Dr. Kuo (PGY-3) Dr. Zamorano (PGY-1)- Internal medicine resident Attending Provider Attestation/Addendum I have examined the patient, reviewed labs and imaging findings, discussed the case with the resident(s), and reviewed entered orders. I agree with the plan of care as outlined in this note, with these additional summaries/recommendations: Patient seen at bedside. No acute overnight events. Family seen at bedside. Patient placed on no food by mouth and will go for EGD with gastroenterology today. Appears SBO has resolved as patient had large bowel movement overnight. Currently denies abdominal pain. Continue IV antibiotics for bacterial pneumonia most likely secondary to GNR's +/- anaerobes. Cardiology following for HFrEF and continue goal-directed medical therapy as tolerated. Hypernatremia still present although slightly improved. Patient continues to have failure to thrive and poor oral intake. Hypoalbuminemia present. Patient's acute kidney injury is improving and nephrology following. Mild hypophosphatemia present and replacement given. Overall patient's prognosis is guarded but I do anticipate discharge in the next 24 to 48 hours. Patient and family updated on the plan and agreement. All questions answered to satisfaction. Please see residents note for additional details and management. Dr. Shoshana MD
--- NOTE | 2024-12-23 14:10 | PC.NURSE ---
Patient has been NPO since 10am. EGD will be done this evening.
--- NOTE | 2024-12-23 19:49 | PC.NURSE ---
Patients chest tube removed at 17:15. After it had been clamped and chest xray was taken. Patients chest tube site draining clear fluid. I notified doctors chest xray ordered.
--- NOTE | 2024-12-23 21:38 | PD.IMPROG ---
Documentation for date of: 12/23/24 Subjective Subjective Interval history: Patient evaluated He ate all his breakfast this morning Case discussed with the internal medicine team No need for an endoscopy Exam Vital Signs Temp Pulse Resp BP Pulse Ox O2 Del Method O2 Flow Rate 97.2 F 72 18 100/53 L 97 Nasal Cannula 2 12/23/24 20:00 12/23/24 20:00 12/23/24 20:00 12/23/24 20:00 12/23/24 20:00 12/23/24 20:00 12/23/24 16:00 Objective Labs 12/23/24 04:51 12/23/24 04:51 Labs: Laboratory Results - last 24 hr 12/23/24 12/23/24 00:55 04:51 WBC 5.8 RBC 3.42 L Hgb 11.0 L Hct 32.2 L MCV 94 MCH 32.2 MCHC 34.2 RDW Std Deviation 48.2 H Plt Count 65 L Neut % (Auto) 81 H Lymph % (Auto) 9 L [place] % (Auto) 6 Eos % (Auto) 1 Baso % (Auto) 0 Neut # (Auto) 4.7 Lymph # (Auto) 0.5 L [place] # (Auto) 0.4 Eos # (Auto) 0.1 Baso # (Auto) 0.0 Immature Gran # (Auto) 0.18 H Absolute Nucleated RBC 0.00 Immature Gran % 3 H Nucleated RBC % 0 Sodium 148 H Potassium 3.4 Chloride 105 Carbon Dioxide 32.1 H Anion Gap 11 BUN 23 Creatinine 1.1 Estim Creat Clear Calc 42.7 L eGFR > 60 BUN/Creatinine Ratio 21 H Glucose 86 Calculated Osmolality 296 H Calcium 8.3 Corrected Calcium 9.2 Phosphorus 2.2 L Magnesium 1.8 Total Bilirubin 0.5 AST 41 H ALT 27 Alkaline Phosphatase 67 Total Protein 5.6 L Albumin 2.9 L Globulin 2.7 Albumin/Globulin Ratio 1.1 L Stool Occult Blood Negative Misc Test Result Platelets confirmed Impressions Impression: Dysphagia resolved Upper endoscopy canceled Advance to dysphagia diet ABG Interpretation ABG results: 12/17/24 12/18/24 12/18/24 12:07 15:43 16:24 ABG pH 7.41 7.34 L 7.30 L ABG pCO2 38 45 46 ABG pO2 60 L 111 H D 152 H D ABG HCO3 24 25 22 ABG O2 Saturation 89 L 99 H 100 H ABG Base Excess 0 -1 -4 L Assessment & Plan A&P Narrative pt had short runs of PACs in [facility] ; currently in SR continue telemetry monitoring Time Spent With Patient Time: Total time spent is greater than 50% in coordination of care (as documented) at patient's floor/unit and/or counseling patient:
[2024-12-24] VITALS (8 sets, daily range): BP systolic 112–140; BP diastolic 57–66; PULSE 57–79; RESP 18–23; TEMP 36.3–36.6; O2SAT 94–99; BMI 24.5
[2024-12-24] MEDS: LEVOTHYROXINE SODIUM 100 MCG TABLET PO (05:08)
[2024-12-24 06:24] LABS: Basophils # (Auto) 0.0 Thou/mm3 (0.0-0.2); Basophils % (Auto) 0 % (0-2.5); Eosinophils # (Auto) 0.1 Thou/mm3 (0.0-0.5); Eosinophils % (Auto) 2 % (0-10); Hematocrit 29.8 % (41.0-53.0); Hemoglobin 10.3 g/dL (13.5-16.0); Immature Granulocytes Auto 0.09 Thou/mm3 (0.00-0.00); Lymphocytes # (Auto) 0.6 Thou/mm3 (1.0-4.8); Lymphocytes % (Auto) 12 % (10-50); Mean Corpuscular HGB Conc 34.6 g/dl (31.0-37.0); Mean Corpuscular Hemoglobin 32.2 pg (25.0-35.0); Mean Corpuscular Volume 93 fL (80-100); Monocytes # (Auto) 0.3 Thou/mm3 (0.0-0.8); Monocytes % (Auto) 6 % (0-12); Neutrophils # (Auto) 3.7 Thou/mm3 (1.8-7.7); Neutrophils % (Auto) 78 % (37-80); Nucleated Red Blood Cell # 0.00 Thou/mm3 (0.00-0.00); Nucleated Red Blood Cell % 0 /100 WBC (0); RDW Standard Deviation 46.4 fL (35.1-43.9); Red Blood Count 3.20 Miln/mm3 (4.50-5.90); White Blood Count 4.7 Thou/mm3 (3.8-10.6)
[2024-12-24 06:34] LABS: Alanine Aminotransferase 21 U/L (10-49); Albumin, Serum 2.8 gm/dL (3.4-4.8); Albumin/Globulin Ratio 1.1 (1.2-2.2); Alkaline Phosphatase 65 U/L (46-116); Anion Gap 7 (7-16); Aspartate Amino Transferase 27 U/L (0-34); BUN/Creatinine Ratio 19 Ratio (12-20); Bilirubin,Total 0.6 mg/dL (0.3-1.2); Blood Urea Nitrogen 19 mg/dL (9-23); Calcium 8.0 mg/dL (8.3-10.6); Calcium (Corrected) 9.0 mg/dL (8.5-10.1); Carbon Dioxide 32.7 mMol/L (20.0-31.0); Chloride 104 mMol/L (98-107); Creatinine (Component) 1.0 mg/dL (0.6-1.3); Estimated Creatinine Clearance 47.0 mL/min (>60); Globulin 2.5 gm/dL (2.3-3.5); Glucose 124 mg/dL (74-106); Magnesium 1.4 mg/dL (1.6-2.6); Osmolality,Calculated 290 (275-295); Phosphorous 1.7 mg/dL (2.4-5.1); Potassium 3.1 mMol/L (3.4-5.1); Sodium 144 mMol/L (136-145); Total Protein 5.3 gm/dL (5.7-8.2); eGFR > 60 See Note
[2024-12-24 06:36] LABS: Platelet Count 67 Thou/mm3 (140-440)
[2024-12-24 07:45] LABS: Slide Review Platelets confirmed
--- NOTE | 2024-12-24 08:26 | ESPR_ITS ---
Documentation for date of: 12/24/24 Subjective Subjective Interval history: Lars Landry is an 89-year-old M with a PMH of hypertension, hypothyroidism, T2DM, BPH, GERD, HLD, CKD stage III, and HFrEF who presents today with belly pain, nausea, and vomiting. Patient states that he began to have abdominal discomfort last after eating out, which has worsened since then. States it is localized to the umbilicus region of the abdomen. Patient characterizes the pain as constant and burning. It worsens with eating and improves after drinking liquids. Patient denies ever having a similar presentation in the past. The patient last vomited on Sunday and describes the vomitus as being brown in color. His last bowel movement was 5 to 6 days ago and productive of liquid brown stool. He also endorses a cough that is productive of black mucus. At the time of the interview, patient reported his belly pain to be a 3/10. In the ED, patient came in with low blood pressure of 46/35 that improved after having total 1.25 NS bolus and continues to be on 1 L NS maintenance fluids. Patient found to have high anion gap metabolic acidosis, BUN 119, Cr 5.8, eGFR 9, lactic acid of 4.2 (improved to 2.6), and elevated trop 0.098. UA was turbid and showed 1+ protein, 1+ bilirubin, slightly high WBC 8, and amorphous crystals with some hyaline casts. CT AP was consistent with reflux esophagitis and sbo (f/u small bowel series). EKG showed sinus rhythm with possible left atrial enlargement, left axis deviation, and left bundle branch block. Head CT and CXR was unremarkable. Patient was admitted for the work-up and management of suspected SBO. 12/17/2024 When patient was seen and examined, he had his sister and niece at bedside. Patient is alert and oriented x3 and says he is feeling good, just feels a little weak. Denies and new concerns/complaints. Patient denies having fever, headache, chest pain, shortness of breath, abdominal pain, flank pain or dysuria. Patient noted PCP is Dr. Barcenas in [place]. 12/18/2024 Patient was seen and examined. Patient is moving and speaking a lot slower, still is a&o x3. Patient states he feels thirsty, weak and has some mild abdominal pain with nausea that has been getting worse overnight. Patient denies fever, chest pain, shortness of breath, vomiting, dysuria. Patient was given an amp of dextrose this morning and was started on KCl maintenance fluids. Patient's Cr improved to 4.2 today (5.0 yest). 12/19/2024 Patient was seen and examined. Patient's vitals and labs were examined. Patient had ex lap yesterday for obstruction. Patient's Cr improving, on maintenance fluids NS. Patient states he continues to feel thirsty, weak and has some mild abdominal pain. Patient denies fever, chest pain, shortness of breath, nausea, vomiting, dysuria. Notable labs includes sodium 146, chlroide 113, bicarb 18.6, BUN 85, Cr 2.5. 12/20/2024 Patient was seen and examined. Patient's vitals and labs were examined. Patient's Cr improving, started on d5w now and lantus. Patient still endorses some mild abdominal pain. Patient denies fever, chest pain, shortness of breath, nausea, vomiting, dysuria. 12/21/24: Patient seen and examined at bedside. No new complaints. Denies chest pain, SOB or fever. Cr and BUN continue to improve 1.8->1.2 and 64->49. 12/22/24: Patient seen and examined at bedside. Patient is sitting up on the side of the bed, eating breakfast. No new complaints. Denies chest pain, SOB or fever. Cr continues to be improved (1.0). 12/23/24: No acute events overnight. Patient resting in bed with no acute distress, a&o x3. Patient is tolerating drinking a little bit of fluids, endorsed BM this morning. No new complaints. Denies chest pain, SOB or fever. Cr continues to be improved (1.1). 12/24/24: No acute events overnight. Patient resting in bed with no acute distress, a&o x3. No new complaints. Denies chest pain, SOB or fever. Cr continues to be improved (1.0). Exam Vital Signs Temp Pulse Resp BP Pulse Ox O2 Del Method O2 Flow Rate 97.4 F 72 23 H 140/66 H 97 Room Air 2 12/24/24 08:00 12/24/24 08:00 12/24/24 08:00 12/24/24 08:00 12/24/24 08:00 12/24/24 08:00 12/23/24 16:00 Narrative Exam GENERAL: AOx3, no acute distress HEENT: NC/AT, mucous membranes moist, bilateral sclera anicteric CARDIOVASCULAR: regular rate and rhythm, S1/S2 present, no murmurs appreciated PULMONARY: clear to auscultation bilaterally, no rales/rhonchi/wheezes ABDOMINAL: soft, tender to palpation around surgical site, non-distended, no rebound/guarding, bowel sounds present EXTREMITIES: no peripheral edema SKIN: warm and dry, intact, no rashes NEURO: CN II-XII grossly intact, no focal deficits, alert, following commands Objective Labs 12/24/24 04:48 12/24/24 04:48 Labs: Laboratory Results - last 24 hr 12/23/24 12/24/24 04:51 04:48 WBC 4.7 RBC 3.20 L Hgb 10.3 L Hct 29.8 L MCV 93 MCH 32.2 MCHC 34.6 RDW Std Deviation 46.4 H Plt Count 67 L Neut % (Auto) 78 Lymph % (Auto) 12 [place] % (Auto) 6 Eos % (Auto) 2 Baso % (Auto) 0 Neut # (Auto) 3.7 Lymph # (Auto) 0.6 L [place] # (Auto) 0.3 Eos # (Auto) 0.1 Baso # (Auto) 0.0 Immature Gran # (Auto) 0.09 H Absolute Nucleated RBC 0.00 Immature Gran % 2 H Nucleated RBC % 0 Sodium 144 Potassium 3.1 L Chloride 104 Carbon Dioxide 32.7 H Anion Gap 7 BUN 19 Creatinine 1.0 Estim Creat Clear Calc 47.0 L eGFR > 60 BUN/Creatinine Ratio 19 Glucose 124 H Calculated Osmolality 290 Calcium 8.0 L Corrected Calcium 9.0 Phosphorus 1.7 L Magnesium 1.4 L Total Bilirubin 0.6 AST 27 ALT 21 Alkaline Phosphatase 65 Total Protein 5.3 L Albumin 2.8 L Globulin 2.5 Albumin/Globulin Ratio 1.1 L Misc Test Result Platelets confirmed Platelets confirmed ABG Interpretation ABG results: 12/17/24 12/18/24 12/18/24 12:07 15:43 16:24 ABG pH 7.41 7.34 L 7.30 L ABG pCO2 38 45 46 ABG pO2 60 L 111 H D 152 H D ABG HCO3 24 25 22 ABG O2 Saturation 89 L 99 H 100 H ABG Base Excess 0 -1 -4 L Quality Measures Quality Measures VTE prophylaxis Advance care planning discussed with:: patient Assessment & Plan Assessment Current Active Medications: Generic Name Dose Route Start Last Admin Trade Name Freq PRN Reason Stop Dose Admin Benzocaine 0 dose 12/22/24 13:39 12/22/24 18:41 Benzocaine 20% (Hurricaine) Dana 1 Dose TOP 01/21/25 13:38 1 dose Q6HR PRN Administration Odynophagia Carvedilol 12.5 mg 12/21/24 08:02 12/23/24 19:46 Carvedilol 12.5 Mg Tablet PO 01/19/25 17:29 Not Given BIDWM DANNI Dextrose 25 ml 12/17/24 04:55 12/18/24 07:23 Dextrose 50%-Water Inj 50 Ml Syringe IV 01/16/25 04:54 25 ml Q15MIN PRN Administration BG 50-70 responsive npo pt Dextrose 50 ml 12/17/24 04:55 Dextrose 50%-Water Inj 50 Ml Syringe IV 01/16/25 04:54 Q15MIN PRN BG <50 OR BG <70 & pt unresponsive Furosemide 20 mg 12/21/24 09:00 12/23/24 08:38 Furosemide 20 Mg Tablet PO 01/20/25 08:59 20 mg QDAY DANNI Administration Glucagon 1 mg 12/17/24 04:55 Glucagon Inj 1 Mg Vial IM Q15MIN PRN BG <70, and no IV access Guaifenesin 100 mg 12/19/24 15:08 12/19/24 15:39 Guaifenesin Syrup 200 Mg/10 Ml Udc PO 01/18/25 15:07 100 mg QID PRN Administration COUGH Protocol Ceftriaxone Sodium/Dextrose 1 gm in 50 mls @ 100 mls/hr 12/17/24 17:54 12/23/24 08:38 Rocephin/D5w 1gm Iv Premix IV 12/24/24 17:53 50 mls/hr QDAY DANNI Administration Metronidazole 500 mg in 100 mls @ 200 mls/hr 12/20/24 09:00 12/23/24 22:02 Flagyl 500 Mg Iv IV 12/27/24 08:59 200 mls/hr Q12HR DANNI Administration Potassium Phosphate 15 mmol in 250 mls @ 62.5 mls/hr 12/24/24 07:41 Pot Phos 15 Mmol In Ns 250 Ml IV 12/24/24 15:40 Q4H DANNI Magnesium Sulfate 4 gm in 50 mls @ 12.5 mls/hr 12/24/24 09:00 Magnesium Sulfate Ivpb IV 12/24/24 12:59 X1 ONE Insulin Glargine 10 unit 12/20/24 09:00 12/23/24 08:50 Insulin Glargine (Lantus) 5 Unit/0.05 Ml (Per 5 Units) SC 01/19/25 08:59 Not Given QDAY DANNI Insulin Human Lispro 0 unit 12/20/24 07:30 12/23/24 18:39 Insulin Lispro (Admelog) 1 Unit/0.01 Ml Unit SC 01/19/25 07:29 Not Given AC DANNI Protocol Levothyroxine Sodium 100 mcg 12/19/24 06:00 12/24/24 05:08 Levothyroxine Sodium 100 Mcg Tablet PO 01/18/25 05:59 100 mcg ACBR DANNI Administration Ondansetron HCl 4 mg 12/17/24 00:45 12/17/24 02:39 Ondansetron Inj 2 Mg/Ml Inj 2 Ml IVP 01/16/25 00:44 4 mg Q6H PRN Administration NAUSEA OR VOMITING Protocol Pantoprazole Sodium 40 mg 12/21/24 09:00 12/23/24 08:38 Pantoprazole Inj 40 Mg Vial IVP 01/20/25 08:59 40 mg QDAY DANNI Administration Pharmacy Consult 1 each 12/17/24 17:54 Pharmacy Renal Dose Adjustment 1 Ea XX 01/16/25 17:53 PRN PRN CONSULT Potassium Phos/Sodium Phos 1 packet 12/24/24 09:00 Naph,[facility] Mbdb 1 Packet (1.5 Gm) PO 01/23/25 08:59 BID DANNI Sennosides 2 tab 12/22/24 10:20 Senna Tablet PO 01/21/25 10:19 QDAY PRN CONSTIPATION Protocol Tamsulosin HCl 0.4 mg 12/23/24 09:00 12/23/24 08:38 Tamsulosin Hcl 0.4 Mg Capsule PO 01/22/25 08:59 0.4 mg QDAY DANNI Administration Plan Lars Landry is an 89-year-old M with a PMH of hypertension, hypothyroidism, T2DM, BPH, GERD, HLD, CKD stage III, and HFrEF who presented with belly pain, nausea, and vomiting. Patient was admitted for the work-up and management of suspected SBO. Patient was consulted for SADIQ on CKD #Acute renal failure on CKD (stage III), improved #Lactic acidosis, resolved Suspect pre-renal etiology 2/2 dehydration and poor oral intake. Cr 5.8 on admission (baseline 1.2), continues to be improved. Good urine output with stanley. S/p ex lap for abd obstruction. - Patient is eating well, making urine, had BM this morning. - Cr 1.0, ctm - Strict I/Os, monitor UOP - Renal dose med, avoid nephrotoxins - Nephrology signing off for now. #SBO #Elevated troponins, likely 2/2 NSTEMI Type II #Chronic medical problems #Reflux esophagitis #T2DM #Hypothyroidism problems above managed via primary team Thank you for allowing us to be apart of the care for Mr. Landry Plan of care discussed with attending, Dr. Andrey Miguel MD PGY-1 Attending Provider Attestation/Addendum Patient seen and examined with resident physician Dr. Miguel. Note reviewed, agree with findings and recommendations. BUN and creatinine markedly improved. Electrolytes stable. Renal perez stable for discharge.
[2024-12-24] MEDS: Magnesium Sulfate 4 GM Ivpb 4 GM/50 ML BAG IV (08:43)
[2024-12-24] MEDS: metroNIDAZOLE/NS 500 MG IVPB 500 MG/100 ML BAG 200 MG IV (08:44)
[2024-12-24] MEDS: cefTRIAXone/D5w 1gm IV premix 1 GM/50 ML BAG IV (08:44)
[2024-12-24] MEDS: POTASSIUM CHLORIDE 10% 20 MEQ/15 ML UDC 40 MEQ PO (08:44)
[2024-12-24] MEDS: TAMSULOSIN HCL 0.4 MG CAPSULE PO (08:45)
[2024-12-24] MEDS: NAPH,KPH MBDB 1 PACKET (1.5 GM) PO (08:45)
[2024-12-24] MEDS: MAGNESIUM OXIDE 400 MG TABLET PO (08:45)
[2024-12-24] MEDS: INSULIN GLARGINE (Lantus) 5 UNIT/0.05 ML (PER 5 UNITS) 10 UNIT SC (08:45)
--- NOTE | 2024-12-24 08:45 | PC.SS ---
Addendum entered by MARSHA Browne 12/24/24 16:44: Updated [facility] via [employer]. Addendum entered by MARSHA Browne 12/24/24 16:43: [place] dispatch team called and moved transport to 1900. OMAIRA Malagon made aware. Addendum entered by MARSHA Browne 12/24/24 15:41: MONICA obtained by transfer nurse Neal, [facility] ETA provided 1700. [facility], patient and OMAIRA Malagon updated on ETA for 1700. Addendum entered by MARSHA Browne 12/24/24 14:37: [facility] confirms they can accept the patient. OMAIRA Malagon informs the patient had a BM yesterday. Family is requesting transportation to be arranged as patient does not have insurance coverage and is requiring 2L of oxygen. Addendum entered by MARSHA Browne 12/24/24 14:34: Rounding note: patient is ready for d/c to [facility]. Patient's sister Elle were made aware and confirmed the d/c plan. Addendum entered by MARSHA Browne 12/24/24 08:49: SS update: sent PAS[facility] via e-file exchange to [facility]. Original Note: SS follow up: spoke with Dena Sauceda at [facility], she informs that insurance authorization was obtained for SNF. Notified her that patient was identified as a late d/c for today and she is aware and agreeable to accept the patient this evening.
[2024-12-24] MEDS: POT PHOS 15 mMol in NS 250 ML 15 MMOL/250 ML BAG 62.5 MMOL IV ×2 (10:28→14:04)
[2024-12-24] MEDS: INSULIN LISPRO (AdmeLOG) 1 UNIT/0.01 ML UNIT SC (11:58)
--- NOTE | 2024-12-24 13:44 | PD.RESDS ---
Planned Discharge Date 12/24/24 DS: Providers Provider Date of admission: 12/17/24 00:45 Primary care physician: Physician No Primary/Family Admitting Provider: Krish Ramirez MD Attending Provider on Admission: Adriano Coughlin MD Consults: 12/17/24 09:30 Consult to Nephrology Routine Comment: Consulting Provider: Danette Balderas 12/17/24 11:57 Consult to General Surgery Stat Comment: Consulting Provider: Jose Antonio Byrd 12/17/24 12:02 Consult to Oracle Sql Developer Stat Comment: Consulting Provider: Kat Mcclelland 12/18/24 11:40 Consult to Cardiology Stat Comment: Consulting Provider: Thanh Tapia Instructions: Cardiac Clearance; EF 35% and renal failure Small bowel obstruction 12/20/24 10:50 Consult to Gastroenterology Routine Comment: Consulting Provider: Sue Moreland 12/20/24 13:01 Referral Physical Therapy Routine Comment: Physician Instructions: Instructions: For ambulation 12/22/24 13:40 Referral Speech Therapy Routine Comment: Instructions: odynophagia 12/22/24 17:58 Referral Registered Dietitian Routine Comment: possible PPN, patient has not eaten since admissio Attending Provider on DC: RESIDENT Silvana Discharging Provider: RESIDENT Silvana DS: Diagnosis Problem List Completed Was Problem List Reviewed/Reconciled?: Yes Hospital Course Hospital Course Hospital course: Summary: Patient is a 89-year-old male with past medical history of hypertension, hypothyroidism, BPH, GERD, bfb-[id number]-[id number] type 2 diabetes mellitus, hyperlipidemia, stage III chronic kidney disease, heart failure with reduced ejection fraction, EF 30% 06/2024, chronic anemia 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 ICU team was priorly consulted due to persistent hypotension however patient's MAP improved with aggressive fluid resuscitation. Patient was diagnosed with mechanical small bowel obstruction and taken to operating room by general surgery and had exploratory laparotomy with lysis of adhesions and release of obstruction. Patient upgraded to intensive care unit for overnight monitoring. On 12/19/2024, patient was downgraded to med/tele. Patient started to have bowel movement with return of appetite. ED course: CBC showed slightly low platelet count 124 but was otherwise unremarkable. CMP showed low chloride 87, high anion gap 23, significantly high BUN 119, significantly high creatinine 5.8, significantly low EGFR 9, high blood glucose 183, high calculated osmolality 313, high lactic acid 4.2, high troponin I 0.091, and high lipase 93. UA was turbid and showed 1+ protein, 1+ bilirubin, slightly high WBC 8, and amorphous crystals with some hyaline casts. On imaging: Noncontrast CT AP showed fluid distended esophagus with wall thickening (consistent with reflux esophagitis) and high-grade mechanical small bowel obstruction (recommended Gastrografin small bowel series follow up). EKG showed sinus rhythm with possible left atrial enlargement, left axis deviation, and left bundle branch block. Head CT and CXR was unremarkable. Patient was given a 1L and 0.25L NS bolus and started on 1L NS maintenance fluid. Patient was admitted for the work-up and management of suspected SBO. Hospital Course: Upon admission, NG tube was placed for nasogastric decompression. Gastrografin small bowel series revealed high grade mechanical small bowel obstruction. 3.5L of coffee-ground fluid was aspirated through NG tube. Patient's hemoglobin was downtrending and multiple events of shock that is responsive to IVF boluses, concerning for hypovolemic shock. Upper GI bleed was suspected. Patient had high anion gap metabolic acidosis secondary to acute renal failure and high lactic acid level. He was treated with NS IVF. Chest XR also showed significant diffuse left lung pneumonia and was subsequently given IV doxycycline 100mg IV bid and Ceftriaxone 1gIV qd.??Consulted with General Surgery, Dr. Jimenez who recommended exploratory laparotomy. Received cardiac clearance from Cardiology, Dr. Tapia and Nephrology, Dr. Balderas. On 12/18/2024, patient completed exploratory laparotomy and lysis of adhesions and release of obstruction. After surgery, patient was upgraded to intensive care unit for overnight monitoring. In ICU, patient became alert and oriented x3, had 3 bowel movement. There was low clinical suspicion of GI bleed as patient did not require any active transfusion, NG tube output was green in color, and MAP had been stable. Patient's renal function has improved with IV fluid resuscitation. Lactic acidosis and high anion gap metabolic acidosis had been resolved. On 12/19/2024, patient has been downgraded from ICU to med/tele. Repeat chest XR showed mild bibasilar pneumonia. Patient continued IV ceftriaxone 1g qd and metronidazole 500mg in 100ml IV q12hr was added to cover possible aspiration pneumonia. Doxycycline was discontinued. Patient NG tube was discontinued and started on clear liquid diet. Patient did have bowel movement the day following surgery, but had no bowel movement or passed gas ever since. Patient developed dysphagia with odynophagia. EGD was scheduled for examination and possible esophageal dilatation. Patient was put NPO. The next day, patient started to have bowel movement, appetite has returned, and had no difficulty swallowing. Patient's diet switched from NPO to cardiac diet. The patient is stable, afebrile and tolerating Per oral medications at the time of discharge. The patient understood and agreed to the treatment plan. #S/P exploratory laparotomy with lysis of adhesions and release of obstruction 12/18 #High-grade mechanical small bowel obstruction-Resolved #Acute hypoxic respiratory failure #Pneumonia #Normocytic normochromic anemia, likely multifactorial #Chronic HFrEF 30% #Mild Aortic Regurgitation #Hypernatremia, resolved #Thrombocytopenia #NSTEMI type II #Acute SADIQ on CKD, resolved #History of hypertension #History of hyperlipidemia #History of BPH #History of Diabetes Mellitus Type 2, non-insulin dependent #History of hypothyroidism Instructions: -Patient received complete course of antibiotics for pneumonia inpatient -Continue all medication as prescribed. -HOLD Entresto and Lisinopril until you see your industrial accountant, as your blood pressure has been within normal limit in the hospital. -STOP Glipizide as patient reported no longer taking, A1c 5.1%. Please follow up with your primary care provider if you should resume. -Please follow up with general surgeon, Dr. Brady, within one week of discharge -Please follow up with your industrial accountant, Dr. Tapia, for your heart failure and have Dr. Tapia resume your heart failure medication as blood pressure tolerates. Follow up within one week of discharge. -Please follow up with your primary care provider within one week of discharge -If your symptoms worsen,please seek immediate medical attention and return to your nearest emergency room -If you do not have a primary care provider, you may follow up at the [facility] [address] [address], [place] [address], Safe to discharge to SNF Assessment and plan discussed with my attending physician Dr. Anna and Dr. Kuo (PGY-3) Dr. Zamorano (PGY-1)- Internal medicine resident Senior resident attestation: Patient evaluated and examined at the bedside, plan of care discussed with rest of the team including my attending physician, except as noted. Patient was admitted for small bowel obstruction, high-grade mechanical SBO seen on CT, corresponding with symptoms of abdominal distention, poor appetite and vomiting, found to have largely distended stomach, NG tube was placed aspirated 2.5 L of gastric aspirate, was also hypotensive likely secondary to hypovolemic shock, fluid responsive, received IV fluid boluses, careful monitoring due to HFrEF EF 30%. General surgery was consulted, Dr. Jimenez will take the patient to the OR, ex lap was done and lysis of adhesions was done, patient had a short ICU stay post surgery. Later was downgraded to medical floor once stable, was started on diet, at time of discharge patient is stable, tolerating per oral diet and medications, patient will be discharged [facility] and physical therapy. Ayaan PGY3 Time Spent with Patient Time attestation: Total time spent providing and/or coordinating discharge services: Time spent: Greater than 30 minutes Exam Vital Signs Temp Pulse Resp BP Pulse Ox O2 Del Method O2 Flow Rate 97.4 F 66 18 117/58 L 94 L Room Air 2 12/24/24 12:00 12/24/24 12:12/24/24 12:12/24/24 12:12/24/24 12:12/24/24 12:12/23/24 16:00 Narrative Exam General: Awake, tired. Conversational and non-toxic appearing. Eye: PERRL, EOMI, normal conjunctiva, no scleral icterus HENT: Normocephalic, atraumatic, hearing intact to conversation at normal volume, moist oral mucosa Neck: Supple, non-tender, no JVD, no lymphadenopathy Lungs: Non-labored respirations, symmetric chest rise, Clear to auscultate bilaterally Heart: Peripheral pulses intact bilaterally Abdomen: Soft, non-tender, non-distended, Surgical site was clean, dry and intact. Musculoskeletal: Normal range of motion and strength Skin: Skin is warm, dry, no rashes or lesions. Psychiatric: Cooperative, appropriate mood and affect Neuro: Cranial nerves II-XII grossly intact. Alert and Oriented x3. Sensations intact to light touch. Discharge Plan Plan Patient Disposition: Xfer Skilled Ns Fac (SNF) Patient condition on transfer: Stable Care Plan Goals: Instructions: -Patient received complete course of antibiotics for pneumonia inpatient -Continue all medication as prescribed. -HOLD Entresto and Lisinopril until you see your industrial accountant, as your blood pressure has been within normal limit in the hospital. -STOP Glipizide as patient reported no longer taking, A1c 5.1%. Please follow up with your primary care provider if you should resume. -Please follow up with general surgeon, Dr. Brady, within one week of discharge -Please follow up with your industrial accountant, Dr. Tapia, for your heart failure and have Dr. Tapia resume your heart failure medication as blood pressure tolerates. Follow up within one week of discharge. -Please follow up with your primary care provider within one week of discharge -If your symptoms worsen,please seek immediate medical attention and return to your nearest emergency room -If you do not have a primary care provider, you may follow up at [facility] [address], [place] [address], Prescriptions/Referrals Prescriptions/Med Rec: Continued tamsulosin 0.4 mg capsule 0.4 mg PO QDAY Levothyroxine * (SYNTHROID *) 100 MCG tablet 100 mcg PO QDAY Qty: 90 cholecalciferol (vitamin D3) [Vitamin D3] 2,000 UNIT capsule 2,000 unit PO QDAY Qty: 0 carvedilol 12.5 mg Tablet 12.5 mg PO BID 30 Days Qty: 60 1RF furosemide [Lasix] 20 mg tablet 20 mg PO Q OTHER DAY 30 Days Qty: 15 1RF atorvastatin 20 mg tablet 20 mg PO QDAY potassium chloride 8 mEq tablet extended release 8 meq PO BID Patient Comments: TAKE 1 TABLET BY MOUTH TWICE DAILY Held lisinopril 40 MG tablet 40 mg PO QDAY Qty: 90 Hold Instructions: Resume on 01/01/25. Please hold until you follow up with your industrial accountant if save to resume, your blood pressure has been within normal limits and at times low Entresto 24-26 mg tablet 1 tab PO BID Hold Instructions: Resume on 01/01/25. Please continue to hold Entresto, until your industrial accountant resumes as your blood pressure has been low Discontinued GLIPIZIDE 10 mg PO QDAY Qty: 0 Isosorbide Mononitrate * (IMDUR *) 30 MG TAB.ER.24H 30 mg PO QDAY Qty: 90 hydrochlorothiazide 25 MG tablet 25 mg PO QAM Qty: 0 Glucosamine/MSM/Chondroitin A * (TRIPLEFLEX *) 1 EACH tablet 1 tab PO BID Qty: 0 levothyroxine 100 mcg tablet 100 mcg PO DAILY Referrals: No Primary/Family,Physician [Primary Care Provider] - Jose Antonio Byrd MD [Physician] - Thanh Tapia MD [Physician] - Danette Balderas MD [Physician] - Patient/Caregiver Discharge Instructions Education Materials: Small Bowel Obstruction Print Language: Tamazight Stand Alone Forms: Zoraida Award Info., Patient Portal Info Letter Discharge Order Discharge Orders: Discharge (Routine); Ordered 12/24/24 Ordered By: Giselle Douglas Quality Discharge Quality Measures VTE prophylaxis MD Attestestation MD Attestation I have examined the patient, reviewed labs and imaging findings, discussed the case with the resident(s), and reviewed entered orders. I agree with the plan of care as outlined in this note. Time Spent: [address] Shoshana MD
--- NOTE | 2024-12-24 16:19 | PC.NURSE ---
RN called to give report to [facility] at 1619. RN was asked to call back. The RN that was going to take report was unavailable.
--- NOTE | 2024-12-24 17:14 | PC.NURSE ---
RN gave report to Mild[facility] at 1715. ETA for transportation to picker and sorter load and unload pt is 1900.
== END 2024-12-24 18:10 | disposition skilled nursing facility (03) | DRG 335 ==
LOC: SERX 23:12 → SERHOLD 12-17 01:26 → S3NX 12-17 04:22 → S2SX 12-19 07:33 → S3NX 12-19 07:33 → S2SX 12-19 09:58 → S3SX 12-19 14:34
PROVIDERS: Anesthesiology; Nurse Anesthetist, Certified Registered; Physician Assistant Medical; Specialist; Surgery; Admitting Provider Student in an Organized Health Care Education/Training Program; Emergency Provider Emergency Medicine; Visit Provider Internal Medicine
PROC: 0DNB0ZZ Release Ileum, Open Approach (ICD-10-PCS; CPT 49000; principal; 2024-12-18 14:00)
DX: K56.691 Other complete intestinal obstruction (principal); I21.A1 Myocardial infarction type 2; J96.01 Acute respiratory failure with hypoxia; N17.0 Acute kidney failure with tubular necrosis; R57.1 Hypovolemic shock; J15.9 Unspecified bacterial pneumonia; E87.20 Acidosis, unspecified; I13.0 Hypertensive heart and chronic kidney disease with heart failure and stage 1 through stage 4 chronic kidney disease, or unspecified chronic kidney disease; I50.22 Chronic systolic (congestive) heart failure; E87.0 Hyperosmolality and hypernatremia; K31.0 Acute dilatation of stomach; R47.01 Aphasia; E87.29 Other acidosis; I42.9 Cardiomyopathy, unspecified; K92.2 Gastrointestinal hemorrhage, unspecified; E03.9 Hypothyroidism, unspecified; N18.30 Chronic kidney disease, stage 3 unspecified; E11.22 Type 2 diabetes mellitus with diabetic chronic kidney disease; N40.0 Benign prostatic hyperplasia without lower urinary tract symptoms; E78.5 Hyperlipidemia, unspecified; K21.9 Gastro-esophageal reflux disease without esophagitis; E11.65 Type 2 diabetes mellitus with hyperglycemia; K21.00 Gastro-esophageal reflux disease with esophagitis, without bleeding; K56.52 Intestinal adhesions [bands] with complete obstruction; D63.1 Anemia in chronic kidney disease; E83.39 Other disorders of phosphorus metabolism; E87.6 Hypokalemia; E87.8 Other disorders of electrolyte and fluid balance, not elsewhere classified; E88.09 Other disorders of plasma-protein metabolism, not elsewhere classified; I25.10 Atherosclerotic heart disease of native coronary artery without angina pectoris; K22.89 Other specified disease of esophagus; R13.10 Dysphagia, unspecified; R62.7 Adult failure to thrive; Z79.4 Long term (current) use of insulin; Z79.84 Long term (current) use of oral hypoglycemic drugs; Z79.890 Hormone replacement therapy; Z79.899 Other long term (current) drug therapy; Z93.3 Colostomy status; D69.6 Thrombocytopenia, unspecified; N27.1 Small kidney, bilateral
CPT/HCPCS: 36415; 36600; 70450; 71045; 74018; 74176; 74250; 76770; 80051; 80053; 80069; 80074; 81001; 82010; 82270; 82436; 82570; 82607; 82746; 82803; 83036; 83540; 83550; 83605; 83690; 83735; 83880; 84100; 84132; 84133; 84300; 84439; 84443; 84484; 85014; 85018; 85025; 85046; 86140; 86580; 86850; 86900; 86901; 86965; 87040; 92526; 92610; 93005; 93225; 96361; 96374; 96376; 97162; 99308; A4217; A4649; J0131; J0696; J1644; J1815; J1938; J2250; J2371; J2405; J2470; J3475; J3480; J3490; J7030; J7042; J7050; J7070; J7120; J7999; P9035; A9270; J1836

== ENCOUNTER → 2025-03-20 | Outpatient (CLI) | payer OTHER, SELFPAY ==
[2025-03-20 08:22] LABS: Basophils # (Auto) 0.0 Thou/mm3 (0.0-0.2); Basophils % (Auto) 1 % (0-2.5); Eosinophils # (Auto) 0.1 Thou/mm3 (0.0-0.5); Eosinophils % (Auto) 4 % (0-10); Hematocrit 28.3 % (41.0-53.0); Hemoglobin 10.0 g/dL (13.5-16.0); Immature Granulocytes Auto 0.00 Thou/mm3 (0.00-0.00); Lymphocytes # (Auto) 1.2 Thou/mm3 (1.0-4.8); Lymphocytes % (Auto) 33 % (10-50); Mean Corpuscular HGB Conc 35.3 g/dl (31.0-37.0); Mean Corpuscular Hemoglobin 32.2 pg (25.0-35.0); Mean Corpuscular Volume 91 fL (80-100); Monocytes # (Auto) 0.3 Thou/mm3 (0.0-0.8); Monocytes % (Auto) 9 % (0-12); Neutrophils # (Auto) 1.9 Thou/mm3 (1.8-7.7); Neutrophils % (Auto) 53 % (37-80); Nucleated Red Blood Cell # 0.00 Thou/mm3 (0.00-0.00); Nucleated Red Blood Cell % 0 /100 WBC (0); Platelet Count 92 Thou/mm3 (140-440); RDW Standard Deviation 45.6 fL (35.1-43.9); Red Blood Count 3.11 Miln/mm3 (4.50-5.90); White Blood Count 3.6 Thou/mm3 (3.8-10.6)
[2025-03-20 08:33] LABS: B-Type Natriuretic Peptide 85 pg/mL (0-100); Glucose Estimated Average 131 mg/dL (80-131); Hemoglobin A1C 6.2 % Hgb (4.8-6.0)
[2025-03-20 08:46] LABS: Vitamin D 25 Hydroxy Total 57.6 ng/mL (7.3-40.2)
[2025-03-20 08:52] LABS: Alanine Aminotransferase 8 U/L (10-49); Albumin, Serum 4.1 gm/dL (3.4-4.8); Albumin/Globulin Ratio 1.2 (1.2-2.2); Alkaline Phosphatase 73 U/L (46-116); Anion Gap 9 (7-16); Aspartate Amino Transferase 16 U/L (0-34); BUN/Creatinine Ratio 21 Ratio (12-20); Bilirubin,Total 0.5 mg/dL (0.3-1.2); Blood Urea Nitrogen 36 mg/dL (9-23); Calcium 9.3 mg/dL (8.3-10.6); Calcium (Corrected) 9.3 mg/dL (8.5-10.1); Carbon Dioxide 25.2 mMol/L (20.0-31.0); Cardiac Risk Estimate 3.8 RATIO (4.0-6.7); Chloride 109 mMol/L (98-107); Cholesterol 106 mg/dL (132-200); Creatinine (Component) 1.7 mg/dL (0.6-1.3); Free T4 (Free Thyroxine) 1.24 ng/dL (0.89-1.76); Globulin 3.4 gm/dL (2.3-3.5); Glucose 145 mg/dL (74-106); HDL Cholesterol 28 mg/dL (40-60); LDL Cholesterol,Calculated 56 mg/dL (0-130); Osmolality,Calculated 296 (275-295); Potassium 4.7 mMol/L (3.4-5.1); Sodium 143 mMol/L (136-145); Thyroid Stimulating Hormone 1.81 uIU/mL (0.55-4.78); Total Protein 7.5 gm/dL (5.7-8.2); Triglycerides 109 mg/dL (30-150); eGFR 39 See Note
== END | disposition home or self-care (01) ==
LOC: COPL 07:44
PROVIDERS: PCP Internal Medicine; Referring Provider Internal Medicine; Visit Provider Internal Medicine
DX: Z00.00 Encounter for general adult medical examination without abnormal findings (principal); E11.9 Type 2 diabetes mellitus without complications; E55.9 Vitamin D deficiency, unspecified
CPT/HCPCS: 36415; 80053; 80061; 82306; 83036; 83880; 84439; 84443; 85025